=== PATIENT | female | born 1980 | race Caucasian/White ===

== ENCOUNTER 2020-06-18 19:51 | Emergency (ER) | payer MEDICARE, MEDICAID, SELFPAY ==
--- NOTE | 2020-06-18 19:53 | ED.DENTAL ---
HPI - Dental/Oral General Chief complaint: Dental/Oral Stated complaint: Tooth Pain Time Seen by Provider: 06/18/20 19:53 Source: patient and RN notes reviewed History of Present Illness HPI Narrative: Patient is a 40-year-old female who presents the urgent care with complaints of dental pain for the last 2 days. Patient significant other states that she is taking everything such as Tylenol and ibuprofen and she needs something stronger . Patient states that she needs a prescription pain medicine . Patient is complaining of lower left molar pain without fever, chills, nausea, vomiting, swelling. No other acute complaints. No acute distress noted. Patient read the plan of care. Some parts of this dictation were generated by voice recognition software and may contain typographical and/or grammatical inaccuracies. Related Data Allergies Allergy/AdvReac Type Severity Reaction Status Date / Time No Known Allergies Allergy Verified 03/14/19 17:49 Review of Systems Review of Systems: Narrative: CONSTITUTIONAL: Denies fever, chills, or sweats. EYES: Denies visual changes, redness, or discharge. ENT: Denies rhinorrhea, congestion, sore throat, or otalgia. Reports of lower left dental pain CARDIOVASCULAR: Denies chest pain, palpitations, or edema. RESPIRATORY: Denies cough or dyspnea. GASTROINTESTINAL: Denies abdominal pain, nausea, vomiting, or diarrhea. GENITOURINARY: Denies dysuria or hematuria. SKIN: Denies rash or itching. MUSCULOSKELETAL: Denies back pain, joint pain, or myalgia. NEUROLOGIC: Denies headache, numbness, or weakness. All other systems reviewed are negative, except as documented in HPI. PMFSH Social History Social History Smoking status: Never smoker Alcohol intake: never Comments At the time of my signature, I reviewed and agree with the nursing past medical, surgical, social, and family history. There is no relevant family history pertinent to the patient complaint. Exam Narrative: Exam Narrative: GENERAL: This is a well-nourished, well-developed patient, in no apparent distress. HEAD: normocephalic, atraumatic. EYES: PERRL. Sclera clear/white. Vision is grossly intact. EARS: External ears normal NOSE: External nose normal with no obvious nasal discharge, nares without redness, no rhinorrhea. THROAT: Mucous membranes moist, posterior pharynx clear. DENTAL: No obvious abscess, erythema or edema noted to the area of complaint, lower left quadrant. No obvious carious lesions to the area of complaint NECK: Neck supple, non-tender without lymphadenopathy SKIN: warm, intact with no suspicious lesions or rash, good texture and turgor. NEURO: awake, alert, and oriented to person, place and time. There were no obvious focal neurologic abnormalities. EXTREMITIES: No clubbing, cyanosis, or edema. Course Vital Signs Vital signs: Vital Signs Temperature 99.0 F 06/18/20 20:02 Pulse Rate 75 06/18/20 20:02 Respiratory Rate 16 06/18/20 20:02 Blood Pressure 163/90 H 06/18/20 20:02 Pulse Oximetry 100 06/18/20 20:02 Temperature 99.0 F 06/18/20 20:02 Pulse Rate 75 06/18/20 20:02 Respiratory Rate 16 06/18/20 20:02 Blood Pressure 163/90 H 06/18/20 20:02 Pulse Oximetry 100 06/18/20 20:02 Reviewed?patient is informed that they may have pre-hypertension or hypertension based on a blood pressure reading in the department. I recommend the patient call the primary care provider listed on their discharge instructions or a physician of their choice this week to arrange follow-up for further evaluation of possible pre-hypertension or hypertension. MDM - Dental/Oral MDM Narrative Medical decision making narrative: Advised the patient to use the ibuprofen and Tylenol intermittently for pain. Be sure to eat and drink with the medications. Do not take more medication than directed. Follow-up with your dentist as scheduled on Friday. Differ
[2020-06-18 20:02] VITALS: BP 163/90; PULSE 75; RESP 16; TEMP 37.2; O2SAT 100
== END 2020-06-18 20:08 | disposition home or self-care (01) ==
PROVIDERS: Emergency Provider Nurse Practitioner Family
DX: K08.89 Other specified disorders of teeth and supporting structures (principal)
CPT/HCPCS: 99213; G0463

== ENCOUNTER 2020-06-27 15:20 | Outpatient (CLI) | payer MEDICARE, MEDICAID, SELFPAY ==
--- NOTE | 2020-06-27 | ECG_ITS ---
Measurements Intervals [place] Rate: 70 P: 33 [place]: 171 QRS: -16 QRSD: 86 T: 5 QT: 414 QTc: 447 Interpretive Statements SINUS RHYTHM DELAYED PRECORDIAL R/S TRANSITION LOW QRS VOLTAGE IN PRECORDIAL LEADS BORDERLINE ECG Electronically Signed On 06-27-2020 15:54:16 CDT by Imtiaz Newell D.O.
== END 2020-06-27 15:21 | disposition home or self-care (01) ==
LOC: ANHLAB 15:22 → ANHCARD 15:22
PROVIDERS: PCP Emergency Medicine; Visit Provider Emergency Medicine
DX: R55 Syncope and collapse (principal); H91.90 Unspecified hearing loss, unspecified ear
CPT/HCPCS: 93005

== ENCOUNTER 2020-06-30 17:32 | Emergency (ER) | payer MEDICARE, MEDICAID, SELFPAY ==
--- NOTE | ~2020-06-30 | XR_ITS ---
XR chest 2V DATE: 06/30/2020 18:14 INDICATION: Chest pain, shortness of breath. 9 weeks . TECHNIQUE: PA and lateral views COMPARISON: None FINDINGS: Normal heart size. No hilar or mediastinal enlargement. No pulmonary infiltrate or consolid ation, pleural effusion or pulmonary vascular congestion or pneumothorax. Included skeletal structure s are unremarkable. IMPRESSION: No active cardiopulmonary disease Reviewed, dictated and finalized at location [facility].
[2020-06-30 17:39] VITALS: BP 146/88; PULSE 78; RESP 18; TEMP 36.7; O2SAT 99
--- NOTE | 2020-06-30 17:53 | ECG_ITS ---
Measurements Intervals [place] Rate: 74 P: 27 MS: 168 QRS: -15 QRSD: 90 T: 1 QT: 407 QTc: 452 Interpretive Statements SINUS RHYTHM POOR R WAVE PROGRESSION, ANTERIOR LEADS INFERIOR INFARCT, AGE INDETERMINATE BORDERLINE T WAVE ABNORMALITY- ANTERIOR LEADS BASELINE ARTIFACT- V6 ABNORMAL ECG Electronically Signed On 06-30-2020 19:36:34 CDT by Imtiaz Newell D.O.
--- NOTE | 2020-06-30 18:24 | ED.CHESTPAIN ---
HPI - Chest Pain General Chief Complaint: Chest Pain Stated Complaint: chest pain Time Seen by Provider: 06/30/20 18:23 Source: patient Mode of arrival: ambulatory Limitations: no limitations History of Present Illness HPI narrative: Patient is 40 years old white female presents with intermittent chest pain, across the chest, sharp, weird feeling started 1 week ago, patient denies radiation of pain, aggravating or relieving factors. Patient is status post vaginal delivery 9 weeks ago. History of anxiety and distress, the stress level is worse lately. Patient sometimes gets sudden onset of lightheadedness, shaking, blurry vision and foggy feeling FOR weeks. Patient denies any fever, chills, nausea, vomiting, OR shortness of breath Related Data Allergies Allergy/AdvReac Type Severity Reaction Status Date / Time No Known Allergies Allergy Verified 03/14/19 17:49 Review of Systems Review of Systems: Narrative: CONSTITUTIONAL: Denies fever, chills, or sweats. EYES: Denies visual changes, redness, or discharge. ENT: Denies rhinorrhea, congestion, sore throat, or otalgia. CARDIOVASCULAR: Denies chest pain, palpitations, or edema. RESPIRATORY: Denies cough or dyspnea. GASTROINTESTINAL: Denies abdominal pain, nausea, vomiting, or diarrhea. GENITOURINARY: Denies dysuria or hematuria. SKIN: Denies rash or itching. MUSCULOSKELETAL: Denies back pain, joint pain, or myalgia. NEUROLOGIC: Denies headache, numbness, or weakness. PSYCHIATRIC: Denies anxiety or depression. PMFSH Past Medical History Medical History Near syncope Social History Social History Smoking status: Never smoker Alcohol intake: never Gender identity (if verbalized by the patient): Female Exam Narrative: Exam Narrative: General appearance: Well-developed, well-nourished Skin: Normal color Head: Normocephalic, nontraumatic Eyes: Clear conjunctiva ENT: Oropharynx normal, ears normal, nose normal Neck: Supple, nontender Chest and respiratory: Airway patent, no respiratory distress, no accessory muscle use Heart: Regular rate/rhythm Abdomen: Soft, nontender, no organomegaly, quiet bowel sounds Vascular: Normal peripheral pulses, normal capillary refill. Musculoskeletal: Normal range of motion, nontender back Neurologic: Alert and oriented ?3, WOMEN'S HEALTH CARE NURSE PRACTITIONER is normal as tested, no gross motor deficit Course Course Emergency Course: Stable Vital Signs Vital signs: Vital Signs Temperature 36.7 C 06/30/20 17:39 Pulse Rate 78 06/30/20 17:39 Respiratory Rate 18 06/30/20 17:39 Blood Pressure 146/88 H 06/30/20 17:39 Pulse Oximetry 99 06/30/20 17:39 Temperature 36.7 C 06/30/20 17:39 Pulse Rate 78 06/30/20 17:39 Respiratory Rate 18 06/30/20 17:39 Blood Pressure 146/88 H 06/30/20 17:39 Pulse Oximetry 99 06/30/20 17:39 MDM - Chest Pain MDM Narrative Medical decision making narrative: Patient presents with chest pain, no coronary artery risk factors. Anxiety, stress causing her symptoms is probably the underlying cause of her symptoms. Labs, chest x-ray, EKG, D-dimer ordered. Further plan to follow Differential Diagnosis Differential diagnosis: Likely atypical chest pain, chest pain and other (Pulmonary embolism) Imaging Data Radiologist's impression: Impressions Chest X-Ray 06/30/20 18:21 IMPRESSION: No active cardiopulmonary disease ECG Data EKG #1: ECG completion date: 06/30/20 ECG completion time: 19:28 Interpretation: Normal sinus rhythm at 74 bpm, possible anterior myocardial infarction, of indeterminate ag
[2020-06-30 18:30] LABS: Basophils Percent Auto 0.6 % (0.2-1.2); Eosinophils Absolute Auto 0.1 K/mm3 (0-0.3); Eosinophils Percent Auto 1.5 % (0-4.4); Hematocrit 40.3 % (37.0-47.0); Hemoglobin 13.9 g/dL (12.0-15.0); Immature Granulocyte Absolute 0.02 K/mm3 (0.00-0.031); Immature Granulocyte Percent A 0.4 % (0-0.5); Lymphocytes Absolute Auto 1.99 K/mm3 (0.9-3.2); Mean Corpuscular HGB Conc 34.5 g/dl (32-36); Mean Corpuscular Hemoglobin 29.2 pg (26-34); Mean Corpuscular Volume 84.7 fl (80-100); Mean Platelet Volume 9.1 fl (7.4-10.4); Monocytes Absolute Auto 0.5 K/mm3 (0.1-0.6); Monocytes Percent Auto 8.8 % (2.6-8.5); Neutrophils Absolute Auto 2.7 K/mm3 (1.3-6.7); Neutrophils Percent Auto 50.7 % (45.5-73.1); Platelet Count Result 254 k/mm3 (150-375); Red Blood Count 4.76 M/mm3 (4.2-5.4); Red Cell Distribution Width 12.3 % (11.5-14.5); White Blood Count 5.2 K/mm3 (4.5-10.0)
[2020-06-30 18:42] LABS: Anion Gap 5 mmol/L (8-16); Blood Urea Nitrogen 12 mg/dL (7-17); Calcium 9.3 mg/dL (8.4-10.2); Carbon Dioxide 31 mmol/L (22-30); Chloride 103 mmol/L (98-107); Estimated CRCL calculation 82 ml/min; Estimated Glomerular Filt Rate > 60; Glucose 124 mg/dL (65-105); Potassium 3.8 mmol/L (3.4-5.0); Sodium 139 mmol/L (137-145)
[2020-06-30 18:54] LABS: Troponin I < 0.012 ng/mL (0.000-0.034)
[2020-06-30 19:23] LABS: INR 0.9; Partial Thromboplastin Time 25.3 SECONDS (22.3-36.8); Prothrombin Time 12.2 Seconds (11.1-14.7)
[2020-06-30 19:26] LABS: D Dimer 0.48 ug/mL (<0.48)
[2020-06-30 19:57] VITALS: BP 127/84; PULSE 73; RESP 18; O2SAT 98
== END 2020-06-30 19:59 | disposition home or self-care (01) ==
PROVIDERS: Emergency Provider Emergency Medicine; PCP Emergency Medicine
DX: R07.9 Chest pain, unspecified (principal); F41.9 Anxiety disorder, unspecified; R94.31 Abnormal electrocardiogram [ECG] [EKG]
CPT/HCPCS: 36415; 71046; 80048; 84484; 85025; 85380; 85610; 85730; 93005; 99284

== ENCOUNTER → 2020-09-13 13:50 | Outpatient (CLI) | payer MEDICARE, MEDICAID, SELFPAY ==
--- NOTE | ~2020-09-13 | US_ITS ---
US OB <= 14 weeks fetus DATE: 09/13/2020 14:14 INDICATION: Irregular menstruation TECHNIQUE: Real-time imaging and Doppler analysis COMPARISON: None FINDINGS: The uterus measures 9.9 cm height, 6.3 cm AP and 8.8 cm transverse dimension. Normally shaped intrauterine gestational sac is present, with yolk sac and pole identified. Fet al cardiac motion is noted. heart rate 151 bpm. [place]-rump length of 0.96 cm consistent with 7 weeks +/- 4 days estimated gestational age with BRENDAN of 05/02/2021. No pelvic mass or abnormal pelvic fluid collection is identified. IMPRESSION: Live intrauterine gestation, 7 weeks +/- 4 days estimated gestational age; BRENDAN: 05/02/2021 Reviewed, dictated and finalized at [facility]. Reviewed, dictated and finalized at location A. IMPRESSION: Live intrauterine gestation, 7 weeks +/- 4 days estimated gestation al age; BRENDAN: 05/02/2021
== END ==
PROVIDERS: Visit Provider Obstetrics & Gynecology
DX: Z34.91 Encounter for supervision of normal pregnancy, unspecified, first trimester (principal); Z3A.01 Less than 8 weeks gestation of pregnancy
CPT/HCPCS: 76801

== ENCOUNTER 2020-12-18 18:10 | Observation (INO) | payer MEDICARE, MEDICAID, SELFPAY ==
--- NOTE | 2020-12-18 17:56 | PC.NURSE ---
REPORT TO THERESA IN OB TRIAGE. TRANSPORT PT OVER [facility]
[2020-12-18 18:18] VITALS: BP 131/80; PULSE 86
[2020-12-18 18:54] LABS: Add Urine Microscopic? NO; Appearance Urine Clear (Clear); Bilirubin Urine Negative (Negative); Blood Urine Negative (Negative); Color Urine Yellow (Yellow); Glucose Urine UA Negative (Negative); Ketones Urine Negative (Negative); Leukocyte Esterase Ur Negative LEU/UL (NEGATIVE); Nitrate Urine Negative (Negative); Protein Urine Negative (Negative); Specific Grav Ur 1.012 (1.001-1.035); Urobilinogen Urine Negative mg/dL (<2.0)
[2020-12-18 20:15] VITALS: BMI 37.0
--- NOTE | 2020-12-18 20:17 | OBADM ---
This patient, Mary Ann Colon, admitted to the OB room OB Post [facility] for observation. Patient/family oriented to hospital policies and general routines including ID bracelet, bed and alarms, visiting hours, pain management, procedures, bathroom and other care routines, personal items, smoking policy, room service/diet, and visiting hours. Patient/Family are encouraged to report perceived risks to care and to ask questions if they do not understand what they are told or what they should do.
--- NOTE | 2021-01-01 16:22 | PM.OBTRLD ---
OB - Triage/Final Diagnosis Visit Information Comments/Additional reasons for admission: I have assessed the risk for this patient, Mary Ann Colon, and determined that she would benefit from observation care. Evaluation Laboratory results: Laboratory Tests 12/18/20 18:45 Urine Color Yellow Urine Appearance Clear Urine pH 6.0 Ur Specific [place] 1.012 Urine Protein Negative Urine Glucose (UA) Negative Urine Ketones Negative Ur Blood (Man) Negative Urine Nitrate Negative Urine Bilirubin Negative Urine Urobilinogen Negative Ur Leukocyte Esterase Negative Final Diagnosis (1) Abdominal pain affecting : Code(s): O26.899 - Other specified related conditions, unspecified trimester; R10.9 - Unspecified abdominal pain Status: Acute
== END 2020-12-18 19:26 | disposition home or self-care (01) ==
PROVIDERS: Admitting Provider Obstetrics & Gynecology; PCP Emergency Medicine; Visit Provider Obstetrics & Gynecology
DX: O26.899 Other specified pregnancy related conditions, unspecified trimester (principal); R10.9 Unspecified abdominal pain; Z3A.00 Weeks of gestation of pregnancy not specified
CPT/HCPCS: 81003; 87086; 87088; G0378; G0379

== ENCOUNTER 2021-07-13 17:36 | Emergency (ER) | payer MEDICARE, MEDICAID, SELFPAY ==
[2021-07-13 17:47] VITALS: BP 145/97; PULSE 87; RESP 16; TEMP 36.9; O2SAT 100
--- NOTE | 2021-07-13 18:04 | ED.FEMALEGU ---
HPI - Female Genitourinary General Chief complaint: Urogenital-Female Stated complaint: vaginal burning Time Seen by Provider: 07/13/21 17:50 Source: patient, family, RN notes reviewed and old records reviewed Mode of arrival: ambulatory Limitations: no limitations History of Present Illness HPI Narrative: 41 year old female accompanied by and kids who waited in the waiting room presents to express care with complaints of vaginal burning for 5 days. Patient denies any discharge or any genital itching. Patient reports that she has not had a period since May is using condoms for control, reports that she has six children. Patient reports that she saw her routine PRESS TENDER in April for routine examination. Patient wants vaginal examination done to see if there is inflammation. Patient had previously been on psychiatric medication for Bipolar 2 disease but patient states that she quit taking them 2 months ago. Patient denies any suprapubic pain or any CVA tenderness states occasional burning with urination. MD elicited complaint: other (vaginal burning) Onset (ago): day(s) (5) Location of symptoms: vaginal Related Data Allergies Allergy/AdvReac Type Severity Reaction Status Date / Time No Known Allergies Allergy Verified 03/14/19 17:49 Review of Systems Review of Systems: CONSTITUTIONAL: Denies fever, chills, or sweats. EYES: Denies visual changes, redness, or discharge. ENT: Denies rhinorrhea, congestion, sore throat, or otalgia. CARDIOVASCULAR: Denies chest pain, palpitations, or edema. RESPIRATORY: Denies cough or dyspnea. GASTROINTESTINAL: Denies abdominal pain, nausea, vomiting, or diarrhea. GENITOURINARY: Denies dysuria or hematuria.reports burning vaginally with no discharge noted or vaginal itching. SKIN: Denies rash or itching. MUSCULOSKELETAL: Denies back pain, joint pain, or myalgia. NEUROLOGIC: Denies headache, numbness, or weakness. PSYCHIATRIC: Denies anxiety or depression, positive history of Bipolar 2 disease but patient has quit her medications 2 months ago. All systems reviewed & are unremarkable except as noted in HPI and below PMFSH Past Medical History Medical History (Updated 07/13/21 @ 18:23 by Hollie Wells NP) Bipolar 2 disorder Near syncope Surgical History Surgical History (Updated 07/13/21 @ 18:51 by Hollie L. Priscilla, [employer]BER) Previous section X4 Social History Social History Smoking status: Never smoker Alcohol intake: never Gender identity (if verbalized by the patient): Female Comments At time of signature, agree with nursing past medical, surgical, social and family history. There is no relevant family history pertinent to the presenting complaint Exam Narrative: GENERAL: Well-appearing, well-nourished, and in no acute distress. HEAD: Normocephalic, atraumatic. EYES: PERRLA and EOMI. ENT: Nares clear, no rhinorrhea or epistaxis. Mucous membranes moist.TM's normal with good light reflex, throat pink with no lesion or exudates no tonsil enlargement NECK: Supple.no lymphadenopathy CHEST: Clear to auscultation. No respiratory distress.SAO2 100% on room air HEART: Regular rate and rhythm. No murmur heard. Normal peripheral pulses. ABDOMEN: Soft, nontender, nondistended, normal active bowel sounds.Vaginal examination with speculum with white discharge noted culture obtained and sent for evaluation EXTREMITIES: Normal range of motion. No edema. SKIN: Warm, dry, no rash. NEURO: No focal deficits. Alert and oriented x3. Course Course Level of Care: Express Care Visit Vital Signs Vital signs: Vital Signs Temperature 36.9 C 07/13/21 17:47 Pulse Rate 87 07/13/21 17:47 Respiratory Rate 16 07/13/21 17:47 Blood Pressure 145/97 H 07/13/21 17:47 Pulse Oximetry 100 07/13/21 17:47 Temperature 36.9 C 07/13/21 17:47 Pulse Rate 87 07/13/21 17:47 Respiratory Rate 16 07/13/21 17:47 Blood P
== END 2021-07-13 18:30 | disposition home or self-care (01) ==
PROVIDERS: Emergency Provider Registered Nurse
DX: N76.0 Acute vaginitis (principal)
CPT/HCPCS: 81003; 81025; 87070; 99213; G0463

== ENCOUNTER 2021-07-26 10:21 | Outpatient (CLI) | payer MEDICARE, MEDICAID, SELFPAY ==
--- NOTE | ~2021-07-26 | US_ITS ---
EXAMINATION: US pelvic complete w TV EXAM DATE: 07/26/2021 15:03 INDICATION: R10.2 - Pelvic and perineal pain. TECHNIQUE: Pelvic transabdominal and transvaginal sonogram was performed. There are multiple graysca le and Doppler images available for interpretation. Comparison is made to prior examination from 2020. FINDINGS: Uterus measures 9.1 x 6.2 x 3.2 cm, is anteverted and morphologically normal. Endometrial stripe measures 7 mm, within normal limits. There is trace endometrial canal fluid. There are naboth adri cysts. There is no free pelvic fluid. Right adnexa: The ovary measures 3.1 x 1.8 x 2.1 cm and is morphologically normal. Ovarian vascular f low confirmed. Left adnexa: The ovary measures 3.3 x 1.5 x 1.9 cm and is morphologically normal. Ovarian vascular fl ow confirmed. IMPRESSION: Trace endometrial fluid. Normal [facility] measurement. Reviewed, dictated and finalized at location B.
== END 2021-07-26 10:22 | disposition home or self-care (01) ==
LOC: ANHIMG 10:28
PROVIDERS: Visit Provider Obstetrics & Gynecology
DX: R10.2 Pelvic and perineal pain (principal)
CPT/HCPCS: 76830; 76856

== ENCOUNTER 2021-10-06 15:42 | Emergency (ER) | payer MEDICARE, MEDICAID, SELFPAY ==
[2021-10-06 15:49] VITALS: BP 144/82; PULSE 86; RESP 16; TEMP 36.4; O2SAT 99
[2021-10-06 16:06] VITALS: BP 132/71; PULSE 72
[2021-10-06 16:09] VITALS: BP 138/91; PULSE 100
[2021-10-06 16:11] VITALS: BP 131/71; PULSE 82
[2021-10-06 16:46] LABS: Basophils Percent Auto 0.3 % (0.2-1.2); Eosinophils Absolute Auto 0.1 K/mm3 (0-0.3); Eosinophils Percent Auto 1.2 % (0-4.4); Hematocrit 37.7 % (37.0-47.0); Hemoglobin 13.3 g/dL (12.0-15.0); Immature Granulocyte Absolute 0.01 K/mm3 (0.00-0.031); Immature Granulocyte Percent A 0.2 % (0-0.5); Lymphocytes Absolute Auto 1.95 K/mm3 (0.9-3.2); Lymphocytes Percent Auto 30.4 % (18.3-44.2); Mean Corpuscular HGB Conc 35.3 g/dl (32-36); Mean Corpuscular Hemoglobin 29.8 pg (26-34); Mean Corpuscular Volume 84.3 fl (80-100); Mean Platelet Volume 9.1 fl (7.4-10.4); Monocytes Absolute Auto 0.6 K/mm3 (0.1-0.6); Neutrophils Absolute Auto 3.7 K/mm3 (1.3-6.7); Neutrophils Percent Auto 57.9 % (45.5-73.1); Platelet Count Result 257 k/mm3 (150-375); Red Blood Count 4.47 M/mm3 (4.2-5.4); Red Cell Distribution Width 12.5 % (11.5-14.5); White Blood Count 6.4 K/mm3 (4.5-10.0)
[2021-10-06 16:47] LABS: Alanine Aminotransferase 29 U/L (6-35); Albumin Level 4.3 g/dL (3.5-5.1); Alkaline Phosphatase 60 U/L (38-126); Anion Gap 6 mmol/L (8-16); Aspartate Amino Transferase 25 U/L (14-36); Bilirubin,Total 0.2 mg/dL (0.2-1.3); Blood Urea Nitrogen 9 mg/dL (7-17); Calcium 8.6 mg/dL (8.4-10.2); Carbon Dioxide 26 mmol/L (22-30); Chloride 104 mmol/L (98-107); Estimated CRCL calculation 112 ml/min; Estimated Glomerular Filt Rate > 60; Glucose 133 mg/dL (65-110); Potassium 3.6 mmol/L (3.4-5.0); Sodium 136 mmol/L (137-145)
--- NOTE | 2021-10-06 17:05 | ED.GENADULT ---
HPI - General Adult General Chief complaint: Vaginal Bleeding Stated complaint: irregular vaginal bleeding and cramping Time Seen by Provider: 10/06/21 16:17 Source: RN notes reviewed History of Present Illness HPI narrative: Patient presents emergency department from home for vaginal bleeding. Patient states that she has been having vaginal bleeding for the past several months that will range in intensity she states that she has been seen by Dr. Huntley for this. States she was taken off her control pills several months ago and also had an ultrasound several months ago. States she was having some lower abdominal cramping that felt like menstrual cramping earlier today and yesterday but states no cramping this time she denies any fevers or chills nausea vomiting or any other symptoms Related Data Home Medications Medication Instructions Recorded Confirmed venlafaxine 75 mg capsule,extended cap PO 10/06/21 release 24 hr Allergies Allergy/AdvReac Type Severity Reaction Status Date / Time No Known Allergies Allergy Verified 10/06/21 16:03 Review of Systems Review of Systems: Gen.: Denies fevers or chills ENT: Denies congestion Respiratory: Denies shortness of breath or cough CV: Denies chest pain or palpitations GI: Reports lower abdominal cramping, denies nausea, emesis or diarrhea see HPI Musculoskeletal: Denies back pain or muscle pain Neuro: Denies numbness, tingling, weakness or focal weakness Skin: Denies rash Except as documented, all other systems reviewed and negative [facility] Past Medical History Medical History Bipolar 2 disorder Irregular periods Near syncope Surgical History Surgical History Previous section X4 Family History Family History Mother Hypertension Family history of colon cancer Social History Social History Smoking status: Never smoker Alcohol intake: never Substance use: never Substance use type: does not use Additional living arrangements comments: single 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 NEURO: Awake and alert. Following commands, speech normal, no focal deficits SKIN:: Warm, dry. Normal Color PSYCHIATRIC: Normal affect/mood Course Course Emergency Course: Reviewed old records reviewed ultrasound from July Discussed with Dr. Flores presentation agrees plan for discharge with follow-up as an outpatient Discussed with patient results of workup and diagnosis. Discussed need for follow-up with primary care, proper use of medication, and reasons to return to the emergency department. Patient understands and agrees to current treatment plan discussed with patient ultrasound not available at this time and need for follow-up with LABORATORY AIDE as an outpatient for further testing Vital Signs Vital signs: Vital Signs Temperature 97.6 F 10/06/21 15:49 Pulse Rate 86 10/06/21 15:49 Respiratory Rate 16 10/06/21 15:49 Blood Pressure 144/82 H 10/06/21 15:49 Pulse Oximetry 99 10/06/21 15:49 Oxygen Delivery Room Air 10/06/21 15:49 Temperature 97.6 F 10/06/21 15:49 Pulse Rate 82 10/06/21 16:11 Respiratory Rate 16
[2021-10-06 17:31] VITALS: BP 132/74; PULSE 84; RESP 16; O2SAT 98
== END 2021-10-06 17:32 | disposition home or self-care (01) ==
PROVIDERS: Emergency Provider Emergency Medicine
DX: N93.8 Other specified abnormal uterine and vaginal bleeding (principal); F31.81 Bipolar II disorder
CPT/HCPCS: 36415; 80053; 81025; 85025; 86850; 86900; 86901; 99284

== ENCOUNTER 2021-10-27 23:18 | Emergency (ER) | payer MEDICARE, MEDICAID, SELFPAY ==
[2021-10-27 23:19] VITALS: BP 157/93; PULSE 82; RESP 18; TEMP 36.6; O2SAT 100
--- NOTE | 2021-10-27 23:50 | ECG_ITS ---
Measurements Intervals [place] Rate: 92 P: 19 [place]: 164 QRS: -18 QRSD: 82 T: 2 QT: 366 QTc: 455 Interpretive Statements SINUS RHYTHM LOW QRS VOLTAGE IN PRECORDIAL LEADS INFERIOR INFARCT, AGE INDETERMINATE ABNORMAL ECG Electronically Signed On 10-28-2021 9:38:28 CDT by Imtiaz Newell D.O.
[2021-10-28 00:19] LABS: Appearance Urine Clear (Clear); Bilirubin Urine Negative (Negative); Color Urine Yellow (Yellow); Glucose Urine UA Negative (Negative); Ketones Urine Negative (Negative); Leukocyte Esterase Ur Negative LEU/UL (Negative); Nitrate Urine Negative (Negative); Protein Urine Negative (Negative); Specific Grav Ur 1.015 (1.001-1.035); Urobilinogen Urine 0.2 mg/dL (<2.0); pH Urine 7.5 (5.0-9.0)
[2021-10-28 00:22] LABS: Bacteria Urine Trace /hpf; RBC Urine 0-2 /hpf (0-2); Squamous Epithelial Cell Urine Rare /hpf (Few); WBC Urine 0-3 /hpf
[2021-10-28 00:23] LABS: Add Urine Microscopic? YES; Blood Urine Trace (Negative)
[2021-10-28 00:25] VITALS: PULSE 92; RESP 18; O2SAT 99
[2021-10-28] MEDS: SODIUM CHLORIDE 0.9% IV 1,000 ML 999 ML IV CONT (00:25)
[2021-10-28 00:30] VITALS: BP 133/81; PULSE 81; RESP 23; O2SAT 95
[2021-10-28 00:31] VITALS: PULSE 88; RESP 25; O2SAT 96
[2021-10-28 00:36] LABS: Basophils Percent Auto 0.4 % (0.2-1.2); Eosinophils Absolute Auto 0.1 K/mm3 (0-0.3); Eosinophils Percent Auto 1.5 % (0-4.4); Hematocrit 40.3 % (37.0-47.0); Hemoglobin 13.7 g/dL (12.0-15.0); Immature Granulocyte Absolute 0.01 K/mm3 (0.00-0.031); Immature Granulocyte Percent A 0.1 % (0-0.5); Lymphocytes Absolute Auto 2.67 K/mm3 (0.9-3.2); Lymphocytes Percent Auto 36.6 % (18.3-44.2); Mean Corpuscular Hemoglobin 28.8 pg (26-34); Mean Corpuscular Volume 84.7 fl (80-100); Monocytes Absolute Auto 0.7 K/mm3 (0.1-0.6); Neutrophils Absolute Auto 3.8 K/mm3 (1.3-6.7); Neutrophils Percent Auto 52.4 % (45.5-73.1); Platelet Count Result 263 k/mm3 (150-375); Red Blood Count 4.76 M/mm3 (4.2-5.4); Red Cell Distribution Width 12.3 % (11.5-14.5); White Blood Count 7.3 K/mm3 (4.5-10.0)
[2021-10-28 00:45] LABS: Alanine Aminotransferase 32 U/L (6-35); Albumin Level 4.7 g/dL (3.5-5.1); Alkaline Phosphatase 73 U/L (38-126); Anion Gap 8 mmol/L (8-16); Aspartate Amino Transferase 28 U/L (14-36); Bilirubin,Total 0.2 mg/dL (0.2-1.3); Blood Urea Nitrogen 10 mg/dL (7-17); Calcium 9.5 mg/dL (8.4-10.2); Carbon Dioxide 27 mmol/L (22-30); Chloride 102 mmol/L (98-107); Estimated CRCL calculation 112 ml/min; Estimated Glomerular Filt Rate > 60; Glucose 119 mg/dL (65-110); Potassium 3.8 mmol/L (3.4-5.0); Sodium 137 mmol/L (137-145)
--- NOTE | 2021-10-28 00:45 | ED.GENADULT ---
HPI - General Adult General Chief complaint: Dizziness Stated complaint: dizzy Time Seen by Provider: 10/27/21 23:42 History of Present Illness HPI narrative: Patient is a 41-year-old female that presents the emergency department with chief complaint of dizziness. Patient reports has been under a lot of stress has been having a lot of issues with anxiety and ADHD. Patient states that when she gets extremely anxious she feels as though the room is spinning the patient denies suicidal or homicidal ideation the patient states that she has an appointment with her counselor coming up very soon. Patient denies vomiting denies diarrhea reports that she does have baseline irregular periods and has been several months since her last period. Related Data Home Medications Medication Instructions Recorded Confirmed venlafaxine 75 mg capsule,extended cap PO 10/06/21 release 24 hr Allergies Allergy/AdvReac Type Severity Reaction Status Date / Time No Known Allergies Allergy Verified 10/06/21 16:03 Review of Systems Review of Systems: A 10 system review of systems was completed on the patient and is negative except for what is stated in the HPI. Nursing and ancillary documentation was reviewed. 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 HEAD: Normocephalic, atraumatic. EYES: PERRLA and EOMI. ENT: Nares clear, no rhinorrhea or epistaxis. Mucous membranes moist. NECK: Supple. CHEST: Clear to auscultation. No respiratory distress. HEART: Regular rate and rhythm. No murmur heard. Normal peripheral pulses. ABDOMEN: Soft, nontender, nondistended, normal active bowel sounds. EXTREMITIES: Normal range of motion. No edema. SKIN: Warm, dry, no rash. NEURO: No focal deficits. Alert and oriented x3. PSYCH: Normal mood and affect. Course Vital Signs Vital signs: Vital Signs Temperature 36.6 C 10/27/21 23:19 Pulse Rate 82 10/27/21 23:19 Respiratory Rate 18 10/27/21 23:19 Blood Pressure 157/93 H 10/27/21 23:19 Pulse Oximetry 100 10/27/21 23:19 Oxygen Delivery Room Air 10/27/21 23:19 Temperature 36.6 C 10/27/21 23:19 Pulse Rate 82 10/27/21 23:19 Respiratory Rate 18 10/27/21 23:19 Blood Pressure 157/93 H 10/27/21 23:19 Pulse Oximetry 100 10/27/21 23:19 Oxygen Delivery Room Air 10/27/21 23:19 Medical Decision Making Vital Signs Vital Signs: Vital Signs Temperature 36.6 C 10/27/21 23:19 Pulse Rate 82 10/27/21 23:19 Respiratory Rate 18 10/27/21 23:19 Blood Pressure 157/93 H 10/27/21 23:19 Pulse Oximetry 100 10/27/21 23:19 Oxygen Delivery Room Air 10/27/21 23:19 Temperature 36.6 C 10/27/21 23:19 Pulse Rate 82 10/27/21 23:19 Respiratory Rate 18 10/27/21 23:19 Blood Pressure 157/93 H 10/27/21 23:19 Pulse Oximetry 100 10/27/21 23:19 Oxygen Delivery Room Air 10/27/21 23:19 Lab Data Result diagrams: 10/28/21 00:27 10/28/21 00:27 Labs: Lab Results 10/28/21 10/28/21 10/28/21 Range/Unit
[2021-10-28 00:53] VITALS: PULSE 100; RESP 25; O2SAT 98
[2021-10-28 00:56] LABS: Troponin I < 0.012 ng/mL (0.000-0.034)
[2021-10-28] MEDS: hydrOXYzine HCL 25 MG TABLET PO (01:01)
[2021-10-28 01:03] VITALS: BP 101/84; PULSE 89; RESP 20; O2SAT 100
== END 2021-10-28 01:28 | disposition home or self-care (01) ==
PROVIDERS: Emergency Provider Emergency Medicine
DX: R42 Dizziness and giddiness (principal); F41.9 Anxiety disorder, unspecified; R94.31 Abnormal electrocardiogram [ECG] [EKG]
CPT/HCPCS: 36415; 80053; 81001; 81025; 83735; 84484; 85025; 93005; 96360; 99284; A9270; J7030

== ENCOUNTER 2022-02-01 19:30 | Emergency (ER) | payer MEDICARE, MEDICAID, SELFPAY ==
[2022-02-01 19:36] VITALS: BP 135/80; PULSE 99; RESP 18; TEMP 36.6; O2SAT 97
--- NOTE | 2022-02-01 19:46 | ED.URI ---
HPI - URI/Sore Throat General Chief Complaint: Upper Respiratory Infection Stated Complaint: Sore Throat, Both Ears Irritation Time Seen by Provider: 02/01/22 19:46 Source: patient and RN notes reviewed Mode of arrival: ambulatory Limitations: no limitations History of Present Illness HPI Narrative: 41-year-old female presents to the [facility] with complaints of sore throat and bilateral ear pain. Pain started today. No treatment prior to arrival Related Data Allergies Allergy/AdvReac Type Severity Reaction Status Date / Time No Known Allergies Allergy Verified 02/01/22 19:43 Review of Systems Review of Systems: All systems reviewed & are unremarkable except as noted in HPI and below Constitutional: Constitutional: Reports no additional constitutional complaints, Denies chills and Denies fever(s) Eyes: Eyes: Reports no additional eye complaints ENT: Reports as per HPI, Reports otalgia and Reports sore throat Cardiovascular: Cardiovascular: Reports no additional cardiovascular complaints Respiratory: Respiratory: Reports no additional respiratory complaints Gastrointestinal: Gastrointestinal: Reports no additional gastrointestinal complaints Musculoskeletal: Musculoskeletal: Reports no additional musculoskeletal complaints Integumentary/Breasts: Skin/Breast: Reports system reviewed and no additional complaints, except as docu Neurologic: Reports system reviewed and no additional complaints, except as documented Psychiatric: Psychiatric: Reports no additional psychiatric complaints Allergic/Immunologic: Allergic/Immunologic: Reports no additional allergic/immunologic complaints [facility] Past Medical History Medical History Anxiety Bipolar 2 disorder History of 4 possible 5 Irregular periods Near syncope Surgical History Surgical History Previous section 02/20/01 primary c/s 08/09/02 rpt c/s 11/06/13 rpt c/s 4th c/s sometime late 2020/early 2021 Family History Family History Mother Hypertension Family history of colon cancer Social History Social History Smoking status: Never smoker Alcohol intake: never Substance use: never Substance use type: does not use Additional living arrangements comments: single 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 There is no relevant family history pertinent to the patient complaint. Exam Const: General: healthy appearing, no acute distress, alert and well nourished Nutritional Appearance: well nourished Orientation/consciousness: patient oriented x3 Limitations: no limitations HENMT: Head: normal to inspection Ears: external ears normal, EAC's normal and TM abnormal with fluid behind the TM bilateral; not bulging and not erythematous Face/Nose/Sinus: Normal external nose present and Normal nares present Face and sinus: normal facial exam Mouth: Yes Normal oral and palatal mucosa present, Yes lip normal and Yes moist mucous membranes Throat: posterior oropharynx normal, uvula midline and abnormal tonsil bilateral crypts (With stone on the right-hand side) Eyes: General: appearance normal, both eyes and all related structures Pupils: Equal, round and reactive pupils present Neck: Neck: normal visual inspection, no lymphadenopathy and no meningeal signs Chest: Chest palpation & inspection: normal inspection of the chest Resp: Effort & Inspection: normal respiratory effort and no use of accessory muscles Auscultation: clear to auscultation
== END 2022-02-01 20:11 | disposition home or self-care (01) ==
PROVIDERS: Emergency Provider Nurse Practitioner
DX: J35.8 Other chronic diseases of tonsils and adenoids (principal); J06.9 Acute upper respiratory infection, unspecified; H65.03 Acute serous otitis media, bilateral
CPT/HCPCS: 87081; 87880; 99213; G0463

== ENCOUNTER 2022-02-15 19:38 | Emergency (ER) | payer MEDICARE, MEDICAID, SELFPAY ==
--- NOTE | 2022-02-15 19:45 | PC.NURSE ---
in br to obtain ua spec.
[2022-02-15 19:50] VITALS: BP 147/76; PULSE 93; RESP 16; TEMP 37.1; O2SAT 99
--- NOTE | 2022-02-15 20:00 | ED.BACK ---
HPI - Back Pain/Injury General Chief Complaint: Urogenital-Female Stated Complaint: dysuria, low back pain Time Seen by Provider: 02/15/22 19:50 Source: patient Mode of arrival: ambulatory Limitations: no limitations History of Present Illness HPI Narrative: patient presents today complaining of a 3 day history of right low back pain. Denies known injury or trauma, but does lift her children at home frequently. Reports radiation of the pain to the right buttock and hip. Denies numbness or tingling in the legs or genitals. She has been taking Tylenol without relief. Related Data Allergies Allergy/AdvReac Type Severity Reaction Status Date / Time No Known Allergies Allergy Verified 02/15/22 19:54 Review of Systems Review of Systems: CONSTITUTIONAL: Denies body aches, fever, chills, or sweats. EYES: Denies visual changes, redness, or discharge. ENT: Denies rhinorrhea, congestion, sore throat, or otalgia. CARDIOVASCULAR: Denies chest pain, palpitations, or edema. RESPIRATORY: Denies cough or dyspnea. GASTROINTESTINAL: Denies abdominal pain, nausea, vomiting, or diarrhea. GENITOURINARY: Denies dysuria or hematuria. SKIN: Denies rash, itching, or wounds. MUSCULOSKELETAL: Denies joint pain, or myalgia.+ Low back pain NEUROLOGIC: Denies headache, numbness, tingling, or weakness. PSYCH: Denies depression or anxiety. 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 Please see nursing chart for further information. There is no relevant family history pertinent to the presenting complaint Exam Narrative: GENERAL: Well-appearing, well-nourished, and in no acute distress. HEAD: Normocephalic, atraumatic. EYES: EOMI. No redness or drainage. Conjunctivae normal. ENT: Mucous membranes pink and moist. NECK: Normal AROM. CHEST: No respiratory distress. MUSCULOSKELETAL: No bony tenderness of the spine. Patient has right lower lumbar paraspinal muscle tenderness that extends to the buttock. Distal sensation intact. Type sensation intact. Capillary refill normal. Pedal pulses normal. Foot push and pulls equal and strong. EXTREMITIES: Normal range of motion. No edema. SKIN: Warm, dry, no rash. Capillary refill normal. Normal skin turgor. NEURO: No focal deficits. Alert and oriented x3. Gait steady. PSYCH: Normal affect. No signs of depression or anxiety. Course Course Level of Care: Express Care Visit Vital Signs Vital signs: Vital Signs Temperature 98.7 F 02/15/22 19:50 Pulse Rate 93 02/15/22 19:50 Respiratory Rate 16 02/15/22 19:50 Blood Pressure 147/76 H 02/15/22 19:50 Pulse Oximetry 99 02/15/22 19:50 Oxygen Delivery Room Air 02/15/22 19:50 Temperature 98.7 F 02/15/22 19:50 Pulse Rate 93 02/15/22 19:50 Respiratory Rate 16 02/15/22 19:50 Blood Pressure 147/76 H 02/15/22 19:50
== END 2022-02-15 20:10 | disposition home or self-care (01) ==
PROVIDERS: Emergency Provider Nurse Practitioner
DX: S39.012A Strain of muscle, fascia and tendon of lower back, initial encounter (principal); X58.XXXA Exposure to other specified factors, initial encounter
CPT/HCPCS: 81003; 81025; 99213; G0463

== ENCOUNTER 2022-02-16 14:25 | Emergency (ER) | payer MEDICARE, MEDICAID, SELFPAY ==
--- NOTE | ~2022-02-16 | CT_ITS ---
EXAMINATION: CT abdomen pelvis wo con DATE: 02/16/2022 17:47 INDICATION: R flank pain TECHNIQUE: Computed tomography (CT) of the abdomen and pelvis was performed without intravenous contr ast. Automated exposure control and iterative reconstruction technique were employed. The dose-length product was 407.23 mGy-cm. COMPARISON: None. FINDINGS: Lower thorax: Small hiatal hernia Liver: Normal. Biliary/Gallbladder: Cholelithiasis. No bile duct dilation. Pancreas: No mass or duct dilation. Spleen: Normal. Adrenals:No mass. Kidneys: No suspicious mass or hydronephrosis. Bilateral nonobstructing calculi. GI tract: No small or large bowel dilation. Normal appendix. Mesentery/Peritoneum: No ascites, mass, or free air. Retroperitoneum: No mass. Pelvis: Pelvic organs are within normal limits. Soft Tissues: Fat-containing umbilical and right ventral abdominal wall hernias. Bones: No acute osseous finding. IMPRESSION: No acute abdominopelvic process detected. Reviewed, dictated and finalized at location K.
[2022-02-16 14:33] VITALS: BP 146/81; PULSE 88; RESP 16; TEMP 36.8; O2SAT 100
[2022-02-16 14:51] VITALS: BP 131/85; PULSE 81; RESP 25; O2SAT 100
[2022-02-16 15:03] LABS: Appearance Urine Clear (Clear); Bilirubin Urine Negative (Negative); Blood Urine Negative (Negative); Color Urine Yellow (Yellow); Glucose Urine UA Negative (Negative); Ketones Urine Negative (Negative); Leukocyte Esterase Ur Negative LEU/UL (Negative); Nitrate Urine Negative (Negative); Protein Urine Negative (Negative); Urobilinogen Urine 0.2 mg/dL (<2.0)
--- NOTE | 2022-02-16 15:11 | ED.BACK ---
HPI - Back Pain/Injury General Chief Complaint: Back Pain/Injury Stated Complaint: right flank pain Time Seen by Provider: 02/16/22 14:39 Source: RN notes reviewed History of Present Illness HPI Narrative: Patient presents emergency room from home for right flank pain. Patient states she had pain in her right lower back for the past 2 days. The pain is described as aching in nature and will radiate down into her right hip and leg at times she denies any known trauma or injury she denies any fevers or chills abdominal pain nausea or vomiting or any other symptoms. Patient does note some questionable blood in her urine and states she has been having problems with irregular menstrual cycles states she has been worked up for this including ultrasounds have been normal states she has not take any medication for the pain today. Denies any bowel or bladder incontinence denies any leg weakness Related Data Home Medications Medication Instructions Recorded Confirmed escitalopram oxalate 10 mg tablet mg 02/16/22 Allergies Allergy/AdvReac Type Severity Reaction Status Date / Time No Known Allergies Allergy Verified 02/15/22 19:54 Review of Systems Review of Systems: Gen.: Denies fevers or chills ENT: Denies congestion Respiratory: Denies shortness of breath or cough CV: Denies chest pain or palpitations GI: Denies abdominal pain nausea, emesis or diarrhea denies burning, urgency, frequency reports possible hematuria Musculoskeletal: See HPI Neuro: Denies numbness, tingling, weakness or focal weakness Skin: Denies rash Except as documented, all other systems reviewed and negative PMF Past Medical History Medical History Anxiety Bipolar 2 disorder History of 4 possible 5 Irregular periods Near syncope Surgical History Surgical History Previous section 02/20/01 primary c/s 08/09/02 rpt c/s 11/06/13 rpt c/s 4th c/s sometime late 2020/early 2021 Family History Family History Mother Hypertension Family history of colon cancer Social History Social History Smoking status: Never smoker Alcohol intake: never Substance use: never Substance use type: does not use Additional living arrangements comments: single 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 Clear to auscultation bilaterally. Abdomen: Soft and nontender, no rebound or guarding MUSCULOSKELETAl: Moves all extremities, no clubbing cyanosis or edema Back: No midline lumbar tenderness to palpation or step-off, tender to palpation over right paravertebral muscles L3-5 , pain increased with forward flexion NEURO: Awake and alert. Following commands, speech normal, no focal deficits, muscle strength 5 out of 5 bilateral lower extremities, bilateral patellar reflex 2+ SKIN:: Warm, dry. Normal Color no rash or lesions Course Course Emergency Course: Discussed with patient results of workup and diagnosis. Discussed need for follow-up with primary care, proper use of medication, and reasons to return to the emergency department. Patient understands and agrees to current treatment plan Vital Signs Vital signs: Vital Signs Temperature 98.2 F 02/16/22 14:33 Pulse Rate 88 02/16/22 14:33 Respiratory Rate 16 02/16/22 14:33 Blood Pressure 146/81 H 02/16/22 14:33 Pulse Oximetry 100 02/16/22 14:33 Oxygen Delivery Room Air 02/16/22 14:33
[2022-02-16 15:13] LABS: Add Urine Microscopic? NO; RBC Urine 0-2 /hpf (0-2); Squamous Epithelial Cell Urine Rare /hpf (Few)
[2022-02-16 15:19] VITALS: PULSE 73; RESP 23; O2SAT 99
[2022-02-16 15:45] VITALS: PULSE 81; RESP 16; O2SAT 99
[2022-02-16 15:55] LABS: Pregnancy On Board Control Positive; Urine Pregnancy Test Negative
[2022-02-16 16:05] LABS: Basophils Percent Auto 0.6 % (0.2-1.2); Eosinophils Absolute Auto 0.1 K/mm3 (0-0.3); Eosinophils Percent Auto 1.2 % (0-4.4); Hematocrit 38.8 % (37.0-47.0); Hemoglobin 13.3 g/dL (12.0-15.0); Immature Granulocyte Absolute 0.02 K/mm3 (0.00-0.031); Immature Granulocyte Percent A 0.3 % (0-0.5); Lymphocytes Absolute Auto 1.65 K/mm3 (0.9-3.2); Lymphocytes Percent Auto 25.5 % (18.3-44.2); Mean Corpuscular HGB Conc 34.3 g/dl (32-36); Mean Corpuscular Volume 84.5 fl (80-100); Mean Platelet Volume 8.8 fl (7.4-10.4); Monocytes Absolute Auto 0.6 K/mm3 (0.1-0.6); Monocytes Percent Auto 8.8 % (2.6-8.5); Neutrophils Absolute Auto 4.1 K/mm3 (1.3-6.7); Neutrophils Percent Auto 63.6 % (45.5-73.1); Platelet Count Result 256 k/mm3 (150-375); Red Blood Count 4.59 M/mm3 (4.2-5.4); Red Cell Distribution Width 12.4 % (11.5-14.5); White Blood Count 6.5 K/mm3 (4.5-10.0)
[2022-02-16 16:15] LABS: Alanine Aminotransferase 23 U/L (6-35); Albumin Level 4.3 g/dL (3.5-5.1); Alkaline Phosphatase 70 U/L (38-126); Anion Gap 13 mmol/L (8-16); Aspartate Amino Transferase 25 U/L (14-36); Bilirubin,Total 0.3 mg/dL (0.2-1.3); Blood Urea Nitrogen 10 mg/dL (7-17); Calcium 8.9 mg/dL (8.4-10.2); Carbon Dioxide 27 mmol/L (22-30); Chloride 100 mmol/L (98-107); Estimated CRCL calculation 95 ml/min; Estimated Glomerular Filt Rate > 60; Glucose 113 mg/dL (65-110); Potassium 3.7 mmol/L (3.4-5.0); Sodium 140 mmol/L (137-145)
== END 2022-02-16 18:42 | disposition home or self-care (01) ==
PROVIDERS: Emergency Provider Emergency Medicine
DX: M54.50 Low back pain, unspecified (principal)
CPT/HCPCS: 36415; 74176; 80053; 81003; 81025; 85025; 99284

== ENCOUNTER 2022-06-06 23:22 | Emergency (ER) | payer MEDICARE, MEDICAID, SELFPAY ==
[2022-06-06 23:25] VITALS: BP 140/72; PULSE 70; RESP 17; TEMP 36.4; O2SAT 100
--- NOTE | 2022-06-07 01:11 | PC.NURSE ---
patient left at this time. patient ambulatory with steady gait. alert and oriented x4.
== END 2022-06-07 02:01 | disposition left against medical advice (07) ==
LOC: ANHED 06-07 01:16
DX: R53.83 Other fatigue (principal)
CPT/HCPCS: 99199

== ENCOUNTER 2022-08-18 19:53 | Emergency (ER) | payer MEDICARE, MEDICAID, SELFPAY ==
--- NOTE | 2022-08-18 19:55 | ED.EYEPROB ---
HPI - Eye Problem General Chief complaint: Eye Problems Stated complaint: Red/swollen left eye Time Seen by Provider: 08/18/22 20:10 Source: patient and RN notes reviewed Mode of arrival: ambulatory Limitations: no limitations History of Present Illness HPI Narrative: 42-year-old female presents with concern for left eye redness, swelling, drainage. She reports 2 days ago she was on a walk when she felt something in her eye that she rubbed in got out. She denied any eye pain after that. She reports she then noticed purulence drainage, eye redness and slight irritation. She denies pain. Reports some blurry vision. chief complaint: eye redness Related Data Allergies Allergy/AdvReac Type Severity Reaction Status Date / Time No Known Allergies Allergy Verified 08/18/22 20:07 Review of Systems Review of Systems: CONSTITUTIONAL: Denies malaise, chills, sweats, or fever. EYES: Denies visual changes. Reports left eye redness, irritation, discharge. ENT: Denies rhinorrhea, congestion, sinus pain, otalgia or sore throat. SKIN: Denies rash or itching. NEUROLOGIC: Denies numbness, weakness, or headache. PSYCHIATRIC: Denies anxiety or depression. All systems reviewed & are unremarkable except as noted in HPI and below PMFSH Past Medical History Medical History Anxiety Bipolar 2 disorder History of 4 possible 5 Irregular periods Near syncope Surgical History Surgical History Previous section 02/20/01 primary c/s 08/09/02 rpt c/s 11/06/13 rpt c/s 4th c/s sometime late 2020/early 2021 Family History Family History Mother Hypertension Family history of colon cancer Social History Social History Smoking status: Never smoker Alcohol intake: never Substance use: never Substance use type: does not use Living arrangements: other Additional living arrangements comments: single Occupation/Education: other 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 There is no relevant family history pertinent to the presenting complaint Exam Narrative: GENERAL: Well-appearing, well-nourished, and in no acute distress. HEAD: Normocephalic, atraumatic. EYES: PERRLA, sclera clear, and EOMI. No nystagmus. Left sclera and conjunctivae injected with yellow drainage. Upper and lower eyelid unremarkable, no periorbital edema noted ENT: Nares clear, turbinates pink, no rhinorrhea or epistaxis. Mucous membranes moist. TM pearly ibarra with sharp light reflex bilaterally; no tragal tenderness. NECK: Supple. CHEST: No respiratory distress. Speaks in full sentences. HEART: Regular rate and rhythm. SKIN: Warm, dry, no visible rash. NEURO: Alert and oriented x3. PSYCH: Normal mood and affect Course Course Emergency Course: Patient is aware of diagnosis, understands and agrees to treatment plan. Anticipatory guidance given. Patient agrees to follow-up as directed and is aware of reasons to seek care at the emergency department. Portions of this record may have been created with voice recognition software Level of Care: Express Care Visit Vital Signs Vital signs: Reviewed. MDM - Eye Problem MDM Narrative Medical decision making narrative: Consideration of the following conditions may be warranted for the presenting problem, they are not final diagnoses: Bacterial conjunctivitis, allergic conjunctivitis, viral conjunctivitis, foreign body, blepharitis, chalazion, hordeolum, corneal abrasion, preseptal cellulitis, orbital celluliti
[2022-08-18 20:09] VITALS: BP 142/74; PULSE 78; RESP 16; TEMP 37.6; O2SAT 99
== END 2022-08-18 20:20 | disposition home or self-care (01) ==
PROVIDERS: Emergency Provider Nurse Practitioner
DX: H10.9 Unspecified conjunctivitis (principal)
CPT/HCPCS: 99213; G0463

== ENCOUNTER 2022-12-18 16:18 | Emergency (ER) | payer MEDICARE, MEDICAID, SELFPAY ==
--- NOTE | 2022-12-18 16:21 | ED.DENTAL ---
HPI - Dental/Oral General Chief complaint: Dental/Oral Stated complaint: Dental Pain Time Seen by Provider: 12/18/22 16:21 Source: patient Mode of arrival: ambulatory Limitations: no limitations History of Present Illness HPI Narrative: Patient is a 42-year-old female who presents with right lower dental pain. Patient states she had partial root canal roughly 3 weeks ago and the nerve pain and infection have returned. Patient can get into dentist until Friday. Patient is taking Tylenol and ibuprofen for pain. Denies any fever, bitter taste in mouth, jaw pain or difficulty swallowing. Location: Tooth # (30) Related Data Allergies Allergy/AdvReac Type Severity Reaction Status Date / Time No Known Allergies Allergy Verified 12/18/22 16:30 Review of Systems Review of Systems: All systems reviewed & are unremarkable except as noted in HPI and below Constitutional: Constitutional: Denies body ache(s), Denies fever(s), Denies headache(s), Denies malaise and Denies weakness Eyes: Eyes: Denies loss of vision ENT: Denies otalgia, Reports facial pain (jaw), Denies headache(s), Denies nasal discharge, Denies sinus pain and Denies sore throat Cardiovascular: Cardiovascular: Denies chest pain, Denies irregular heart rhythm and Denies dyspnea Respiratory: Respiratory: Denies dyspnea Gastrointestinal: Gastrointestinal: Denies abdominal pain, Denies melena, Denies hematochezia, Denies diarrhea, Denies nausea and Denies vomiting Musculoskeletal: Musculoskeletal: Denies back pain, Denies myalgias and Denies arthralgias Integumentary/Breasts: Skin/Breast: Denies pruritus and Denies rash Neurologic: Denies headache(s), Denies loss of vision and Denies weakness Psychiatric: Psychiatric: Reports no additional psychiatric complaints PMFSH Past Medical History Medical History Anxiety Bipolar 2 disorder History of 4 possible 5 Irregular periods Near syncope Surgical History Surgical History Previous section 02/20/01 primary c/s 08/09/02 rpt c/s 11/06/13 rpt c/s 4th c/s sometime late 2020/early 2021 Family History Family History Mother Hypertension Family history of colon cancer Social History Social History Smoking status: Never smoker Alcohol intake: never Substance use: never Substance use type: does not use Living arrangements: other Additional living arrangements comments: single Occupation/Education: other 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 There is no relevant family history pertinent to the presenting complaint. Exam Const: General: cooperative, healthy appearing, comfortable, no acute distress and well nourished Nutritional Appearance: well nourished Orientation/consciousness: patient oriented x3 Limitations: no limitations HENMT: Head: normal to inspection, normocephalic and atraumatic Ears: hearing grossly normal bilaterally, external ears normal, TM's normal bilaterally and mastoids normal bilaterally Face/Nose/Sinus: Normal external nose present, normal facial exam and face symmetric Face and sinus: normal facial exam and face symmetric Mouth: Yes Normal oral and palatal mucosa present, Yes lip normal, Yes tongue normal, Yes Normal salivary glands and ducts present and Yes moist mucous membranes Teeth and gingiva: caries, fair dentition and multiple restorations Teeth image: 1. Dental pain, temporary cap placed. No surrounding erythema or drainage Eyes: General: appearance normal, both
[2022-12-18 16:43] VITALS: BP 132/78; PULSE 74; RESP 16; TEMP 37.4; O2SAT 99
== END 2022-12-18 17:48 | disposition home or self-care (01) ==
PROVIDERS: Emergency Provider Nurse Practitioner Family
DX: K04.7 Periapical abscess without sinus (principal)
CPT/HCPCS: 99213; G0463

== ENCOUNTER 2023-03-31 12:41 | Outpatient (RCR) | payer MEDICARE, MEDICAID, SELFPAY ==
--- NOTE | 2023-03-31 13:20 | PTOPEVAL1 ---
Assessment and note entered by Yasmani Elias, PT, DPT Evaluation Information Assessment Status Evaluation Diagnosis unsteadiness on feet Subjective Information Pt arrived 15 mins late for her scheduled appointment this date. Pt states she thought she was coming here for a pelvic floor evaluation. When mentioned the unsteadiness on feet order she states oh yeah I have that too I guess . She states it feels like she is walking through a video games but states this hasn't happened in multiple months. She said being stressed makes it worse. Reported Pain Level Pain Score 0: Self Report Assessment PT Clinical Summary Mary Ann presents to therapy today for her initial evaluation with a diagnosis of unsteadiness on her feet. Today she demonstrates good strength. She demonstrates scores on the 5xSTS, DGI, PORTILLO, and 2 min walk test that are at or above average. Discussed with pt other factors that may make her feel unsteady in stressful situations. There are no indication for skilled therapy at this time. Plan of Care PT Services Indicated No Treatment Frequency and evaluate and discharge Duration These treatments will address the objective and functional deficits as defined above. The patient will be advanced safely and appropriately in order for the patient to progress towards his/her prior level of function. Additional exercises will be introduced and as well as a comprehensive home exercise program upon discharge, if needed, ?to ensure carryover of functional gains achieved in the clinic. This treatment plan has been reviewed and agreement upon by the patient.
== END 2023-03-31 13:45 | disposition home or self-care (01) ==
LOC: ANHGOSHPT 12:41
PROVIDERS: Visit Provider Nurse Practitioner Family
DX: R26.81 Unsteadiness on feet (principal)
CPT/HCPCS: 97110; 97161

== ENCOUNTER 2023-07-07 01:55 | Emergency (ER) | payer MEDICARE, MEDICAID, SELFPAY ==
[2023-07-07] VITALS (13 sets, daily range): BP systolic 112–139; BP diastolic 78–90; PULSE 74–87; RESP 17–24; TEMP 36.8; O2SAT 97–100
--- NOTE | 2023-07-07 01:56 | ECG_ITS ---
Measurements Intervals [place] Rate: 85 P: 19 ID: 160 QRS: -16 QRSD: 84 T: 11 QT: 391 QTc: 467 Interpretive Statements SINUS RHYTHM LOW QRS VOLTAGE IN PRECORDIAL LEADS INFERIOR INFARCT, AGE INDETERMINATE BORDERLINE ST ABNORMALITY- ANTEROLAT/HIGH LAT LEADS ABNORMAL ECG COMPARED TO ECG 10/27/2021 23:35:21 NO SIGNIFICANT CHANGES Electronically Signed On 07-07-2023 6:33:29 CDT by Imtiaz Newell D.O.
--- NOTE | 2023-07-07 01:59 | PC.NURSE ---
Pt asked the arnp multiple times for a time line and guestimate wait time. This rn informed pt that we are not allowed to give any type of wait time, but did explain that the chest pain protocol does require a baseline troponin level drawn now and then a repeat drawn at the 3 hour grecia. Pt ambulatory with steady gait to exit to let her ride know. Pt returned to intake window and agreeable to be seen.
[2023-07-07 02:13] LABS: Basophils Percent Auto 0.5 % (0.2-1.2); Eosinophils Absolute Auto 0.1 K/mm3 (0-0.3); Eosinophils Percent Auto 1.6 % (0-4.4); Hematocrit 42.5 % (37.0-47.0); Hemoglobin 14.5 g/dL (12.0-15.0); Immature Granulocyte Absolute 0.02 K/mm3 (0.00-0.031); Immature Granulocyte Percent A 0.2 % (0-0.5); Lymphocytes Absolute Auto 3.89 K/mm3 (0.9-3.2); Lymphocytes Percent Auto 44.6 % (18.3-44.2); Mean Corpuscular HGB Conc 34.1 g/dl (32-36); Mean Corpuscular Hemoglobin 29.5 pg (26-34); Mean Corpuscular Volume 86.6 fl (80-100); Monocytes Absolute Auto 0.8 K/mm3 (0.1-0.6); Monocytes Percent Auto 9.2 % (2.6-8.5); Neutrophils Absolute Auto 3.8 K/mm3 (1.3-6.7); Neutrophils Percent Auto 43.9 % (45.5-73.1); Platelet Count Result 270 k/mm3 (150-375); Red Blood Count 4.91 M/mm3 (4.2-5.4); Red Cell Distribution Width 12.6 % (11.5-14.5); White Blood Count 8.7 K/mm3 (4.5-10.0)
--- NOTE | 2023-07-07 02:20 | PC.NURSE ---
Patient refused xray at this time, states I want to wait for my lab work to be done first. ERP notified.
[2023-07-07 02:23] LABS: INR 0.9
[2023-07-07 02:24] LABS: Partial Thromboplastin Time 25.5 Seconds (22.3-36.8)
[2023-07-07 02:30] LABS: Alanine Aminotransferase 29 U/L (6-35); Albumin Level 4.8 g/dL (3.5-5.1); Alkaline Phosphatase 77 U/L (38-126); Anion Gap 9 mmol/L (8-16); Aspartate Amino Transferase 25 U/L (14-36); Bilirubin,Total 0.5 mg/dL (0.2-1.3); Blood Urea Nitrogen 10 mg/dL (7-17); Calcium 9.8 mg/dL (8.4-10.2); Carbon Dioxide 29 mmol/L (22-30); Chloride 100 mmol/L (98-107); Estimated CRCL calculation 104 ml/min; Estimated Glomerular Filt Rate > 60; Glucose 111 mg/dL (65-110); Lipase 161 U/L (23-300); Potassium 3.5 mmol/L (3.4-5.0); Sodium 138 mmol/L (137-145)
[2023-07-07 02:41] LABS: Troponin I < 0.012 ng/mL (0.000-0.034)
--- NOTE | 2023-07-07 04:02 | PC.NURSE ---
Patient refusing xray at this time, states I want to wait for all the blood work to come back.
--- NOTE | 2023-07-07 04:38 | ECG_ITS ---
Measurements Intervals [place] Rate: 70 P: 26 SD: 169 QRS: -14 QRSD: 83 T: -1 QT: 413 QTc: 448 Interpretive Statements SINUS RHYTHM INFERIOR INFARCT, AGE INDETERMINATE ABNORMAL ECG COMPARED TO ECG 07/07/2023 02:04:52 NO SIGNIFICANT CHANGES Electronically Signed On 07-07-2023 6:33:43 CDT by Imtiaz Newell D.O.
--- NOTE | 2023-07-07 05:11 | ED.CHESTPAIN ---
HPI - Chest Pain General Chief Complaint: Chest Pain Stated Complaint: chest pain Time Seen by Provider: 07/07/23 02:24 History of Present Illness HPI narrative: Patient is 43-year-old female who presents to the emergency department this morning complaining of chest pain. Patient states the chest pain is along her left lateral ribs, does not radiate and started approximately 30 minutes to an hour prior to arrival. Patient denies any history of cardiovascular disease and states that she does have a history of anxiety and does appear anxious. Patient states that she has had similar symptoms in the past and had some blood work done which revealed an elevated dimer, however, CT of her chest revealed no evidence of pulmonary emboli. Patient denies any additional symptoms at this time. There are no other modifying, alleviating, or precipitating factors. Related Data Allergies Allergy/AdvReac Type Severity Reaction Status Date / Time No Known Allergies Allergy Verified 07/07/23 02:04 Review of Systems Review of Systems: All systems are reviewed and are negative unless stated otherwise in the HPI. [facility] Past Medical History Medical History Anxiety Bipolar 2 disorder History of 4 possible 5 Irregular periods Near syncope Surgical History Surgical History Previous section 02/20/01 primary c/s 08/09/02 rpt c/s 11/06/13 rpt c/s 4th c/s sometime late 2020/early 2021 Family History Family History Mother Hypertension Family history of colon cancer Social History Social History Smoking status: Never smoker Alcohol intake: never Substance use: never Substance use type: does not use Living arrangements: other Additional living arrangements comments: single Occupation/Education: other 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 HEENT: PERRL, no rhinorrhea, no post nasal drip, oropharynx clear. Neck: Trachea midline, no JVD, no lymphadenopathy. Cardiovascular: Regular rate and rhythm, no murmurs, rubs or gallops, no peripheral edema. Respiratory: Clear to auscultation bilaterally, no tachypnea, no wheezing, no rhonchi, no rubs, no respiratory distress. Abdomen: Soft, nontender, nondistended, no rebound, no guarding, no peritoneal signs. Musculoskeletal: No joint swelling or deformity, normal muscle tone. Skin: No rashes or petechia, no signs of infection. Psychiatric: Alert and oriented, normal behavior and judgment for situation. Neurological: Alert and oriented to person, place, and time. Follows all commands. No focal deficits, speech is clear and fluent. Course Vital Signs Vital signs: Vital Signs Temperature 98.2 F 07/07/23 02:00 Pulse Rate 85 07/07/23 02:00 Respiratory Rate 22 H 07/07/23 02:00 Blood Pressure 139/89 07/07/23 02:00 Pulse Oximetry 100 07/07/23 02:00 Oxygen Delivery Room Air 07/07/23 02:00 Temperature 98.2 F 07/07/23 02:00 Pulse Rate 87 07/07/23 05:15 Respiratory Rate 17 07/07/23 05:15 Blood Pressure 129/90 07/07/23 05:01 Pulse Oximetry 100 07/07/23 05:15 Oxygen Delivery Room Air 07/07/23 02:05 MDM - Chest Pain MDM Narrative Medical decision making narrative: The patient was evaluated by myself in the emergency department. History is obtained from patient who is an independent historian and physical exam was performed. External medical records were reviewed at this time. IV was established and pertinent tests were ordered. EKG was obtained which revealed sinus rhythm at a rate of
[2023-07-07 05:15] LABS: Troponin I < 0.012 ng/mL (0.000-0.034)
== END 2023-07-07 05:44 | disposition home or self-care (01) ==
PROVIDERS: Emergency Provider Emergency Medicine
DX: R07.89 Other chest pain (principal); R94.31 Abnormal electrocardiogram [ECG] [EKG]
CPT/HCPCS: 36415; 80053; 83690; 84484; 85025; 85610; 85730; 93005; 99284

== ENCOUNTER 2023-12-14 21:52 | Emergency (ER) | payer MEDICARE, MEDICAID, SELFPAY ==
[2023-12-14 22:05] VITALS: BP 138/81; PULSE 86; RESP 16; TEMP 36.8; O2SAT 100
[2023-12-14 23:03] LABS: Bacteria Urine None Seen /hpf; Non Pathogenic Casts 0-2; RBC Urine 0-2 /hpf (0-2); Squamous Epithelial Cell Urine Occasional /hpf (Few); WBC Urine 0-5 /hpf (0-3)
[2023-12-14 23:08] LABS: Appearance Urine Clear (Clear); Blood Urine Negative (Negative); Color Urine Yellow (Yellow); Glucose Urine UA Negative (Negative); Ketones Urine Trace mg/dL (Negative); Protein Urine Negative (Negative)
[2023-12-14 23:09] LABS: Add Urine Microscopic? YES; Bilirubin Urine Negative (Negative); Leukocyte Esterase Ur Negative LEU/UL (Negative); Nitrate Urine Negative (Negative)
--- NOTE | 2023-12-15 00:25 | ED.FEMALEGU ---
HPI - Female Genitourinary General Chief complaint: PALAEONTOLOGIST Stated complaint: vaginal symptoms Time Seen by Provider: 12/14/23 22:31 Source: patient Mode of arrival: ambulatory Limitations: no limitations History of Present Illness HPI Narrative: Patient is a 43-year-old female who presents the ED with report of vaginal irritation. Patient reports having this irritation throughout her vaginal region as well as mild burning over the last couple of days. She reports history of similar symptoms 3 weeks ago and treated this herself with OTC monistat. Reports history of frequent yeast infections and bacterial vaginosis. She denies concern for STDs. Denies vaginal discharge. Denies dysuria, hematuria, abdominal pain, nausea, vomiting, fevers. Related Data Allergies Allergy/AdvReac Type Severity Reaction Status Date / Time No Known Allergies Allergy Verified 12/14/23 22:24 Review of Systems Review of Systems: All systems reviewed & are unremarkable except as noted in HPI. All systems reviewed & are unremarkable except as noted in HPI and below PMFSH Past Medical History Medical History Anxiety Bipolar 2 disorder History of 4 possible 5 Irregular periods Near syncope Surgical History Surgical History Previous section 02/20/01 primary c/s 08/09/02 rpt c/s 11/06/13 rpt c/s 4th c/s sometime late 2020/early 2021 Family History Family History Mother Hypertension Family history of colon cancer Social History Social History Smoking status: Never smoker Alcohol intake: never Substance use: never Substance use type: does not use Living arrangements: other Additional living arrangements comments: single Occupation/Education: other 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 HEAD: Normocephalic, atraumatic. RESPIRATORY: Airway patent, respirations nonlabored. CARDIOVASCULAR: Regular rate and rhythm ABDOMINAL: Soft, nontender, nondistended. PELVIC: Normal external genitalia. Very minimal amount of white discharge present in vaginal vault. Does have a slight odor. No Regla changes. No genital lesions or sores noted. Cervix appears unremarkable. No significant CMT. MUSCULOSKELETAL: Moves all extremities. No gross deformities. SKIN: Warm, dry, normal color. NEURO: A&O X3. Speech clear. PSYCHIATRIC: Appropriate mood and affect. Normal interaction. Course Vital Signs Vital signs: Vital Signs Temperature 98.2 F 12/14/23 22:05 Pulse Rate 86 12/14/23 22:05 Respiratory Rate 16 12/14/23 22:05 Blood Pressure 138/81 12/14/23 22:05 Pulse Oximetry 100 12/14/23 22:05 Oxygen Delivery Room Air 12/14/23 22:05 Temperature 98.2 F 12/14/23 22:05 Pulse Rate 86 12/14/23 22:05 Respiratory Rate 16 12/14/23 22:05 Blood Pressure 138/81 12/14/23 22:05 Pulse Oximetry 100 12/14/23 22:05 Oxygen Delivery Room Air 12/14/23 22:05 MDM - Female Genitourinary MDM Narrative Medical decision making narrative: Pelvic exam unremarkable. Patient denies concern for STDs. Declined testing. Urinalysis is clear. Will treat for possible bacterial vaginosis with Flagyl. Advised patient have follow-up with OBGYN for further evaluation. Given return precautions. Discharged in stable condition. Medical Records Attestation: I reviewed the patient's medical records. Lab Data Attestation: I reviewed the patient's lab results. Labs: Lab Results 12/14/23 Range/Units 22:44 Urine C
== END 2023-12-15 00:38 | disposition home or self-care (01) ==
PROVIDERS: Emergency Provider Physician Assistant
DX: N89.8 Other specified noninflammatory disorders of vagina (principal); F31.81 Bipolar II disorder
CPT/HCPCS: 81001; 99284

== ENCOUNTER 2023-12-30 12:36 | Outpatient (CLI) | payer MEDICARE, MEDICAID, SELFPAY ==
[2023-12-30 13:43] LABS: Beta HCG Quantitative < 2.39 mIU/ML
[2024-01-02 00:38] LABS: DHEA-Sulfate 257 mcg/dL (15-205); FSH 9.7 mIU/mL
[2024-01-03 16:45] LABS: Testosterone Total 59 ng/dL (2-45)
[2024-01-04 17:54] LABS: Anti Mullerian Hormone,Female 1.87 ng/mL (0.01-2.99)
[2024-01-07 23:58] LABS: Estradiol, Ultrasensitive 75 pg/mL
== END 2023-12-30 12:37 | disposition home or self-care (01) ==
LOC: ANHLAB 12:45
PROVIDERS: Visit Provider Student in an Organized Health Care Education/Training Program
DX: N91.2 Amenorrhea, unspecified (principal); N89.8 Other specified noninflammatory disorders of vagina
CPT/HCPCS: 36415; 82627; 82670; 83001; 84146; 84403; 84443; 84702

== ENCOUNTER 2024-05-11 17:06 | Emergency (ER) | payer MEDICARE, MEDICAID, SELFPAY ==
[2024-05-11 17:42] VITALS: BP 138/88; PULSE 73; RESP 16; TEMP 36.7; O2SAT 98
[2024-05-11 17:50] LABS: EDUAAPPEAR Clear; EDUABILI Negative (Negative); EDUABLOOD Negative (Negative); EDUACOLOR1 Yellow; EDUAGLUCOSE Negative (Negative); EDUAKETONE Negative (Negative); EDUALEUKO Negative (Negative); EDUANITRATE Negative (Negative); EDUAPROTEIN Negative (Negative); EDUASPGRAVITY 1.025
--- NOTE | 2024-05-11 17:59 | ED.FEMALEGU ---
HPI - Female Genitourinary General Chief complaint: Urogenital-Female Stated complaint: Pain Urinating Time Seen by Provider: 05/11/24 18:23 Source: patient and RN notes reviewed Mode of arrival: ambulatory Limitations: no limitations History of Present Illness HPI Narrative: 44-year-old female presents with concern for dysuria that started yesterday. She denies frequency, urgency, back pain, abdominal pain, nausea, vomiting, chills, fever, sweats. She reports some suprapubic tenderness. She reports her last menstrual period was 5 weeks ago MD elicited complaint: UTI Related Data Home Medications ?Medication ?Instructions ?Recorded ?Confirmed ?Last Taken ?Type atorvastatin 20 mg tablet mg 05/11/24 Unknown History ergocalciferol (vitamin D2) 1,250 05/11/24 Unknown History mcg (50,000 unit) capsule escitalopram oxalate 10 mg tablet mg 05/11/24 Unknown History Allergies Allergy/AdvReac Type Severity Reaction Status Date / Time No Known Allergies Allergy Verified 05/11/24 17:49 Review of Systems Review of Systems: CONSTITUTIONAL: Denies malaise, chills, sweats, or fever. CARDIOVASCULAR: Denies chest pain, palpitations, or edema. RESPIRATORY: Denies cough or dyspnea. GASTROINTESTINAL: Denies abdominal pain, nausea, vomiting, diarrhea GENITOURINARY: Reports dysuria. Denies frequency, urgency, suprapubic pressure. Denies flank pain or hematuria. SKIN: Denies rash or itching. MUSCULOSKELETAL: Denies back pain or myalgia. All systems reviewed & are unremarkable except as noted in HPI and below PMFSH Past Medical History Medical History Amenorrhea Anxiety History of 4 possible 5 Irregular periods Bipolar 2 disorder Near syncope Surgical History Surgical History Previous section 02/20/01 primary c/s 08/09/02 rpt c/s 11/06/13 rpt c/s 4th c/s sometime late 2020/early 2021 Family History Family History Mother Hypertension Family history of colon cancer Social History Social History (Updated 04/20/24 @ 07:25 by Radha Motta MD) Smoking status: Never smoker Alcohol intake: never Substance use: never Substance use type: does not use Do You Feel Safe in your Home?: Yes Lack of Transportation: No Lack of Food: Often True Current Housing: Decline to Answer Concerned About Future Housing: Decline to Answer Difficulty Paying Gas/Electric Bills: No Difficulty Paying for Meds: No Currently Unemployed: No Education: Grade School Difficulty w/ Childcare or Family Care: No Living arrangements: with family Additional living arrangements comments: single Occupation/Education: other 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 There is no relevant family history pertinent to the presenting complaint Exam Narrative: GENERAL: Well-appearing, well-nourished, and in no acute distress. HEAD: Normocephalic. EYES: PERRLA, conjunctivae clear. NECK: Supple. No lymphadenopathy CHEST: Clear to auscultation. No respiratory distress. HEART: Regular rate and rhythm. ABDOMEN: Soft, nontender upon palpation, nondistended, normal active bowel sounds, no palpable or pulsatile masses, no guarding. No CVA tenderness SKIN: Warm, dry, no rash. NEURO: Alert and oriented x3. PSYCH: Normal mood and affect Course Course Emergency Course: Patient is aware of diagnosis, understands and agrees to treatment plan. Anticipatory guidance given. Patient agrees to follow-up as directed and is aware of reasons to seek care at the emergency department. Portions of this record may have been created with voice recognition software Level of Care: Express Care Visit Vital Signs Vital signs: Vital Signs Temperature 98.1 F 05/11/24 17:42 Pulse Rate 73 05/11/24 17:42 Respiratory Rate 16 05/11/24 17:42 Blood Pressure 138/88 05/11/24 17:42 Pulse Oximetry 98 05/11/24 17:42 Temperature 98.1 F 05/11/24 17:42 Pulse Rate 73 05/11/24 17:42 Respiratory Rate 16 05/11/24 17:42 Blood Pressure 138/88 05/11/24 17:42 Pulse Oximetry 98 05/11/24 17:42 Reviewed. MDM - Female Genitourinary MDM Narrative Medical decision making narrative: Exam findings and UA show no acute concerns or changes; patient is non-toxic appearing and is in no distress. Patient is appropriate for outpatient treatment and follow-up. Differential Diagnosis Differential diagnosis: Likely urinary tract infection and cystitis Lab Data Labs: Lab Results 05/11/24 Range/Units 17:48 POC Urine Color Yellow POC Urine Clarity Clear POC Urine pH 6.0 POC Ur Specif Choudrant 1.025 POC Urine Protein Negative (Negative) POC Ur Glucose (UA) Negative (Negative) POC Urine Ketones Negative (Negative) POC Urine Blood Negative (Negative) POC Urine Nitrite Negative (Negative) POC Urine Bilirubin Negative (Negative) POC Urine Urobilinogen 1.0 POC U Leukocyte Esteras Negative (Negative) Critical Care Time Critical Care Time Critical Care Time: No Discharge Plan Discharge Clinical Impression: Dysuria Patient Disposition: Home, Self-Care Condition: Stable Instructions: Dysuria (ED) Additional Instructions: Your test is negative We will send a urine culture to the lab; if the culture identifies an organism that requires antibiotic, you will receive a phone call from an urgent care staff member and an appropriate antibiotic will be prescribed. -Also recommend: increase water intake. Tylenol/ibuprofen as needed for pain or fever -Follow-up with your primary care provider for urine recheck or seek ER visit if condition worsens with high fever, nausea, vomiting and severe back pain. Patient Language: Italian Prescriptions: No Action atorvastatin 20 mg tablet ergocalciferol (vitamin D2) 1,250 mcg (50,000 unit) capsule escitalopram oxalate 10 mg tablet Follow-up/Referrals: PHYSICIAN,RESIDENTIAL SALES CONSULTANT [Primary Care Provider] -
[2024-05-11 18:36] LABS: BEDSIDEPREGUCG Negative (Negative)
== END 2024-05-11 18:34 | disposition home or self-care (01) ==
PROVIDERS: Emergency Provider Nurse Practitioner
DX: R30.0 Dysuria (principal); F41.9 Anxiety disorder, unspecified
CPT/HCPCS: 81003; 81025; 87086; 99213; G0463

== ENCOUNTER 2024-09-14 19:01 | Emergency (ER) | payer MEDICARE, MEDICAID, SELFPAY ==
--- NOTE | 2024-09-14 19:02 | ED_ITS ---
HPI - Female Genitourinary General Chief complaint: Urogenital-Female Stated complaint: UTI/Burning Time Seen by Provider: 09/14/24 19:13 Source: patient, RN notes reviewed and old records reviewed Mode of arrival: ambulatory Limitations: no limitations History of Present Illness HPI Narrative: 44-year-old female presents to the [facility] with burning with urination for 2 days. Denies any abdominal pain, chest pain, shortness of breath. Denies any CVA tenderness. No wound nausea vomiting. Denies fevers. Unknown last menstrual cycle Patient requesting a test. Onset (ago): day(s) (2) Related Data Home Medications ?Medication ?Instructions ?Recorded ?Confirmed ?Last Taken ?Type atorvastatin 20 mg tablet mg 05/11/24 Unknown History ergocalciferol (vitamin D2) 1,250 05/11/24 Unknown History mcg (50,000 unit) capsule escitalopram oxalate 10 mg tablet mg 05/11/24 Unknown History Allergies Allergy/AdvReac Type Severity Reaction Status Date / Time No Known Allergies Allergy Verified 05/11/24 17:49 Review of Systems Review of Systems: All systems reviewed & are unremarkable except as noted in HPI and below Constitutional: Constitutional: Reports no additional constitutional complaints ENT: Reports system reviewed and no additional complaints, except as documented Cardiovascular: Cardiovascular: Reports no additional cardiovascular complaints, Denies chest pain and Denies dyspnea Respiratory: Respiratory: Reports no additional respiratory complaints, Denies chest congestion, Denies cough and Denies dyspnea Gastrointestinal: Gastrointestinal: Reports no additional gastrointestinal complaints Genitourinary: Genitourinary: Reports as per HPI Musculoskeletal: Musculoskeletal: Reports no additional musculoskeletal complaints Integumentary/Breasts: Skin/Breast: Reports system reviewed and no additional complaints, except as docu PMFSH Past Medical History Medical History Amenorrhea Anxiety History of 4 possible 5 Irregular periods Bipolar 2 disorder Near syncope Surgical History Surgical History Previous section 02/20/01 primary c/s 08/09/02 rpt c/s 11/06/13 rpt c/s 4th c/s sometime late 2020/early 2021 Family History Family History Mother Hypertension Family history of colon cancer Social History Social History Smoking status: Never smoker Alcohol intake: never Substance use: never Substance use type: does not use Do You Feel Safe in your Home?: Yes Lack of Transportation: No Lack of Food: Often True Current Housing: Decline to Answer Concerned About Future Housing: Decline to Answer Difficulty Paying Gas/Electric Bills: No Difficulty Paying for Meds: No Currently Unemployed: No Education: Grade School Difficulty w/ Childcare or Family Care: No Living arrangements: with family Additional living arrangements comments: single Occupation/Education: other 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 There is no relevant family history pertinent to the patient complaint. Exam Const: General: cooperative, healthy appearing, comfortable, no acute distress, well developed, alert and well nourished Nutritional Appearance: well nourished Orientation/consciousness: patient oriented x3 Limitations: no limitations HENMT: Head: normal to inspection Eyes: General: appearance normal, both eyes and all related structures Alignment and Position: alignment normal Neck: Neck: normal visual inspection, full ROM, no lymphadenopathy and no meningeal signs Chest: Chest palpation & inspection: normal inspection of the chest Resp: Effort & Inspection: normal respiratory effort and able to speak in complete sentences Auscultation: clear to auscultation bilaterally, no crackles, no rales, no rhonchi and no wheezes Cardio: Rate: regular rate Skin: General skin exam: normal color and no rashes or lesions noted Neuro: General: patient oriented x3, gait normal, moves all extremities and no meningeal signs Cognition (Neuro): normal cognition Speech: normal speech Gait exam (Neuro): Normal gait present Extrem: General: normal to inspection, full ROM, capillary refill normal and normal gait Psych: Appearance: grossly normal and well kempt Mental Status: mental status grossly normal Speech and movement: Normal speech and movement present and Clear speech present Affect: normal affect Attitude: cooperative Course Course Level of Care: Express Care Visit Vital Signs Vital signs: Vital Signs Temperature 98.6 F 09/14/24 19:36 Pulse Rate 79 09/14/24 19:36 Respiratory Rate 16 09/14/24 19:36 Blood Pressure 130/82 09/14/24 19:36 Pulse Oximetry 99 09/14/24 19:36 Oxygen Delivery Room Air 09/14/24 19:36 Temperature 98.6 F 09/14/24 19:36 Pulse Rate 79 09/14/24 19:36 Respiratory Rate 16 09/14/24 19:36 Blood Pressure 130/82 09/14/24 19:36 Pulse Oximetry 99 09/14/24 19:36 Oxygen Delivery Room Air 09/14/24 19:36 Reviewed MDM - Female Genitourinary MDM Narrative Medical decision making narrative: Patient with 1-2 day history of burning with urination positive leukocytes and blood in urine, negative test. Patient sitting comfortably in exam room. Patient is nontoxic, vitals are stable. Patient urine consistent with UTI Patient appropriate for outpatient treatment with close follow-up Discharge instructions reviewed with patient, as well as provided in writing per nursing staff. The instructions also include specific and strict return/GO TO THE ER as well as f/u information. All questions have been answered, and the patient deny any further questions with discharge and discharge plan. Some parts of this dictation were generated by voice recognition software and may contain typographical and/or grammatical inaccuracies. Differential Diagnosis Differential diagnosis: Likely urinary tract infection, bacterial vaginosis and trichomoniasis Lab Data Labs: Lab Results 09/14/24 09/14/24 Range/Units 19:14 19:17 POC Urine Color Yellow POC Urine Clarity Clear POC Urine pH 7.0 POC Ur Specif [place] 1.010 POC Urine Protein Negative (Negative) POC Ur Glucose (UA) Negative (Negative) POC Urine Ketones Negative (Negative) POC Urine Blood Trace (Negative) POC Urine Nitrite Negative (Negative) POC Urine Bilirubin Negative (Negative) POC Urine Urobilinogen 0.2 POC U Leukocyte Esteras 1+ (Negative) POC Urine HCG, Qual Negative (Negative) Reviewed Critical Care Time Critical Care Time Critical Care Time: No Discharge Plan Discharge Clinical Impression: Urinary tract infection Patient Disposition: Home Condition: Stable Instructions: Antibiotic Form, Urinary Tract Infection in Women (ED) Additional Instructions: Increased water intake Take Tylenol as needed for pain Take antibiotic as prescribed Today your urine dip showed a probability of a UTI. You have been prescribed an antibiotic. Your urine will be sent to our lab for a culture. If at that time a bacteria grows that is not covered by the antibiotic prescribed you will be notified. Follow-up with primary care For new or worsening symptoms go directly to the emergency room Patient Language: Kiswahili Prescriptions: New nitrofurantoin monohyd/m-cryst [Macrobid] 100 mg capsule 100 mg PO Q12H 5 Days Qty: 10 0RF Rx Instructions: must administer with a meal/food No Action atorvastatin 20 mg tablet ergocalciferol (vitamin D2) 1,250 mcg (50,000 unit) capsule escitalopram oxalate 10 mg tablet Follow-up/Referrals: UNKNOWN,DOCTOR [Non-Staff] - Time of Disposition: 19:28
[2024-09-14 19:19] LABS: EDUAAPPEAR Clear; EDUABILI Negative (Negative); EDUABLOOD Trace (Negative); EDUACOLOR1 Yellow; EDUAGLUCOSE Negative (Negative); EDUAKETONE Negative (Negative); EDUALEUKO 1+ (Negative); EDUANITRATE Negative (Negative); EDUAPROTEIN Negative (Negative); EDUAUROBILI 0.2
[2024-09-14 19:19] LABS: BEDSIDEPREGUCG Negative (Negative)
[2024-09-14 19:36] VITALS: BP 130/82; PULSE 79; RESP 16; TEMP 37; O2SAT 99
== END 2024-09-14 19:33 | disposition home or self-care (01) ==
PROVIDERS: Emergency Provider Nurse Practitioner
DX: N39.0 Urinary tract infection, site not specified (principal)
CPT/HCPCS: 81003; 81025; 87077; 87086; 87186; 99213; G0463

== ENCOUNTER 2024-09-23 21:29 | Emergency (ER) | payer MEDICARE, MEDICAID, SELFPAY ==
--- OUTSIDE RECORDS SUMMARY | 2024-09-23 21:31 | XMS_ITS | Clinical Summary ---
Author Organization [address] Address [address] [place] [id number] Care Team Providers Care Corn Shredder Name Role Phone Sowmya Pichardo MD Primary Care Provider Medications hydrOXYzine (ATARAX) 25 mg tabletIndicatio ns:ISIDRO (generalized anxiety disorder) Take 0.5-1 tablets (12.5-25 mg total) by mouth 3 (three) times a day as needed for itching 45 tablet 1 07/04/2022 Active ergocalciferol (VITAMIN D) 50,000 unit capsule Take 1 capsule (50,000 Units total) by mouth once a week 07/10/2022 Active naproxen (NAPROSYN) 500 mg tabletIndicatio ns:Pain, dental Take 1 tablet (500 mg total) by mouth 2 (two) times a day as needed for pain Take with food 60 tablet 12/19/2022 Active ibuprofen (ADVIL,MOTRIN) 800 mg tablet Take 1 tablet (800 mg total) by mouth 3 (three) times a day 12/18/2022 Active lamoTRIgine (LaMICtal) 25 mg tablet TAKE 1 TABLET BY MOUTH EVERY DAY IN THE MORNING FOR 14 DAYS Active norethindrone (AYGESTIN) 5 mg tablet Take 1 tablet every day by oral route for 10 days. Active triamcinolone (KENALOG) 0.1 % cream APPLY A THIN LAYER TO THE AFFECTED AREA(S) BY TOPICAL ROUTE 2 TIMES PER DAY Active venlafaxine XR (EFFEXOR-XR) 37.5 mg 24 hr capsule Active venlafaxine XR (EFFEXOR-XR) 75 mg 24 hr capsule Take 1 capsule (75 mg total) by mouth every morning Active fluconazole (DIFLUCAN) 150 mg tablet 01/24/2023 Active Active Problems Problem Noted Date Diagnosed Date Pain of right forearm 10/08/2022 Tendinitis of right elbow 10/08/2022 High cholesterol 07/04/2022 Intellectual disability 07/04/2022 Fatigue 06/12/2022 Obesity 06/12/2022 Chronic low back pain 03/04/2022 Menstrual disorder 10/10/2021 Vitamin D deficiency 04/16/2021 Allergic contact dermatitis 03/27/2021 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 Overview (01/24/2023): Secondary amenorrhea; Progress: Stable Added By: Myriam Myers Add to Current Problems: NO ProblemStatus: Resolve Acute vaginitis 12/22/2018 Overview (01/24/2023): Acute vaginitis; Progress: Stable Added By: Myriam Myers Add to Current Problems: NO ProblemStatus: Resolve Generalized anxiety disorder 01/26/2018 Major depressive disorder, recurrent, mild 01/26 Anxiety 05/11/2017 Breakthrough bleeding 05/11/2017 Indigestion 05/11/2017 Learning difficulty 05/11/2017 Resolved Problems Problem Noted Date Diagnosed Date Resolved Date Encounter for preconception consultation 01/01/2022 07/04/2022 Assessment & Plan (01/01/2022 10:30 AM CDT): - extensively discussed patient's history previous pregnancies/ sections today. - reviewed with patient recommendations for referral for pre conception counseling to our Maternal Medicine specialist in the setting of her last resulting in a demise around 24 weeks as well as her history of recurrent deliveries. - We discussed her risks of in the setting of multiple prior sections which also include a history of a T-incision. We reviewed the risk of uterine rupture which could potentially lead to maternal and increased morbidity and mortality. We discussed if an emergency was necessary due to the amount of scar tissue previously reported that her risk of injury to other organs (I.e bladder) would be higher than those undergoing a scheduled repeat section. Discussed that I would recommend a repeat if she were to become . - furthermore we discussed the risk of AMA in the setting of her age. - discussed strong recommendations to be evaluated/counseled by Maternal- Medicine as patient is currently not to understand future risk of . , delivered 04/26/2020 07/04/2022 Previous section co mplicating , antepartum condition or complication 01/13/2019 07/04/2022 delivery delivered 01/28/2018 07/04/2022 Premature rupture of membranes 01/22/2018 07/04/2022 Supervision of high-risk pre gnancy, second trimester 12/11/2017 01/15/2018 Overview (12/12/2017): [] Co-management vs. [x] Full M Care; Referring Provider: Dr Castro Full transfer of care [x] Dating Criteria: 03/13/2018 by 16 week US [x] Labs: Rh- , Rubella I, HIV NR, HepBSAgNeg, RPR NR, GC/CT [ ] Collected today [] Genetic Screening: Per patient, declined [] CBC/Hgb electrophoresis (if indicated) [] Early 1hr GTT (if indicated) Not performed [] UCx: [x] Pap: 05/2014: cotest neg [] LD ASA (if indicated) starting at 12 weeks: [] EPDS [ ]; PNBHS referral (if indicated) 2nd Tri Labs: [] Anatomy ultrasound: [] CBC/1hr gtt at 24-28wks: Offered today, patient declined. Ordered for next visit [] Flu Shot (Dec-Mar): [] Tdap (27-36wks): [] Rhogam at 28 wks (if Rh neg): Offered today, patient declined. Rediscuss at next visit. 3rd Tri Labs: [] CBC/HIV/RPR/T&S: [] GBS: [] GC/CT (if indicated): Counselling [] MOD: [] Place of delivery: [] MOC: [] Method of feeding: [] Bowl Topper: [] PP Depression Discussed: RTC 2 weeks Rh negative status during pr egnancy in second trimester 12/11/2017 01/15/2018 Overview (12/12/2017): Discussed Rhogam today. Patient declines and said she will consider getting it during the . She reports that she has received it in her prior pregnancies. Discussed the risks of not getting Rhogam during her pregnancies. [] Rhogam History of delivery, currently 12/10/2017 01/15/2018 Overview (01/13/2018): See PPROM in [address] [facility] Late care affecting 12/10/2017 12/11/2017 History of 12/10/2017 018 Overview (12/12/2017): History of 3 prior CS. 2 CS then 4 FT followed by 32 week CS via t-incision on the uterus when she presented with PROM, cord prolapse. Significant adhesions present. Op note in records. Performed at [facility]. Discussed the risk of high order repeat . Including damage to the bowel, bladder, hemorrhage requiring transfusion or hysterectomy. Discussed extensively the risk of given her multiple prior surgeries as patient was focused on the type of incision that would be made. Ms. Colon asked multiple times if both the skin and uterine incision would be low across. I discussed that the type of incision would depend on the provider and the circumstances at which she would present. I discussed that she is at higher risk of needing a vertical incision on the skin given her multiple prior surgeries and scar tissue. I also discussed that if a transverse incision is made, that it may be higher than her 3 prior incisions. I also discussed that the uterine incision will depend on the gestational age, adhesions present, and presentation. Plan for repeat CS 36-37 weeks given T-incision. I discussed the risks of future pregnancies and discussed contraception. The patient declines signing tubal papers today as she believes she may want more children and doesn't want something permanent. We discussed LARC in addition. Grand multiparity, antepartum 12/10/2017 01/15/2018 History of PROM in previous , currently 12/10/2017 01/15/2018 Overview (12/12/2017): Previously been offered [place] and declined. Anterior placenta, current 12/10/2017 01/15/2018 Hx of preeclampsia, prior 12/10/2017 01/15/2018 Overview (01/13/2018): Not previously on Aspirin, did not rediscuss given advanced gestational age., this was in 2007 and at the end of IUGR in prior 12/10/201707/2017 Hx successful (vaginal after ), currently 12/09/2017 01/13/2018 AMA 12/09/2017 01/15/2018 Overview (12/12/2017): Per patient, previously declined genetic screening. Irregular menses 11/18/2016 07/04/2022 Immunizations Immunization Administration Dates Next Due Moderna SARS-CoV-2 Monovalent Vaccination (12+ Y RS) 11/10/2020 Tdap 05/12/2017 Surgical History Surgery Date Site/Laterality Comments SECTION Medical History Medical History Date Comments (vaginal after ) Grand multiparity Anxiety Depression Intellectual disability Family History Medical History Relation Name Comments Diabetes Maternal Grandmother Colon cancer Mother Reports mom was upper 40s Hyperlipidemia Mother Hypertension Mother cerebrovascular disease Mother plaq ues in her brain mental health Mother multiple perso nality disorder Relation Name Status Comments Maternal Grandmother Mother Social History Tobacco Use Types Packs/Day Years Used Date Smoking Tobacco: Never Smokeless Tobacco: Never Tobacco Cessation:Counseling Given: Not Answered Alcohol Use Standard Drinks/Week Comments No 0 (1 standard drink = 0.6 oz pur e alcohol) PHQ-2 Answer Date Recorded PHQ-2 Total Score (If total score is 3 or more points, staff should administer the PHQ-9) 1 07/04/2022 Personal Safety Answer Date Recorded Getting School Help Needed Not on file 03/25 Comments No Sex and Gender Information Value Date Recorded Sex Assigned at Not on file Legal Sex Female 8:49 PM [employer] Gender Identity Not on file Sexual Orientation Not on file Obstetrics History Para Term AB IAB SAB Ectopic Multiple Livin g Live Births 10 10 4 6 0 0 0 0 9 10 Date Outcome GA Total Labor Labor/2nd/3rd Weight Sex Type Anes PTL Nuzhat A1 A5 Name Clin 2000 36w 0d 2.722 kg (6 lb) M CS-LTr anv Genera l N Livin g Complications: Intolera nce 2002 Term 38w 0d 3.062 kg (6 lb 12 oz) F CS-LTr anv Spinal ,Epidu ral N Livin g 2007 36w 0d 2.722 kg (6 lb) M Livin g Complications:Pre eclampsia, IUGR (intrauterine growth restriction) affecting care of mother 2009 35w 0d 3.175 kg (7 lb) M Livin g 2010 Term 37w 0d 3.175 kg (7 lb) M Y Livin g 2012 Term 37w 0d 3.515 kg (7 lb 12 oz) F Epidur al N Livin g 2013 34w 0d 2.041 kg (4 lb 8 oz) M C-S t incis Genera l Y Livin g Complications:Premature Rupt ure of Membranes,Umbilical cord, prolapsed 2017 35w 6d F CS-LTr anv Livin g 2020 Term 37w 0d M Livin g 2020 24w 4d 0h 42m 0h 39m/0h 03m 0.62 kg (1 lb 5.9 oz) M Vag-Br eech None Y Neona avi Demis e 0 0 [place],PENNY Y1ANG AAMIR [place] M Jocelyne spears MD Complications: premat ure rupture of membranes,Spontaneous breech delivery Delivery Location:[facility] ([facility] ) Comments 2013 Repeat LTCS attempted b ut 2/2 adhesions and position LTCS was converted to a T incision. Last Filed Vital Signs Vital Sign Reading Time Taken Comments Blood Pressure 124/84 03/26/2023 2:05 PM [employer] Pulse 90 03/26/2023 2:05 PM [employer] Temperature 36.7 C (98.1 F) 03/26/2023 2:05 PM [employer] Respiratory Rate 20 03/26/2023 2:05 PM [employer] Oxygen Saturation 98% 03/26/2023 2:05 PM [employer]ER Inhaled Oxygen Concentration - - Weight 86.2 kg (190 lb) 02/14/2023 4:50 PM CDT Height 154.9 cm (5' 1) 01/24/2023 4:11 PM CDT Body Mass Index 35.9 01/24/2023 4:11 PM CDT Plan of Treatment Health Maintenance Due Date Last Done Comments Breast Cancer Screening-Mammogram 1982 Cervical Cancer Screening 1982 Hepatitis C Screening 1982 Varicella Vaccines (1 of 2 - 13+ 2-dose series) 1995 Hepatitis B Screening 2000 Regular Well Visit/Exam 18-64 01/14/2020 01/13/2019 Depression Screening 07/05/2023 07/04/2022 Covid-19 Vaccine (2 - 4-2 5 season) 2023 11/10/2020 Influenza Vaccine (Season Ended) 2024 DTaP/Tdap/Td Vaccine (2 - Td or Tdap) 05/12/2027 05/12/2017 HPV Vaccines Aged Out No longer eligi ble based on patient's age to complete this topic Pneumococcal vaccine <65 Aged Out No longer eligible based on patient's age to complete this topic Insurance [place] [facility] MEDICARE IDPA MEDICARE IDPA MEDICARE IDPA Care Teams Corn Shredder Relationship Specialty Start Date End Date Sowmya Pichardo MD PCP - General Family Practice 07/04/22
--- OUTSIDE RECORDS SUMMARY | 2024-09-23 21:31 | XMS_ITS | Data Portability ---
Author Organization [facility] Address [address] [place] [address] Care Team Providers Care Commercial Census Taker Name Role Phone [facility] Primary Care Provider [phone] Assessment Encounter Date Assessment Date Assessment LastModified by Organization Details LastModified Time 02/05/2023 02/05/2023 Annual gynecological exam performed. Patient will come back in a year unless there are new symptoms. Not available 02/05/2023 12:48:50 Plan of Treatment Reminders Order Date Submit Date Provider Last Modified By Organization Details Last Modified Time Details Appointments None recorded . Lab unlisted lab - 17-oh progeste jean, lc/MS/MS 2022 023 [facility] (Lab), [address], [place], [address], 3 03:29:25 dhea-sul fate, serum 2022 023 [facility] (Lab), [address] [place], [address], 3 03:29:24 hormone panel, serum or plasma 2022 023 [facility] (Lab), [address] [place], [address], 3 03:29:24 HbA1c (hemoglo bin A1c), blood 2022 023 [facility] (Lab), [address], [place], [address], 3 03:29:25 progeste jean, serum 2022 023 [facility] (Lab), [address] [facility], [place], [address], 3 03:29:23 prolacti n, serum 2022 023 [facility] (Lab), [address] [facility], [place], [address], 3 03:29:23 shbg (sex hormone- binding globulin ), serum 2022 023 [facility] (Lab), [address] [facility], [place], [address], 3 03:29:22 testoste jean free/arianne tosteron e total, ratio, serum 2022 023 [facility] (Lab), [address], [place], [address], 3 03:29:25 TSH, serum or plasma 2022 023 [facility] (Lab), [address] [facility], [place], [address], 3 03:29:23 beta-HCG , quantita tive, serum or plasma 2022 023 [facility] (Lab), [address], [place], [address], 3 03:29:22 pregnanc y test, urine 2022 023 alondra Stephens, [address], [address], [place], [address], 3 14:42:47 urinalys is, dipstick 2022 023 alondra Hoover, [address], [address], [place], [address], 3 14:42:47 pregnanc y test, urine 2021 [facility], [address], [place], [address], 14:47:32 urinalys is, dipstick 2021 [facility], [address], [place], [address], 14:47:32 Referral urologis t referral - Urinary symptoms Please contact this patient to schedule an appointm ent.Saad armendariz are the patients demograp hics, most recent office visit notes & UA results. If you have any question s, please contact me at [phone]. ank vern,Aly medellin, Referral 's 2021 022 [facility], [address] [place], [address], 3 13:14:23 Procedures None recorded . Surgeries None recorded . Imaging MAMMO, screenin g, bilatera l 2022 023 [id number] [facility], [address], [place], [address], 3 13:01:08 US, pelvis, complete 2022 [address]23 [address], [address], [place], [address], 3 13:32:56 US, pelvis, complete 2022 023 [facility], [address], [place], [address], 14:57:04 Medication Orders metronid azole 0.75 % (37.5 mg/5 gram) vaginal gel 2022 023 [id number], [address], [place], [place], [id number], 3 12:49:35 Diflucan 150 mg tablet [address] [id number], [address], [place], [place], [id number], 3 12:49:14 fluconaz ole 150 mg tablet [address], [address], [place], [address], 3 12:49:14 nystatin -triamci nolone 100,000 unit/gra m-0.1 % topical ointment 2021 023 [facility] 2425, [address], [place], [address], 3 14:33:27 Patient TargetsNo targets recorded. Patient InstructionsNo instructions recorded. Reason for Referral Urologist Referral for Urina ry symptoms Urinary symptomsPlease contact this patient to schedule an appointment.Attached are the patients demographics, most recent office visit notes & UA results.If you have any questions, please contact me at [phone].Thank you,Leslie Referral's Referring Physician: Светлана Marroquin, IMPORT EXPORT COORDINATOR, Encounter Date: 02/28/2022 Results Created Date Observation Date Name Description Value Unit Range Abnormal Flag Note LastModifiedBy Organization Detail LastModifiedTime 02/29/20 22 02/28/2022 CT/GC AND TRICH OMONA S VAGIN MIGUEL (RRNA ), SWAB chlamydia trachomatis, PCR Negati ve negati ve Not Available [facility] (Lab) [address], [place], [address], 03/01/2022 12:11:54 02/29/20 22 02/28/2022 CT/GC AND TRICH OMONA S VAGIN MIGUEL (RRNA ), SWAB neisseria gonorrhoeae, PCR Negati ve negati ve Not Available [facility] (Lab) [address] [facility], [place], [address], 03/01/2022 12:11:54 02/29/20 22 02/28/2022 CT/GC AND TRICH OMONA S VAGIN MIGUEL (RRNA ), SWAB trichomonas vaginalis ribosomal RNA (rrna) Negati ve negati ve Not Available [facility] (Lab) [address] [facility], [place], [address], 03/01/2022 12:11:54 02/29/20 22 02/28/2022 VAGIN ITIS/ VAGIN OSIS, DNA PROBE airam sp. detection, direct probe Negati ve negati ve Not Available [facility] (Lab) [address] [facility], [place], [address], 03/01/2022 13:46:11 02/29/20 22 02/28/2022 VAGIN ITIS/ VAGIN OSIS, DNA PROBE gardnerella vag. detection, direct probe Negati ve negati ve Not Available [facility] (Lab) [address] [facility], [place], [address], 03/01/2022 13:46:11 02/29/20 22 02/28/2022 VAGIN ITIS/ VAGIN OSIS, DNA PROBE trichomonas vag. detection, direct probe Negati ve negati ve Not Available [facility] (Lab) [address] [facility], [place], [address], 03/01/2022 13:46:11 02/29/20 22 02/28/2022 CULTU RE: URINE result report SEE RESULT S BELOW Test: Cultu re: Urine Speci men Sourc e: Urine Voide d Speci men Type: Urine Speci men Date: 02/28 3:34 PM Resul t Date: 03/02 6:23 AM Resul t Statu s: Final resul t Abnor mal: No Resul ting Lab: [facility] [address] [facility] [address] Tel: CULTU RE ----- ----- ----- --- No growt h in 1 day (dete ction level of 10,00 0 colon ies / ml.) Not Available [facility] (Lab) [address], [place], [address], 03/02/2022 07:25:37 02/29/20 22 02/28/2022 urina lysis , dipst ick Leukocytes neg Not Available [facility] [address], [place], [address], 02/28/2022 14:37:50 02/29/20 22 02/28/2022 urina lysis , dipst ick Nitrite neg Not Available [facility] [address], [place], [address], 02/28/2022 14:37:50 02/29/20 22 02/28/2022 urina lysis , dipst ick Urobilinogen neg Not Available [facility] roderick [address], [place], [address], 02/28/2022 14:37:50 02/29/20 22 02/28/2022 urina lysis , dipst ick Protein neg Not Available Stephens [address], [place], [address], 02/28/2022 14:37:50 02/29/20 22 02/28/2022 urina lysis , dipst ick pH 8 Not Available Stephens [address], [place], [address], 02/28/2022 14:37:50 02/29/20 22 02/28/2022 urina lysis , dipst ick Blood +++ Not Available Stephens [address], [place], [address], 02/28/2022 14:37:50 02/29/20 22 02/28/2022 urina lysis , dipst ick Specific Napoleon 1.005 Not Available [facility] trish [address], [place], [address], 02/28/2022 14:37:50 02/29/20 22 02/28/2022 urina lysis , dipst ick Ketone neg Not Available Stephens [address], [place], [address], 02/28/2022 14:37:50 02/29/20 22 02/28/2022 urina lysis , dipst ick Bilirubin neg Not Available [facility] jasmina [address], [place], [address], 02/28/2022 14:37:50 02/29/20 22 02/28/2022 urina lysis , dipst ick Glucose neg Not Available Stephens [address], [place], [address], 02/28/2022 14:37:50 02/29/20 22 02/28/2022 urina lysis , dipst ick Appearance clear Not Available [facility] [address], [place], [address], 02/28/2022 14:37:50 02/29/20 22 02/28/2022 urina lysis , dipst ick Color yellow Not Available Stephens [address], [place], [address], 02/28/2022 14:37:50 02/29/20 22 02/28/2022 pregn silvana test, urine HCG negati ve Not Available Stephens [address], [place], [address], 02/28/2022 14:37:39 08/21/19 23 08/20/2022 CT/GC AND TRICH OMONA S VAGIN MIGUEL (RRNA ), SWAB chlamydia trachomatis, PCR Negati ve negati ve Not Available [facility] (Lab) [address] [facility], [place], [address], 08/22/2022 12:02:33 08/21/19 23 08/20/2022 CT/GC AND TRICH OMONA S VAGIN MIGUEL (RRNA ), SWAB neisseria gonorrhoeae, PCR Negati ve negati ve Not Available [facility] (Lab) [address] [facility], [place], [address], 08/22/2022 12:02:33 08/21/19 23 08/20/2022 CT/GC AND TRICH OMONA S VAGIN MIGUEL (RRNA ), SWAB trichomonas vaginalis ribosomal RNA (rrna) Negati ve negati ve Not Available [facility] (Lab) [address] [facility], [place], [address], 08/22/2022 12:02:33 08/21/19 23 08/20/2022 VAGIN ITIS/ VAGIN OSIS, DNA PROBE airam sp. detection, direct probe Positi ve negati ve abnormal Not Available [facility] (Lab) [address] [facility], [place], [address], 08/22/2022 12:02:34 08/21/19 23 08/20/2022 VAGIN ITIS/ VAGIN OSIS, DNA PROBE gardnerella vag. detection, direct probe Positi ve negati ve abnormal Not Available [facility] (Lab) [address] [facility], [place], [address], 08/22/2022 12:02:34 08/21/19 23 08/20/2022 VAGIN ITIS/ VAGIN OSIS, DNA PROBE trichomonas vag. detection, direct probe Negati ve negati ve Not Available [facility] (Lab) [address] [facility], [place], [address], 08/22/2022 12:02:34 08/21/1908/20/2022 CULTU RE: URINE result report SEE RESULT S BELOW Test: Cultu re: Urine Speci men Sourc e: Urine Voide d Speci men Type: Urine Speci men Date: 023 3:32 PM Resul t Date: 2022 10:58 AM Resul t Statu s: Final resul t Abnor mal: No Resul ting Lab: [facility] [address] [facility] [address] Tel: CULTU RE ----- ----- ----- --- Cultu re resul t (>=3 organ isms prese nt) indic ates possi ble conta minat ion. Repea t cultu re if sympt oms indic ate. Not Available [facility] (Lab) [address] [facility], [place], [address], 08/22/2022 12:02:34 08/21/1908/20/2022 urina lysis , dipst ick Leukocytes neg Not Available [facility] jaron [address], [place], [address], 08/20/2022 14:42:13 08/21/19 23 08/20/2022 urina lysis , dipst ick Nitrite neg Not Available [facility] [address], [place], [address], 08/20/2022 14:42:13 08/21/19 23 08/20/2022 urina lysis , dipst ick Urobilinogen neg Not Available [facility] roderick [address], [place], [address], 08/20/2022 14:42:13 08/21/19 23 08/20/2022 urina lysis , dipst ick Protein neg Not Available [facility] [address], [place], [address], 08/20/2022 14:42:13 08/21/19 23 08/20/2022 urina lysis , dipst ick pH 5 Not Available [facility] [address], [place], [address], 08/20/2022 14:42:13 08/21/19 23 08/20/2022 urina lysis , dipst ick Specific Napoleon 1.005 Not Available [facility] trish [address], [place], [address], 08/20/2022 14:42:13 08/21/19 23 08/20/2022 urina lysis , dipst ick Ketone neg Not Available [facility] [address], [place], [address], 08/20/2022 14:42:13 08/21/19 23 08/20/2022 urina lysis , dipst ick Bilirubin neg Not Available [facility] [address], [place], [address], 08/20/2022 14:42:13 08/21/19 23 08/20/2022 urina lysis , dipst ick Glucose neg Not Available [facility] [address], [place], [address], 08/20/2022 14:42:13 08/21/19 23 08/20/2022 urina lysis , dipst ick Appearance clear Not Available [facility] [address], [place], [address], 08/20/2022 14:42:13 08/21/1908/20/2022 urina lysis , dipst ick Color yellow Not Available [facility] [address], [place], [address], 08/20/2022 14:42:13 08/21/19 23 08/20/2022 pregn silvana test, urine HCG negati ve Not Available [address], [place], [address], 08/20/2022 14:42:03 10/24/1910/23/2022 VAGIN ITIS/ VAGIN OSIS, DNA PROBE airam sp. detection, direct probe Negati ve negati ve Not Available [facility] (Lab) [address] [facility], [place], [address], 10/24/2022 14:11:57 10/24/19 23 10/23/2022 VAGIN ITIS/ VAGIN OSIS, DNA PROBE gardnerella vag. detection, direct probe Negati ve negati ve Not Available [facility] (Lab) [address] [facility], [place], [address], 10/24/2022 14:11:57 10/24/19 23 10/23/2022 VAGIN ITIS/ VAGIN OSIS, DNA PROBE trichomonas vag. detection, direct probe Negati ve negati ve Not Available [facility] (Lab) [address] [facility], [place], [address], 10/24/2022 14:11:57 10/24/1910/23/2022 HUMAN SEX HORMO NE LIZETH NG GLOBU ANGEL sex hormone binding globulin 33.9 nmole s/L 18.2-1 35.5 Not Available [facility] (Lab) [address] [facility], [place], [address], 10/29/2022 03:29:22 10/24/1910/23/2022 BHCG, QUANT ITATI VE B-HCG <0.2 mIU/m L This assay was perfo rmed using [employer] reage nts and test kits. Value s obtai santiago with other assay metho ds or kits canno t be used inter cote eably . Refer ence Range s: Non-p regna nt, preme nopau kelley women : 0.0-5 .3 mIU/m L Postm enopa usal women : 0.0-7 .0 mIU/m L Oma l Pregn silvana: Gesta maggie l Age bHCG Conc. - mIU/m L 3 Weeks 5.8 - 71.7 4 Weeks 9.5 - 750 5 Weeks 217-7 138 6 Weeks 158 - 31,79 5 7 Weeks 3,697 - 162,5 63 8 Weeks 32,06 5 - 149,5 71 9 Weeks 63,80 3 - 151,4 10 10 Weeks 46,50 9 - 186,9 77 12 Weeks 27,83 2 - 210,6 12 14 Weeks 13,95 0 - 62,53 0 15 Weeks 12,03 9 - 70,97 1 16 Weeks 9,040 - 56,45 1 17 Weeks 8,175 - 55,86 8 18 Weeks 8,099 - 58,17 6 Not Available [facility] (Lab) [address] [facility], [place], [address], 10/29/2022 03:29:22 10/24/19 23 10/23/2022 PROGE STERO NE progesterone 0.25 NG/mL This assay was perfo rmed using [employer] reage nts and test kits. Value s obtai santiago with other assay metho ds or kits canno t be used inter cote eably . Femal e Proge stero ne Range s: Folli cular phase 0.06- 0.89 ng/mL Ovula tion phase 0.12- 12.00 ng/mL Lutea l phase 1.83- 23.90 ng/mL Postm enopa usal< 0.05- 0.13 ng/mL Healt hy Pregn ant Women 1st Trime ster1 1.0-4 4.30 2nd Trime ster2 5.40- 83.30 3rd Trime ster5 8.70- 214.0 0 Not Available [facility] (Lab) [address] [facility], [place], [address], 10/29/2022 03:29:23 10/24/19 23 10/23/2022 PROLA CTIN prolactin, total 10.20 NG/mL 4.79-2 3.30 This assay was perfo rmed using [employer] reage nts and test kits. Value s obtai santiago with other assay metho ds or kits canno t be used inter [facility] . Not Available [facility] (Lab) [address] [place], [address], 10/29/2022 03:29:23 10/24/19 23 10/23/2022 TSH, REFLE X FREE T4 TSH 1.66 uIU/m L 0.30-5 .33 Not Available [facility] (Lab) [address] [place], [address], 10/29/2022 03:29:23 10/24/19 23 10/23/2022 FSH, LH, ESTRA DIOL estradiol 53.9 pg/mL This assay was perfo rmed using [employer] reage nts and test kits. Value s obtai santiago with other assay metho ds or kits canno t be used inter [facility] . Femal e Estra diol Range s: Folli cular phase 12.4- 233 pg/mL Ovula tion phase 41.0- 398 pg/mL Lutea l phase 22.3- 341 pg/mL Postm enopa usal< 5-138 pg/mL Healt hy Pregn ant Women 1st Trime ster1 54-32 43 pg/mL 2nd Trime ster1 561-2 1280 pg/mL 3rd Trime ster8 525-> 23364 pg/mL Not Available [facility] (Lab) [address] [place], [address], 10/29/2022 03:29:24 10/24/1910/23/2022 FSH, LH, ESTRA DIOL FSH 7.7 mIU/m L This assay was perfo rmed using [employer] reage nts and test kits. Value s obtai santiago with other assay metho ds or kits canno t be used inter [facility] . Femal es Folli cular : 3.5-1 2.5 mIU/m L Ovula tion: 4.7-2 1.5 mIU/m L Lutea l: 1.7-7 .7 mIU/m L Postm enopa use: 25.8- 134.8 mIU/m L Not Available [facility] (Lab) [address] [facility], [place], [address], 10/29/2022 03:29:24 10/24/19 23 10/23/2022 FSH, LH, ESTRA DIOL LH 10.7 mIU/m L This assay was perfo rmed using [employer] reage nts and test kits. Value s obtai santiago with other assay metho ds or kits canno t be used inter cote eably . Femal es Mid-F ollic ular: 2.4-1 2.6 mIU/m L Mid-C ycle: 14.0- 95.6 mIU/m L Mid-L uteal : 1.0-1 1.4 mIU/m L Postm enopa use: 7.7-5 8.5 mIU/m L Not Available [facility] (Lab) [address] [facility], [place], [address], 10/29/2022 03:29:24 10/24/19 23 10/23/2022 DHEA SULFA TE DHEA-sulfate 289 ug/dL Femal e Range s Age(y ) Range (ug/d L) 10-15 34-28 0 15-20 65-36 8 20-25 148-4 07 25-35 99-34 0 35-45 61-33 7 45-55 35-25 6 55-65 19-20 5 65-75 9-246 > 75 12-15 4 Not Available [facility] (Lab) [address] [place], [address], 10/29/2022 03:29:24 10/24/19 23 10/23/2022 HEMOG LOBIN A1C hemoglobin A1C 5.5 % 0-5.6 The Ameri can [employer]rian[employer] iatio n recom mends that a prima ry goal of thera py joshul d be a HBA1C of < 7% and that physi cians shoul d reeva luate the treat ment regim en in patie nts with HBA1C value s consi stent ly > 8%. <5.7% Oma l 5.7 - 6.4% Incre ased risk for diabe arianne >=6.5 % Diagn ostic of diabe arianne <7.0% Goal of thera py >8.0% Actio doug jacques sted Not Available [facility] (Lab) [address] [facility], [place], [address], 10/29/2022 03:29:25 10/24/1910/23/2022 17-OH PROGE STERO NE 17-hydroxypr ogesterone, lc/MS/MS 54 NG/dL Adult Femal e Refer ence Range s for 17-Hy droxy proge stero ne: Pre-M enopa usal Mid Folli cular : 23-10 2 ng/dL Pre-M enopa usal Surge : 67-34 9 ng/dL Pre-M enopa usal Mid Lutea l: 139-4 31 ng/dL Postm enopa usal Phase : < or = 45 ng/dL Pregn silvana: First Trime ster: 78-45 7 ng/dL Secon d Trime ster: 90-35 7 ng/dL Third Trime ster: 144-5 78 ng/dL This test was devel oped and its jose tical perfo rmanc e sindy cteri stics have been deter mined by [facility] [place] [place] [facility] . It has not been clear ed or appro david by FDA. This assay has been valid ated pursu ant to the CLIA regul ation s and is used for clini yuniel purpo ses. Perfo rming Organ izati on Infor edgard n: Site ID: [id number] Name: [facility]/Jake nataliya [facility] [address] , Addre ss: [id number] [place] [address] Direc tor: Lulu brand MD,Ph D,LUIS F Not Available [facility] (Lab) [address] [facility], [place], [address], 10/29/2022 03:29:25 10/24/1910/23/2022 TESTO STERO NE, FREE( DIALY SIS) AND TOTAL (LC/M S/MS) testosterone , total 52 NG/dL 2-45 high For addit ional nhan schneider e refer to http: //bryant peraltaque stdia gnost ics.c om/fa q/Tot Arnoldo Bhatia CMSMS (This link is being provi ded for infor matio nal/ educa maggie l purpo ses only. ) This test was devel oped and its jose tical perfo rmanc e sindy cteri stics have been deter mined by [facility]. It has not been clear ed or appro david by the FDA. This assay has been valid ated pursu ant to the CLIA regul ation s and is used for clini yuniel purpo ses. Not Available [facility] (Lab) [address] [facility], [place], [address], 10/29/2022 03:29:25 10/24/19 23 10/23/2022 TESTO STERO NE, FREE( DIALY SIS) AND TOTAL (LC/M S/MS) testosterone , free 7.3 pg/mL 0.1-6. 4 high This test was devel oped and its jose tical perfo rmanc e sindy cteri stics have been deter mined by [facility]. It has not been clear ed or appro david by the FDA. This assay has been valid ated pursu ant to the CLIA regul ation s and is used for clini yuniel purpo ses. Perfo rming Organ izati on Maxi erne doug: Site ID: [id number] Name: [facility] Addre ss: [id number] [place] [address] Direc tor: Tammy mitchell M.D. Not Available [facility] (Lab) [address] [place], [address], 10/29/2022 03:29:25 01/31/2001/30/2023 URINA LYSIS , WITH MICRO SCOPI C, REFLE X CULTU RE color, urine Light Yellow Not Available [facility] (Lab) [address] [facility], [place], [address], 01/31/2023 13:18:03 01/31/20 23 01/30/2023 URINA LYSIS , WITH MICRO SCOPI C, REFLE X CULTU RE clarity, urine Clear Not Available [facility] (Lab) [address] [facility], [place], [address], 01/31/2023 13:18:03 01/31/20 23 01/30/2023 URINA LYSIS , WITH MICRO SCOPI C, REFLE X CULTU RE specific gravity, urine 1.005 . 1.005- 1.035 Not Available [facility] (Lab) [address] [facility], [place], [address], 01/31/2023 13:18:03 01/31/20 23 01/30/2023 URINA LYSIS , WITH MICRO SCOPI C, REFLE X CULTU RE pH, urine 6.5 . 5.0-7. 0 Not Available [facility] (Lab) [address] [facility], [place], [address], 01/31/2023 13:18:03 01/31/20 23 01/30/2023 URINA LYSIS , WITH MICRO SCOPI C, REFLE X CULTU RE protein, UA Negati ve mg/dL negati ve, 10- Not Available [facility] (Lab) [address] [place], [address], 01/31/2023 13:18:03 01/31/20 23 01/30/2023 URINA LYSIS , WITH MICRO SCOPI C, REFLE X CULTU RE glucose, urine Normal mg/dL negati ve Not Available [facility] (Lab) [address] [facility], [place], [address], 01/31/2023 13:18:03 01/31/20 23 01/30/2023 URINA LYSIS , WITH MICRO SCOPI C, REFLE X CULTU RE ketones, urine Negati ve mg/dL negati ve Not Available [facility] (Lab) [address] [facility], [place], [address], 01/31/2023 13:18:03 01/31/20 23 01/30/2023 URINA LYSIS , WITH MICRO SCOPI C, REFLE X CULTU RE bilirubin, urine Negati ve negati ve Not Available [facility] (Lab) [address] [facility], [place], [address], 01/31/2023 13:18:03 01/31/20 23 01/30/2023 URINA LYSIS , WITH MICRO SCOPI C, REFLE X CULTU RE blood, urine Negati ve negati ve Not Available [facility] (Lab) [address] [facility], [place], [address], 01/31/2023 13:18:03 01/31/20 23 01/30/2023 URINA LYSIS , WITH MICRO SCOPI C, REFLE X CULTU RE nitrite, urine Negati ve negati ve Not Available [facility] (Lab) [address] [facility], [place], [address], 01/31/2023 13:18:03 01/31/20 23 01/30/2023 URINA LYSIS , WITH MICRO SCOPI C, REFLE X CULTU RE leukocyte esterase, urine Negati ve cem/u L negati ve Not Available [facility] (Lab) [address] [place], [address], 01/31/2023 13:18:03 01/31/20 23 01/30/2023 URINA LYSIS , WITH MICRO SCOPI C, REFLE X CULTU RE urobilinogen , urine Normal mg/dL normal , <2.0 Not Available [facility] (Lab) [address] [place], [address], 01/31/2023 13:18:03 01/31/20 23 01/30/2023 URINA LYSIS , WITH MICRO SCOPI C, REFLE X CULTU RE RBC, urine 0-2 /hpf none, 0-2 Not Available [facility] (Lab) [address] [place], [address], 01/31/2023 13:18:03 01/31/20 23 01/30/2023 URINA LYSIS , WITH MICRO SCOPI C, REFLE X CULTU RE WBC, urine 0-5 /hpf none, 0-5 Not Available [facility] (Lab) [address] [facility], [place], [address], 01/31/2023 13:18:03 01/31/20 23 01/30/2023 URINA LYSIS , WITH MICRO SCOPI C, REFLE X CULTU RE squamous epithelial cells, urine Few /hpf none abnormal Not Available [facility] (Lab) [address] [facility], [place], [address], 01/31/2023 13:18:03 01/31/20 23 01/30/2023 URINA LYSIS , WITH MICRO SCOPI C, REFLE X CULTU RE bacteria, urine None /hpf none Not Available [facility] (Lab) [address] [facility], [place], [address], 01/31/2023 13:18:03 01/31/20 23 01/30/2023 URINA LYSIS , WITH MICRO SCOPI C, REFLE X CULTU RE hyaline cast, urine None /lpf none, 0-2 Urine Cultu re not perfo rmed per refle x robert col. Not Available [facility] (Lab) [address] [facility], [place], [address], 01/31/2023 13:18:03 01/31/20 23 01/30/2023 CT/GC AND TRICH OMONA S VAGIN MIGUEL (RRNA ), SWAB chlamydia trachomatis, PCR Negati ve negati ve Not Available [facility] (Lab) [address] [facility], [place], [address], 01/31/2023 13:18:04 01/31/20 23 01/30/2023 CT/GC AND TRICH OMONA S VAGIN MIGUEL (RRNA ), SWAB neisseria gonorrhoeae, PCR Negati ve negati ve Not Available [facility] (Lab) [address] [facility], [place], [address], 01/31/2023 13:18:04 01/31/2001/30/2023 CT/GC AND TRICH OMONA S VAGIN MIGUEL (RRNA ), SWAB trichomonas vaginalis ribosomal RNA (rrna) Negati ve negati ve Not Available [facility] (Lab) [address] [facility], [place], [address], 01/31/2023 13:18:04 Result Notes None recorded. Procedures Surgical History Date Name Laterality Status Provider Name and Address Organization Details Recorded Time Date of Last Pap Smear completed Yoly Mcdaniels [facility] 08/20/2022 14:33:56 Imaging Results None recorded. Procedure Notes None recorded. Medical Equipment None Reported. Allergies No known drug allergies Medications Name Sig Start Date Stop Date Status Note LastModified by Organization Details LastModified Time cyclobenzap rine 10 mg tablet TAKE 1 TABLET BY MOUTH THREE TIMES DAILY NEEDED FOR MUSCLE SPASM 10/23 completed Not Available Not Available Not Available medroxyprog esterone 10 mg tablet TAKE 1 TABLET BY MOUTH DAILY FOR 10 DAYS 11/20 completed Not Available Not Available Not Available metformin 500 mg tablet TAKE ONE TABLET BY MOUTH DAILY FOR ONE WEEK, THEN ONE TABLET TWICE DAILY FOR ONE WEEK, THEN ONE TABLET THREE TIMES DAILY FOR MAINTENAN CE 2022 active Not Available Not Available Not Avai lable venlafaxine ER 37.5 mg capsule,ext ended release 24 hr TAKE 1 CAPSULE BY MOUTH EVERY DAY IN THE MORNING FOR 7 DAYS 11/20 completed Not Available Not Available Not Available acetaminoph en 325 mg tablet TAKE 2 TABLETS BY MOUTH EVERY 6 HOURS active Not Available Not Available No t Available venlafaxine ER 75 mg capsule,ext ended release 24 hr TAKE 1 CAPSULE BY MOUTH EVERY DAY IN THE MORNING 10/23 completed Not Available Not Available Not Available doxycycline hyclate 100 mg capsule 11/20 completed Not Available Not Available Not Available clindamycin HCl 300 mg capsule TAKE 1 CAPSULE BY MOUTH TWICE DAILY FOR 7 DAYS 11/20 completed Not Available Not Available Not Available ibuprofen 800 mg tablet TAKE 1 TABLET BY MOUTH THREE TIMES DAILY active Not Available Not Available No t Available fluconazole 150 mg tablet Take 1 tablet every day by oral route as directed for 1 day. 02/05 completed Not Available Not Available Not Available metronidazo le 0.75 % (37.5 mg/5 gram) vaginal gel Insert 1 applicato rful every day by vaginal route at bedtime for 5 days. 02/05 completed Not Available Not Available Not Available Cleocin 100 mg vaginal suppository INSERT ONE SUPPOSITO RY VAGINALLY AT BEDTIME 11/20 completed Not Available Not Available Not Available venlafaxine ER 150 mg capsule,ext ended release 24 hr TAKE 1 CAPSULE BY MOUTH EVERY DAY IN THE EVENING 11/20 completed Not Available Not Available Not Available metronidazo le 500 mg tablet TAKE 1 TABLET BY MOUTH TWICE DAILY FOR 7 DAYS 11/20 completed Not Available Not Available Not Available triamcinolo ne acetonide 0.1 % topical cream APPLY THIN LAYER TOPICALLY TO THE AFFECTED AREA TWICE DAILY 11/20 completed Not Available Not Available Not Available amoxicillin 500 mg tablet TAKE 1 TABLET BY MOUTH EVERY 8 HOURS 01/30 completed Not Available Not Available Not Available lamotrigine 25 mg tablet TAKE 1 TABLET BY MOUTH EVERY DAY IN THE MORNING FOR 14 DAYS 11/20 completed Not Available Not Available Not Available nystatin-tr iamcinolone 100,000 unit/gram-0 .1 % topical ointment APPLY TO THE AFFECTED AREA(S) BY TOPICAL ROUTE 2 TIMES PER DAY FOR 7 DAYS 08/20 completed Not Available Not Available Not Available betamethaso ne acetate and sodium phos 6 mg/mL suspension for injection INJECT 12MG INTRAMUSC ULAR ONCE AND REPEAT IN TWENTY-FO UR HOURS 11/20 completed Not Available Not Available Not Available erythromyci n 5 mg/gram (0.5 %) eye ointment 10/23 completed Not Available Not Available Not Available polymyxin B sulfate 10,000 unit-trimet hoprim 1 mg/mL eye drops 10/23 completed Not Available Not Available Not Available progesteron e micronized 200 mg capsule Take 1 capsule every day by oral route for 12 days. 10/23 completed Not Available Not Available Not Available docusate sodium 100 mg capsule 11/20 completed Not Available Not Available Not Available diclofenac sodium 75 mg tablet,ne yed release 10/23 completed Not Available Not Available Not Available ergocalcife rol (vitamin D2) 1,250 mcg (50,000 unit) capsule TAKE 1 CAPSULE BY MOUTH EVERY WEEK DIRECTED active Not Available Not Available No t Available ibuprofen 600 mg tablet TAKE 1 TABLET BY MOUTH THREE TIMES DAILY NEEDED FOR PAIN 08/20 completed Not Available Not Available Not Available lamotrigine 100 mg tablet TAKE 1 TABLET BY MOUTH EVERY DAY IN THE EVENING 11/20 completed Not Available Not Available Not Available naproxen 500 mg tablet active Not Available Not Available Not Available progesteron e micronized 100 mg capsule 11/20 completed Not Available Not Available Not Available amoxicillin 875 mg-potassiu m clavulanate 125 mg tablet TAKE 1 TABLET BY MOUTH EVERY 12 HOURS FOR 10 DAYS 01/30 completed Not Available Not Available Not Available hydroxyzine pamoate 25 mg capsule TAKE 1 CAPSULE BY MOUTH THREE TIMES DAILY NEEDED FOR ANXIETY 11/20 completed Not Available Not Available Not Available medroxyprog esterone 150 mg/mL intramuscul ar syringe INJECT 1 SYRINGE INTRAMUSC ULARLY EVERY 3 MONTHS 11/20 completed Not Available Not Available Not Available escitalopra m 10 mg tablet TAKE 1 TABLET BY MOUTH DAILY 08/20 completed Not Available Not Available Not Available aripiprazol e 5 mg tablet active Not Available Not Available Not Available Tri-Sprinte c (28) 0.18 mg(7)/0.215 mg(7)/0.25 mg(7)-0.035 mg tablet TAKE 1 TABLET BY MOUTH EVERY DAY DIRECTED 11/20 completed Not Available Not Available Not Available tranexamic acid 650 mg tablet TAKE 2 TABLETS BY MOUTH THREE TIMES DAILY FOR 5 DAYS 11/20 completed Not Available Not Available Not Available Vitals Date Recorded Body height Systolic blood pressure Diastolic blood pressure Provider Name and Address Organization Details Last Updated DateTime 08/20/2022 156.21 cm 118 mm[Hg] 77 mm[Hg] Yoly Mcdaniels [facility] 08/20/2022 14:33:06 Date Recorded Systolic blood pressure Diastolic blood pressure Provider Name and Address Organization Details Last Updated DateTime 10/23/2022 122 mm[Hg] 81 mm[Hg] Daja Vizcarra, [facility]- [address], [place], [address], [facility] 10/23/2022 15:37:52 Date Recorded Body height Body mass index (BMI) Body weight Provider Name and Address Organization Details Last Updated DateTime 10/23/2022 156.21 cm 34.8 kg/m2 94784.77 g Tara [facility] 10/23/2022 15:10:47 Date Recorded Body height Body mass index (BMI) Body weight Systolic blood pressure Diastolic blood pressure Provider Name and Address Organization Details Last Updated DateTime 01/30/2023 156.21 cm 34.8 kg/m2 80905.77 g 143 mm[Hg] 87 mm[Hg] Tara Telly [facility] 3 17:04:22 Date Recorded Body height Body mass index (BMI) Body weight Systolic blood pressure Diastolic blood pressure Provider Name and Address Organization Details Last Updated DateTime 02/05/2023 156.21 cm 34.8 kg/m2 09357.77 g 126 mm[Hg] 83 mm[Hg] Tara [facility] 3 12:49:05 Date Recorded Body height Systolic blood pressure Diastolic blood pressure Provider Name and Address Organization Details Last Updated DateTime 02/28/2022 156.21 cm 127 mm[Hg] 82 mm[Hg] Yoly Mcdaniels [facility] 02/28/2022 14:11:19 Social History Question Answer Notes LastModified by Organizat ion Details LastModified Time Tobacco Smoking Status Never Smoker Yoly barlow, [facility] 11/20/2021 15:50:11 Are You Blind Or Do You Have Difficulty Seeing? No Information n ot available 11/20/2021 In The 14 Days Before Symptom Onset, Have You Had Close Contact With A Laboratory-confirm ed COVID-19 While That Case Was Ill? No Information n ot available 10/23/2022 In The 14 Days Before Symptom Onset, Have You Had Close Contact With A Person Who Is Under Investigation For COVID-19 While That Person Was Ill? No Information not available 10/23/2022 Have You Been To An Area Known To Be High Risk For COVID-19? No Information not available 10/23/2022 Are You Deaf Or Do You Have Serious Difficulty Hearing? No Information not available 11/20/2021 What Type Of Diet Are You Following? REGULAR Information n ot available 11/20/2021 Do You Have Difficulty Walking Or Climbing Stairs? No Information not available 11/20/2021 Sex: Unknown Functional Status Question Answer Note LastModified by Organizat ion Details LastModified Time What is your level of alcohol consumption? None Information not available 11/20/2021 Are you able to walk? YESWOREST Information not available 11/20/2021 Are you able to care for yourself? Yes Information not available 11/20/2021 Do you have difficulty dressing or bathing? No Information not available 11/20/2021 What is your exercise level? Occasional Information not available 11/20/2021 Mental Status None recorded. Family History Relationship Description Onset Age of this Age Resolved Age Notes LastModified by Organization Details LastModified Time Mother Malignant tumor of colon vschroedter Not available 12/2021 15:49:33 Medical History Condition Response Allergies (Food, seasonal, environmental ) N Other N Breast Cancer N Drug/Latex Allergies/Reactions N Blood Transfusion N Dermatologic Disorders N Lung Disease N Defects or Inherited Disease N Breast Problem N Gestational Diabetes N Hematologic disorders N Anesthesia Complications N History of STI N Deep Vein Thrombosis N Polycystic ovary syndrome N Anxiety Disorder Y Autoimmune disease N Arthritis N Infertility N Polyps N Acid Reflux (GERD) N History of abnormal pap N Cancer N Stroke N Varicosities N Neurologic/Epilepsy N Endometriosis N High Cholesterol N Headaches N Fibromyalgia N Kidney Disease N Heart Problems N Kidney or Bladder Problems N Thyroid Problems N GI Problems N Eating Disorder N Anemia N Art (IVF or FET) N Psychiatric Illness N Ovarian Cancer N Diabetes N Pulmonary (TB, Asthma) N Hepatitis/Liver Disease N No Past Medical History N Eczema N Urinary Tract Infection N Abuse/Domestic Violence N Asthma N Trauma/Violence N Depression/ depression Y Heart Disease N Pre-Eclampsia N Hypertension N Osteoporosis N Thrombophilias N Gynecological History Statement/Question Response Flow Light Date of LMP 01/12/2023 Was last menstrual period normal N STIs/STDs N HPV Vaccine N Duration of Flow (days) 4 Current Control Method None Are cycles usually normal N Sexually Active? Y Menses Monthly Y Age of first menstrual cycle 14 Date of Last Pap Smear 11/20/2021 Sexual Problems? N LMP Approximate Obstetrics History GPAL:G 5 P 0 1 0 4 Type Value Premature 1 Living 4 Total 5 Past Encounters Encounter ID Performer Location Encounter Start Date Encounter Closed Date Diagnosis/Indication Diagnosis SNOMED-CT Code Diagnosis ICD10 Code Diagnosis Note [id number] DEMETRIA Jacobs [facility] [address] [address] 11/20/2021 15:21:15 11/21/2021 18:46:51 Irregular periods 67647517 N92.6 Abnormal u terine bleeding [id number] 9100 N93.9 Records release signed for records of recent EMB and any other testing that may have been done a month ago for this issue.Lilli ent states only EMB was done (states no labs/pelvi c u/s or pap smear was done?)We agreed to pursue updated lab work and pelvic u/s for further evaluation Pap doneSTI testing added to papUrine hcg (-) todayWe discussed options to help with current episode of AUB - declines any contracept ion as she is trying for . Has tried tranexamic acid, provera, and prometrium at previous office. Provera and prometrium did help.She states the bleeding is only light spotting currently, would like to hold off on re-startin g prometrium . She has this at home and will take if bleeding returns.De clines any medication at this time to help with AUBRTC for pelvic u/s and f/u To call the office / ED visit with any heavy vaginal bleeding (saturatin g a pad faster than 30min - 1 hour), etc. Time spent in visit is a total of 40 mins with at least 50% of visit consisting of counseling and review of plan of care Urinary symptoms [id number] 08 R39.9 [id number] Thierry Byers MD [facility] [address] [address] 12/04/2021 11:48:19 12/04/2021 12:58:19 Abnormal uterine bleeding [id number] 9100 N93.9 [id number] Thierry Byers MD [facility] [address],[facility] [place] [address] 12/11/2021 11:52:54 12/12/2021 09:32:31 Abnormal uterine bleeding [id number] 9100 N93.9 This patient is a 41-year-ol d female presents for follow-up on abnormal uterine bleeding and ultrasound . She has a normal pelvic ultrasound . She has anovulator y bleeding it is irregularl y irregular. Has been so for about a year. We talked about the menstrual cycle. We talked about polycystic ovarian syndrome. Talked about weight management . We talked about controllin g abnormal uterine bleeding. Talked about the treatment of abnormal uterine bleeding. We talked about the consequenc es of not controllin g her bleeding. Talked about ovulation, progestero ne, the normal menses. We spent more than 40 minutes face-to-fa ce. More than 50% was counseling . The patient is interested in becoming . So we elected to use cyclic progestero ne. She wanted to talk more about infertilit y. Talked about checking her fallopian to this, we talked about semen analysis. She does not want to do either 1 of those things. She wants to try medication s to stimulate ovulation. Talked about the technical aspect of getting that taking care of the, the timing etc. . She will follow up with Basilia for ovulation induction considertawnya ions. [id number] DEMETRIA Jacobs [facility] [address] [address] 02/28/2022 14:02:35 02/28/2022 15:48:32 Vaginitis 34027622 N76.0 Suspect yeast on examVagini tis panel sentSTI endocervic al testing sentRx sent for yeast, R/B of medication discussed and accepted by patient Urinary symptoms 5031537 08 R39.9 UA WNL minus blood from mensesWe discussed blood seen is from her menses and considered WNLPatient request urology referral at this time - referral sent, patient states she would like to be evaluated for bladder cancer and is very concerned about this. Abnormal u terine bleeding [id number] 9100 N93.9 Continue with prometrium course as prescriped by Dr. Byers - she has f/u scheduledE D precaution s discussed Time spent in visit is a total of 30 mins with at least 50% of visit consisting of counseling and review of plan of care. [id number] Светлана Marroquin JAYA [facility] [address] [address] 08/20/2022 14:25:02 08/20/2022 15:38:57 Irregular periods 38619984 N92.6 Abdominal pain 04202281 R10.9 This patient is a 42 -year-old female with pelvic pain. We have agreed to complete the evaluation with pelvic ultrasound . The patient will return after the pelvic ultrasound to discuss those findings and to develop a treatment plan. A comprehens angie history and physical exam was performed today. We spent over 25 minutes face-to-fa ce. The patient was given precaution s. She will contact clinic if pelvic pain increases in frequency or intensity. Also notify clinic of any new symptoms associated with pelvic pain. She does not appear to have an acute pelvic infection today, but was asked to contact us Immediatel y with nausea, vomiting, fever, chills. UPT (-)UA (-), cx sentSTI endocervic al testing sentpelvic u/s scheduled [id number] DEMETRIA [facility] [address] [address] 10/23/2022 14:52:03 10/23/2022 15:46:29 Abnormal uterine bleeding [id number] 9100 N93.9 Last US wnlWe agreed to update labs & will reach out with resultsExa m wnlVagniti s swab sentSTD neg 08/2022HCG sent to confirm +/- . If labs are wnl consider consult with fertility specialist or Dr. Modesta ZAMAN for further recommenda tions. Time spent in visit is a total of 22 mins with at least 50% of visit consisting of counseling and review of plan of care. [id number] Daja Vizcarra [facility] [address],[place] [address] 01/30/2023 16:59:39 01/30/2023 18:19:36 Vaginitis 72122003 N76.0 Suspect BV/Yeast after abx use.Rx sentCounse led on medication R/B's, Most common side effects, & use. All questions were answered to patient satisfacti on. Time spent in visit is a total of 15 mins with at least 50% of visit consisting of counseling and review of plan of care. [id number] Daja Vizcarra [facility] [address],[place] [address] 02/05/2023 12:45:51 02/05/2023 13:01:08 Gynecologic examination 23792064 Z01.419 Suggested Calcium with Vitamin D 1200-1500m g daily. Patient advised to get an annual flu shot in the fall and she could obtain at [facility] or [facility] clinic. Also to obtain TDap vaccinatio n if you have not had one in the last 10 years. Recommend yearly mammograms . Encouraged monthly self breast exams. Encourage safe sexual practices, to use condoms and limit partners if not already in a monogamous relationsh ip. Engage in daily exercise of low impact aerobic exercise 45-60 minutes 4-5 times weekly. Avoid tobacco and illicit drugs as well as using moderation with alcohol intake less than 1-2 8 oz beverages daily. This lifestyle behavior pattern will lead to less health conditions and longer life span. If BMI greater than 25 weight watchers or dietary consult advised. All questions have been answered. Patient appears to understand informatio n, but if you have any questions please call or respond to this email. Pap/hpv sentSTD Screen updatedGen etic Screen discussedC olon Screen naDexa Screen naRoutine Labs updated 2022 Screening mammography 24 274381 Z12.31 Irregular periods 363235 07 N92.6 Will update US and decide next steps in POC.Other testing has been updated previously . Health Concerns Section Related Observation LastModified by Organization Detai ls LastModified Time None Recorded Concern Status LastModified by Organization Details LastModified Time None Recorded Advance Directives Directive None Recorded Payers Insurance Date Sequence Insurance Name Policy Number Policy Huston Covered Member ID Huston Member ID Guarantor Name 02/17/2024 [facility] Mary Ann Colon [id number] Mary Ann Colon 03/29/2023 2 [place] [facility] Mary Ann Colon [id number] Mary Ann Colon Notes Date Note Type Note Provider Name and Address Organization Details Recorded Time 02/28/2022 text/html 41yo [id number] ents for evaluation of vaginal itching and burning. Symptoms started 2 weeks ago. Clumpy discharge. Slight burning when urine touches the vulva. Concerned she may have blood in her urine and is concerned about bladder cancer risk.Following with Dr. Byers for AUB evaluation - tried taking prometrium but states it only slightly helped. Bleeding is not currently heavy but will having spotting randomly that comes and goes.SA with steady male partner - BC not practiced. Has put TTC on hold for now DEMETRIA Jacobs [address], [place], [address], [facility] 02/28/2022 15:45:28 08/20/2022 text/html 42yopresents for evaluation of pelvic pressuresymptoms started about 1 week agofeels like a slight cramping sensation, occurs randomly - a few times per dayprevious irregular periods have since resolved, normal monthly periods for the last 6 months. Did notice some IMB/spotting a few days ago that quickly resolved.SA with male partner, TTCneg vaginal d/c, itching, odorsneg n/v/fneg urinary symptomsneg bowel changes DEMETRIA Jacobs [address], [place], [address], [facility] 08/20/2022 15:07:49 10/23/2022 text/html Modesta - Abnormal BleedingReported bypatient.Notes:Here today with continued complaints of intermenstrual bleeding x 6mos.Only light spotting for a few days.Periods otherwise have been regular monthly (q28-32) lasting 4-6 days moderate flow.Considering another .LMP 09/13/2022Feels going to start soon.Spotting over 2wks ago.Wants to ensure her vaginitis has cleared up from August 2022.Monogamous Neg pain of abd/pelvis/flankNeg urinary sx'sNeg GI sx'sNeg N/V/F/C/DNeg Vag d/c, odor, irritation, itching Health Hx was reviewed and updated as reported in chart. MICHELLE Vazquez [address], [place], [address], [facility] 10/23/2022 15:44:00 01/30/2023 text/html Vaginal/Vulvar ProblemReported bypatient.Location:[facility] Onset/Timing:after intercourse; abrupt Duration:present for 1-7 days Quality:itching; burning; irritation; +odor and discharge Severity:moderate Context:sexually active; recent antibiotic use Alleviating Factors:none Aggravating Factors:none Associated Symptoms:no vaginal pain; no vulvar itching/irritation; no vulvar swelling/erythema; no vulvar pain; no vulvar lesions; no pelvic pain; no dyspareunia; no dysuria; no fever; no abdominal pain;vaginal itching;vaginal irritation JACKIE Vazquez [address], [place], [address], [facility] 01/30/2023 18:15:50 02/05/2023 text/html Annual GYNReport ed bypatient.Menstrual cycle:Irregular cycle intervals Urinary symptoms:No hematuria; No incontinence Vulva:No genital lesion Vagina:Normal vaginal discharge Breast:No breast pain; No breast lump; No nipple discharge Current Contraception: control not practiced Sexual complaints:No sexual complaints; No pain during intercourse; Normal libido Menopausal Symptoms:No menopausal symptoms; Normal vaginal lubrication Psychological symptoms:No depression; No anxiety; No PMDD Preventive measures:Encourage self breast examination; Encourage regular exercise; Encourage no tobacco use; Encourage regular mammograms starting age 40; Followed with yearly pap smears; Needs to schedule mammogram JACKIE Vazquez [address], [place], [address], [facility] 02/05/2023 13:01:06 OBGyn Episode Ob Episode Information Episode Created Date Number of Fetuses Patient Bloodtype Patient rh Status Prepregnancy Weight lbs Domestic Partner Domestic Partner Phone Father Name Operations Agent Status 11/21/19 22 1 CLOSED Fetus Data First Name Last Name Admitted to NICU Weight (g) Sex Living Outcome Pediatric Complications Fetus ID Race Codes Race Delivery Type 2664.85 3 M Full Term [id number] V Back Jayjay Calculation Initial Jayjay Date Initial Exam Date Initial Exam Provider Initial Ultrasound Date Last Menstrual Period Date Ultra Sound Weeks Gestation 0 Eighteen To Twenty Week Jayjay Update Ultra Sound Date Fundal Height At Umbil Quickening Date Ultra Sound Latest Weeks Gestation Final Jayjay Confirmed By Final Jayjay Confirmed Date Final Jayjay Date Ultra Sound Latest Days Gestation 0 0 Menstrual History Last Menstrual Date Menses Monthly On Bcp Conception Prior Menses Frequency Hcg Plus Date Menarche Onset Age Delivery Information Delivery Date Delivery Type Labor Anesthesia Weeks Gestation Incision Type Labor Labor Length Hrs Delivered By Post Complications Tubal Sterilization Discharge Date Comments 8 37 Discharge Information Feeding Method Contraceptive Method Maternal HG B and HCT Levels Ob Episode Information Episode Created Date Number of Fetuses Patient Bloodtype Patient rh Status Prepregnancy Weight lbs Domestic Partner Domestic Partner Phone Father Name Operations Agent Status 11/21/19 22 1 CLOSED Fetus Data First Name Last Name Admitted to NICU Weight (g) Sex Living Outcome Pediatric Complications Fetus ID Race Codes Race Delivery Type 2664.85 3 M Prematur e [id number] Primary Jayjay Calculation Initial Jayjay Date Initial Exam Date Initial Exam Provider Initial Ultrasound Date Last Menstrual Period Date Ultra Sound Weeks Gestation 0 Eighteen To Twenty Week Jayjay Update Ultra Sound Date Fundal Height At Umbil Quickening Date Ultra Sound Latest Weeks Gestation Final Jayjay Confirmed By Final Jayjay Confirmed Date Final Jayjay Date Ultra Sound Latest Days Gestation 0 0 Menstrual History Last Menstrual Date Menses Monthly On Bcp Conception Prior Menses Frequency Hcg Plus Date Menarche Onset Age Delivery Information Delivery Date Delivery Type Labor Anesthesia Weeks Gestation Incision Type Labor Labor Length Hrs Delivered By Post Complications Tubal Sterilization Discharge Date Comments 1 36 Discharge Information Feeding Method Contraceptive Method Maternal HG B and HCT Levels Ob Episode Information Episode Created Date Number of Fetuses Patient Bloodtype Patient rh Status Prepregnancy Weight lbs Domestic Partner Domestic Partner Phone Father Name Operations Agent Status 01/31/20 23 1 CLOSED Fetus Data First Name Last Name Admitted to NICU Weight (g) Sex Living Outcome Pediatric Complications Fetus ID Race Codes Race Delivery Type Full Term [id number] Vaginal Delivery Jayjay Calculation Initial Jayjay Date Initial Exam Date Initial Exam Provider Initial Ultrasound Date Last Menstrual Period Date Ultra Sound Weeks Gestation 0 Eighteen To Twenty Week Jayjay Update Ultra Sound Date Fundal Height At Umbil Quickening Date Ultra Sound Latest Weeks Gestation Final Jayjay Confirmed By Final Jayjay Confirmed Date Final Jayjay Date Ultra Sound Latest Days Gestation 0 0 Menstrual History Last Menstrual Date Menses Monthly On Bcp Conception Prior Menses Frequency Hcg Plus Date Menarche Onset Age Delivery Information Delivery Date Delivery Type Labor Anesthesia Weeks Gestation Incision Type Labor Labor Length Hrs Delivered By Post Complications Tubal Sterilization Discharge Date Comments 1 Discharge Information Feeding Method Contraceptive Method Maternal HG B and HCT Levels Ob Episode Information Episode Created Date Number of Fetuses Patient Bloodtype Patient rh Status Prepregnancy Weight lbs Domestic Partner Domestic Partner Phone Father Name Operations Agent Status 01/31/20 23 1 CLOSED Fetus Data First Name Last Name Admitted to NICU Weight (g) Sex Living Outcome Pediatric Complications Fetus ID Race Codes Race Delivery Type Full Term [id number] Vaginal Delivery Jayjay Calculation Initial Jayjay Date Initial Exam Date Initial Exam Provider Initial Ultrasound Date Last Menstrual Period Date Ultra Sound Weeks Gestation 0 Eighteen To Twenty Week Jayjay Update Ultra Sound Date Fundal Height At Umbil Quickening Date Ultra Sound Latest Weeks Gestation Final Jayjay Confirmed By Final Jayjay Confirmed Date Final Jayjay Date Ultra Sound Latest Days Gestation 0 0 Menstrual History Last Menstrual Date Menses Monthly On Bcp Conception Prior Menses Frequency Hcg Plus Date Menarche Onset Age Delivery Information Delivery Date Delivery Type Labor Anesthesia Weeks Gestation Incision Type Labor Labor Length Hrs Delivered By Post Complications Tubal Sterilization Discharge Date Comments 3 Discharge Information Feeding Method Contraceptive Method Maternal HG B and HCT Levels
--- OUTSIDE RECORDS SUMMARY | 2024-09-23 21:31 | XMS_ITS | Data Portability ---
Author Organization [facility], [facility] Address [address] [place] [address] Assessment No assessment recorded. Plan of Treatment Reminders Order Date Submit Date Provider Last Modified By Organization Details Last Modified Time Details Appointments None recorded. Lab test, urine 2021 aschifano 1 [facility], [address] [place], [address], 18:48:39 bacterial vaginosis + vaginitis panel, vaginal 2021 [facility] [employer] [facility], [address] [place], [address], 10:47:19 beta-HCG, quantitati ve, serum or plasma 2021 Event [employer], [address] [place], [address], 06:08:55 Referral None recorded. Procedures None recorded. Surgeries None recorded. Imaging None recorded. Medication Orders Slynd 4 mg (28) tablet 2021 [facility], [address] [facility] [address], [place], [address], 18:11:42 Patient TargetsNo targets recorded. Patient InstructionsNo instructions recorded. Reason for Referral None Reported. Results Created Date Observation Date Name Description Value Unit Range Abnormal Flag Note LastModifiedBy Organization Detail LastModifiedTime 04/23/19 22 04/24/2021 HCG, TOTAL , QN HCG, total, qn <3 mIU/m L normal Refer ence Range Nonpr egnan t or preme nopau kelley <5 Postm enopa usal <10 Value s from diffe rent assay metho ds may vary. The use of this assay to monit or or to diagn ose patie nts with cance r or any condi tion unrel ated to pregn silvana has not been clear ed or appro david by the FDA or the [facility] actur er of the assay . Not Available [facility] [address] [place], [address], 04/24/2021 06:08:55 10/11/19 22 10/11/2021 VAGIN ITIS PLUS STD PANEL bacterial vaginosis BV POS negati ve abnormal Not Available [facility] [address] [place] [address], [address], 10/12/2021 10:47:19 10/11/19 22 10/11/2021 VAGIN ITIS PLUS STD PANEL airam species C. spp neg negati ve normal Not Available [address], [address], 10/12/2021 10:47:19 10/11/19 22 10/11/2021 VAGIN ITIS PLUS STD PANEL airam glabrata C. gla neg negati ve normal Not Available [address], [address], 10/12/2021 10:47:19 10/11/19 22 10/11/2021 VAGIN ITIS PLUS STD PANEL trichomonas vaginalis CV/TV TRICH neg negati ve normal Not Available [address], [address], 10/12/2021 10:47:19 10/11/19 22 10/11/2021 VAGIN ITIS PLUS STD PANEL chlamydia trachomatis CT neg negati ve normal This repor t is inten ded for us in clini yuniel monit oring and manag ement of patie nts. It is not inten ded for use in medic al-le gal appli catio n. Not Available [facility] [address] [place], [address], 10/12/2021 10:47:19 10/11/19 22 10/11/2021 VAGIN ITIS PLUS STD PANEL neisseria gonorrhoeae GC neg negati ve normal This repor t is inten ded for us in clini yuniel monit oring and manag ement of patie nts. It is not inten ded for use in medic al-le gal appli catio n. Not Available [facility] [address] [facility], [place], [address], 10/12/2021 10:47:19 10/11/19 22 10/10/2021 pregn silvana test, urine HCG negati ve Not Available [facility] [address] [place], [address], 10/10/2021 18:44:53 Result Notes None recorded. Problems Name Problem SNOMED Code Status Onset Date Resolution Date Notes Provider Name and Address Organization Details Recorded Time Sampling of vagina for Papanico laou smear Completed 201810/05/2020 Encounte r for gynecolo gical examinat ion (general ) (routine ) without abnormal findings ; Progress : Stable Added By: Myriam Lambert Add to Current Problems : NO ProblemS tatus: Resolve Not Available [facility] 2 19:10:48 Clinical finding Completed 201710/05/2020 Encounte r for supervis ion of normal pregnanc y, unspecif ied, unspecif ied trimeste r; Progress : Stable Added By: Alex Castro Add to Current Problems : NO ProblemS tatus: Resolve Not Available [facility] 2 22:02:41 Gestatio n period, 22 weeks 33091401 Completed 201710/05/2020 22 weeks gestatio n of pregnanc y; Progress : Stable Added By: Alex Castro Add to Current Problems : NO ProblemS tatus: Resolve Not Available [facility] 2 19:10:48 Secondar y amenorrh ea 254485701 Completed 201810/05/2020 Secondar y amenorrh ea; Progress : Stable Added By: Myriam Lambert Add to Current Problems : NO ProblemS tatus: Resolve Not Available [facility] 2 19:10:57 Antenata l care: multipar ous, older than 35 years [id number] Completed 202010/05/2020 Supervis ion of elderly multigra katie, first trimeste r; Progress : Stable Added By: Tenisha Alcaraz Add to Current Problems : NO ProblemS tatus: Resolve Not Available [facility] [address] 19:10:[address] Concept Completed 202010/05/2020 Supervis ion of other high risk pregnanc ies, first trimeste r; Progress : Stable Added By: Tenisha Alcaraz Add to Current Problems : NO ProblemS tatus: Resolve Not Available [facility] 19:10:57 Rubella screenin g status 517990466 Completed 201708/16/2018 Encounte r for antenata l screenin g, unspecif ied; Progress : Stable Added By: Alex Castro Add to Current Problems : NO ProblemS tatus: Resolve Not Available [facility] 2 22:02:41 Acute vaginiti s 27970804 Completed 201810/05/2020 Acute vaginiti s; Progress : Stable Added By: Myriam Lambert Add to Current Problems : NO ProblemS tatus: Resolve Not Available [facility] 2 22:02:40 Gestatio n period, 8 weeks 23144117 Completed 202010/05/2020 8 weeks gestatio n of pregnanc y; Progress : Stable Added By: Tenisha Alcaraz Add to Current Problems : NO ProblemS tatus: Resolve Not Available [facility] 2 19:10:46 Family planning educatio n done [id number] 9104 Completed 201612/28/2017 Family planning advice; Location : None Severity : Moderate Progress : Stable Added By: Maddy Valdez Add to Current Problems : YES ProblemS tatus: Resolve Not Available [facility] 11:11:45 Syphilis test finding 016073396 Completed 201810/05/2020 Encounte r for screenin g for infectio ns with a predomin antly sexual mode of transmis maria c; Progress : Stable Added By: Myriam Lambert Add to Current Problems : NO ProblemS tatus: Resolve Not Available [facility] 2 19:10:46 Educatio n Completed 201810/05/2020 Encounte r for other general counseli ng and advice on contrace ption; Progress : Stable Added By: Myriam Lambert Add to Current Problems : NO ProblemS tatus: Resolve Not Available [facility] 2 19:10:51 Pregnanc y 60546870 Completed 202104/23/2021 Marguerite barlow, [facility] [facility] 2 12:40:28 Antenata l screenin g Completed 201710/05/2020 Encounte r for other specifie d antenata l screenin g; Progress : Stable Added By: Myriam Lambert Add to Current Problems : NO ProblemS tatus: Resolve Not Available [facility] 2 19:10:48 Natural contrace ption educatio n Completed 201612/28/2017 Procreat angie counseli ng and advice using natural family planning ; Progress : Stable Added By: Maddy Valdez Add to Current Problems : NO ProblemS tatus: Resolve Not Available [facility] 2 19:10:48 Screenin g for malignan t neoplasm of cervix Completed 202010/05/2020 Encounte r for screenin g for malignan t neoplasm of cervix; Progress : Stable Added By: Tenisha Alcaraz Add to Current Problems : NO ProblemS tatus: Resolve Not Available [facility] 2 22:02:43 Past pregnanc y history of section 239062276 Active 2021 Sherly Foley MD [address] [place] [address], [address] , [facility] [employer] [facility] 2 07:05:35 Grand multipar a 16232977 Active 2021 Sherly Foley MD [address] [place] [address], [address] , [facility] [employer] [facility] 2 07:05:46 Deliveri es by 008997330 Active 2021 x4 Sherly Foley MD [facility] [place], [address] , [facility] [employer] [facility] 2 07:06:20 Disorder of menstrua tion 012728159 Active 2021 Agustina Garcia JAYA [address] [place] [address], [address] , [facility] [employer] [facility] 2 18:42:10 Bacteria l vaginosi s 382413601 Active 2021 Agustina Garcia JAYA [address] [place] [address], [phone] , [facility] [employer] [facility] 2 18:51:32 Abnormal uterine bleeding 45352590991 100 Active 2021 Agustina Garcia JAYA [address] [place] [address], [address] , [facility] [employer] [facility] 2 15:42:03 Problem Notes None recorded. Procedures Surgical History Date Name Laterality Status Provider Name and Address Organization Details Recorded Time 1 Date of Last Pap Smear completed Rebecca Treadwelltrey [place] [facility] 04/13/2021 00:27:33 section completed Sherly Foley MD [address] [place] [address], [phone], [facility] [employer] [facility] 10/10/2021 07:08:05 Imaging Results None recorded. Procedure Notes None recorded. Medical Equipment None Reported. Allergies No known drug allergies Medications Name Sig Start Date Stop Date Status Note LastModified by Organization Details LastModified Time cyclobenz aprine 10 mg tablet TAKE 1 TABLET BY MOUTH THREE TIMES DAILY FOR 10 DAYS 04/23 completed Not Available Not Available Not Available amoxicill in 500 mg capsule TAKE 1 CAPSULE BY MOUTH EVERY 8 HOURS 04/23 completed Not Available Not Available Not Available medroxypr ogesteron e 10 mg tablet TAKE 1 TABLET BY MOUTH DAILY FOR 10 DAYS active Not Available Not Available No t Available venlafaxi ne ER 37.5 mg capsule,e xtended release 24 hr TAKE 1 CAPSULE BY MOUTH EVERY DAY IN THE MORNING FOR 7 DAYS 04/23 completed Not Available Not Available Not Available acetamino phen 325 mg tablet 04/23 completed Not Available Not Available Not Available venlafaxi ne ER 75 mg capsule,e xtended release 24 hr TAKE 1 CAPSULE BY MOUTH EVERY DAY IN THE MORNING active Not Available Not Available No t Available doxycycli ne hyclate 100 mg capsule 04/23 completed Not Available Not Available Not Available clindamyc in HCl 300 mg capsule TAKE 1 CAPSULE BY MOUTH TWICE DAILY FOR 7 DAYS active Not Available Not Available No t Available ibuprofen 800 mg tablet TAKE 1 TABLET BY MOUTH THREE TIMES DAILY NEEDED FOR PAIN active Not Available Not Available No t Available metronida zole 0.75 % (37.5 mg/5 gram) vaginal gel INSERT 1 APPLICAT ORFUL IN THE VAGINA EVERY NIGHT AT BEDTIME active Not Available Not Available No t Available Cleocin 100 mg vaginal supposito ry INSERT ONE SUPPOSIT ORY VAGINALL Y AT BEDTIME 10/10 completed Not Available Not Available Not Available Diflucan 150 mg tablet take 1 tablet (150 mg) by oral route once and repeat in 72 hours 08/28 completed Diflucan 150 mg oral tablet RxNorm: [id number] Allow Substitu tion: True Refill Denied: No Edited by: Tenisha Macdonald ) on 08/29/19 Stopped by: Tenisha Macdonald ) on 08/29/19 21 Not Available Not Available Not Available venlafaxi ne ER 150 mg capsule,e xtended release 24 hr TAKE 1 CAPSULE BY MOUTH EVERY DAY IN THE EVENING 10/10 completed Not Available Not Available Not Available penicilli n V potassium 500 mg tablet TAKE 1 TABLET BY MOUTH FOUR TIMES DAILY UNTIL ALL TAKEN 04/23 completed Not Available Not Available Not Available metronida zole 500 mg tablet TAKE 1 TABLET BY MOUTH TWICE DAILY FOR 7 DAYS active Not Available Not Available No t Available triamcino lone acetonide 0.1 % topical cream APPLY THIN LAYER TOPICALL Y TO THE AFFECTED AREA TWICE DAILY 04/23 completed Not Available Not Available Not Available lamotrigi ne 25 mg tablet TAKE 1 TABLET BY MOUTH EVERY DAY IN THE MORNING FOR 14 DAYS 04/23 completed Not Available Not Available Not Available Vitamin tablet take 1 daily by mouth 04/13 completed Multivit loja Tablet Allow Substitu tion: True Refill Denied: No Not Available Not Available Not Available betametha sone acetate and sodium phos 6 mg/mL suspensio n for injection INJECT 12MG INTRAMUS CULAR ONCE AND REPEAT IN TWENTY-F OUR HOURS 04/23 completed Not Available Not Available Not Available triamcino lone acetonide 0.1 % topical ointment APPLY TOPICALL Y TO RIGHT HAND UP TO THREE TIMES DAILY NEEDED FOR 10 DAYS 04/23 completed Not Available Not Available Not Available progester one micronize d 200 mg capsule INSERT 1 CAPSULE VAGINALL Y AT BEDTIME FOR SHORTENI NG CERVIX 04/23 completed Not Available Not Available Not Available docusate sodium 100 mg capsule 04/23 completed Not Available Not Available Not Available norethind jean acetate 5 mg tablet Take 1 tablet every day by oral route for 10 days. active Not Available Not Available No t Available ibuprofen 600 mg tablet 04/23 completed Not Available Not Available Not Available norethind jean (contrace ptive) 0.35 mg tablet active Not Available Not Available Not Available lamotrigi ne 100 mg tablet 10/10 completed Not Available Not Available Not Available metoclopr amide 10 mg tablet TAKE 1 TABLET BY MOUTH FOUR TIMES DAILY FOR 10 DAYS 04/23 completed Not Available Not Available Not Available progester one micronize d 100 mg capsule active Not Available Not Available Not Available hydroxyzi ne pamoate 25 mg capsule TAKE 1 CAPSULE BY MOUTH THREE TIMES DAILY NEEDED FOR ANXIETY active Not Available Not Available No t Available medroxypr ogesteron e 150 mg/mL intramusc ular syringe INJECT 1 SYRINGE INTRAMUS CULARLY EVERY 3 MONTHS 04/23 completed Not Available Not Available Not Available escitalop georgie 10 mg tablet TAKE 1 TABLET BY MOUTH DAILY 04/23 completed Not Available Not Available Not Available (28) 1.5 mg-30 mcg (21)/75 mg (7) tablet take 1 tablet by oral route once daily 08/28 completed Junel FE 1.5/30 (28) 1.5 mg-30 mcg (21)/75 mg (7) oral tablet RxNorm: [id number] Allow Substitu tion: True Refill Denied: No Edited by: anibal (Tenisha Alcaraz ) on 08/29/19 Stopped by: Tenisha Macdonald ) on 08/29/19 21 Not Available Not Available Not Available Tri-Sprin nellie (28) 0.18 mg(7)/0.2 15 mg(7)/0.2 5 mg(7)-0.0 35 mg tablet TAKE 1 TABLET BY MOUTH EVERY DAY DIRECTED 10/10 completed Not Available Not Available Not Available nitrofura ntoin monohydra te/macroc rystals 100 mg capsule TAKE 1 CAPSULE BY MOUTH TWICE DAILY FOR 14 DAYS 04/23 completed Not Available Not Available Not Available PNV-DHA 27 mg iron-1 mg-300 mg capsule 1 PO daily 04/23 completed PNV-DHA 27 mg iron-1 mg -300 mg oral capsule Allow Substitu tion: True Refill Denied: No Edited by: Courtney Nowak ) on 08/29/19 Stopped by: Courtney Nowak ) on Not Available Not Available Not Available tranexami c acid 650 mg tablet TAKE 2 TABLETS BY MOUTH THREE TIMES DAILY FOR 5 DAYS active Not Available Not Available No t Available 28 mg iron-800 mcg tablet TAKE 1 TABLET BY MOUTH EVERY DAY 04/23 completed Not Available Not Available Not Available Slynd 4 mg (28) tablet 10/10 completed Not Available Not Available Not Available Vitals Date Recorded Body height Body temperature Body mass index (BMI) Body weight Systolic blood pressure Diastolic blood pressure Provider Name and Address Organization Details Last Updated DateTime 2 160.02 cm 97 [degF] 36.7 kg/m2 22188.6 2 g 140 mm[Hg] 80 mm[Hg] [facility] 12:53:20 Date Recorded Body height Body mass index (BMI) Body weight Body temperature Systolic blood pressure Diastolic blood pressure Provider Name and Address Organization Details Last Updated DateTime 2 160.02 cm 37 kg/m2 21799.8 1 g 98.2 [degF] 134 mm[Hg] 86 mm[Hg] Loraine Wang [employer] [facility] 18:11:15 Social History Question Answer Notes LastModified by Organizat ion Details LastModified Time Tobacco Smoking Status Never Smoker Loraine Wang null, [employer] [facility] 10/10/2021 18:13:54 If You Are , What Was Your Level Of Alcohol Consumption Prior To ? None Information not available 10/10/2021 Are You Blind Or Do You Have Difficulty Seeing? No Information not available 10/10/2021 Are You Deaf Or Do You Have Serious Difficulty Hearing? No Information not available 10/10/2021 What Type Of Diet Are You Following? REGULAR Information not available 10/10/2021 How Many Children Do You Have? 9 Information not available 10/10/2021 What Is Your Relationship Status? Single Information not available 10/10/2021 Are You Sexually Active? Yes Information not available 10/10/2021 Sex: Unknown Functional Status Question Answer Note LastModified by Organizat ion Details LastModified Time Do you use any illicit or recreational drugs? No Information not available 10/10/2021 Do you or have you ever used any other forms of tobacco or nicotine? No Information not available 10/10/2021 What is your level of alcohol consumption? Occasional Information not available 10/10/2021 What is your exercise level? Occasional Information not available 10/10/2021 Mental Status None recorded. Family History Relationship Description Onset Age of this Age Resolved Age Notes LastModified by Organization Details LastModified Time Mother Malignant tumor of colon 40 [email or web address] Not available 03/16 00:29:47 Maternal Grandmother Malignant tumor of colon [email or web address] Not available 03/16 00:30:11 Medical History No medical history recorded. Gynecological History Statement/Question Response HPV Vaccine N Date of Last Pap Smear 08/28/2020 Current Control Method Condoms Age at Menarche 14 Date of LMP Obstetrics History GPAL:G 10 P 7 2 0 9 Type Value Full Term 7 Premature 2 Living 9 Total 10 Past Encounters Encounter ID Performer Location Encounter Start Date Encounter Closed Date Diagnosis/Indication Diagnosis SNOMED-CT Code Diagnosis ICD10 Code Diagnosis Note [id number] PAN RENDON [facility]M [facility] [address] [place] [address] 04/23/2021 12:22:28 04/23/2021 14:07:00 Reproductive care management 246378662 Z31.9 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 Would like to conceive again. Planning on staying on OCP until one year post loss. Rec OB visit with + HPT, early referral to MFM, serial cervical length. RE: mental health, no active SI/HI ideations. Refer to counseling for unresolved trauma. Appx one hour face to face time spent discussing unresolved grief from IUFD. Quant at pt request. She needs to know she isn't by blood test. Contracept ion care management 959602133 Z30.9 [id number] DEMETRIA Huang [facility] h [address] [place] [address] 10/10/2021 17:36:37 10/11/2021 09:35:58 Disorder of menstruation 167158246 N92.6 *Discussed causes of abnormal uterine bleeding, including structural (polyps, fibroids), hormonal including anovulatio n, hyperplasi a, and rarely cancer. Reviewed evaluation with pelvic US and endometria l biopsy.*Pa tient case to submit PA for US*Schedul e EMB and US*TSH and CBC next visit Health Concerns Section Related Observation LastModified by Organization Detai ls LastModified Time None Recorded Concern Status LastModified by Organization Details LastModified Time None Recorded Advance Directives Directive None Recorded Payers Insurance Date Sequence Insurance Name Policy Number Policy [place] Covered Member ID [place] Member ID Guarantor Name 05/16/2021 1 [place] Mary Ann Colon [id number] Mary Ann Colon 10/05/2021 1 [facility] (MEDICARE - MEDICAID REPLACEMENT HMO) [id number] Mary Ann Colon [id number] Mary Ann Colon 08/19/2022 2 [place] Mary Ann Colon [id number] Mary Ann Colon 12/21/2021 1 [place] Mary Ann Colon [id number] Mary Ann Colon 01/26/2024 3 [facility] (MEDICARE REPLACEMENT HMO) Mary Ann Colon [id number] Mary Ann Colon Notes Date Note Type Note Provider Name and Address Organization Details Recorded Time 04/23/2021 text/html Annual GYNReport ed bypatient.Menstrual cycle:Normal menses Urinary symptoms:No hematuria; No incontinence Vulva:No genital lesion Vagina:Normal vaginal discharge Breast:No breast pain; No breast lump; No nipple discharge Sexual complaints:No sexual complaints; No pain during intercourse; Normal libido Menopausal Symptoms:No menopausal symptoms; Normal vaginal lubrication Psychological symptoms:No depression; No anxiety; No PMDD PAN RENDON CNM [facility] [place], [address], [employer] [facility] 04/23/2021 14:06:43 10/10/2021 text/html Abnormal BleedingReported bypatient.Onset/Timing :present cycle; every cycle; irregular Quality:light;irregula r Associated Symptoms:no dysmenorrhea; no pelvic pain; no abdominal pain; no dyspareunia; no fatigue; no dizziness; no change in bowel function; no urinary symptoms; no vaginal discharge; no vaginal itching/irritation;blo ating Mary Ann states that she stopped taking OCPs in June. Reports continuous light bleeding since; when the bleeding is at its heaviest, she changes her pad every 6 hours. She reports bloating. DEMETRIA Huang [address] [place], [address], [facility] [employer] [facility] 10/14/2021 18:09:04 OBGyn Episode Ob Episode Information Episode Created Date Number of Fetuses Patient Bloodtype Patient rh Status Prepregnancy Weight lbs Domestic Partner Domestic Partner Phone Father Name Associate Professor Of Engineering Status 04/13/20 21 1 CLOSED Fetus Data First Name Last Name Admitted to NICU Weight (g) Sex Living Outcome Pediatric Complications Fetus ID Race Codes Race Delivery Type 3005.04 7 F Full Term 87612 Repeat Jayjay Calculation Initial Jayjay Date Initial Exam [...] Domestic Partner Domestic Partner Phone Father Name Associate Professor Of Engineering Status 04/13/20 21 1 CLOSED Fetus Data First Name Last Name Admitted to NICU Weight (g) Sex Living Outcome Pediatric Complications Fetus ID Race Codes Race Delivery Type 7.86 3 M Full Term 64234 Repeat Jayjay Calculation Initial Jayjay Date Initial Exam [...] Post Complications Tubal Sterilization Discharge Date Comments 4 cord prolapse Discharge Information Feeding Method Contraceptive Method Maternal HG B and HCT Levels Ob Episode Information Episode Created Date Number of Fetuses Patient Bloodtype Patient rh Status Prepregnancy Weight lbs Domestic Partner Domestic Partner Phone Father Name Associate Professor Of Engineering Status 04/13/20 21 1 CLOSED Fetus Data First Name Last Name Admitted to NICU Weight (g) Sex Living Outcome Pediatric Complications Fetus ID Race Codes Race Delivery Type 2551.45 5 F Full Term 56409 Jayjay Calculation Initial Jayjay Date Initial Exam [...] Domestic Partner Domestic Partner Phone Father Name Associate Professor Of Engineering Status 04/20/19 22 1 A Negative CLOSED Fetus Data First Name Last Name Admitted to NICU Weight (g) Sex Living Outcome Pediatric Complications Fetus ID Race Codes Race Delivery Type 34061 Jayjay Calculation Initial Jayjay Date Initial Exam Date Initial Exam Provider Initial Ultrasound Date Last Menstrual Period Date Ultra Sound Weeks Gestation 05/01/2021 04/20/2021 0 Eighteen To Twenty Week Jayjay Update Ultra Sound Date Fundal Height At Umbil Quickening Date Ultra Sound Latest Weeks Gestation Final Jayjay Confirmed By Final Jayjay Confirmed Date Final Jayjay Date Ultra Sound Latest Days Gestation 0 0 Pre- Flowsheet Flowsheet Date 04/23/2021 Heredia Score Blood Edema Fundus Height Fundus Units Glucose Ketones Leukocytes Nitrite Labor Signs Protein Cervic Dilation Cervic Effacement Cervic Station Type Weight in lbs Pre/Post Dialysis Refused Weight 207.469201291080 BP Diastolic BP Location Tested BP Systolic BP Type 80 140 Fetus Heart Rate Present Fetus Movement Comments Menstrual History Last Menstrual Date Menses Monthly On Bcp Conception Prior Menses Frequency Hcg Plus Date Menarche Onset Age Delivery Information Delivery Date Delivery Type Labor Anesthesia Weeks Gestation Incision Type Labor Labor Length Hrs Delivered By Post Complications Tubal Sterilization Discharge Date Comments Discharge Information Feeding Method Contraceptive Method Maternal HG B and HCT Levels Ob Episode Information Episode Created Date Number of Fetuses Patient Bloodtype Patient rh Status Prepregnancy Weight lbs Domestic Partner Domestic Partner Phone Father Name Associate Professor Of Engineering Status 04/13/20 21 1 CLOSED Fetus Data First Name Last Name Admitted to NICU Weight (g) Sex Living Outcome Pediatric Complications Fetus ID Race Codes Race Delivery Type 3231.84 3 M Full Term 07882 Jayjay Calculation Initial Jayjay Date Initial Exam [...] Domestic Partner Domestic Partner Phone Father Name Associate Professor Of Engineering Status 04/13/20 21 1 CLOSED Fetus Data First Name Last Name Admitted to NICU Weight (g) Sex Living Outcome Pediatric Complications Fetus ID Race Codes Race Delivery Type 3572.03 7 F Full Term 13710 Jayjay Calculation Initial Jayjay Date Initial Exam [...] Domestic Partner Domestic Partner Phone Father Name Associate Professor Of Engineering Status 04/13/20 21 1 CLOSED Fetus Data First Name Last Name Admitted to NICU Weight (g) Sex Living Outcome Pediatric Complications Fetus ID Race Codes Race Delivery Type 2324.65 9 M Full Term 47496 Jayjay Calculation Initial Jayjay Date Initial Exam [...] Complications Tubal Sterilization Discharge Date Comments 8 Discharge Information Feeding Method Contraceptive Method Maternal HG B and HCT Levels Ob Episode Information Episode Created Date Number of Fetuses Patient Bloodtype Patient rh Status Prepregnancy Weight lbs Domestic Partner Domestic Partner Phone Father Name Associate Professor Of Engineering Status 04/13/20 21 1 CLOSED Fetus Data First Name Last Name Admitted to NICU Weight (g) Sex Living Outcome Pediatric Complications Fetus ID Race Codes Race Delivery Type 1644.27 1 F Full Term 85544 Repeat Jayjay Calculation Initial Jayjay Date Initial Exam [...] Complications Tubal Sterilization Discharge Date Comments 8 33 Discharge Information Feeding Method Contraceptive Method Maternal HG B and HCT Levels Ob Episode Information Episode Created Date Number of Fetuses Patient Bloodtype Patient rh Status Prepregnancy Weight lbs Domestic Partner Domestic Partner Phone Father Name Associate Professor Of Engineering Status 04/13/20 21 1 CLOSED Fetus Data First Name Last Name Admitted to NICU Weight (g) Sex Living Outcome Pediatric Complications Fetus ID Race Codes Race Delivery Type 3231.84 3 M Full Term 59341 Jayjay Calculation Initial Jayjay Date Initial Exam [...] Post Complications Tubal Sterilization Discharge Date Comments 0 Discharge Information Feeding Method Contraceptive Method Maternal HG B and HCT Levels Ob Episode Information Episode Created Date Number of Fetuses Patient Bloodtype Patient rh Status Prepregnancy Weight lbs Domestic Partner Domestic Partner Phone Father Name Associate Professor Of Engineering Status 04/13/20 21 1 CLOSED Fetus Data First Name Last Name Admitted to NICU Weight (g) Sex Living Outcome Pediatric Complications Fetus ID Race Codes Race Delivery Type 2324.65 9 M Full Term 50308 Primary Jayjay Calculation Initial Jayjay Date Initial [...] Domestic Partner Domestic Partner Phone Father Name Associate Professor Of Engineering Status 06/29/19 22 1 CLOSED Fetus Data First Name Last Name Admitted to NICU Weight (g) Sex Living Outcome Pediatric Complications Fetus ID Race Codes Race Delivery Type [id number] Jayjay Calculation Initial Jayjay Date Initial Exam [...] Complications Tubal Sterilization Discharge Date Comments 8 None 268 true Discharge Information Feeding Method Contraceptive Method Maternal HG B and HCT Levels Ob Episode Information Episode Created Date Number of Fetuses Patient Bloodtype Patient rh Status Prepregnancy Weight lbs Domestic Partner Domestic Partner Phone Father Name Associate Professor Of Engineering Status 06/29/19 22 1 CLOSED Fetus Data First Name Last Name Admitted to NICU Weight (g) Sex Living Outcome Pediatric Complications Fetus ID Race Codes Race Delivery Type 296789 Jayjay Calculation Initial Jayjay Date Initial Exam [...] Post Complications Tubal Sterilization Discharge Date Comments 0 None 270 true Discharge Information Feeding Method Contraceptive Method Maternal HG B and HCT Levels Ob Episode Information Episode Created Date Number of Fetuses Patient Bloodtype Patient rh Status Prepregnancy Weight lbs Domestic Partner Domestic Partner Phone Father Name Associate Professor Of Engineering Status 06/29/19 22 1 CLOSED Fetus Data First Name Last Name Admitted to NICU Weight (g) Sex Living Outcome Pediatric Complications Fetus ID Race Codes Race Delivery Type 044854 Jayjay Calculation Initial Jayjay Date Initial Exam [...] Complications Tubal Sterilization Discharge Date Comments 1 None 269 true Discharge Information Feeding Method Contraceptive Method Maternal HG B and HCT Levels
--- OUTSIDE RECORDS SUMMARY | 2024-09-23 21:31 | XMS_ITS ---
Author Organization [facility] Address [address] [place] [address] Care Team Providers Care Toby Maker Name Role Phone Jacquelyn Garland Primary Care Provider REASON FOR VISIT VM FULL.Needs to R/S-mlr 1 Month F/U Please call number twice Encounters Encounter Location Date Provider Diagnosis [address] [place] [address] 05/31/2024 Jacquelyn Garland Plan Of Treatment No Information Progress Notes * Chemo CHIUB: 2 (44 yo F)Acc No.[id number]:05/31/2024 UNLOCKED PROGRESS NOTE Patient: Mary Ann RICCI Provider: Abby Garland MSN, MAINSPRING STRIP GAUGER, PRESS TENDER STAR SIGNAL-C :1980 A ge:44 Y S ex:Female Date:05/31/2024 Address:[address] [place], [place] [id number] Subjective: * Chief Complaints: * 1 . VM FULL.Needs to R/S-mlr 1 Month F/U Please call number twice. * Medical History: Objective: * Vitals: Assessment: Plan: * Treatment: * * Electronic signature of Sonja Garland , [id number] on 09/23/2024 at 09:31 PM CDT Sign off status: Pending * Provider: MARLY Castellano, MAINSPRING STRIP GAUGER, PRESS TENDER STAR SIGNAL-C Date: 0 05/31/2024 Generated for Latricei ng/Fabrandong/eTransmitting on: 0 09/23/2024 09:31 PM CDT
--- OUTSIDE RECORDS SUMMARY | 2024-09-23 21:31 | XMS_ITS | Clinical Summary ---
Author Organization [facility] Address [address] [place] [address] Care Team Providers Care Project Associate Name Role Phone Unavailable Primary Care Provider Unavailabl e Source Comments [facility],non-owned Affiliates and Associated Physician Practices is amultiple site organization consisting of ambulatory clinics and hospital sitesin [place], [place], [place] and [place]. This disclosure is being madepursuant to the Care Everywhere program and may not contain all information available regarding this patient. Last updated 18.[facility] Allergies No known active allergies Medications * Be aware that medications may not be up to date on this document. Alwaysverify current medications with the patient. Vit-Fe Fumarate-FA ( VITAMIN) 28-0.8 MG tabletIndicatio ns: Take 1 tablet by mouth once daily Reasons: Active Active Problems Problem Noted Date Diagnosed Date Previous delivery, antepartum Assessment & Plan (12/20/2020 4:19 PM CDT): Has had 3 cesareans. No history of for labor dystocia. Had her 4th after her 3rd CD. The last was a short interval to this G8 . Has not had any complications after . Strongly desires repeat TOLAC. Small risk of morbidly adherent placenta even without placenta previa. 1. Will notify [facility] colleagues of case to get a consensus impression Grand multiparity 12/20/2020 Assessment & Plan (12/20/2020 4:18 PM CDT): At risk for immediate hemorrhage Cervical shortening affecting 12/21/19 21 Assessment & Plan (12/20/2020 4:32 PM CDT): Has had significant cervical shortening despite using vaginal progesterone for 1 week. We discussed the different interventions and that an in-person evaluation would be needed to determine whether she was a candidate for cervical pessary or cerclage. She seems more interested in pessary at this time. We also discussed the extremes of viability in terms of mortality and severe morbidity from very delivery. Recommendations 1. Evaluation at [facility] to determine candidacy for cervical pessary vs cerclage--encouraged to go for evaluation within 24 hours 1. Staff at [facility] notified 2. Continue vaginal progesterone 3. Reevaluate cervical length in 1 wk 4. Warrants evaluation and treatment, if indicated, for any complaints of abnormal vaginal discharge Hx of preeclampsia, prior , currently p regnant 12/20/2020 Assessment & Plan (12/20/2020 4:28 PM CDT): At risk for recurrent preeclampsia Advanced maternal age in multigravida 11/06/2020 Overview (12/20/2020): A-/ antibody-Neg/ rpr-Neg/ Imm/ HIV-NR/ HBsAg-NR HH 13.7/39.5 Plt 250 CMV-NI Parvo-Imm Assessment & Plan (12/20/2020 4:24 PM CDT): Had genetic counseling. No serum screen elected. No markers of aneuploidy identified today. Advanced maternal age The obstetric risks of advanced maternal age include but are not limited to the increased risk of Down's syndrome and other genetic disorders, congenital anomalies, SAB, gestational hypertension, preeclampsia, gestational diabetes, labor, morbidity, placental complications such as abruption and previa, delivery via and dysfunctional labor, and other maternal morbidity/mortality. Recommendations 1. Given the previous history of a hypertensive disorder of and maternal age, aspirin prophylaxis is recommended--OB to prescribe Obesity 11/06/2020 Overview (11/06/2020): BMI 34.5 Encounter for anatomic survey History of delivery Assessment & Plan (12/20/2020 4:25 PM CDT): Previous deliveries have been at 35-36 weeks. Additional risk factors are short interval and BMI > 30. Too late to start 17-OHPC. 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 Not on file Not on file Not on file Last Filed Vital Signs Vital Sign Reading Time Taken Comments Blood Pressure 115/80 12/20/2020 2:05 PM CDT Pulse 87 12/20/2020 2:05 PM CDT Temperature - - Respiratory Rate - - Oxygen Saturation - - Inhaled Oxygen Concentration - - Weight 92.5 kg (204 lb) 12/20/2020 2:05 PM CDT Height 157.5 cm (5' 2) 12/20/2020 4:13 PM CDT Body Mass Index 37.31 12/20/2020 2:05 PM CDT Plan of Treatment Health Maintenance Due Date Last Done Comments LIPID TESTING 1980 MAMMOGRAM 1980 HIV SCREENING 1997 HEPATITIS C SCREENING 03/25/2000 DTAP/TDAP/TD VACCINES (1 - Tdap) 2001 HEPATITIS B VACCINE (1 of 3 - 19+ 3-dose series) 2001 COVID-19 VACCINE ( - 2023-2 5 season) 2023 DEPRESSION SCREENING 04/14/2024 INFLUENZA VACCINE (Season Ended) 2024 ZOSTER VACCINE (1 of 2) 2032 HIB VACCINE Aged Out No longer eligi ble based on patient's age to complete this topic HPV VACCINE Aged Out No longer eligi ble based on patient's age to complete this topic MENINGOCOCCAL (Group B) VACC INE SHARED DECISION-MAKING Aged Out No longer eligibl e based on patient's age to complete this topic MENINGOCOCCAL GROUPS A/C/Y/W VACCINE Aged Out No longer eligible b ased on patient's age to complete this topic PNEUMOCOCCAL VACCINE Aged Out No long er eligible based on patient's age to complete this [place] [address] MEDICAID - OUT OF STATE MEDICARE MED[place]ID - [place] [facility] MEDICARE ADVANTAGE GENERIC
--- OUTSIDE RECORDS SUMMARY | 2024-09-23 21:31 | XMS_ITS | Referral Summary ---
Author Organization [address] Address [address] [place] [id number] Care Team Providers Care Gun Numberer Name Role Phone Sowmya Pichardo MD Primary [...] [] MOC: [] Method of feeding: [] Block Cableman: [] PP Depression Discussed: RTC 2 weeks [...] Overview (01/13/2018): See PPROM in 2014 At [facility] Late care affecting 12/10/2017 12/11/2017 History of 12/10/2017 018 Overview (12/12/2017): History of 3 prior CS. 2 CS then 4 FT followed by 32 week CS via t-incision on the uterus when she presented with PROM, cord prolapse. Significant adhesions present. Op note in records. Performed at [facility]. Discussed the risk of high order [...] 12/10/2017 01/15/2018 Overview (12/12/2017): Previously been offered Celeste and declined. 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 Gender Identity Not on file Sexual Orientation Not on file Last Filed Vital Signs Vital Sign Reading Time Taken Comments Blood Pressure 124/84 03/26/2023 2:05 PM MOTOR BRAKEMAN Pulse 90 03/26/2023 2:05 PM MOTOR BRAKEMAN Temperature 36.7 C (98.1 F) 03/26/2023 2:05 PM MOTOR BRAKEMAN Respiratory Rate 20 03/26/2023 2:05 PM MOTOR BRAKEMAN Oxygen Saturation 98% 03/26/2023 2:05 PM MOTOR BRAKEMAN Inhaled Oxygen Concentration - - Weight 86.2 kg (190 lb) 02/14/2023 4:50 PM CDT Height 154.9 cm (5' 1) 01/24/2023 4:11 PM CDT Body Mass Index 35.9 01/24/2023 4:11 PM CDT Plan of Treatment Not on file Insurance [facility] MEDICARE [facility] MEDICARE [employer] MEDICARE [employer] Care Teams Gun Numberer Relationship Specialty Start Date End Date Sowmya Pichardo MD PCP - General Family Practice 07/04/22
--- OUTSIDE RECORDS SUMMARY | 2024-09-23 21:32 | XMS_ITS | Encounter Summary ---
Author Organization [facility] Address [address] [place] [address] Care Team Providers Care Mail Distribution Scheme Examiner Name Role Phone Unavailable Primary Care Provider Unavailabl e Encounter Details Date Type Department Care Team (Late st Contact Info) Description 07/26/2024 Results Follow-Up [facility] [place] [address] [facility] [address] [place] [address] Maritza Richardson RN ECHO STRESS TEST EXERCISE Social History Tobacco Use Types Packs/Day Years Used Date Smoking Tobacco: Never Smokeless Tobacco: Never Alcohol Use Standard Drinks/Week Comments No 0 (1 standard drink = 0.6 oz pur e alcohol) Comments No Sex and Gender Information Value Date Recorded Sex Assigned at Not on file Legal Sex Female 10:02 AM CDT Gender Identity Not on file Sexual Orientation Not on file documented as of this encounter Plan of Treatment Not on file documented as of this encounter Visit Diagnoses Not on filedocumented in this encounter
--- OUTSIDE RECORDS SUMMARY | 2024-09-23 21:32 | XMS_ITS | Data Portability ---
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 BIPOLAR DISORDER - OBESITY I - H/O LEARNING DISABILITY Annual labs: 06/17/22. Annual labs: 04/04/21. Wt: 191(06/27/22) D/w pt in detail about her findings, recent labs and further plan of care. Pt declined for any statin at this time. Meds as directed. Diet and exercise explained in detail. Explained about different options for it. Cont f/u with Psych at [facility] as per schedule. Cont f/u with Gyne as per schedule. Educated pt about alarming symptoms to monitor at home and call us back Or get checked in ED. HM: WWE - 11/02, normal as per pt. Cont f/u with Gyne as per her recommendations. Mammo - Never. No FH of breast CA. Tdap - 05/12/17. Flu - Pt declined. F/u in 2 months. Lipids in 10/04. Annual labs in 07/05. [email or web address] Not available 06/27/2022 15:47:17 10/08/2022 10/08/2022 D/w pt about her findings and further plan of care. Will do x-ray. Pt declined for HCG. Meds as directed. Ice pack as directed prn. RICE explained in detail. Advised to avoid any strenuous activities/lifti ng-pushing until cleared. Educated pt about alarming symptoms to monitor at home and call us back or get checked in ED. F/u in 2 weeks. Lipids before next visit. [email or web address] Not available 10/08/2022 15:19:49 03/03/2024 03/03/2024 The patient gave verbal consent using TelePhonic services and the consent is documented in the medical record prior to using the service. The patient has been informed of what a TeleMedicine visit is. Patient is located at home. Provider is located at office. Names and roles of persons in addition to the patient and provider participating in telemedicine services include staff. The patient had a 11 minute TeleMedicine consultation via phone call to discuss the following: [email or web address] Not available 03/03/2024 15:36:06 Plan of Treatment Reminders Order Date Submit Date Provider Last Modified By Organization Details Last Modified Time Details Appointments None recorded. Lab lipid panel, serum 2023 [facility] (Lab), [address] [place], [address], 4 00:33:18 CMP, serum or plasma 2023 [facility] (Lab), [address] [place], [address], 4 00:33:19 glycohemogl obin, total, blood 2023 [facility] (Lab), [address] [place], [address], 4 00:33:18 TSH, serum or plasma 2023 [facility] (Lab), [address] [place], [address], 4 00:33:18 CBC w/ auto diff 2023 [facility] (Lab), [address] [place], [address], 4 00:33:18 vitamin D, 25-hydroxy, total, serum 2023 024 JASS [facility] (Lab), [address] [place], [address], 4 00:33:18 lipid panel, serum 2022 023 [email or web address] [facility] (Lab), [address] [place], [address], 3 14:18:38 lipid panel, serum 2022 023 [facility] (Lab), [address] [place], [address], 3 10:48:22 Referral neurologist referral - Please call patient to schedule an appointment . Thank you. 2023 024 [email or web address] Frederick Dennis MD, [address], [address], 5 08:50:29 cardiologis t referral - Please call patient to schedule an appointment . Thank you. 2023 024 Estuardo Amezcua MD, [address] [place], [address], 5 12:40:52 physical therapist referral - Please call pt to schedule 2023 024 [email or web address] 256 [facility], [address], [address], [place], [address], 5 13:53:00 cardiologis t referral 2022 023 [email or web address] [facility] Referral Fax Line, [address] [facility], [facility] [address], [place], [address], 3 19:50:06 Procedures None recorded. Surgeries None recorded. Imaging XR, knee, 3 view - Rt knee pain for last few months 2023 024 [email or web address] 256 [facility], [address], [place], [address], 4 08:46:51 XR, forearm, 2 view 2022 023 [email or web address] Not available 3 09:30:34 Medication Orders docusate sodium 250 mg capsule 2023 024 [place] [id number], [address], [place], [place], [id number], 4 12:28:13 meloxicam 7.5 mg tablet 2023 024 [facility], [address], [place], [place], [id number], 4 12:26:16 albendazole 200 mg tablet 2023 024 [place] [facility] #68033, [address], [place], [place], [id number], 4 12:26:17 hydroxyzine HCl 25 mg tablet 2023 024 [place] [facility] #57966, [address], [place], [place], [id number], 4 12:26:18 diclofenac sodium 75 mg tablet,ne yed release [address] [facility], [address], [place], [place], [id number], 4 12:09:12 Medrol (Jan) 4 mg tablets in a dose pack [address] [facility], [address], [place], [place], [id number], 4 15:37:34 phentermine 15 mg capsule 2022 023 [email or web address] [facility] #36822, [address] [facility], [place], [place], [id number], 3 15:11:47 ergocalcife rol (vitamin D2) 1,250 mcg (50,000 unit) capsule 2022 023 [facility] #44671, [address] [facility], [place], [place], [id number], 4 12:09:15 Patient TargetsNo targets recorded. Patient Instructions Encounter Date Encounter Id Patient Instructions Last Modified By Organization Details Last Modified Time 06/27/2022 [id number] When You Want to Lose Weight: Care Instructions [email or web address] Not available 06/27/2022 15:47:53 starting a weigh t loss plan: care instructions [email or web address] Not available 06/27/2022 15:47:53 high cholesterol : care instructions [email or web address] Not available 06/27/2022 14:51:42 03/03/2024 [id number] starting a weigh t loss plan: care instructions [email or web address] Not available 03/03/2024 15:40:29 Due to the COVID -19 (Novel Coronavirus) pandemic, it is within this context (and with the understanding that this method of patient encounter is in the patient s best interest as well as the health and safety of other patients and the public) that telehealth is being provided for this patient encounter rather than a vfrf-ez-amgb visit. This patient encounter is appropriate at this time. This patient has been advised of the potential risks and limitations of this mode of treatment (including, but not limited to, the absence of in-person examination) and has agreed to be treated in a remote fashion despite these risks. Any and all of the patient s/patient s family s questions on this issue have been answered, and I have made no promises or guarantees to the patient. The patient has also been advised to contact this office for worsening conditions or problems, and seek emergency medical treatment and/or call 911 if the patient deems either necessary. HPI and/or vitals, if listed, were provided by the patient. [email or web address] Not available 03/03/2024 15:32:43 03/17/2024 [id number] dementia rating scale-2* [email or web address] Not available 03/17/2024 15:15:30 multi-dimensiona l health assessment questionnaire* [email or web address] Not available 03/17/2024 14:47:42 INFLUENZA VACCIN E Recommended today, but patient declined TD/TDAP Recommended today, patient declined PNEUMONIA VACCINE Recommended today, patient declined SHINGLES Not indicated MAMMOGRAM: Last Mammogram Recommended today, but patient declined DEXA SCAN Recommended today, but patient declined CERVICAL SCREENING/PELVIC EXAMINATION Recommended today, but patient declined COLORECTAL SCREENING: Last Colonoscopy Recommended today, but patient declined DEPRESSION SCREENING Negative BMI Overweight NUTRITION Eat Heart Healthy Diet PHYSICAL ACTIVITY Need more exercise/physical activity minimum of 20-30 minutes activity that causes mild breathlessness/day VISION Recommended today ALCOHOL USE No alcohol use TOBACCO USE non smoker LUNG CANCER SCREENING Non Smoker-not indicated SEXUALLY ACTIVE HEPATITIS C SCREENING GLUCOSE SCREENING LIPID SCREENING Personalized Health Plan and Screening Recommendations Advance Directives - Do you have one? No I have no recommendations Advance Directives - Do we have your advance directive on file in your health record? I have no recommendations Primary Prevention/Interven tion (prevents or decreases the chance of common diseases from occurring) Smoking Risk: Non Smoker I have no recommendations Alcohol Misuse Screening: Negative I have no recommendations Weight: Overweight try to lose 10% of your body weight Physical activity: Need more exercise/physical activity minimum of 20-30 minutes activity that causes mild breathlessness/day Nutrition: Average Eat Heart Healthy Diet Fall Risk (screened today): Low I have no recommendations Vaccines Pneumococcal: No further needed Influenza: Recommended today, but you have declined Chronic Disease Risks Stroke: Active diagnosis, Continue current treatment plan Heart Attack: Low risk I have no recommendations Clogging of the Arteries: Low risk I have no recommendations Diabetes: Low Risk I have no recommendations Secondary Prevention/Interven tion (detects treatable diseases before they may cause symptoms, disability, or ) Breast Cancer Screening with mammogram: Recommended today, but you have declined Cervical/Uterine/Ov tiffany Cancer Screening: Recommended today Osteoporosis Screening: Recommended today, but you have declined Date Screening Last Performed: Colon Cancer Screening: Colonoscopy Recommended today, but you have declined Date Screening Last Performed: Eye Disease Screening: Recommended today Dementia Risk: Low I have no recommendations Depression Screening: Negative I have no recommendations [email or web address] Not available 03/17/2024 15:49:05 Reason for Referral Stitcher Around Referral for Georgie rodriguez history of Cardiovascular disease Referring Physician: Navjot Keith [facility] Medicine, Encounter Date: 10/08/2022 Physical Therapist Referral for Pain of right knee joint Please call pt to schedule Referring Physician: Ella Castellon [facility], Encounter Date: 03/10/2024 Neurologist Referral for Poo r short-term memory Please call patient to schedule an appointment. Thank you. Referring Physician: Ella Castellon [facility], Encounter Date: 03/17/2024 Stitcher Around Referral for Georgie rodriguez history of Cardiovascular disease Please call patient to schedule an appointment. Thank you. Referring Physician: Ella Castellon [facility], Encounter Date: 03/17/2024 Results Created Date Observation Date Name Description Value Unit Range Abnormal Flag Note LastModifiedBy Organization Detail LastModifiedTime 06/18/1906/17/2022 CBC/C OMPLE TE BLD COUNT W/DIF F white blood cells 5.6 x10'3 /uL 4.2-10 .8 Not Available [facility] (Lab) [address] [place], [address], 06/17/2022 19:36:59 06/18/1906/17/2022 CBC/C OMPLE TE BLD COUNT W/DIF F red blood cells 4.92 x10'6 /uL 3.80-5 .20 Not Available [facility] (Lab) [address] [place], [address], 06/17/2022 19:36:59 06/18/19 23 06/17/2022 CBC/C OMPLE TE BLD COUNT W/DIF F hemoglobin 14.1 g/dL 12.0-1 5.6 Not Available [facility] (Lab) [address] [facility] [place], [address], 06/17/2022 19:36:59 06/18/19 23 06/17/2022 CBC/C OMPLE TE BLD COUNT W/DIF F hematocrit 41.9 % 35.7-4 5.7 Not Available [facility] (Lab) [address] [place], [address], 06/17/2022 19:36:59 06/18/19 23 06/17/2022 CBC/C OMPLE TE BLD COUNT W/DIF F mean red cell volume 85.2 fL 82.0-9 9.0 Not Available [facility] (Lab) [address] [place], [address], 06/17/2022 19:36:59 06/18/19 23 06/17/2022 CBC/C OMPLE TE BLD COUNT W/DIF F mean red cell hemoglobin 28.7 pg 27.0-3 3.0 Not Available [facility] (Lab) [address] [place], [address], 06/17/2022 19:36:59 06/18/19 23 06/17/2022 CBC/C OMPLE TE BLD COUNT W/DIF F mean RBC HGB concentratio n 33.7 g/dL 31.0-3 6.0 Not Available [facility] (Lab) [address] [place], [address], 06/17/2022 19:36:59 06/18/19 23 06/17/2022 CBC/C OMPLE TE BLD COUNT W/DIF F red cell distribution width 12.4 % 11.8-1 5.5 Not Available [facility] (Lab) [address] [place], [address], 06/17/2022 19:36:59 06/18/19 23 06/17/2022 CBC/C OMPLE TE BLD COUNT W/DIF F platelets 249 x10'3 /uL 150-40 0 Not Available [facility] (Lab) [address] [place], [address], 06/17/2022 19:36:59 06/18/19 23 06/17/2022 CBC/C OMPLE TE BLD COUNT W/DIF F mean platelet volume 10.0 fL 9.0-12 .4 Not Available [facility] (Lab) [address] [place], [address], 06/17/2022 19:36:59 06/18/19 23 06/17/2022 CBC/C OMPLE TE BLD COUNT W/DIF F neutrophils 47.4 % 39.0-7 2.0 Not Available [facility] (Lab) [address] [place], [address], 06/17/2022 19:36:59 06/18/19 23 06/17/2022 CBC/C OMPLE TE BLD COUNT W/DIF F lymphocytes 40.5 % 16.0-4 7.0 Not Available [facility] (Lab) [address] [place], [address], 06/17/2022 19:36:59 06/18/19 23 06/17/2022 CBC/C OMPLE TE BLD COUNT W/DIF F monocytes 9.4 % 5.0-12 .0 Not Available [facility] (Lab) [address] [place], [address], 06/17/2022 19:36:59 06/18/19 23 06/17/2022 CBC/C OMPLE TE BLD COUNT W/DIF F eosinophils 2.0 % 1.0-7. 0 Not Available [facility] (Lab) [address] [place], [address], 06/17/2022 19:36:59 06/18/19 23 06/17/2022 CBC/C OMPLE TE BLD COUNT W/DIF F basophils 0.5 % 0.0-2. 0 Not Available [facility] (Lab) [address] [place], [address], 06/17/2022 19:36:59 06/18/19 23 06/17/2022 CBC/C OMPLE TE BLD COUNT W/DIF F immature granulocytes 0.2 % 0.00-0 .50 Not Available [facility] (Lab) [address] [place], [address], 06/17/2022 19:36:59 06/18/19 23 06/17/2022 CBC/C OMPLE TE BLD COUNT W/DIF F neutrophils, absolute count 2.64 x10'3 /uL 1.5-8. 0 Not Available [facility] (Lab) [address] [place], [address], 06/17/2022 19:36:59 06/18/19 23 06/17/2022 CBC/C OMPLE TE BLD COUNT W/DIF F lymphocytes, absolute count 2.25 x10'3 /uL 1.07-3 .43 Not Available [facility] (Lab) [address] [place], [address], 06/17/2022 19:36:59 06/18/19 23 06/17/2022 CBC/C OMPLE TE BLD COUNT W/DIF F monocytes, absolute count 0.52 x10'3 /uL 0.29-0 .99 Not Available [facility] (Lab) [address] [place], [address], 06/17/2022 19:36:59 06/18/19 23 06/17/2022 CBC/C OMPLE TE BLD COUNT W/DIF F eosinophils, absolute count 0.11 x10'3 /uL 0.02-0 .53 Not Available [facility] (Lab) [address] [place], [address], 06/17/2022 19:36:59 06/18/19 23 06/17/2022 CBC/C OMPLE TE BLD COUNT W/DIF F basophils, absolute count 0.03 x10'3 /uL 0.01-0 .08 Not Available [facility] (Lab) [address] [place], [address], 06/17/2022 19:36:59 06/18/19 23 06/17/2022 CBC/C OMPLE TE BLD COUNT W/DIF F immature granulocytes ,absolute 0.01 x10'3 /uL 0.00-0 .05 Not Available [facility] (Lab) [address] [place], [address], 06/17/2022 19:36:59 06/18/19 23 06/17/2022 CBC/C OMPLE TE BLD COUNT W/DIF F nucleated red blood cells 0.0 % -0 Not Available [facility] (Lab) [address] [place], [address], 06/17/2022 19:36:59 06/18/19 23 06/17/2022 CBC/C OMPLE TE BLD COUNT W/DIF F NRBC# 0.00 x10'3 /uL Not Available [facility] (Lab) [address] [place], [address], 06/17/2022 19:36:59 06/18/19 23 06/17/2022 URINA LYSIS COMPL ETE/I RIS W/RFX color LIGHT- ORANGE abnormal Not Available [facility] (Lab) [address] [place], [address], 06/17/2022 19:41:43 06/18/19 23 06/17/2022 URINA LYSIS COMPL ETE/I RIS W/RFX appear EXTRA TURBID abnormal Not Available [facility] (Lab) [address] [place], [address], 06/17/2022 19:41:43 06/18/19 23 06/17/2022 URINA LYSIS COMPL ETE/I RIS W/RFX specific gravity 1.018 1.001- 1.030 Not Available [facility] (Lab) [address] [place], [address], 06/17/2022 19:41:43 06/18/19 23 06/17/2022 URINA LYSIS COMPL ETE/I RIS W/RFX pH 6.0 pH_un its 5.0-9. 0 Not Available [facility] (Lab) [address] [place], [address], 06/17/2022 19:41:43 06/18/19 23 06/17/2022 URINA LYSIS COMPL ETE/I RIS W/RFX leukocytes 25 cem/u L negati ve- abnormal Not Available [facility] (Lab) [address] [place], [address], 06/17/2022 19:41:43 06/18/19 23 06/17/2022 URINA LYSIS COMPL ETE/I RIS W/RFX nitrite NEGATI VE negati ve- Not Available [facility] (Lab) [address] [place], [address], 06/17/2022 19:41:43 06/18/19 23 06/17/2022 URINA LYSIS COMPL ETE/I RIS W/RFX protein 30 mg/dL negati ve- abnormal Not Available [facility] (Lab) [address] [place], [address], 06/17/2022 19:41:43 06/18/19 23 06/17/2022 URINA LYSIS COMPL ETE/I RIS W/RFX glucose NORMAL mg/dL normal - Not Available [facility] (Lab) [address] [place], [address], 06/17/2022 19:41:43 06/18/19 23 06/17/2022 URINA LYSIS COMPL ETE/I RIS W/RFX ketones NEGATI VE mg/dL negati ve- Not Available [facility] (Lab) [address] [place], [address], 06/17/2022 19:41:43 06/18/19 23 06/17/2022 URINA LYSIS COMPL ETE/I RIS W/RFX urobilinogen NORMAL mg/dL normal - Not Available [facility] (Lab) [address] [place], [address], 06/17/2022 19:41:43 06/18/19 23 06/17/2022 URINA LYSIS COMPL ETE/I RIS W/RFX bilirubin NEGATI VE mg/dL negati ve- Not Available [facility] (Lab) [address] [place], [address], 06/17/2022 19:41:43 06/18/19 23 06/17/2022 URINA LYSIS COMPL ETE/I RIS W/RFX blood >/=1.0 mg/dL negati ve- abnormal Not Available [facility] (Lab) [address] [place], [address], 06/17/2022 19:41:43 06/18/19 23 06/17/2022 URINA LYSIS COMPL ETE/I RIS W/RFX white blood cells 0-8 /i??h pfi?? 0-8 Not Available [facility] (Lab) [address] [place], [address], 06/17/2022 19:41:43 06/18/19 23 06/17/2022 URINA LYSIS COMPL ETE/I RIS W/RFX red blood cells 0-4 /i??h pfi?? 0-4 Not Available [facility] (Lab) [address] [place], [address], 06/17/2022 19:41:43 06/18/19 23 06/17/2022 URINA LYSIS COMPL ETE/I RIS W/RFX bacteria NONE Not Available [facility] (Lab) [address] [place], [address], 06/17/2022 19:41:43 06/18/19 23 06/17/2022 URINA LYSIS COMPL ETE/I RIS W/RFX mucous OCCASI ONAL /i??l pfi?? abnormal Not Available [facility] (Lab) [address] [place], [address], 06/17/2022 19:41:43 06/18/19 23 06/17/2022 URINA LYSIS COMPL ETE/I RIS W/RFX squamous epithelial PACKED FIELD /i??l pfi?? abnormal Not Available [facility] (Lab) [address] [place], [address], 06/17/2022 19:41:43 06/18/19 23 06/17/2022 COMPR EHENS MOMO METAB OLIC PANEL sodium 138 mmol/ L 137-14 5 Not Available [facility] (Lab) [address] [place], [address], 06/17/2022 20:06:15 06/18/19 23 06/17/2022 COMPR EHENS MOMO METAB OLIC PANEL potassium 4.1 mmol/ L 3.5-5. 1 Not Available [facility] (Lab) [address] [place], [address], 06/17/2022 20:06:15 06/18/19 23 06/17/2022 COMPR EHENS MOMO METAB OLIC PANEL chloride 104 mmol/ L 98-107 Not Available [facility] (Lab) [address] [facility] [place], [address], 06/17/2022 20:06:15 06/18/19 23 06/17/2022 COMPR EHENS MOMO METAB OLIC PANEL carbon dioxide 25 mmol/ L 22-30 Not Available [facility] (Lab) [address] [place], [address], 06/17/2022 20:06:15 06/18/19 23 06/17/2022 COMPR EHENS MOMO METAB OLIC PANEL anion gap 13.1 mmol/ L 14-22 low Not Available [facility] (Lab) [address] [place], [address], 06/17/2022 20:06:15 06/18/19 23 06/17/2022 COMPR EHENS MOMO METAB OLIC PANEL glucose 111 mg/dL 70-99 high Not Available [facility] (Lab) [address] [place], [address], 06/17/2022 20:06:15 06/18/19 23 06/17/2022 COMPR EHENS MOMO METAB OLIC PANEL BUN 10 mg/dL 8-19 Not Available [facility] (Lab) [address] [place], [address], 06/17/2022 20:06:15 06/18/19 23 06/17/2022 COMPR EHENS MOMO METAB OLIC PANEL creatinine 0.65 mg/dL 0.66-1 .25 low Not Available [facility] (Lab) [address] [place], [address], 06/17/2022 20:06:15 06/18/19 23 06/17/2022 COMPR EHENS MOMO METAB OLIC PANEL GFR >60 Refer ence Range : [place] [facility] GFR Healt hy Adult : >60 mL/mi n/1.7 3 m2 Chron ic Kidne y Disea se: 15-60 mL/mi n/1.7 3 m2 Kidne y Failu re: <15/m L/min /1.73 m2 www.n iddk. nih.g ov The MDRD study equat ion has not been valid ated in child sejal <18 years of age; pregn ant women ; the elder ly >85 years of age; or in some racia l or ethni c subgr oups, such as Hispa nics. Outsi de the valid ated zaire eters , estim ated GFR is less accur ate, requi ring clini yuniel judgm ent on a case- by-ca se basis . Clini yuniel inter preta tion for other races and ages must be made by the clini lubna. The MDRD study equat ion has not been valid ated for the evalu ation of serum creat inine relat ed to nutri maggie l statu s or medic ation usage . For perso ns <18 years of age, a pedia tric GFR calcu lator is avail able on the [facility] websi te: https ://ww w.kid alex.o rg/pr ofess ional s/kdo qi/gf r_cal culat or Not Available [facility] (Lab) [address] [place], [address], 06/17/2022 20:06:15 06/18/19 23 06/17/2022 COMPR EHENS MOMO METAB OLIC PANEL alkaline phosphatase 71 U/L 38-126 Not Available [facility] (Lab) [address] [place], [address], 06/17/2022 20:06:15 06/18/19 23 06/17/2022 COMPR EHENS MOMO METAB OLIC PANEL alanine aminotransfe rase 24 U/L 0-35 Not Available [facility] (Lab) [address] [place], [address], 06/17/2022 20:06:15 06/18/19 23 06/17/2022 COMPR EHENS MOMO METAB OLIC PANEL aspartate aminotransfe rase 25 U/L 15-37 Not Available [facility] (Lab) [address] [place], [address], 06/17/2022 20:06:15 06/18/19 23 06/17/2022 COMPR EHENS MOMO METAB OLIC PANEL bilirubin, total 0.70 mg/dL 0.20-1 .30 Not Available [facility] (Lab) [address] [place], [address], 06/17/2022 20:06:15 06/18/19 23 06/17/2022 COMPR EHENS MOMO METAB OLIC PANEL calcium 9.1 mg/dL 8.4-10 .2 Not Available [facility] (Lab) [address] [place], [address], 06/17/2022 20:06:15 06/18/19 23 06/17/2022 COMPR EHENS MOMO METAB OLIC PANEL total protein 7.3 g/dL 6.3-8. 2 Not Available [facility] (Lab) [address] [place], [address], 06/17/2022 20:06:15 06/18/19 23 06/17/2022 COMPR EHENS MOMO METAB OLIC PANEL albumin 4.3 g/dL 3.4-5. 0 Not Available [facility] (Lab) [address] [place], [address], 06/17/2022 20:06:15 06/18/19 23 06/17/2022 COMPR EHENS MOMO METAB OLIC PANEL globulin 3.0 g/dL 2.6-4. 2 Not Available [facility] (Lab) [address] [place], [address], 06/17/2022 20:06:15 06/18/19 23 06/17/2022 COMPR EHENS MOMO METAB OLIC PANEL A/G ratio 1.4 ratio 1.0-2. 0 Not Available [facility] (Lab) [address] [place], [address], 06/17/2022 20:06:15 06/18/19 23 06/17/2022 LIPID PANEL cholesterol 198 mg/dL 140-19 9 [facility] AUGUSTINE NSUS RECOM MENDA TION FOR CITLALY STERO L: ADULT CHILD LOW RISK: <200 <170 BORDE RLINE : <200- 239 ----- HIGH RISK: >240 >200 Not Available [facility] (Lab) [address] [place], [address], 06/17/2022 20:06:20 06/18/19 23 06/17/2022 LIPID PANEL triglyceride s 268 mg/dL 0-150 high [facility] AUGUSTINE NSUS REPOR T RECOM MENDA TION FOR TRIGL YCERI MAR: ADULT CHILD LOW RISK: <150 ----- BODER LINE: 150-1 99 ----- HIGH RISK: >200 ----- Not Available [facility] (Lab) [address] [place], [address], 06/17/2022 20:06:20 06/18/19 23 06/17/2022 LIPID PANEL HDL cholesterol 42 mg/dL 40- Not Available [facility] (Lab) [address] [place], [address], 06/17/2022 20:06:20 06/18/19 23 06/17/2022 LIPID PANEL LDL cholesterol, calculated 102 mg/dL 0-130 [facility] AUGUSTINE NSUS REPOR T RECOM MENDA TIONS FOR LDL: ADULT CHILD LOW RISK <130 <110 (OPTI MAL LDL) <100 ----- BORDE RLINE : 130-1 59 ----- HIGH RISK: >160 >130 A TRIGL YCERI DE RESUL T >400 INVAL IDATE S THE CALCU LATIO N FOR LDL FRACT IONAT ION - THE LDL RESUL T WILL NOT BE REPOR SAQIB. Not Available [facility] (Lab) [address] [place], [address], 06/17/2022 20:06:20 06/18/19 23 06/17/2022 MAGNE SIUM magnesium 1.9 mg/dL 1.6-2. 3 Not Available [facility] (Lab) [address] [place], [address], 06/17/2022 20:06:21 06/18/19 23 06/17/2022 VITAM IN D 25-HY DROXY vd25oh 30.7 NG/mL 30-100 Vitam in D Statu s: Defic ient: <20 ng/mL Insuf ficie nt: 20-29 ng/mL Suffi cient : 30-10 0 ng/mL Not Available [facility] (Lab) [address] [place], [address], 06/17/2022 20:33:31 06/18/19 23 06/17/2022 TSH W/REF YURI FT4 TSH with reflex free T4 2.460 uIU/m L 0.465- 4.680 Not Available [facility] (Lab) [address] [place], [address], 06/17/2022 20:34:02 06/18/19 23 06/17/2022 HEMOG LOBIN A1C HA1C 5.3 % 4.0-6. 0 Diabe arianne Scree tim Crite kd: <5.7% Consi stent with absen ce of diabe arianne 5.7-6 .4% Consi stent with incre ased risk for diabe arianne (pred iabet es) >OR=6 .5% Consi stent with diabe arianne REFER ENCE: Diabe arianne Care 2016, 39(Boudreaux ppl.1 ):s13 -s22 Not Available [facility] (Lab) [address] [place], [address], 06/17/2022 20:54:32 06/18/19 23 06/17/2022 VITAM IN B12 (LAMONTE CHINTAN ) vb12 781 pg/mL 239-93 1 Not Available [facility] (Lab) [address] [place], [address], 06/17/2022 21:00:36 06/18/19 23 06/18/2022 FOLAT E, SERUM /PLAS MA folate 14.3 NG/mL 2.76-2 0.0 Not Available [facility] (Lab) [address] [place], [address], 06/18/2022 16:36:49 Result Notes None recorded. Problems Name Problem SNOMED Code Status Onset Date Resolution Date Notes Provider Name and Address Organization Details Recorded Time Intellect ual disabilit y 341039271 Active 2020 Not Available [facility] 3 08:57:28 Learning difficult ies 364077538 Active 2017 Not Available [facility] 3 08:57:29 Indigesti on 008615978 Completed 201703/28/2021 Not Available [facility] 3 08:57:29 Allergic contact dermatiti s 172498975 Completed 202003/17/2024 Ella Castellon, APPLIANCE SERVICE REPRESENTATIVE [address], [place], [address] , [facility] [employer] 4 14:40:05 Chronic low back pain 927765707 Active 2021 Not Available [facility] 3 08:57:29 Low back pain 918313381 Active 2021 Not Available [facility] 3 08:57:29 Hypertrig lyceridem ia 759048188 Active 2021 Not Available [facility] 3 08:57:29 Vitamin D deficienc y 53624770 Active 2021 Not Available [facility] 3 08:57:29 Contracep tion care Active 2020 Not Available [facility] 3 08:57:29 Anxiety 68876254 Active 2017 Not Available [facility] 3 08:57:29 Hyperlipi demia 25938020 Active 2021 Not Available [facility] 3 08:57:29 Break-thr ough bleeding 05572691 Completed 201703/28/2021 Not Available [facility] 3 08:57:29 43891862 Completed 202003/28/2021 Not Available [facility] 3 08:57:29 90756738 Completed 201702/11/2018 Not Available [facility] 3 08:57:29 Obesity 933096692 Active 2022 Navjot Keith MD [address], [address], [place], [address] , [employer] [place] [employer] [facility] 3 16:07:52 Fatigue 11855226 Active 2022 Navjot Keith MD [address], [address], [place], [address] , [place] [employer] [employer] 3 16:07:58 Pain of right forearm 430401985 Active 2022 Navjot Keith MD [address], [address], [place], [address] , [place] [employer] [facility] 3 15:10:15 Tendiniti s of right elbow 19744233576 556779 Active 2022 Navjot Keith MD [address], [address], [place], [address] , [employer] [place] [employer] [facility] 3 15:11:03 Family history of Cardiovas cular disease 553845583 Active 2022 Navjot Keith MD [address], [address], [place], [address] , [employer] [facility] 3 15:19:49 Pain of right knee joint 75860303495 4100 Active 2023 Navjot Keith MD [address], [address], [place], [address] , [employer] [facility] [facility] 4 15:37:56 Sprain of knee 94948252 Active 2023 Navjot Keith MD [address], [address], [place], [address] , [employer] [facility] 4 15:42:53 Pruritus ani 05683894 Active 2023 ABBY Garza [address], [address], [place], [address] , [place] [employer] [facility] 4 12:20:05 Constipat ion 77801029 Active 2023 ABBY Garza [address], [address], [place], [address] , [employer] [facility] [employer] 4 12:27:28 Poor short-ter m memory 083282563 Active 2023 ABBY Garza [address], [place], [address] , [employer] 14:47:07 Problem Notes None recorded. Procedures Surgical History Date Name Laterality Status Provider Name and Address Organization Details Recorded Time Medicare Wellness CPT Code, subsequent completed ABBY Garza [address], [address], [place], [address], [employer] [facility] [employer] 03/17/2024 15:11:59 4 section completed Not Available [facility] 06/12/2022 08:54:41 3 section completed Not Available [facility] 06/12/2022 08:54:41 1 section completed Not Available [facility] 06/12/2022 08:54:41 Imaging Results None recorded. Procedure Notes None recorded. Medical Equipment None Reported. Allergies No known drug allergies Medications Name Sig Start Date Stop Date Status Note LastModified by Organization Details LastModified Time cyclobenzap rine 10 mg tablet Take 1 tablet every 12 hours by oral route as needed for 15 days. 04/11 completed Not Available Not Available Not Available amoxicillin 500 mg capsule TAKE ONE CAPSULE BY MOUTH EVERY 8 HOURS 03/03 completed Not Available Not Available Not Available medroxyprog esterone 10 mg tablet 06/13 completed Not Available Not Available Not Available venlafaxine ER 37.5 mg capsule,ext ended release 24 hr TAKE 1 CAPSULE BY MOUTH EVERY DAY IN THE MORNING FOR 7 DAYS 03/03 completed Not Available Not Available Not Available acetaminoph en 325 mg tablet TAKE 2 TABLETS BY MOUTH EVERY 6 HOURS 04/11 completed Not Available Not Available Not Available venlafaxine ER 75 mg capsule,ext ended release 24 hr TAKE 1 CAPSULE BY MOUTH EVERY DAY IN THE MORNING 04/11 completed Not Available Not Available Not Available doxycycline hyclate 100 mg capsule 03/28 completed Not Available Not Available Not Available atorvastati n 20 mg tablet Take 1 tablet every day by oral route at bedtime for 90 days. active Not Available Not Available No t Available clindamycin HCl 300 mg capsule 11/15 completed Not Available Not Available Not Available ibuprofen 800 mg tablet TAKE 1 TABLET BY MOUTH EVERY 6 TO 8 HOURS NEEDED FOR PAIN 03/03 completed Not Available Not Available Not Available meloxicam 15 mg tablet 03/10 completed Not Available Not Available Not Available metronidazo le 0.75 % (37.5 mg/5 gram) vaginal gel INSERT 1 APPLICATO RFUL IN THE VAGINA EVERY NIGHT AT BEDTIME 04/11 completed Not Available Not Available Not Available famotidine 40 mg tablet TAKE 1 TABLET BY MOUTH EVERY EVENING 09/04 completed Not Available Not Available Not Available Medrol (Jan) 4 mg tablets in a dose pack Take 1 dose pk every day by oral route as directed for 6 days. 03/03 completed Not Available Not Available Not Available Cleocin 100 mg vaginal suppository INSERT ONE SUPPOSITO RY VAGINALLY AT BEDTIME 04/11 completed Not Available Not Available Not Available phentermine 15 mg capsule Take 1 capsule every day by oral route in the morning for 30 days. 10/08 completed Not Available Not Available Not Available venlafaxine ER 150 mg capsule,ext ended release 24 hr TAKE 1 CAPSULE BY MOUTH EVERY DAY IN THE EVENING 04/11 completed Not Available Not Available Not Available penicillin V potassium 500 mg tablet TAKE 1 TABLET BY MOUTH FOUR TIMES DAILY UNTIL ALL TAKEN 09/04 completed Not Available Not Available Not Available metronidazo le 500 mg tablet TAKE 1 TABLET BY MOUTH TWICE DAILY FOR 7 DAYS 06/13 completed Not Available Not Available Not Available acetaminoph en 300 mg-codeine 30 mg tablet 11/03 completed Not Available Not Available Not Available triamcinolo ne acetonide 0.1 % topical cream APPLY A THIN LAYER TO THE AFFECTED AREA(S) BY TOPICAL ROUTE 2 TIMES PER DAY active Not Available Not Available No t Available lamotrigine 25 mg tablet TAKE 1 TABLET BY MOUTH EVERY DAY IN THE MORNING FOR 14 DAYS 03/10 completed Not Available Not Available Not Available meloxicam 7.5 mg tablet Take 1 tablet twice a day by oral route as needed for 30 days. active Not Available Not Available No t Available betamethaso ne acetate and sodium phos 6 mg/mL suspension for injection INJECT 12MG INTRAMUSC ULAR ONCE AND REPEAT IN TWENTY-FO UR HOURS 03/28 completed Not Available Not Available Not Available amoxicillin 875 mg tablet 05/12 completed Not Available Not Available Not Available famotidine 20 mg tablet 08/05 completed Not Available Not Available Not Available triamcinolo ne acetonide 0.1 % topical ointment APPLY TOPICALLY TO RIGHT HAND UP TO THREE TIMES DAILY NEEDED FOR 10 DAYS 06/13 completed Not Available Not Available Not Available ranitidine 150 mg tablet Take 1 tablet twice a day by oral route for 30 days. active Not Available Not Available No t Available albendazole 200 mg tablet Take 2 tablets every day by oral route as directed for 3 days. active Not Available Not Available No t Available polymyxin B sulfate 10,000 unit-trimet hoprim 1 mg/mL eye drops 10/08 completed Not Available Not Available Not Available progesteron e micronized 200 mg capsule INSERT 1 CAPSULE VAGINALLY AT BEDTIME FOR SHORTENIN G CERVIX 03/03 completed Not Available Not Available Not Available docusate sodium 100 mg capsule 03/28 completed Not Available Not Available Not Available diclofenac sodium 75 mg tablet,ne yed release Take 1 tablet every 12 hours by oral route as needed for 30 days. 03/10 completed Not Available Not Available Not Available simethicone 125 mg chewable tablet Take 1 tablet twice a day by oral route as needed. 03/28 completed Not Available Not Available Not Available hydroxyzine HCl 25 mg tablet Take 1 tablet every day by oral route at bedtime for 14 days, for itching. active Not Available Not Available No t Available norethindro ne acetate 5 mg tablet 04/11 completed Not Available Not Available Not Available ergocalcife rol (vitamin D2) 1,250 mcg (50,000 unit) capsule TAKE 1 CAPSULE BY MOUTH EVERY WEEK DIRECTED active Not Available Not Available No t Available ibuprofen 600 mg tablet TAKE 1 TABLET BY MOUTH THREE TIMES DAILY NEEDED FOR PAIN 06/13 completed Not Available Not Available Not Available docusate sodium 250 mg capsule Take 1 capsule every day by oral route as needed for 30 days. 2023 active Not Available Not Available Not Avai lable norethindro ne (contracept momo) 0.35 mg tablet 04/11 completed Not Available Not Available Not Available hydroxyzine HCl 10 mg tablet TAKE 1 TO 2 TABLETS BY MOUTH THREE TIMES DAILY NEEDED active Not Available Not Available No t Available naproxen sodium 275 mg tablet 05/12 completed Not Available Not Available Not Available fluticasone propionate 50 mcg/actuati on nasal spray,suspe nsion SPRAY TWICE IN EACH NOSTRIL ONCE DAILY active Not Available Not Available No t Available lamotrigine 100 mg tablet 04/11 completed Not Available Not Available Not Available metoclopram annie 10 mg tablet TAKE 1 TABLET BY MOUTH FOUR TIMES DAILY FOR 10 DAYS 03/28 completed Not Available Not Available Not Available progesteron e micronized 100 mg capsule 04/11 completed Not Available Not Available Not Available amoxicillin 875 mg-potassiu m clavulanate 125 mg tablet TAKE 1 TABLET BY MOUTH TWICE DAILY FOR 7 DAYS 03/03 completed Not Available Not Available Not Available hydroxyzine pamoate 25 mg capsule TAKE 1 CAPSULE BY MOUTH TWICE DAILY NEEDED FOR ANXIETY 03/03 completed Not Available Not Available Not Available neomycin-po lymyxin-hyd rocort 3.5 mg-10,000 unit/mL-1 % ear drops,susp 05/12 completed Not Available Not Available Not Available Adult Low Dose Aspirin 81 mg tablet,ne yed release Take 1 tablet every day by oral route for 90 days. 04/11 completed Not Available Not Available Not Available medroxyprog esterone 150 mg/mL intramuscul ar syringe INJECT 1 SYRINGE INTRAMUSC ULARLY EVERY 3 MONTHS 03/28 completed Not Available Not Available Not Available escitalopra m 10 mg tablet TAKE 1 TABLET BY MOUTH EVERY DAY active Not Available Not Available No t Available aripiprazol e 5 mg tablet TAKE 1 TABLET BY MOUTH DAILY active Not Available Not Available No t Available Tri-Sprinte c (28) 0.18 mg(7)/0.215 mg(7)/0.25 mg(7)-0.035 mg tablet TAKE 1 TABLET BY MOUTH EVERY DAY DIRECTED 06/13 completed Not Available Not Available Not Available nitrofurant oin monohydrate /macrocryst als 100 mg capsule TAKE 1 CAPSULE BY MOUTH TWICE DAILY FOR 14 DAYS 09/04 completed Not Available Not Available Not Available Reclipsen (28) 0.15 mg-0.03 mg tablet 05/12 completed Not Available Not Available Not Available chlorhexidi ne gluconate 0.12 % mouthwash RINSE AND GARGLE 15 ML BY MOUTH OR THROAT TWICE DAILY FOR 4 DAYS 03/03 completed Not Available Not Available Not Available tranexamic acid 650 mg tablet 04/11 completed Not Available Not Available Not Available 28 mg iron-800 mcg tablet Take 1 tablet every day by oral route. active Not Available Not Available No t Available Zamzam (PF) 275 mg/1.1 mL subcutaneou s auto-inject or 11/03 completed Not Available Not Available Not Available Vitals Date Recorded Body height Body mass index (BMI) Body weight Body temperature Heart rate Oxygen saturation Oxygen saturation in Arterial blood by Pulse oximetry Respiratory rate Systolic blood pressure Diastolic blood pressure Provider Name and Address Organization Details Last Updated DateTime 3 160.02 cm 33.8 kg/m2 16100.1 4 g 97.8 [degF] 74 /min 98 % 98 % 16 /min 118 mm[Hg] 76 mm[Hg] Leslie Maier RN [facility] [employer] 3 14:43:18 Date Recorded Body height Body mass index (BMI) Body weight Heart rate Oxygen saturation Oxygen saturation in Arterial blood by Pulse oximetry Respiratory rate Body temperature Systolic blood pressure Diastolic blood pressure Provider Name and Address Organization Details Last Updated DateTime 3 160.02 cm 33.5 kg/m2 92125.9 6 g 80 /min 98 % 98 % 16 /min 97 [degF] 124 mm[Hg] 84 mm[Hg] Leslie Maier RN [facility] [employer] [facility] 3 15:05:03 Date Recorded Body weight Body mass index (BMI) Body height Body temperature Heart rate Respiratory rate Oxygen saturation Oxygen saturation in Arterial blood by Pulse oximetry Systolic blood pressure Diastolic blood pressure Provider Name and Address Organization Details Last Updated DateTime 4 47360.4 9 g 33.8 kg/m2 160.02 cm 97.2 [degF] 71 /min 20 /min 97 % 97 % 110 mm[Hg] 74 mm[Hg] BILLY Matamoros [facility] [employer] 4 12:13:10 Date Recorded Body height Body mass index (BMI) Body weight Body temperature Heart rate Respiratory rate Oxygen saturation Oxygen saturation in Arterial blood by Pulse oximetry Systolic blood pressure Diastolic blood pressure Provider Name and Address Organization Details Last Updated DateTime 4 160.02 cm 34.1 kg/m2 02993.4 9 g 97.5 [degF] 86 /min 20 /min 97 % 97 % 124 mm[Hg] 84 mm[Hg] [facility] [employer] 4 14:29:02 Social History Question Answer Notes LastModified by Organizat ion Details LastModified Time Tobacco Smoking Status Never Smoker Not Available [employer] 06/12/2022 08:54:25 Do You Have An Advance Directive? No [id number] Information not available 06/12/2022 Do You Wear A Helmet When Biking? No MIGRATION.43982 [id number] Information not available 06/12/2022 What Is Your Level Of Caffeine Consumption? Moderate MIGRATION.78945 [id number] Information not available 06/12/2022 In The 14 Days Before Symptom Onset, Have You Had Close Contact With A Laboratory-confir med COVID-19 While That Case Was Ill? No MIGRATION.27990 [id number] Information not available 06/12/2022 In The 14 Days Before Symptom Onset, Have You Had Close Contact With A Person Who Is Under Investigation For COVID-19 While That Person Was Ill? No MIGRATION.[id number] Information not available 06/12/2022 What Type Of Diet Are You Following? REGULAR MIGRATION.09995 [id number] Information not available 06/12/2022 Which Illicit Or Recreational Drugs Have You Used? None MIGRATION.31686 76583 Information not available 06/12/2022 What Is The Highest Grade Or Level Of School You Have Completed Or The Highest Degree You Have Received? [id number] MIGRATION. 26617 Information not available 06/12/2022 Have There Been Any Changes To Your Family Or Social Situation? No MIGRATION.61867 60573 Information not available 06/12/2022 Are There Any Guns Present In Your Home? No MIGRATION.28457 47028 Information not available 06/12/2022 Do You Use Insect Repellent Routinely? No MIGRATION.79627 79262 Information not available 06/12/2022 Where Do You Live? [place] MIGRATION.38367 10231 Information not available 06/12/2022 Do You Have A Medical Power Of Microfilm Camera Operator? No MIGRATION.48227 46895 Information not available 06/12/2022 What Was The Date Of Your Most Recent Tobacco Screening? 04/11/2022 MIGRATION.67410 49123 Information not available 06/12/2022 How Many Children Do You Have? 3 Information not available 03/10/2024 Do You Have Any Pets? Yes MIGRATION.33389 04081 Information not available 06/12/2022 What Is Your Relationship Status? Single MIGRATION.94365 12085 Information not available 06/12/2022 Do You Use Your Seat Belt Or Car Seat Routinely? Yes MIGRATION.36515 66847 Information not available 06/12/2022 Do You Have Smoke And Carbon Monoxide Detectors In Your Home? Yes MIGRATION.41404 53332 Information not available 06/12/2022 Are You Passively Exposed To Smoke? No MIGRATION.37839 06912 Information not available 06/12/2022 Are There Any Smokers In Your House? No MIGRATION.49982 08833 Information not available 06/12/2022 Do You Participate In Social Media? No MIGRATION.69714 17847 Information not available 06/12/2022 Do You Use Sunscreen Routinely? No MIGRATION.82415 79487 Information not available 06/12/2022 Has Tobacco Cessation Counseling Been Provided? No MIGRATION.31380 85686 Information not available 06/12/2022 Have You Recently Traveled Abroad? No MIGRATION.19525 35485 Information not available 06/12/2022 Are You Currently In School? No MIGRATION.71566 90758 Information not available 06/12/2022 Do You Have Any Dietary Restrictions? No MIGRATION.84379 94745 Information not available 06/12/2022 Sex: Female Functional Status Question Answer Note LastModified by Organizat ion Details LastModified Time Do you use any illicit or recreational drugs? No MIGRATION.331108 5071 Information not available 06/12/2022 Do you or have you ever used any other forms of tobacco or nicotine? No MIGRATION.326798 6041 Information not available 06/12/2022 Are you currently employed? No Information not available 03/10/2024 Do you or have you ever used e-cigarettes or vape? Never used electronic cigarettes MIGRATION.406002 3088 Information not available 06/12/2022 What is your exercise level? Occasional MIGRATION.349477 3576 Information not available 06/12/2022 Mental Status Question Answer Note LastModified by Organization D etails LastModified Time Do you feel stressed (tense, restless, nervous, or anxious, or unable to sleep at night)? [id number] Information not available 03/10/2024 Family History Relationship Description Onset Age of this Age Resolved Age Notes LastModified by Organization Details LastModified Time Mother Hypertensive disorder [id number].[id number] Not available 06/12/2022 08:54:42 Mother Malignant tumor of colon [id number] Not available 06/12/2022 08:54:42 Medical History Condition Response BLINDNESS N RHEUMATIC FEVER N BLADDER PROBLEMS N KIDNEY STONES N MRSA N OTHER # 1 N POLIO N LUNG DISEASE/DISORDER N HISTORY OF DRUG ABUSE N RADIATION / CHEMOTHERAPY N COPD N Other # 2 N BLOOD DISEASES N SURGERY N EAR OR HEARING PROBLEMS N MUMPS N SHINGLES N FEMALE PROBLEMS / INFECTIONS N DEPRESSION (INCLUDING POST ) Y BOWEL PROBLEMS N STROKE/TIA N THYROID DISEASE N ULCERS N BENIGN PROSTATIC HYPERPLASIA N MEASLES N CERVICALGIA N TB SKIN TEST N HYPOTENSION N MYOCARDIAL INFARCTION N PARAPELGIA N OBESITY N GERD/NAUSEA N ANEURYSM N URINARY/BLADDER/KIDNEY PROBLEMS N CORONARY ARTERY DISEASE (CAD) N MENIERE'S DISEASE N ADDICTION CONCERNS N ENDOMETRIOSIS N USE OF BLOOD THINNERS N SKIN PROBLEMS N EMPHYSEMA N GASTROINTESTINAL DISORDER N MUSCLE,JOINT OR BONE PROBLEMS N GASTROINTESTINAL BLEEDING N BLOOD CLOTS N ASTHMA N CATARACTS N ERECTILE DYSFUNCTION N GI PROBLEMS N CHF N Low Testosterone N NEUROPATHY N INFERTILITY N AIDS/HIV N FRACTURES N CHEMOTHERAPY / RADIATION N VISION/EYE PROBLEMS N LIVER DISEASE N MALE HYPOGONADISM N HYPERTENSION N TOURETTE'S N ANXIETY DISORDER Y BLOOD TRANSFUSION N ANEMIA/BLOOD DISORDER N CHRONIC EAR INFECTIONS N BRONCHITIS N TUBERCULOSIS N GLAUCOMA N FOOT PROBLEM N DIVERTICULITIS N SLEEP APNEA N CHICKENPOX N ALLERGIES/HAYFEVER N INFECTIOUS DISEASE N PROSTATE N HEART ARRHYTHMIA N INSOMNIA N HIGH CHOLESTEROL / HYPERLIPIDEMIA N HYPERTHYROIDISM N EYE PROBLEMS N EATING DISORDER N EDEMA N CHRONIC PAIN SYNDROME N CONSTIPATION N CAROTID BLOCKAGE N BACK / NECK PROBLEMS N HAVE YOU BEEN HOSPITALIZED OR SEEN IN [facility] ER IN THE PAST YEAR ? N ATHEROSCLEROSIS N BREAST PROBLEMS N DIALYSIS N ECZEMA N FIBROMYALGIA N OSTEOPOROSIS N ARTHRITIS N NO SIGNIFICANT PAST MEDICAL HISTORY N APPENDICITIS N DIABETES, TYPE N BAD TEETH N HEARTBURN / REFLUX N ADD/ADHD N AUTISM SPECTRUM DISORDER (ASD) N HEPATITIS / LIVER DISEASE N PULMONARY DISEASE N GOUT N SLEEP DISORDER N ALZHEIMER'S DISEASE N PAIN N HERPES N DEMENTIA N SEIZURES/EPILEPSY N HEADACHES/MIGRAINES N VASCULAR DISEASE N PACEMAKER N DIZZINESS N KIDNEY DISEASE N HEART DISEASE/HEART PROBLEMS N SCARLET FEVER N MULTIPLE SCLEROSIS N MENTAL DISORDER/ILLNESS N DEVELOPMENTAL OR BEHAVIORAL DISORDERS N CARDIAC ARRHYTHMIA N CANCER: SPECIFY N PNEUMONIA N Gall Stones N ATRIAL FIBRILLATION N PULMONARY EMBOLISM N AUTOIMMUNE DISEASE N Gynecological History Statement/Question Response Abnormal Pap N Date of LMP 02/13/2024 Dislike of Light during Menstrual Headac he N STIs/STDs N Date of Last Pap Current Control Method None Age at Menarche 14 Breast Problems none Sexually Active? Y Weight gain Y Discharge none Obstetrics History GPAL:G 7 P 5 2 0 7 Type Value Multiple Births 0 Full Term 5 Induced 0 Spontaneous 0 Premature 2 Living 7 Ectopics 0 Total 7 Immunizations Vaccine Type Date Status Note Provider Nam e and Address Organization Details Recorded Time Tdap 05/12/2017 completed Not Available [facility] 06/12/2022 09:00:39 Past Encounters Encounter ID Performer Location Encounter Start Date Encounter Closed Date Diagnosis/Indication Diagnosis SNOMED-CT Code Diagnosis ICD10 Code Diagnosis Note [id number] [facility] _[facility]_M IGRATION_ DEFAULT_1 _1 , 09/04/2020 00:00:00 09/04/2020 16:15:19 [id number] [facility] _[facility]_M IGRATION_ DEFAULT_1 _1 , 10/12/2020 00:00:00 10/12/2020 14:45:05 [id number] [facility] [address] [place] [address] 03/28/2021 00:00:00 03/28/2021 15:04:55 [id number] Navjot Keith MD [facility] [id number] [facility] [place] [address] 04/04/2021 00:00:00 04/04/2021 14:11:48 [id number] Navjot Keith MD [facility] [address] [place] [address] 1 04/17/2021 00:00:00 04/17/2021 12:59:01 [id number] Navjot Keith MD [facility] [address] [place], [place] [address] [place] [address] 10/25/2021 00:00:00 10/25/2021 15:07:23 [id number] Navjot Keith MD [facility] [address] [place] [address] 1 11/08/2021 00:00:00 11/11/2021 08:09:12 [id number] Navjot Keith MD [facility] [address] [address] 1 11/15/2021 00:00:00 11/15/2021 15:43:21 [id number] Navjot Keith MD [address] [address] 1 03/05/2022 00:00:00 03/05/2022 18:02:14 [id number] Mark Mace MD [facility] [address] [address] 1 04/11/2022 00:00:00 04/11/2022 13:08:50 [id number] Navjot Keith MD [address] [address] 1 06/13/2022 15:51:47 06/13/2022 16:17:24 Adult health examination [id number] Z00.00 Vitamin D deficiency 347 40306 E55.9 Obesity 280004896 E66.9 Fatigue 86783309 R53.83 [id number] Navjot Keith MD [address] [address] 1 06/17/2022 12:27:29 06/17/2022 12:52:07 [id number] Navjot Keith MD [address] [address] 1 06/27/2022 14:33:31 06/27/2022 15:31:50 Hypertriglyceridemia 730636880 E78.2 Hyperlipidemia 38116278 E78.5 Chronic low back pain 27 1507977 M54.50 Intellectu al disability 009847878 F79 Vitamin D deficiency 347 11183 E55.9 Obesity 596288914 E66.9 [id number] Navjot Keith MD [address] [address] 1 10/08/2022 15:00:22 10/08/2022 15:22:42 Pain of right forearm 868034229 M79.631 Tendinitis of right elbow 6227189198 5359367 M67.823 Family his tory of Cardiovascular disease 228305587 Z82.49 Hyperlipidemia 29996733 E78.5 [id number] Navjot Keith MD [address] [address] 1 03/03/2024 14:56:38 03/03/2024 15:45:17 Pain of right knee joint 8504981703 61242 M25.561 Obesity 244320141 E66.9 Sprain of knee 40611395 S83.91XA [id number] Navjot Keith MD [address] [address] 1 03/10/2024 11:55:16 03/10/2024 12:59:10 Pruritus ani 56907820 L29.0 Pain of ri ght knee joint 8781852090 27959 M25.561 Constipation 99273236 K5 9.00 [id number] Navjot Keith MD [address] [address] 1 03/17/2024 14:22:14 03/17/2024 15:15:12 Adult health examination 369628462 Z00.00 Depression screening 171 111005 Z13.31 Hyperlipidemia 92447941 E78.5 Obesity 733727321 E66.9 Vitamin D deficiency 347 17875 E55.9 Screening for disorder 435697356 Z13.9 Poor short -term memory 932996270 R41.3 Family his tory of Cardiovascular disease 210827839 Z82.49 Health Concerns Section Related Observation LastModified by Organization Detai ls LastModified Time None Recorded Concern Status LastModified by Organization Details LastModified Time None Recorded Advance Directives Directive N: Payers Insurance Date Sequence Insurance Name Policy Number Policy Huston Covered Member ID Huston Member ID Guarantor Name 09/16/2024 1 [facility] (MEDICARE REPLACEMENT HMO) Mary Ann Gage Isaiah [id number] Mary Ann S Isaiah 03/10/2024 [facility] Mary Ann S Isaiah [id number] Mary Ann Merari Isaiah 09/16/2024 2 [place] WHEN MEDICARE OR MEDICARE REPLACEMENT PRIMARY) Mary Ann Isaiah [id number] Mary Ann S Isaiah Notes Date Note Type Note Provider Name and Address Organization Details Recorded Time 3 text/html Pt is here for f/u on her annual labs. Doing overall well. Denies any new concerns. Pt wants to try Phentermine for her wt concerns.Pt is f/u with her Gyne & Psych regularly.Pt says she had some learning disability and anxiety issues when she was a kid. Denies any depression/mood swings/SI/HI. Pt is f/u with Psych at [facility] for this. Navjot Keith MD [address], [place], [address], [facility] 06/27/2022 15:48:03 3 text/html ACV: C/o Rt forearm pain for last 1 week. Pt denies any recent fall/trauma/injury. Denies any other area pain. Pt has FH of CVD and wants to see a Cardio for it. Navjot Keith MD [address], [place], [address], [employer] 10/08/2022 15:22:04 4 text/html Telephone visit.ACV. C/o Rt knee area pain for last few months. Pt is f/u with her Chiropractor for this in the past. Denies any recent fall/trauma/injury. Denies any workman's comp. Denies any other area pain. No other concern. Last visit in 10/04. Navjot Keith MD [address], [place], [address], [employer] 03/03/2024 15:44:02 4 text/html Mary Ann Colon is a 43 year old female patient here today for rectal concerns For the last week, She states that she feels something is moving in her rectum, also has itching and burning. She admits that her partner has similar symptoms after consuming raw chicken.Notes symptoms are worse while sleepingHas tried hemorrhoid cream and notes no improvementIncreased constipation. Concerns with right knee pain. No known injury. Believe pains come from overuse. ABBY Garza [address], [place], [address], [facility] [employer] 03/10/2024 12:58:22 4 text/html Mary Ann Colon is a 43 year old female patient here today for a MAWV. She has concerns today with her hearing, would like to see director of corporate sales. She still has concerns with her right knee pain, has not gone for XR of PT yet. Concerns with possible short term memory loss, would like to see neurology She states sometimes she is fatigued and fears she may have heart issues. States she has a family history of cardiovascular issues Is not interested in Mammogram, colorectal screening, WWE, flu shot, COVID vaccines. Would like annual labs ABBY Garza [address], [place], [address], [employer] [employer] 03/17/2024 17:17:26 OBGyn Episode No OBEpisode recorded.
--- OUTSIDE RECORDS SUMMARY | 2024-09-23 21:32 | XMS_ITS | Clinical Summary ---
Author Organization [facility] Address [address] [place] [address] Phone Care Team Providers Care Wrecking Supervisor Name Role Phone Unavailable Primary Care Provider Unavailabl e Allergies No known active allergies Medications vit calc,iron,folic ( VITAMIN ORAL) Take 1 Tablet by mouth daily. Active famotidine (PEPCID) 40 mg tablet Take 40 mg by mouth 2 times daily. Active acetaminophen (TYLENOL) 325 mg tablet Take 2 Tablets (650 mg) by mouth every 6 hours. 30 Tablet 1 01/08/2021 10:47 AM CDT 01/08/2021 Active docusate sodium (COLACE) 100 mg capsule Take 1 Capsule (100 mg) by mouth 2 times daily. 30 Capsule 1 01/08/2021 10:47 AM CDT 01/08/2021 Active ibuprofen (MOTRIN) 600 mg tablet Take 1 Tablet by mouth every 6 hours. 30 Tablet 1 01/08/2021 10:47 AM CDT 01/08/2021 Active ergocalciferol (VITAMIN D2) 50,000 unit capsule TAKE 1 CAPSULE BY MOUTH EVERY WEEK DIRECTED Active Active Problems Problem Noted Date Diagnosed Date 01/07; 24 weeks/breech/Intrapartum Demise; am p/gent 01/04/2021 Short cervical length during in second trimester 12/21/2020 , delivered 04/26/2020 delivery delivered 01/28/2018 Major depressive disorder, recurrent, mild 01/26 Generalized anxiety disorder 01/26/2018 Premature rupture of membranes 01/22/2018 History of delivery affecting Grand multiparity in labor and delivery labor in second trimester without delive ry Encounters Date Type Department Care Team Description 07/28/[address] [facility] [place] [address] [address] [place] [address] Peter Herrera MD Stress Test 07/27/2024 External Device Data STL ABSTRACTION Provider, Abstract 07/26/2024 Results Follow-Up [facility] At [address] [place] [address] Maritza Richardson RN ECHO STRESS TEST EXERCISE 07/22/2024 11:00 AM CDT - 07/22/2024 11:59 PM CDT Hospital Encounter [facility] Nuclear Medicine [address] [place] [address] Peter Herrera MD Discharge Disposition: Home or Self Care from Last 3 Months Immunizations Immunization Administration Dates Next Due (ADACEL/BOOSTRIX)(10 YR UP) TDAP VACCINE, 0.5ML, IM 05/12/2017 (SPIKEVAX) (12 YRS UP PRIMAR Y SERIES) COVID-19 VACCINE - MRNA-1273(PF) 100 MCG/0.5 ML IM SUSP 11/10/2020 Family History Medical History Relation Name Comments Healthy Father Colon Cancer Mother Hypertension Mother Relation Name Status Comments Father Alive Mother Alive Social History Tobacco Use Types Packs/Day Years [...] Sign Reading Time Taken Comments Blood Pressure 140/80 05/27/2024 2:20 PM CYBER ANALYST Pulse 71 05/27/2024 2:20 PM CYBER ANALYST Temperature 36.8 C (98.3 F) 01/08/2021 8:17 PM CDT Respiratory Rate 16 01/08/2021 8:17 PM CDT Oxygen Saturation 98% 05/27/2024 2:20 PM CYBER ANALYST Inhaled Oxygen Concentration - - Weight 83.5 kg (184 lb) 05/27/2024 2:20 PM CYBER ANALYST Height 156.2 cm (5' 1.5) 05/27/2024 2:20 PM CYBER ANALYST Body Mass Index 34.2 05/27/2024 2:20 PM CYBER ANALYST Plan of Treatment Health Maintenance Due Date Last Done Comments Pre-Diabetes and Diabetes Screening 1980 HEPATITIS B VACCINES (1 of 3 - 19+ 3-dose series) 2001 HPV/Cotest (21-29) 2003 HPV/Cotest (30-65) 2012 BREAST CANCER SCREENING 2022 INFLUENZA VACCINE (#1) 2023 COVID-19 Vaccine (2 - 2023-2 5 season) 2023 11/10/2020 CERVICAL CANCER SCREENING 02/05/2026 PAP SMEAR 02/05/2026 02/05/2023 DTAP/TDAP/TD VACCINES (2 - T d or Tdap) 05/12/2027 05/12/2017 HPV VACCINES Aged Out No longer eligi ble based on patient's age to complete this topic Procedures Procedure Name Priority Date/Time Associated Diagnosis Comments ECHO STRESS TEST EXERCISE Routine 07/22/2024 11:35 AM CDT Chest pain, unspecified type from Last 3 Months Results * ECHO STRESS TEST EXERCISE (07/22/2024 11:35 AM CDT) EJECTION FRACTION EF: INTERFACE SYSTEM 07/22/2024 11:0 4 AM CDT Narrative INTERFACE SYSTEM - 07/26/2024 6:37 AM CDT [address] [address] [email or web address] Stress Echocardiogram Mynor Protocol Patient: Mary Ann Colon Study ID: STRESS ECHO EXER Gender: F : 1980 Age: 44 Race: CAU Height Study Date: 07/22/2024 Weight: Access. #: [id number] BP: *Referring Physician:Peter Quinones Phillip *Ordering Physician:Peter Quinones exterminator termite: Nurse: Indications: Chest pain. STUDY CONCLUSIONS: SUMMARY: - Procedure narrative: Treadmill exercise testing was performed using the Mynor protocol. The patient exercised for 8 min 19 sec, to a maximal work rate of 10.2METS. Exercise was terminated due to significant dyspnea. - Stress data: 90% of maximal predicted heart rate. The heart rate response to stress is normal. Normal heart rate recovery. Resting blood pressure 124/89 increased to 201/72 at peak exercise. The patient experienced no chest pain during stress. Functional capacity is normal. - Stress ECG conclusions: The stress ECG is negative for ischemia. Rare isolated premature ventricular contraction during recovery. - Baseline: LV global systolic function is normal by visual assessment. The estimated LV ejection fraction is 60%. Normal wall motion; no LV regional wall motion abnormalities. - Staged echo conclusions: There was no echocardiographic evidence for stress-induced ischemia. Cardiac Anatomy: Baseline ECG: Normal sinus rhythm, 76 bpm. Low voltage QRS in precordial leads. Stress results: Maximal heart rate during stress was 160bpm (90% of maximal predicted heart rate). The maximal predicted heart rate was 178bpm. The target heart rate was 151bpm. The heart rate response to stress is normal. Resting blood pressure 124/89 increased to 201/72 at peak exercise. The patient experienced no chest pain during stress. Functional capacity is normal. Treadmill exercise testing was performed using the Mynor protocol. The patient exercised for 8 min 19 sec, to a maximal work rate of 10.2METS. Exercise was terminated due severe dyspnea. Post-stress images were obtained within 90 seconds of stress cessation. Stress ECG: Rare isolated premature ventricular contraction during recovery. The stress ECG is negative for ischemia. Baseline: Left ventricle: Cavity size is normal. LV global systolic function is normal by visual assessment. The estimated LV ejection fraction is 60%. Normal wall motion; no regional wall motion abnormalities. Peak stress: Left ventricle: Cavity size is reduced. Systolic function is augmented. No evidence for new regional wall motion abnormalities. Stress echo results: There was no echocardiographic evidence for stress-induced ischemia. Procedure data: Consent: The risks, benefits, and alternatives to the procedure were explained to the patient and informed consent was obtained. Procedure information: The patient arrived at the laboratory. A baseline ECG was recorded. Surface ECG leads and automatic cuff blood pressure measurements were monitored. A transthoracic stress echocardiogram was performed. Image quality was good. Images were captured at baseline and peak exercise. Study completion: There were no complications. Mynor protocol. Stress echocardiogram. Birthdate: Patient birthdate: 1980. Age: Patient is 44year(s) old. Sex: gender: female. Study date: Study date: 07/22/2024. Study time: 11:04 AM. Prepared and Electronically Authenticated Robby Willard [id number] Procedure Note Robby Willard MD - 07/26/2024 [place] [address] [email or web address] Stress Echocardiogram Mynor Protocol Patient: Mary Ann Colon Study ID: STRESS ECHO EXER Gender: F : 1980 Age: 44 Race: NEELIMA Height Study Date: 07/22/2024 Weight: Access. #: [id number] BP: *Referring Physician:Peter Quinones Phillip *Ordering Physician:Peter Quinones exterminator termite: Nurse: Indications: Chest pain. STUDY CONCLUSIONS: SUMMARY: - Procedure narrative: Treadmill exercise testing was performed usingthe Mynor protocol. The patient exercised for 8 min 19 sec, to a maximalwork rate of 10.2METS. Exercise was terminated due to significant dyspnea. - Stress data: 90% of maximal predicted heart rate. The heart rateresponse to stress is normal. Normal heart rate recovery. Resting blood /89 increased to 201/72 at peak exercise. The patient experienced no chestpain during stress. Functional capacity is normal. - Stress ECG conclusions: The stress ECG is negative for ischemia. Rare isolated premature ventricular contraction during recovery. - Baseline: LV global systolic function is normal by visual assessment.The estimated LV ejection fraction is 60%. Normal wall motion; no LVregional wall motion abnormalities. - Staged echo conclusions: There was no echocardiographic evidence for stress-induced ischemia. Cardiac Anatomy: Baseline ECG: Normal sinus rhythm, 76 bpm. Low voltage QRS inprecordial leads. Stress results: Maximal heart rate during stress was 160bpm (90% ofmaximal predicted heart rate). The maximal predicted heart rate was 178bpm. Thetarget heart rate was 151bpm. The heart rate response to stress is normal.Resting blood pressure 124/89 increased to 201/72 at peak exercise. The patient experienced no chest pain during stress. Functional capacity isnormal. Treadmill exercise testing was performed using the Mynor protocol. Thepatient exercised for 8 min 19 sec, to a maximal work rate of 10.2METS. Exercisewas terminated due severe dyspnea. Post-stress images were obtained [id number] seconds of stress cessation. Stress ECG: Rare isolated premature ventricular contraction duringrecovery. The stress ECG is negative for ischemia. Baseline: Left ventricle: Cavity size is normal. LV global systolic function isnormal by visual assessment. The estimated LV ejection fraction is 60%. Normalwall motion; no regional wall motion abnormalities. Peak stress: Left ventricle: Cavity size is reduced. Systolic function is augmented.No evidence for new regional wall motion abnormalities. Stress echo results: There was no echocardiographic evidence for stress-induced ischemia. Procedure data: Consent: The risks, benefits, and alternatives to the procedure were explained to the patient and informed consent was obtained. Procedure information: The patient arrived at the laboratory. A baseline ECG was recorded. Surface ECG leads and automatic cuff blood pressuremeasurements were monitored. A transthoracic stress echocardiogram was performed.Image quality was good. Images were captured at baseline and peak exercise.Study completion: There were no complications. Mynor protocol.Stress echocardiogram. Birthdate: Patient birthdate: 1980. Age: Patientis 44year(s) old. Sex: gender: female. Study date: Study date: 07/22/2024. Study time: 11:04 AM. Prepared and Electronically Authenticated Robby Willard [id number] Peter Herrera MD ORDERABLES Final Result INTERFACE SYSTEM Refer to clinic/hospital department from Last 3 Months Insurance [facility] RX [employer] Medicare Part D RX [facility] Medicare Part D [facility] Advance Directives For more information, please contact: [phone] * Full Code (Latest Code Status on File) Date Activated Date Inactivated Comments 01/07/2021 1:41 PM 01/09/2021 1:20 AM * Full Code Date Activated Date Inactivated Comments 01/04/2021 11:56 PM 01/07/2021 1:41 PM * Full Code Date Activated Date Inactivated Comments 04/26/2020 6:54 AM 04/28/2020 3:05 PM * Full Code Date Activated Date Inactivated Comments 01/28/2018 7:13 AM 02/01/2018 3:52 PM * Full Code Date Activated Date Inactivated Comments 01/28/2018 2:29 AM 01/28/2018 7:13 AM
--- OUTSIDE RECORDS SUMMARY | 2024-09-23 21:32 | XMS_ITS | Patient Health Record ---
Author Organization [facility] Address [address] [place] [address] Care Team Providers Care Classroom Instructor Name Role Phone Jacquelyn Garland Primary Care Provider Bridgett Zhang Unavailable [phone] Allergies No Known Allergies Reason For Referral No Information Medications Medication SIG (Take, Route, Fr equency, Duration) Notes Start Date End Date Status ARIPiprazole 5 MG 1 tablet Orally Once a day for 30 days Active hydrOXYzine HCl 10 MG 1-2 tablet as need ed Orally Three times daily for 30 days Ac tive Social History Tobacco Use: Social History Observation Description Date Details (start date - stop date) Never Smoker NA - NA Dont use, Tobacco Use/Smoking Question Answer Notes Are you a nonsmoker Problems Problem Type SNOMED Code ICD Code Onset Dates Problem Status W/U Status Risk Notes Problem Tobacco user (663145792) Nicotine dependence, unspecified, uncomplicated (F17.200) Active confirmed Problem Generalized anxiety disorder (35071716) Generalized anxiety disorder (F41.1) Active confirmed r/o panic disorder Problem Mood disorder (99923330) Mood disorder (F39) Active confirmed likely bipolar 2 Encounters Encounter Location Date Provider Diagnosis [address] [place] [address] 11/18/2023 Bridgett Zhang Mood disorder F39 ; Generalized anxiety disorder F41.1 and Nicotine dependence, unspecified, uncomplicated F17.[address] [place] [address] 02/26/2024 Jacquelyn Garland Mood disorder F39 ; Generalized anxiety disorder F41.1 and Nicotine dependence, unspecified, uncomplicated F17.200 [facility] [address] [place] [address] 06/08/2024 Jacquelyn Garland Mood disorder F39 ; Generalized anxiety disorder F41.1 and Nicotine dependence, unspecified, uncomplicated F17.200 Assessments Encounter Date Diagnosis (ICD Code) Assessment Notes Treatment Notes Treatment Clinical Notes Section Notes 06/08/2024 Mood disorder (ICD-10 - F39) likely bipolar 2 Take as prescribed. Reviewed purpose (mood stability), benefits, and risks - low blood pressure, metabolic syndrome with high cholesterol or high blood sugars, change in cardiac conduction, nausea, vomiting, temporary or permanent movement disorders, and akathisia. 02/26/2024 Mood disorder (ICD-10 - F39) likely bipolar 2 Take as prescribed. Reviewed purpose (mood stability), benefits, and risks - low blood pressure, metabolic syndrome with high cholesterol or high blood sugars, change in cardiac conduction, nausea, vomiting, temporary or permanent movement disorders, and akathisia. 11/18/2023 Mood disorder (ICD-10 - F39) likely bipolar 2 Restarting Abilify 5mg daily Take as prescribed. Reviewed purpose (mood stability), benefits, and risks - low blood pressure, metabolic syndrome with high cholesterol or high blood sugars, change in cardiac conduction, nausea, vomiting, temporary or permanent movement disorders, and akathisia. Explained that no medication can be guaranteed to be 100% safe for baby or mother. Antipsychotics education - reviewed side effects which may include metabolic syndrome, movement disorders (EPS/extrapyramidal symptoms & TD/Tardive dyskinesia) - potentially permanent movement abnormalities, NMS/neuroleptic malignant syndrome (high fever, very rigid muscles, and rapid heartbeat - potentially fatal), sedation, and cardiac rhythm abnormalities. 02/26/2024 Generalized anxiety disorder (ICD-10 - F41.1) Decreased dose due to fatigue. Discussed r/b/se. 11/18/2023 Generalized anxiety disorder (ICD-10 - F41.1) r/o panic disorder Restart Vistaril 25mg TID prn anxiety Encouraged therapy. Practice deep breathing daily Practice mindfulness techniques Practice relaxation techniques 06/08/2024 Generalized anxiety disorder (ICD-10 - F41.1) Decreased dose due to fatigue. Discussed r/b/se. 06/08/2024 Nicotine dependence, unspecified, uncomplicated (ICD-10 - F17.200) 02/26/2024 Nicotine dependence, unspecified, uncomplicated (ICD-10 - F17.200) 11/18/2023 Nicotine dependence, unspecified, uncomplicated (ICD-10 - F17.200) 11/18/2023 Other Patient was edu cated on diagnosis and symptoms. Discussed the treatment plan, patient is agreeable and accepting of treatment plan. Patient denies further questions or concerns currently. Discussed sleep hygiene and caffeine intake. Encouraged to improve diet, get regular exercise, daily relaxation, and work on managing stress levels.Return to clinic 4 weeks.Obtain lab work at next visit. Encouraged counseling.Educated patient that if she is or planning to become , she is to let the provider know immediately.The Patient/Guardian is aware of the need to contact the office or return for an earlier appointment if any problems or concerns arise. May also contact the 24-hour crisis hotline ([facility]), refer to the closest emergency room or call 911 if new symptoms arise of existing symptoms worsen; the Patient/Guardian is aware that this would apply to symptoms such as: suicidal ideation, homicidal ideation, high risk behaviors, manic symptoms, psychotic symptoms, physical symptoms, or any other symptoms that may be dangerous to self or others.Greater than 50% of time spent on coordination and counseling where psychopharmacology as well as psychotherapeutic interventions were discussed along with review of treatments in the past.Patient/Guardian was educated about treatments including benefits and risks, alternatives, potential medication side effects, black box warning, and risks of failure if not treated. The Patient/Guardian asked appropriate questions, appeared to understand the answers, and decided to accept the treatment and continue being followed.Discussed the importance of compliance with medications due to the risk of relapse of symptoms.Discussed the risks of taking psychotropic medication when combined with substance use/abuse and/or drinking alcohol. 02/26/2024 Other Reasons, potential benefits, potential risks, interactions and side effects of all medications were discussed. The Patient/Guardian asked appropriate questions, appeared to understand the answers, and decided to accept the treatment and continue being followed. Alternatives and expected course without treatment were reviewed. The Patient/Guardian is aware of the need to contact the office or return for an earlier appointment if any problems or concerns arise. May also contact the 24-hour crisis hotline ([facility]), refer to the closest emergency room or call 911 if new symptoms arise of existing symptoms worsen. The Patient/Guardian is aware that this would apply to symptoms like: suicidal ideation, homicidal ideation, high risk behaviors, manic symptoms, psychotic symptoms, physical symptoms, or any other symptoms that may be dangerous to self or others. Greater than 50% of time spent on coordination and counseling where psychopharmacology as well as psychotherapeutic interventions were discussed along with review of treatments in the past. Education provided concerning need for adequate hydration. Patient/Guardian verbalized understanding of education, treatment plan and follow up. This session was completed telephonically with client/parental/guard adri consent: Unable to determine movement status, assess appearance, affect, AIMS, or vital signs. 06/08/2024 Other Mututal agreement to continue current regimen. Reasons, potential benefits, potential risks, interactions and side effects of all medications were discussed. The Patient/Guardian asked appropriate questions, appeared to understand the answers, and decided to accept the treatment and continue being followed. Alternatives and expected course without treatment were reviewed. The Patient/Guardian is aware of the need to contact the office or return for an earlier appointment if any problems or concerns arise. May also contact the 24-hour crisis hotline ([facility]), refer to the closest emergency room or call 911 if new symptoms arise of existing symptoms worsen. The Patient/Guardian is aware that this would apply to symptoms like: suicidal ideation, homicidal ideation, high risk behaviors, manic symptoms, psychotic symptoms, physical symptoms, or any other symptoms that may be dangerous to self or others. Greater than 50% of time spent on coordination and counseling where psychopharmacology as well as psychotherapeutic interventions were discussed along with review of treatments in the past. Education provided concerning need for adequate hydration. Patient/Guardian verbalized understanding of education, treatment plan and follow up. This session was completed telephonically with client/parental/guard adri consent: Unable to determine movement status, assess appearance, affect, AIMS, or vital signs. Plan Of Treatment No Information Insurance Providers Payer Name Payer Address Payer Phone Subscriber Number Group Number Insured Name Patient Relationship to Insured Coverage Start Date Coverage End Date MEDICARE PART A [address] [place] [address] [id number] Mary Ann Colon Self - patient is the insured 2 3 [facility] [address] [address] [place] [address] [id number] Mary Ann Colon Self - patient is the insured 4 MEDICAID [address] [place] [address] [id number] Mary Ann Colon Self - patient is the insured 3 Medical (General) History Medical History History ICD Code ISIDRO Mood Disorder Panic Attacks
[2024-09-23 21:37] VITALS: BP 110/65; PULSE 76; RESP 17; TEMP 36.7; O2SAT 99
--- NOTE | 2024-09-23 21:41 | ED_ITS ---
HPI - General Adult General Chief complaint: Urogenital-Female Stated complaint: bladder infection Time Seen by Provider: 09/23/24 21:31 History of Present Illness HPI narrative: Patient is a 44-year-old female who presents ER with concerns for bladder infection. She has urinary frequency and dysuria. She was diagnosed with a UTI last week and took 5 days of Macrobid. She finished the medication yesterday and symptoms persist. No vaginal discharge. Unsure if she could have a yeast infection, she does not typically take antibiotics. No fevers or chills or sweats. No nausea or vomiting. No abdominal pain. Related Data Home Medications ?Medication ?Instructions ?Recorded ?Confirmed ?Last Taken ?Type atorvastatin 20 mg tablet mg 05/11/24 Unknown History ergocalciferol (vitamin D2) 1,250 05/11/24 Unknown History mcg (50,000 unit) capsule escitalopram oxalate 10 mg tablet mg 05/11/24 Unknown History Allergies Allergy/AdvReac Type Severity Reaction Status Date / Time No Known Allergies Allergy Verified 05/11/24 17:49 Review of Systems Review of Systems: All systems reviewed & are unremarkable except as noted in HPI and below Constitutional: Constitutional: Reports no additional constitutional complaints ENT: Reports system reviewed and no additional complaints, except as documented Gastrointestinal: Gastrointestinal: Reports no additional gastrointestinal complaints Genitourinary: Genitourinary: Reports no additional female genitourinary complaints [facility] Past Medical History Medical History Amenorrhea Anxiety History of 4 possible 5 Irregular periods Bipolar 2 disorder Near syncope Surgical History Surgical History Previous section 02/20/01 primary c/s 08/09/02 rpt c/s 11/06/13 rpt c/s 4th c/s sometime late 2020/early 2021 Family History Family History Mother Hypertension Family history of colon cancer Social History Social History Smoking status: Never smoker Alcohol intake: never Substance use: never Substance use type: does not use Do You Feel Safe in your Home?: Yes Lack of Transportation: No Lack of Food: Often True Current Housing: Decline to Answer Concerned About Future Housing: Decline to Answer Difficulty Paying Gas/Electric Bills: No Difficulty Paying for Meds: No Currently Unemployed: No Education: Grade School Difficulty w/ Childcare or Family Care: No Living arrangements: with family Additional living arrangements comments: single Occupation/Education: other 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 HEAD: Normocephalic, atraumatic. ENT: Mucous membranes moist. CHEST: Clear to auscultation. No respiratory distress. HEART: Regular rate and rhythm. Normal peripheral pulses. ABDOMEN: Soft, nontender, nondistended. No CVA tenderness EXTREMITIES: Normal range of motion. No edema. NEURO: Alert and oriented x3. PSYCH: Normal mood and affect. Course Course Emergency Course: Patient offered pelvic exam and she has declined. Urine without infection. Will give 1 dose Diflucan prior to discharge. Vital Signs Vital signs: Vital Signs Temperature 98.0 F 09/23/24 21:37 Pulse Rate 76 09/23/24 21:37 Respiratory Rate 17 09/23/24 21:37 Blood Pressure 110/65 09/23/24 21:37 Pulse Oximetry 99 09/23/24 21:37 Temperature 98.2 F 09/23/24 22:02 Pulse Rate 71 09/23/24 22:02 Respiratory Rate 18 09/23/24 22:02 Blood Pressure 110/65 09/23/24 22:02 Pulse Oximetry 98 09/23/24 22:02 Oxygen Delivery Room Air 09/23/24 22:02 Medical Decision Making Vital Signs Vital Signs: Vital Signs Temperature 98.0 F 09/23/24 21:37 Pulse Rate 76 09/23/24 21:37 Respiratory Rate 17 09/23/24 21:37 Blood Pressure 110/65 09/23/24 21:37 Pulse Oximetry 99 09/23/24 21:37 Temperature 98.2 F 09/23/24 22:02 Pulse Rate 71 09/23/24 22:02 Respiratory Rate 18 09/23/24 22:02 Blood Pressure 110/65 09/23/24 22:02 Pulse Oximetry 98 09/23/24 22:02 Oxygen Delivery Room Air 09/23/24 22:02 Lab Data Labs: Lab Results 09/23/24 Range/Units 21:42 Urine Color Yellow (Yellow) Urine Appearance Sl cloudy (Clear) Urine pH 6.5 (5.0-9.0) Ur Specific Downing 1.015 (1.001-1.035) Urine Protein Negative (Negative) mg/dL Urine Glucose (UA) Negative (Negative) mg/dL Urine Ketones Negative (Negative) mg/dL Ur Blood (Man) Negative (Negative) Urine Nitrate Negative (Negative) Urine Bilirubin Negative (Negative) Urine Urobilinogen 0.2 (<2.0) mg/dL Leukocyte Esterase Rfl 1+ H (Negative) BRISEIDA/UL Urine RBC 0-2 (0-2) /hpf Urine WBC 0-5 (0-3) /hpf Ur Squamous Epith Cells Many H (Few) /hpf Urine Bacteria 1+ H /hpf Urine Casts 0-2 Discharge Plan Discharge Clinical Impression: Dysuria Patient Disposition: Home Condition: Stable Additional Instructions: Your urinalysis had a lot of skin cells but no white blood cells and was felt to be contaminated. Is not felt that you have a urinary infection or kidney infection. You will be given Diflucan for possible yeast infection from her previous antibiotic. Follow-up with your primary care doctor for further treatment and evaluation. Patient Language: Ethiopian Prescriptions: No Action atorvastatin 20 mg tablet ergocalciferol (vitamin D2) 1,250 mcg (50,000 unit) capsule escitalopram oxalate 10 mg tablet nitrofurantoin monohyd/m-cryst [Macrobid] 100 mg capsule 100 mg PO Q12H 5 Days Qty: 10 0RF Rx Instructions: must administer with a meal/food Follow-up/Referrals: Saul Villegas MD [Physician] - 1 Week PHYSICIAN,LONG LINES OPERATOR [Primary Care Provider] -
--- OUTSIDE RECORDS SUMMARY | 2024-09-23 21:55 | XMS_ITS | Clinical Summary ---
Author Organization [facility] [employer] Address [address] [place] [address] Care Team Providers Care Purchasing Analyst Name Role Phone Unavailable Primary Care Provider Unavailabl e Source Comments [facility],non-owned Affiliates and Associated Physician Practices is amultiple site organization consisting of ambulatory clinics and hospital sitesin [place], [place], [place] and [place]. This disclosure is being madepursuant to the Care Everywhere program and may not contain all information available regarding this patient. Last updated 18.Written Allergies No known active allergies Medications * [...] even without placenta previa. 1. Will notify [facility] colleagues of case to get a consensus [...] from very delivery. Recommendations 1. Evaluation at [facility] to determine candidacy for cervical pessary vs cerclage--encouraged to go for evaluation within 24 hours 1. Staff at [facility] notified 2. Continue vaginal progesterone 3. Reevaluate [...] on file Legal Sex Female 5:33 AM PSYCHOLOGIST EDUCATIONAL Gender Identity Not on file Sexual Orientation [...] age to complete this topic Insurance MEDICARE MEDICAID - OUT OF STATE MEDICARE MEDICAID - [place] [facility] MEDICARE ADVANTAGE GENERIC
--- OUTSIDE RECORDS SUMMARY | 2024-09-23 21:55 | XMS_ITS | Referral Summary ---
Author Organization [address] Address [address] [place] [address] Care Team Providers Care Container Washer Name Role Phone Sowmya Pichardo MD Primary [...] [] MOC: [] Method of feeding: [] Varnish Thinner: [] PP Depression Discussed: RTC 2 weeks [...] Overview (01/13/2018): See PPROM in 2014 At [facility] Late care affecting 12/10/2017 12/11/2017 History of 12/10/2017 018 Overview (12/12/2017): History of 3 prior CS. 2 CS then 4 FT followed by 32 week CS via t-incision on the uterus when she presented with PROM, cord prolapse. Significant adhesions present. Op note in records. Performed at [facility]. Discussed the risk of high [...] 12/10/2017 01/15/2018 Overview (12/12/2017): Previously been offered [place] and declined. Anterior placenta, current 12/10/2017 01/15/2018 [...] on file Legal Sex Female 8:49 PM DEFENSIVE SECONDARY COACH Gender Identity Not on file Sexual Orientation Not on file Last Filed Vital Signs Vital Sign Reading Time Taken Comments Blood Pressure 124/84 03/26/2023 2:05 PM DEFENSIVE SECONDARY COACH Pulse 90 03/26/2023 2:05 PM DEFENSIVE SECONDARY COACH Temperature 36.7 C (98.1 F) 03/26/2023 2:05 PM DEFENSIVE SECONDARY COACH Respiratory Rate 20 03/26/2023 2:05 PM DEFENSIVE SECONDARY COACH Oxygen Saturation 98% 03/26/2023 2:05 PM DEFENSIVE SECONDARY COACH Inhaled Oxygen Concentration - - Weight 86.2 kg (190 lb) 02/14/2023 4:50 PM CDT Height 154.9 cm (5' 1) 01/24/2023 4:11 PM CDT Body Mass Index 35.9 01/24/2023 4:11 PM CDT Plan of Treatment Not on file Insurance [facility] MEDICARE [facility] MEDICARE IDPA MEDICARE IDLA Care Teams Container Washer Relationship Specialty Start Date End Date Sowmya Pichardo MD PCP - General Family Practice 07/04/22
--- OUTSIDE RECORDS SUMMARY | 2024-09-23 21:55 | XMS_ITS | Clinical Summary ---
Author Organization [facility] Address [address] [place] [address] Phone Care Team Providers Care Pet Groomer Name Role Phone Unavailable Primary Care Provider [...] Type Department Care Team Description 07/28/2024 Telephone [facility] At [place] [address] [facility] [address] [place] [address] Peter Herrera MD Stress Test 07/27/2024 External Device Data STL ABSTRACTION Provider, Abstract 07/26/2024 Results Follow-Up [facility] At [address] [place] [address] Maritza Richardson RN ECHO STRESS TEST EXERCISE 07/22/2024 11:00 AM CDT - 07/22/2024 11:59 PM CDT Hospital Encounter [facility] Nuclear Medicine [address] [place] [address] Peter Herrera MD Discharge Disposition: Home or [...] Comments Blood Pressure 140/80 05/27/2024 2:20 PM PAPER WINDER Pulse 71 05/27/2024 2:20 PM PAPER WINDER Temperature 36.8 C (98.3 F) 01/08/2021 8:17 PM CDT Respiratory Rate 16 01/08/2021 8:17 PM CDT Oxygen Saturation 98% 05/27/2024 2:20 PM PAPER WINDER Inhaled Oxygen Concentration - - Weight 83.5 kg (184 lb) 05/27/2024 2:20 PM PAPER WINDER Height 156.2 cm (5' 1.5) 05/27/2024 2:20 PM PAPER WINDER Body Mass Index 34.2 05/27/2024 2:20 PM PAPER WINDER Plan of Treatment Health Maintenance Due Date [...] INTERFACE SYSTEM - 07/26/2024 6:37 AM CDT [address] [address] [email or web address] Stress Echocardiogram Mynor Protocol Patient: Mary Ann Colon Study ID: STRESS ECHO EXER Gender: F : 1980 Age: 44 Race: CAU Height Study Date: 07/22/2024 Weight: Access. #: [id number] BP: *Referring Physician:Peter Quinones Phillip *Ordering Physician:Peter Quinones contact lens inspector: Nurse: Indications: Chest pain. STUDY CONCLUSIONS: SUMMARY: - Procedure narrative: Treadmill exercise testing was performed using the Myonr protocol. The patient exercised for 8 min [...] AM. Prepared and Electronically Authenticated Robby Willard [id number] Procedure Note Robby Willard MD - 07/26/2024 [place] [address] [email or web address] Stress Echocardiogram Mynor Protocol Patient: Mary Ann Colon Study ID: STRESS ECHO EXER Gender: F : 1980 Age: 44 Race: NEELIMA Height Study Date: 07/22/2024 Weight: Access. #: [id number] BP: *Referring Physician:Peter Quinones Phillip *Ordering Physician:Peter Quinones contact lens inspector: Nurse: Indications: Chest pain. STUDY CONCLUSIONS: SUMMARY: - Procedure narrative: Treadmill exercise testing was performed usingthe Mynor protocol. The patient exercised for 8 min 19 sec, to a maximalwork rate of 10.2METS. Exercise was terminated due to significant dyspnea. - Stress data: 90% of maximal predicted heart rate. The heart rateresponse to stress is normal. Normal heart rate recovery. Resting blood [id number] increased to 201/72 at peak exercise. The [...] due severe dyspnea. Post-stress images were obtained [id number] seconds of stress cessation. Stress ECG: Rare [...] AM. Prepared and Electronically Authenticated Robby Willard [id number]:37:27 Peter Herrera MD ORDERABLES Final Result INTERFACE SYSTEM Refer to clinic/hospital department from Last 3 Months Insurance [facility] RX [employer] Medicare Part D RX [facility] Medicare Part D [facility] Advance Directives For more information, please contact: [phone] * Full Code (Latest Code Status on [...]
--- OUTSIDE RECORDS SUMMARY | 2024-09-23 21:55 | XMS_ITS | Encounter Summary ---
Author Organization [facility] Address [address] [place] [address] Care Team Providers Care Vibration Engineer Name Role Phone Unavailable Primary Care Provider Unavailabl e Encounter Details Date Type Department Care Team (Late st Contact Info) Description 07/26/2024 Results Follow-Up [facility] At [place] [address] [facility] [address] [place] [address] Maritza Richardson RN ECHO STRESS [...]
--- OUTSIDE RECORDS SUMMARY | 2024-09-23 21:55 | XMS_ITS | Clinical Summary ---
Author Organization [address] Address [address] [place] [address] Care Team Providers Care Mail Carrier Name Role Phone Sowmya Pichardo MD Primary [...] [] MOC: [] Method of feeding: [] Pants Maker: [] PP Depression Discussed: RTC 2 weeks [...] Overview (01/13/2018): See PPROM in 2014 At [facility] Late care affecting 12/10/2017 12/11/2017 History of 12/10/2017 018 Overview (12/12/2017): History of 3 prior CS. 2 CS then 4 FT followed by 32 week CS via t-incision on the uterus when she presented with PROM, cord prolapse. Significant adhesions present. Op note in records. Performed at [facility]. Discussed the risk of high order [...] 12/10/2017 01/15/2018 Overview (12/12/2017): Previously been offered [place] and declined. Anterior placenta, current 12/10/2017 01/15/2018 [...] on file Legal Sex Female 8:49 PM HOSPITAL CODER Gender Identity Not on file Sexual Orientation [...] 0 SALVADOR ON,PENNY Y1ANG AAMIR Wellington M oJcelyne spears MD Complications: premat ure rupture of membranes,Spontaneous breech delivery Delivery Location:[facility] ([facility] ) Comments 2013 Repeat LTCS attempted b ut 2/2 adhesions and position LTCS was converted to a T incision. Last Filed Vital Signs Vital Sign Reading Time Taken Comments Blood Pressure 124/84 03/26/2023 2:05 PM HOSPITAL CODER Pulse 90 03/26/2023 2:05 PM HOSPITAL CODER Temperature 36.7 C (98.1 F) 03/26/2023 2:05 PM HOSPITAL CODER Respiratory Rate 20 03/26/2023 2:05 PM HOSPITAL CODER Oxygen Saturation 98% 03/26/2023 2:05 PM HOSPITAL CODER Inhaled Oxygen Concentration - - Weight 86.2 [...] patient's age to complete this topic Insurance [place] [facility] MEDICARE IDPA MEDICARE IDPA MEDICARE IDPA Care Teams Mail Carrier Relationship Specialty Start Date End Date Sowmya Pichardo MD PCP - General Family Practice 07/04/22
[2024-09-23 22:02] VITALS: BP 110/65; PULSE 71; RESP 18; TEMP 36.8; O2SAT 98
[2024-09-23 22:09] LABS: Add Urine Microscopic? YES; Appearance Urine Sl Cloudy (Clear); Color Urine Yellow (Yellow); Specific Grav Ur 1.015 (1.001-1.035); pH Urine 6.5 (5.0-9.0)
[2024-09-23 22:10] LABS: Bilirubin Urine Negative (Negative); Blood Urine Negative (Negative); Glucose Urine UA Negative (Negative); Ketones Urine Negative (Negative); Leukocyte Esterase Ur 1+ LEU/UL (Negative); Nitrate Urine Negative (Negative); Protein Urine Negative (Negative); Urobilinogen Urine 0.2 mg/dL (<2.0)
[2024-09-23 22:12] LABS: Bacteria Urine 1+ /hpf; Non Pathogenic Casts 0-2; RBC Urine 0-2 /hpf (0-2); Squamous Epithelial Cell Urine Many /hpf (Few); WBC Urine 0-5 /hpf (0-3)
[2024-09-23] MEDS: FLUCONAZOLE 150 MG TABLET PO (22:56)
== END 2024-09-23 23:00 | disposition home or self-care (01) ==
PROVIDERS: Emergency Provider Emergency Medicine
DX: R30.0 Dysuria (principal); F41.9 Anxiety disorder, unspecified; F31.9 Bipolar disorder, unspecified; Z79.899 Other long term (current) drug therapy
CPT/HCPCS: 81001; 99283; A9270

== ENCOUNTER 2024-12-30 19:25 | Emergency (ER) | payer MEDICARE, MEDICAID, SELFPAY ==
[2024-12-30 19:34] VITALS: BP 116/69; PULSE 75; RESP 16; TEMP 36.7; O2SAT 99
[2024-12-30 19:59] LABS: EDUAAPPEAR Cloudy; EDUABILI Negative (Negative); EDUABLOOD 3+ (Negative); EDUACOLOR1 Dark; EDUAGLUCOSE Negative (Negative); EDUAKETONE Negative (Negative); EDUALEUKO Trace (Negative); EDUANITRATE Negative (Negative); EDUAPH 6.0; EDUAPROTEIN Trace (Negative); EDUASPGRAVITY 1.015; EDUAUROBILI 0.2
--- NOTE | 2024-12-30 20:12 | ED_ITS ---
HPI - Female Genitourinary General Chief complaint: Urogenital-Female Stated complaint: UTI Time Seen by Provider: 12/30/24 19:26 Source: patient Mode of arrival: ambulatory Limitations: no limitations History of Present Illness HPI Narrative: Patient is a 44-year-old female who presents with 2 days of urinary frequency. Denies any urgency, pain, burning, fevers, chills, nausea, vomiting, diarrhea, low back pain or flank pain. Patient is currently on her cycle MD elicited complaint: dysuria Related Data Allergies Allergy/AdvReac Type Severity Reaction Status Date / Time No Known Allergies Allergy Verified 12/30/24 19:51 Review of Systems Review of Systems: All systems reviewed & are unremarkable except as noted in HPI and below Constitutional: Constitutional: Denies chills, Denies fever(s), Denies headache(s), Denies malaise and Denies weakness Eyes: Eyes: Denies change in vision, Denies eye discharge and Denies irritation ENT: Denies otalgia, Denies headache(s), Denies nasal congestion, Denies nasal discharge, Denies sinus pain and Denies sore throat Cardiovascular: Cardiovascular: Denies chest pain, Denies edema, Denies palpitations and Denies dyspnea Respiratory: Respiratory: Denies cough and Denies dyspnea Gastrointestinal: Gastrointestinal: Denies abdominal pain, Denies diarrhea, Denies nausea and Denies vomiting Genitourinary: Genitourinary: Denies hematuria, Reports nocturia, Denies dysuria, Denies flank pain and Denies urinary urgency Musculoskeletal: Musculoskeletal: Denies back pain and Denies numbness Integumentary/Breasts: Skin/Breast: Denies pruritus and Denies rash Neurologic: Denies headache(s), Denies numbness and Denies weakness Psychiatric: Psychiatric: Reports no additional psychiatric complaints Endocrine: Endocrine: Denies palpitations PMFSH Past Medical History Medical History Mixed hyperlipidemia Screening cholesterol level Fatigue Near syncope Abdominal pain affecting Abnormal EKG Dyspareunia Amenorrhea Irregular periods Abdominal pain Abdominal hernia URI (upper respiratory infection) Tonsil stone Acute serous otitis media of both ears Anxiety History of 4 possible 5 Bipolar 2 disorder Surgical History Surgical History Previous section 02/20/01 primary c/s 08/09/02 rpt c/s 11/06/13 rpt c/s 4th c/s sometime late 2020/early 2021 Family History Family History Mother Hypertension Family history of colon cancer Social History Social History Smoking status: Never smoker Alcohol intake: never Substance use: never Substance use type: does not use Do You Feel Safe in your Home?: Yes Lack of Transportation: No Lack of Food: Often True Current Housing: Decline to Answer Concerned About Future Housing: Decline to Answer Difficulty Paying Gas/Electric Bills: No Difficulty Paying for Meds: No Currently Unemployed: No Education: Grade School Difficulty w/ Childcare or Family Care: No Living arrangements: with family Additional living arrangements comments: single Occupation/Education: other 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 There is no relevant family history pertinent to the presenting complaint. Exam Const: General: cooperative, healthy appearing, comfortable, no acute distress and well nourished Nutritional Appearance: well nourished Orientation/consciousness: patient oriented x3 HENMT: Head: normocephalic and atraumatic Ears: external ears normal Face/Nose/Sinus: Normal external nose present, Normal nares present and normal facial exam Face and sinus: normal facial exam Eyes: General: appearance normal, both eyes and all related structures P upils: Equal, round and reactive pupils present EOM: EOMs intact bilaterally Neck: Neck: normal visual inspection, full ROM and supple Chest: Chest palpation & inspection: normal inspection of the chest Resp: Effort & Inspection: normal respiratory effort and able to speak in complete sentences Cardio: Rate: regular rate Rhythm: regular rhythm GI: Inspection: normal to inspection GI Palp: No abdominal tenderness and Yes Soft to palpation : General: Yes no CVA tenderness Back/Spine/Pelvis: Back: no CVA tenderness Skin: General skin exam: normal color and no rashes or lesions noted Neuro: General: patient oriented x3 and moves all extremities Cranial nerves: Yes Equal, round and reactive pupils present Extrem: General: normal to inspection and full ROM Psych: Appearance: grossly normal and well kempt Course Course Emergency Course: Patient is aware of diagnosis, understands and agrees to treatment plan. Anticipatory guidance given. Patient agrees to follow-up as directed and is aw are of reasons to seek care at the emergency department. Portions of this record may have been created with voice recognition software Level of Care: Express Care Visit Vital Signs Vital signs: Vital Signs Temperature 36.7 C 12/30/24 19:34 Pulse Rate 75 12/30/24 19:34 Respiratory Rate 16 12/30/24 19:34 Blood Pressure 116/69 12/30/24 19:34 Pulse Oximetry 99 12/30/24 19:34 Oxygen Delivery Room Air 12/30/24 19:34 Temperature 36.7 C 12/30/24 19:34 Pulse Rate 75 12/30/24 19:34 Respiratory Rate 16 12/30/24 19:34 Blood Pressure 116/69 12/30/24 19:34 Pulse Oximetry 99 12/30/24 19:34 Oxygen Delivery Room Air 12/30/24 19:34 Reviewed MDM - Female Genitourinary MDM Narrative Medical decision making narrative: Exam findings and UA show possible UTI, through shared decision making patient would like to wait for culture results prior to being placed on antibiotics; patient is non-toxic appearing and is in no distress. No CMT, adnexal tenderness, or evidence of pelvic etiology. Patient is appropriate for outpatient treatment and follow-up. Differential Diagnosis Differential diagnosis: Likely urinary tract infection, bacterial vaginosis, trichomoniasis, cervicitis, vaginitis and cystitis Medical Records Attestation: I reviewed the patient's medical records. Lab Data Attestation: I reviewed the patient's lab results. Labs: Lab Results 12/30/24 Range/Units 19:52 POC Urine Color Dark POC Urine Clarity Cloudy POC Urine pH 6.0 POC Ur Specif [place] 1.015 POC Urine Protein Trace (Negative) POC Ur Glucose (UA) Negative (Negative) POC Urine Ketones Negative (Negative) POC Urine Blood 3+ (Negative) POC Urine Nitrite Negative (Negative) POC Urine Bilirubin Negative (Negative) POC Urine Urobilinogen 0.2 POC U Leukocyte Esteras Trace (Negative) Discharge Plan Discharge Clinical Impression: Urinary frequency Patient Disposition: Home Condition: Stable Instructions: Urinary Urgency and Frequency (DC) Additional Instructions: We will send a urine culture to the lab and if bacteria grows you will be started on antibiotic Continue with increased water intake. Take Tylenol or ibuprofen as needed for pain or fever. Follow-up with primary care provider for urine recheck or see ER visit if condition worsens with high fever, nausea, vomiting, severe back pain Patient Language: Georgian Prescriptions: No Action escitalopram oxalate 5 mg tablet 5 mg PO DAILY Qty: 60 0RF Follow-up/Referrals: Desmond Nguyen MD [Physician, Family Practice] - 3 Days Referral Note: Establish care Time of Disposition: 20:14
== END 2024-12-30 20:25 | disposition home or self-care (01) ==
PROVIDERS: Emergency Provider Nurse Practitioner Family
DX: R35.0 Frequency of micturition (principal); E78.2 Mixed hyperlipidemia
CPT/HCPCS: 81003; 87077; 87086; 87186; 99213; G0463

== ENCOUNTER 2025-02-14 20:44 | Emergency (ER) | payer MEDICARE, MEDICAID, SELFPAY ==
--- OUTSIDE RECORDS SUMMARY | 2024-02-12 05:20 | XMS_ITS ---
Author Organization [facility] Address [address] [place] [address] Care Team Providers Care Director Of Nursing Name Role Phone Jacquelyn aGrland Primary Care Provider REASON FOR VISIT 40 min f/u, last saw Jacquelyn in 06/3023 Medications Medication SIG (Take, Route, Frequency, Duration) Notes Start Date End Date Status hydrOXYzine Pamoate 25 MG 1 capsule PRN for anxiety Orally Three times a day; Duration: 30 days Active ARIPiprazole 5 MG 1 tablet Orally Once a day; Duration: 30 days Active Social History Sex Assigned At : Social History Observation Description Sex Assigned At Female Encounters Encounter Location Date Provider Diagnosis [address] [address] 02/12/2024 Jacquelyn Garland Plan Of Treatment No Information Progress Notes * Chemo CHIUB: 2 (44 yo F)Acc No.[id number]:02/12/2024 UNLOCKED PROGRESS NOTE Patient: Mary Ann RICCI Provider: Abby Garland, MSN, RN BEHAVIORAL HEALTH, NUMERICAL TOOL PROGRAMMER-C :1980 A ge:43 Y S ex:Female Date:02/12/2024 Phone: Address:[address] [place] [address] Subjective: * Chief Complaints: * 1 . 40 min f/u, last saw Jacquelyn in 06/3023. * Medical History: * Medications: T aking ARIPiprazole 5 MG Tablet 1 tablet Orally Once a day , Taking hydrOXYzine Pamoate 25 MG Capsule 1 capsule PRN for anxiety Orally Three times a day Objective: * Vitals: Assessment: Plan: * Treatment: * * Electronic signature of Sonja Garland , [id number] on 02/14/2025 at 08:45 PM VISUAL EFFECTS ARTIST Sign off status: Pending * Provider: Abby Garland, MSN, RN BEHAVIORAL HEALTH, NUMERICAL TOOL PROGRAMMER-C Date: Generated for Greta william/Riki/Sima on: 04/16/2024 08:45 PM VISUAL EFFECTS ARTIST
--- OUTSIDE RECORDS SUMMARY | 2024-02-25 07:20 | XMS_ITS ---
Author Organization [facility] Address [address] [place] [address] Care Team Providers Care Bone Worker Name Role Phone Jacquelyn Garland Primary Care Provider REASON FOR VISIT 40 min f/u, last saw Jacquelyn in 06/3023 Social History Sex Assigned At : Social History Observation Description Sex Assigned At Female Encounters Encounter Location Date Provider Diagnosis [address] [place] [address] 02/25/2024 Jacquelyn Garland Plan Of Treatment No Information Progress Notes * Chemo CHIUB: 2 (44 yo F)Acc No.[id number]:02/25/2024 UNLOCKED PROGRESS NOTE Patient: Mary Ann RICCI Provider: Abby Garland, MSN, DISTRICT SALES MANAGER, DREDGE PIPE OPERATOR-C :1980 A ge:43 Y S ex:Female Date:02/25/2024 Phone: Address:[address] [place] [address], [facility] Subjective: * Chief Complaints: * 1 . 40 min f/u, last saw Jacquelyn in 06/3023. * Medical History: Objective: * Vitals: Assessment: Plan: * Treatment: * * Electronic signature of Sonja Garland , [id number] on 02/14/2025 at 08:46 PM MILD DISABILITIES TEACHER Sign off status: Pending * Provider: Abby Garland, MSN, DISTRICT SALES MANAGER, DREDGE PIPE OPERATOR-C Date: 04/26/2023 Generated for Printi ng/Faxing/eTransmitting on: 04/16/2024 08:46 PM MILD DISABILITIES TEACHER
--- OUTSIDE RECORDS SUMMARY | 2024-05-31 09:20 | XMS_ITS ---
[facility] Organization [facility] Address [address] [place] [address] Care Team Providers Care Money Room Supervisor Name Role Phone Jacquelyn Garland Primary Care Provider [phone] REASON FOR VISIT VM FULL.Needs to R/S-mlr 1 Month F/U Please call number twice Social History Sex Assigned At : Social History Observation Description Sex Assigned At Female Encounters Encounter Location Date Provider Diagnosis [address] [place] [address] 05/31/2024 Jacquelyn Garland Plan Of Treatment No Information Progress Notes * Chemo COLONB: 2 (44 yo F)Acc No.[id number]:05/31/2024 UNLOCKED PROGRESS NOTE Patient: Mary Ann RICCI Provider: Abby Garland, MSN, ASSOCIATE DIRECTOR FINANCE, KNUCKLE STRAP SEWER-C :1980 A ge:44 Y S ex:Female Date:05/31/2024 Phone: Address:[address] [place], [place] [id number] Subjective: * Chief Complaints: * 1 . VM FULL.Needs to R/S-mlr 1 Month F/U Please call number twice. * Medical History: Objective: * Vitals: Assessment: Plan: * Treatment: * * Electronic signature of Sonja Garland , [id number] on 02/14/2025 at 08:45 PM CHANGE MANAGER Sign off status: Pending * Provider: Abby Garland, MSN, ASSOCIATE DIRECTOR FINANCE, KNUCKLE STRAP SEWER-C Date: 0 05/31/2024 Generated for Printi ng/Faxing/eTransmitting on: 1 04/16/2024 08:45 PM CHANGE MANAGER
--- OUTSIDE RECORDS SUMMARY | 2024-10-12 07:20 | XMS_ITS ---
Author Organization [facility]ly [facility] Address [address] [place] [address] Care Team Providers Care Director Of Golf Name Role Phone Jacquelyn Garland Primary Care Provider REASON FOR VISIT 3 Month Psych F/U & Med Refill Social History Sex Assigned At : Social History Observation Description Sex Assigned At Female Encounters Encounter Location Date Provider Diagnosis [address] [place] [address] 10/12/2024 Jacquelyn Garland Plan Of Treatment No Information Progress Notes * APPLEAnatolyCarlitaB: 2 (44 yo F)Acc No.[id number]:10/12/2024 UNLOCKED PROGRESS NOTE Patient: Mary Ann RICCI Provider: Abby Garland MSN, LOOP SEWER, RABBET OPERATOR-C :1980 A ge:44 Y S ex:Female Date:10/12/2024 Phone: Address:[address] [place], [place] [id number] Subjective: * Chief Complaints: * 1 . 3 Month Psych F/U & Med Refill. * Medical History: Objective: * Vitals: Assessment: Plan: * Treatment: * * Electronic signature of Sonja Garland , [id number] on 02/14/2025 at 08:45 PM AMBULATORY CARE COORDINATOR Sign off status: Pending * Provider: Abby Garland MSN, LOOP SEWER, RABBET OPERATOR-C Date: 0 10/12/2024 Generated for Printi ng/Faxing/eTransmitting on: 1 04/16/2024 08:45 PM AMBULATORY CARE COORDINATOR
[2025-02-14] VITALS (12 sets, daily range): BP systolic 107–149; BP diastolic 72–83; PULSE 59–81; RESP 13–23; TEMP 36.4; O2SAT 96–100
--- OUTSIDE RECORDS SUMMARY | 2025-02-14 20:45 | XMS_ITS | Clinical Summary ---
Author Organization [facility] Address [address] [place] [address] Care Team Providers Care Core Winder Machine Operator Name Role Phone Unavailable Primary Care Provider Unavailabl e Source Comments [facility],non-owned Affiliates and Associated Physician Practices is amultiple site organization consisting of ambulatory clinics and hospital sitesin [place], [place], [place] and [place]. This disclosure is being madepursuant to the Care Everywhere program and may not contain all information available regarding this patient. Last updated 18.[employer] Allergies No known active allergies Medications * [...] even without placenta previa. 1. Will notify [facility] colleagues of case to get a [...] from very delivery. Recommendations 1. Evaluation at [facility] to determine candidacy for cervical pessary vs cerclage--encouraged to go for evaluation within 24 hours 1. Staff at [facility] notified 2. Continue vaginal progesterone 3. 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
--- OUTSIDE RECORDS SUMMARY | 2025-02-14 20:45 | XMS_ITS | Clinical Summary ---
Author Organization [address] Address [address] [place] [phone] Care Team Providers Care Is Project Manager Name Role Phone Sowmya Pichardo MD Primary Care Provider Allergies No known active allergies Medications hydrOXYzine (ATARAX) 25 mg tabletIndicatio ns:ISIDRO [...] Overview (12/12/2017): [] Co-management vs. [x] Full [facility] Care; Referring Provider: Dr Castro Full transfer [...] [] MOC: [] Method of feeding: [] Tool Engineer: [] PP Depression Discussed: RTC 2 weeks [...] Overview (01/13/2018): See PPROM in 2014 At [facility] Late care affecting 12/10/2017 12/11/2017 History of 12/10/2017 018 Overview (12/12/2017): History of 3 prior CS. 2 CS then 4 FT followed by 32 week CS via t-incision on the uterus when she presented with PROM, cord prolapse. Significant adhesions present. Op note in records. Performed at [facility]. Discussed the risk of high order [...] 12/10/2017 01/15/2018 Overview (12/12/2017): Previously been offered Zamzam and declined. Anterior placenta, current 12/10/2017 01/15/2018 Hx of preeclampsia, prior 12/10/2017 01/15/2018 Overview (01/13/2018): Not previously on Aspirin, did not rediscuss given advanced gestational age., this was in 2007 and at the end of IUGR in prior 12/10/201707/2017 Hx successful (vaginal after ), currently 12/09/2017 01/13/2018 AMA 12/09/2017 01/15/2018 Overview (12/12/2017): Per patient, previously declined genetic screening. Irregular menses 11/18/2016 07/04/2022 Encounters Date Type Department Care Team Description 01/13/2025 Results Follow-Up [facility] at [address] [phone] Dorie Colorado NP Vaginitis panel Vaginal, Urine culture Urine, clean voided 01/12/2025 5:30 PM CDT Office Visit [facility] [address] [address] Linnette Ventura PA Cystitis without hematuria (Primary Dx); Vaginal itching 01/12/2025 5:11 PM CDT - 01/12/2025 11:59 PM CDT Hospital Encounter [address] [address] Cystitis without hematuria Discharge Disposition: Discharge to home or self care from Last 3 Months Immunizations Immunization Administration Dates Next Due Moderna [...] staff should administer the PHQ-9) 1 07/04/2022 Comments No Sex and Gender Information Value Date Recorded Sex Assigned at Not on file 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 Last Filed Vital Signs Vital Sign Reading Time Taken Comments Blood Pressure 127/85 01/12/2025 4:43 PM CDT Pulse 86 01/12/2025 4:43 PM CDT Temperature 37.1 C (98.7 F) 01/12/2025 4:43 PM CDT Respiratory Rate 18 01/12/2025 4:43 PM CDT Oxygen Saturation 98% 01/12/2025 4:43 PM CDT Inhaled Oxygen Concentration - - Weight 81.6 kg (180 lb) 01/12/2025 4:43 PM CDT Height 154.9 cm (5' 1) 01/24/2023 4:11 PM CDT Body Mass Index 34.01 01/24/2023 4:11 PM CDT Plan of Treatment Health Maintenance Due Date Last Done Comments Breast Cancer Screening-Mammogram 1982 Cervical Cancer Screening 1982 Hepatitis C Screening 1982 Varicella Vaccines (1 of 2 - 13+ 2-dose series) 1995 Hepatitis B Screening 2000 HPV Vaccines (1 - 3-dose SCD M series) 2009 Regular Well Visit/Exam 18-64 01/14/2020 01/13/2019 Depression Screening 07/05/2023 07/04/2022 Covid-19 Vaccine (2 - 2024-2 6 season) 2024 11/10/2020 Influenza Vaccine (#1) 2024 DTaP/Tdap/Td Vaccine (2 - Td or Tdap) 05/12/2027 05/12/2017 Pneumococcal vaccine <65 Aged Out No longer eligible based on patient's age to complete this topic Procedures Procedure Name Priority Date/Time Associated Diagnosis Comments URINE CULTURE Routine 01/12/2025 5:11 PM CDT Cystitis without hematuria VAGINITIS PANEL Routine 01/12/2025 5:11 PM CDT Cystitis without hematuria POCT URINALYSIS DIPSTICK Routine 01/12/2025 4:57 PM CDT Cystitis without hematuria from Last 3 Months Results * Vaginitis panel Vaginal (01/12/2025 5:11 PM CDT) Bacterial Vaginosis Not Detected Not Detected Comment:A negative result do es not preclude a possible infection. Results should be considered in conjunction with clinical presentation to determine the disease status. Regla group Not Detected Not Detected [facility] Regla glabrata/ krusei Not Detected Not Detected [facility] Trichomonas DNA Not Detected Not Detected [facility] Vaginal 01/12/2025 5:11 PM CDT 01/12/2025 8:14 PM CDT Narrative [facility] - 01/12/2025 9:40 PM CDT The [employer] Xpert Xpress MVP test detects DNA targets from anaerobic bacteria associated with bacterial vaginosis, Regla species associated with vulvovaginal candidiasis, and Trichomonas vaginalis by nucleic acid amplification testing (NAAT). Results should be interpreted in conjunction with other clinical data. This test cannot be used to assess therapeutic success or failure because target nucleic acids may persist following antimicrobial therapy. This test has been cleared by the [place] Food and Drug Administration to aid in the diagnosis of vaginal infections in symptomatic women ages 14 and older. The performance characteristics of this test have been verified by the [facility]. Linnette [facility] MICROBIOLOGY - [facility] ORDERABLES Final Result STEPHANIE [address] Department [place] [address] [place] * Urine culture Urine, clean voided (01/12/2025 5:11 PM CDT) Report Final Report: No growth Comment:Testing performed by : [facility], [address] [facility] [place] [address] Urine, clean voided 01/12/2025 5:11 PM CDT 01/12/2025 10:02 PM CDT Narrative [facility] - 01/14/2025 8:23 AM CDT Testing performed by [facility] Microbiology Laboratory ([phone]) Linnette [facility] - [facility] ORDERABLES Final Result STEPHANIE LALA [address] Department [place] [address] * (ABNORMAL) POCT urinalysis dipstick (01/12/2025 4:57 PM CDT) Color, Urine, POC Yellow Clarity, ur, POC Clear Clear Glucose, ur, POC Negative Negative Bilirubin, ur, POC Negative Negative Ketones, ur, POC Trace(A) Negative Specific [place], POC 1.025 1.003 - 1.030 Blood, ur, POC Negative Negative pH, ur, POC 5.5 5.0 - 8.0 Protein, ur, POC Negative Negative Urobilinogen, urine, POC 0.2 0.2 - 1.0 mg/dL Nitrite, ur, POC Negative Negative Leukocytes, ur, POC Trace(A) Negative Lot Number [id number] Urine 01/12/2025 4:57 PM CDT Linnette [facility] POINT OF CARE TEST ORDER JOSE F Final Result from Last 3 Months Insurance [facility] MEDICARE [employer] MEDICARE [facility] MEDICARE [facility] Address: [address] [address] [place] [address] IDPA Care Teams Is Project Manager Relationship Specialty Start Date End Date Sowmya Pichardo MD PCP - General Family Practice 07/04/22
--- OUTSIDE RECORDS SUMMARY | 2025-02-14 20:45 | XMS_ITS | Clinical Summary ---
Author Organization 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 Given her irregular menses, suspect ovulatory dysfunction as the primary cause. Differential includes thyroid disorder, PCOS, ovarian insufficiency related to perimenopause. Will initiate evaluation with pelvic ultrasound as well as obtaining labs. Patient's eventual goal is . She is unsure whether they would pursue IVF, but may be interested in ovulation induction. Patient was counseled that treatment will depend on underlying cause and it is too soon to make a treatment plan at this time. Recommend returning for pelvic ultrasound and will discuss further once results available. Of note, she is also overdue for wellness visit Major depressive disorder, recurrent, mild 01/26 Generalized anxiety disorder 01/26/2018 Resolved Problems Problem Noted Date Diagnosed Date Resolved Date 01/07; 24 weeks/breech/In trapartum Demise; amp/gent 01/04/2021 02/13/2025 Short cervical length during in second trimester 12/21/2020 02/13/2025 , delivered 04/26/2020 02/13/2025 delivery delivered 01/28/2018 02/13/2025 Premature rupture of membranes 01/22/2018 02/13/2025 History of delivery affecting 02/13/2025 Grand multiparity in labor and delivery 02/13/2025 labor in second trim judy without delivery 02/13/2025 Encounters Date Type Department Care Team Description 02/10/2025 11:30 AM CDT Office Visit [facility] [address] [place] [address] Arianna Bentley MD Menstrual abnormality (Primary Dx); Abnormal uterine bleeding 02/09/2025 External Device Data [facility] ABSTRACTION Provider, Abstract 02/08/2025 External Device Data [facility] ABSTRACTION Provider, Abstract 02/02/2025 External Device Data [facility] ABSTRACTION Provider, Abstract 02/01/2025 External Device Data [facility] ABSTRACTION Provider, Abstract 12/28/2024 External Device Data [facility] ABSTRACTION Provider, Abstract 12/14/2024 External Device Data [facility] ABSTRACTION Provider, Abstract 11/30/2024 External Device Data [facility] ABSTRACTION Provider, Abstract from Last 3 Months Immunizations Immunization Administration [...] Sign Reading Time Taken Comments Blood Pressure 118/76 02/10/2025 11:24 AM CDT Pulse 71 05/27/2024 2:20 PM CUSTOMER SUPPORT ANALYST Temperature 36.8 C (98.3 F) 01/08/2021 8:17 PM CDT Respiratory Rate 16 01/08/2021 8:17 PM CDT Oxygen Saturation 98% 05/27/2024 2:20 PM CUSTOMER SUPPORT ANALYST Inhaled Oxygen Concentration - - Weight 83.9 kg (185 lb) 02/10/2025 11:24 AM CDT Height 156.2 cm (5' 1.5) 02/10/2025 11:24 AM CD T Body Mass Index 34.39 02/10/2025 11:24 AM CDT Plan of Treatment Upcoming Encounters Date Type Department Care Team (Late st Contact Info) Description 02/23/2025 11:30 AM CUSTOMER SUPPORT ANALYST Appointment [facility] Non Invasive Cardiology [address] [place] [address] Peter Herrera MD [address] [facility] [address] [place] [address] 03/03/2025 10:30 AM CUSTOMER SUPPORT ANALYST Ancillary Procedure [address] [address] 03/03/2025 11:00 AM CUSTOMER SUPPORT ANALYST Office Visit [facility] [address] [address] Arianna Bentley MD [address] [address] Health Maintenance Due Date Last Done Comments Pre-Diabetes and Diabetes Screening 1982 HEPATITIS B VACCINES (1 of 3 - 19+ 3-dose series) 03/14 HPV/Cotest (21-29) 2003 HPV VACCINES (1 - 3-dose SCDM series) 2009 HPV/Cotest (30-65) 2012 BREAST CANCER SCREENING 2022 INFLUENZA VACCINE (#1) 2024 COVID-19 Vaccine (2 - 2024- season) 2024 CERVICAL CANCER SCREENING 02/05/2026 PAP SMEAR 02/05/2026 02/05/2023 DTAP/TDAP/TD VACCINES (2 - Td or Tdap) 05/12/2027 Insurance [facility] RX [employer]VIS[employer] Medicare Part D RX [facility] Medicare Part D [facility] Advance Directives For more information, please contact: [phone] * Full Code (Latest Code Status on [...]
--- OUTSIDE RECORDS SUMMARY | 2025-02-14 20:45 | XMS_ITS | Data Portability ---
Author Organization [facility] , [facility]Robert Address [address] [place] [address] Assessment No assessment recorded. Plan of Treatment Reminders Order Date Submit Date Provider Last Modified By Organization Details Last Modified Time Details Appointments None recorded. Lab test, urine 2021 [facility], [address] [place], [address], 18:48:39 bacterial vaginosis + vaginitis panel, vaginal 2021 [employer] [facility], [address] [place], [address], 10:47:19 beta-HCG, quantitati ve, serum or plasma 2021 [facility], [address] [place], [address], 06:08:55 Referral None recorded. Procedures None recorded. Surgeries None recorded. Imaging None recorded. Medication Orders Slynd 4 mg (28) tablet 2021 [facility], [address] [facility] [address], [place], [address], 18:11:42 Patient TargetsNo targets recorded. Patient InstructionsNo [...] appro david by the FDA or the formerly [facility] actur er of the assay . Not Available [facility] [address] [place], [address], 04/24/2021 06:08:55 10/11/19 22 10/11/2021 VAGIN ITIS PLUS STD PANEL bacterial vaginosis BV POS negati ve abnormal Not Available [facility] [address] [place] [address], [address], 10/12/2021 10:47:19 10/11/19 22 10/11/2021 VAGIN ITIS PLUS STD PANEL airam species C. spp neg negati ve normal Not Available [facility] [address] [place] [address], [address], 10/12/2021 10:47:19 10/11/19 22 10/11/2021 VAGIN ITIS PLUS STD PANEL airam glabrata C. gla neg negati ve normal Not Available [address], [address], 10/12/2021 10:47:19 10/11/19 22 10/11/2021 VAGIN ITIS PLUS STD PANEL trichomonas vaginalis CV/TV TRICH neg negati ve normal Not Available [facility] [address] [place] [address], [address], 10/12/2021 10:47:19 10/11/19 22 10/11/2021 VAGIN ITIS PLUS STD PANEL chlamydia trachomatis CT neg negati ve normal This repor t is inten ded for us in clini yuniel monit oring and manag ement of patie nts. It is not inten ded for use in medic al-le gal appli catio n. Not Available [facility] [address] [facility], [place], [address], 10/12/2021 10:47:19 10/11/19 22 10/11/2021 VAGIN ITIS PLUS STD PANEL neisseria gonorrhoeae GC neg negati ve normal This repor t is inten ded for us in clini yuniel monit oring and manag ement of patie nts. It is not inten ded for use in medic al-le gal appli catio n. Not Available [facility] [address] [facility], [place], [address], 10/12/2021 10:47:19 10/11/19 22 10/10/2021 pregn silvana test, urine HCG negati ve Not Available [facility] [address] [place], [address], 10/10/2021 18:44:53 Result Notes None recorded. Problems Name Problem SNOMED Code Status Onset Date Resolution Date Notes Provider Name and Address Organization Details Recorded Time Family planning educatio n done [id number] 9104 Completed 201612/28/2017 Family planning advice; Location : None Severity : Moderate Progress : Stable Added By: Maddy Valdez Add to Current Problems : YES ProblemS tatus: Resolve Not Available [facility] 1 11:11:45 Natural contrace ption educatio n Completed 201612/28/2017 Procreat angie counseli ng and advice using natural family planning ; Progress : Stable Added By: Maddy Valdez Add to Current Problems : NO ProblemS tatus: Resolve Not Available [facility] 19:10:48 Clinical finding Completed 201710/05/2020 Encounte r for supervis ion of normal pregnanc y, unspecif ied, unspecif ied trimeste r; Progress : Stable Added By: Alex Castro Add to Current Problems : NO ProblemS tatus: Resolve Not Available [facility] 2 22:02:41 Gestatio n period, 22 weeks 25144619 Completed 201710/05/2020 22 weeks gestatio n of pregnanc y; Progress : Stable Added By: Alex Castro Add to Current Problems : NO ProblemS tatus: Resolve Not Available [facility] 2 19:10:48 Rubella screenin g status 985677238 Completed 201708/16/2018 Encounte r for antenata l screenin g, unspecif ied; Progress : Stable Added By: Alex Castro Add to Current Problems : NO ProblemS tatus: Resolve Not Available [facility] 2 22:02:41 Antenata l screenin g Completed 201710/05/2020 Encounte r for other specifie d antenata l screenin g; Progress : Stable Added By: Myriam Lambert Add to Current Problems : NO ProblemS tatus: Resolve Not Available [facility] 2 19:10:48 Sampling of vagina for Papanico laou smear Completed 201810/05/2020 Encounte r for gynecolo gical examinat ion (general ) (routine ) without abnormal findings ; Progress : Stable Added By: Myriam Lmabert Add to Current Problems : NO ProblemS tatus: Resolve Not Available [facility] 2 19:10:48 Acute vaginiti s 45591308 Completed 201810/05/2020 Acute vaginiti s; Progress : Stable Added By: Myriam Lambert Add to Current Problems : NO ProblemS tatus: Resolve Not Available [facility] 2 22:02:40 Secondar y amenorrh ea 613655491 Completed 201810/05/2020 Secondar y amenorrh ea; Progress : Stable Added By: Myriam Lambert Add to Current Problems : NO ProblemS tatus: Resolve Not Available [facility] 2 19:10:57 Syphilis test finding 029330832 Completed 201810/05/2020 Encounte r for screenin g for infectio ns with a predomin antly sexual mode of transmis maria c; Progress : Stable Added By: Myriam Lambert Add to Current Problems : NO ProblemS tatus: Resolve Not Available [facility] 2 19:10:46 Procedur e by method Completed 201810/05/2020 Encounte r for other general counseli ng and advice on contrace ption; Progress : Stable Added By: Myriam Lambert Add to Current Problems : NO ProblemS tatus: Resolve Not Available [facility] 2 19:10:51 Antenata l care: multipar ous, older than 35 years 823455762 Completed 202010/05/2020 Supervis ion of elderly multigra katie, first trimeste r; Progress : Stable Added By: Tenisha Alcaraz Add to Current Problems : NO ProblemS tatus: Resolve Not Available [facility] [address] 19:10:[address] Concept Completed 202010/05/2020 Supervis ion of other high risk pregnanc ies, first trimeste r; Progress : Stable Added By: Tenisha Alcaraz Add to Current Problems : NO ProblemS tatus: Resolve Not Available [facility] 2 19:10:57 Gestatio n period, 8 weeks 22042266 Completed 202010/05/2020 8 weeks gestatio n of pregnanc y; Progress : Stable Added By: Tenisha Alcaraz Add to Current Problems : NO ProblemS tatus: Resolve Not Available [facility] 2 19:10:46 Screenin g for malignan t neoplasm of cervix Completed 202010/05/2020 Encounte r for screenin g for malignan t neoplasm of cervix; Progress : Stable Added By: Tenisha Alcaraz Add to Current Problems : NO ProblemS tatus: Resolve Not Available [facility] 2 22:02:43 Pregnanc y 24549472 Completed 202104/23/2021 Marguerite Gardiner null, [place] - [facility] 2 12:40:28 Past pregnanc y history of section 406564464 Active 2021 Sherly Foley MD [address] [place] [address], [address] , [facility] 2 07:05:35 Grand multipar a 80092726 Active 2021 Sherly Foley MD [address] [place] [address], [address] , [facility] 2 07:05:46 Deliveri es by 693252934 Active 2021 x4 Sherly Foley MD [address] [place] [address], [address] , [facility] 2 07:06:20 Disorder of menstrua tion 706309824 Active 2021 Agustina Garcia JAYA [address] [place] [address], [address] , [facility] 2 18:42:10 Bacteria l vaginosi s 850414421 Active 2021 Agustina Garcia JAYA [address] [place] [address], [address] , [facility] 2 18:51:32 Abnormal uterine bleeding 21565406822 100 Active 2021 Agustina Garcia JAYA [address] [place] [address], [address] , [facility] 2 15:42:03 Problem Notes None recorded. Procedures Surgical History Date Name Laterality Status Provider Name and Address Organization Details Recorded Time 1 Date of Last Pap Smear completed Rebecca Treadwelltrey [place] - [facility] 04/13/2021 00:27:33 section completed Sherly Foley MD [address] [place] [address], [address], [facility] 10/10/2021 07:08:05 Imaging Results None recorded. [...] completed Diflucan 150 mg oral tablet RxNorm: [id number] Allow Substitu tion: True Refill Denied: No [...] Not Available Not Available No t Available [facility] Micronor 0.35 mg tablet Take 1 tablet every day by oral route. 10/10 completed Not Available Not Available Not Available medroxypr ogesteron e 150 mg/mL intramusc ular syringe INJECT 1 SYRINGE INTRAMUS CULARLY EVERY 3 MONTHS 04/23 completed Not Available Not Available Not Available escitalop georgie 10 mg tablet TAKE 1 TABLET BY MOUTH DAILY 04/23 completed Not Available Not Available Not Available June 1.5/30 (28) 1.5 mg-30 mcg (21)/75 mg (7) tablet take 1 tablet by oral route once daily 08/28 completed 1.5/30 (28) 1.5 mg-30 mcg (21)/75 mg (7) oral tablet RxNorm: [id number] Allow Substitu tion: True Refill Denied: No Edited by: Tenisha Macdonald ) on 08/29/19 Stopped by: Tenisha Macdonald ) on 08/29/19 Not Available Not Available Not Available Tri-Sprin [...] Body mass index (BMI) Body weight Systolic And Diastolic Provider Name and Address Organization Details Last Updated DateTime 04/23/2021 160.02 cm 97 [degF] 36.7 kg/m2 28123.6 2 g 140/80 mm[Hg] Marguerite Gardiner [facility] 12:53:20 Date Recorded Body height Body mass index (BMI) Body weight Body temperature Systolic And Diastolic Provider Name and Address Organization Details Last Updated DateTime 10/10/2021 160.02 cm 37 kg/m2 56771.8 1 g 98.2 [degF] 134/86 mm[Hg] Loraine Wang [employer] 18:11:15 Social History Question Answer Notes LastModified by Organizat ion Details LastModified Time Tobacco Smoking Status Never Smoker Loraine Wang null, [employer] 10/10/2021 18:13:54 If You Are , What [...] by Organization Details LastModified Time Mother Malignant neoplasm of colon 40 dpietrusiak Not available 03/16 00:29:47 Maternal Grandmother Malignant neoplasm of colon dpietrusiak Not available 03/16 00:30:11 [...] Diagnosis SNOMED-CT Code Diagnosis ICD10 Code Diagnosis IMO Codes Diagnosis Note [id number] PAN RENDON CNM [facility] [address] [place] [address] 04/23/2021 12:22:28 04/23/2021 14:07:00 Reproductive care management [id number] Z31.9 Pt had 24.5 week loss r/t [...] to know she isn't by blood test. [facility] ion care management 295042512 Z30.9 [id number] DEMETRIA Huang [facility] [address] [place] [address] 10/10/2021 17:36:37 10/11/2021 09:35:58 Disorder of menstruation 106216103 N92.6 *Discussed causes of abnormal uterine bleeding, including structural (polyps, fibroids), hormonal including anovulatio n, hyperplasi a, and rarely cancer. Reviewed evaluation with pelvic US and endometria l biopsy.*Bautista tient case to submit PA for US*Schedul [...] [place]on Member ID Guarantor Name 05/16/2021 1 [place] Mary Ann Colon [id number] Mary Ann Colon 10/05/[address] [facility] (MEDICARE - MEDICAID REPLACEMENT HMO) [id number] Mary Ann Colon [id number] Mary Ann Colon 08/19/2022 2 [place] [facility] [place] OF PUBLIC AID Mary Ann Colon [id number] Mary Ann Colon 12/21/2021 1 [place] Mary Ann Colon [id number] Mary Ann Colon 01/26/2024 3 [facility] (MEDICARE REPLACEMENT HMO) Mary Ann Colon [id number] Mary Ann Colon Notes Date Note Type Note Provider Name and Address Organization Details Recorded Time 2 text/html Annual GYNReported by PatientGenitourinary symptomsFor menstrual cycle, patient reportsnormal menses. For urinary symptoms, patient reportsno hematuriaandno incontinence. For vulva, patient reportsno genital lesion. For vagina, patient reportsnormal vaginal discharge.Breast symptomsFor breast, patient reportsno breast pain,no breast lump, andno nipple discharge.Endocrine symptomsFor sexual complaints, patient reportsno sexual complaints,no pain during intercourse, andnormal libido. For menopausal symptoms, patient reportsno menopausal symptomsandnormal vaginal lubrication.Psychological symptomsFor psychological symptoms, patient reportsno depression,no anxiety, andno pmdd. PAN RENDON [facility] [address] [place], [address], [facility] [employer] [facility] 04/23/2021 14:06:43 2 text/html Abnormal BleedingReported by PatientHPIFor quality, patient reportsirregularbut reportslight. For associated symptoms, patient reportsbloatingbut reportsno dysmenorrhea,no pelvic pain,no abdominal pain,no dyspareunia,no fatigue,no dizziness,no change in bowel function,no urinary symptoms,no vaginal discharge, andno vaginal itching/irritation. For onset/timing, patient reportspresent cycle,every cycle, andirregular. Mary Ann states that she stopped taking OCPs in June. Reports continuous light bleeding since; when the bleeding is at its heaviest, she changes her pad every 6 hours. She reports bloating. DEMETRIA Huang [address] [place], [address], [employer] [facility] 10/14/2021 18:09:04 OBGyn Episode Ob Episode Information Episode Created Date Number of Fetuses Patient Bloodtype Patient rh Status Prepregnancy Weight lbs Domestic Partner Domestic Partner Phone Father Name Network Liaison Status 04/13/20 21 1 CLOSED Fetus Data First Name Last Name Admitted to NICU Weight (g) Sex Living Outcome Pediatric Complications Fetus ID Race Codes Race Delivery Type 3005.04 7 F Full Term 47134 Repeat Jayjay Calculation Initial Jayjay Date Initial [...] Domestic Partner Domestic Partner Phone Father Name Network Liaison Status 04/13/20 21 1 CLOSED Fetus Data First Name Last Name Admitted to NICU Weight (g) Sex Living Outcome Pediatric Complications Fetus ID Race Codes Race Delivery Type 7.86 3 M Full Term 86162 Repeat Jayjay Calculation Initial Jayjay Date Initial [...] Domestic Partner Domestic Partner Phone Father Name Network Liaison Status 04/13/20 21 1 CLOSED Fetus Data First Name Last Name Admitted to NICU Weight (g) Sex Living Outcome Pediatric Complications Fetus ID Race Codes Race Delivery Type 2551.45 5 F Full Term 46440 Jayjay Calculation Initial Jayjay Date Initial Exam [...] Domestic Partner Domestic Partner Phone Father Name Network Liaison Status 04/20/19 22 1 A Negative CLOSED Fetus Data First Name Last Name Admitted to NICU Weight (g) Sex Living Outcome Pediatric Complications Fetus ID Race Codes Race Delivery Type 71901 Jayjay Calculation Initial Jayjay Date Initial Exam Date Initial Exam Provider Initial Ultrasound Date Last Menstrual Period Date Ultra Sound Weeks Gestation 05/01/2021 04/20/2021 0 Eighteen To Twenty Week Jayjay Update Ultra Sound Date Fundal Height At Umbil Quickening Date Ultra Sound Latest Weeks Gestation Final Jayjay Confirmed By Final Jayjay Confirmed Date Final Jayjay Date Ultra Sound Latest Days Gestation 0 0 Pre-miles Flowsheet Flowsheet Date 04/23/2021 Heredia Score Blood Edema Fundus Height Fundus Units Glucose Ketones Leukocytes Nitrite Labor Signs Protein Cervic Dilation Cervic Effacement Cervic Station Type Weight in lbs Pre/Post Dialysis Refused Weight 207.375422205611 BP Diastolic BP Location Tested BP Systolic [...] Domestic Partner Domestic Partner Phone Father Name Network Liaison Status 04/13/20 21 1 CLOSED Fetus Data First Name Last Name Admitted to NICU Weight (g) Sex Living Outcome Pediatric Complications Fetus ID Race Codes Race Delivery Type 3231.84 3 M Full Term 63733 Jayjay Calculation Initial Jayjay Date Initial Exam [...] Domestic Partner Domestic Partner Phone Father Name Network Liaison Status 04/13/20 21 1 CLOSED Fetus Data First Name Last Name Admitted to NICU Weight (g) Sex Living Outcome Pediatric Complications Fetus ID Race Codes Race Delivery Type 3572.03 7 F Full Term 47972 Jayjay Calculation Initial Jayjay Date Initial Exam [...] Domestic Partner Domestic Partner Phone Father Name Network Liaison Status 04/13/20 21 1 CLOSED Fetus Data First Name Last Name Admitted to NICU Weight (g) Sex Living Outcome Pediatric Complications Fetus ID Race Codes Race Delivery Type 2324.65 9 M Full Term 99971 Jayjay Calculation Initial Jayjay Date Initial Exam [...] Domestic Partner Domestic Partner Phone Father Name Network Liaison Status 04/13/20 21 1 CLOSED Fetus Data First Name Last Name Admitted to NICU Weight (g) Sex Living Outcome Pediatric Complications Fetus ID Race Codes Race Delivery Type 1644.27 1 F Full Term 83336 Repeat Jayjay Calculation Initial Jayjay Date Initial [...] Domestic Partner Domestic Partner Phone Father Name Network Liaison Status 04/13/20 21 1 CLOSED Fetus Data First Name Last Name Admitted to NICU Weight (g) Sex Living Outcome Pediatric Complications Fetus ID Race Codes Race Delivery Type 3231.84 3 M Full Term 01266 Jayjay Calculation Initial Jayjay Date Initial Exam [...] Domestic Partner Domestic Partner Phone Father Name Network Liaison Status 04/13/20 21 1 CLOSED Fetus Data First Name Last Name Admitted to NICU Weight (g) Sex Living Outcome Pediatric Complications Fetus ID Race Codes Race Delivery Type 2324.65 9 M Full Term 70047 Primary Jayjay Calculation Initial Jayjay Date Initial [...] Domestic Partner Domestic Partner Phone Father Name Network Liaison Status 06/29/19 22 1 CLOSED Fetus Data First Name Last Name Admitted to NICU Weight (g) Sex Living Outcome Pediatric Complications Fetus ID Race Codes Race Delivery Type 954508 Jayjay Calculation Initial Jayjay Date Initial Exam [...] Domestic Partner Domestic Partner Phone Father Name Network Liaison Status 06/29/19 22 1 CLOSED Fetus Data First Name Last Name Admitted to NICU Weight (g) Sex Living Outcome Pediatric Complications Fetus ID Race Codes Race Delivery Type 784810 Jayjay Calculation Initial Jayjay Date Initial Exam [...] Domestic Partner Domestic Partner Phone Father Name Network Liaison Status 06/29/19 22 1 CLOSED Fetus Data First Name Last Name Admitted to NICU Weight (g) Sex Living Outcome Pediatric Complications Fetus ID Race Codes Race Delivery Type [id number] Jayjay Calculation Initial Jayjay Date Initial Exam [...]
--- OUTSIDE RECORDS SUMMARY | 2025-02-14 20:45 | XMS_ITS | Encounter Summary ---
Author Organization [facility] Healthcare Address [address] [place] [address] Care Team Providers Care Research Intern Name Role Phone Sowmya Pichardo MD Primary Care Provider Encounter Details Date Type Department Care Team (Late st Contact Info) Description 01/13/2025 Results Follow-Up [facility] at [address] [address] Dorie Colorado NP [address] [place] [address] Vaginitis panel Vaginal, Urine culture Urine, clean voided Social History Tobacco Use Types Packs/Day Years [...] on file Legal Sex Female 8:49 PM [employer] Gender Identity Not on file Sexual Orientation Not on file documented as of this encounter Miscellaneous Notes * Result Encounter Note - Melania Galarza LPN - 01/14/2025 3:57 PM CDT Notified pt of their results and follow up instructions. Pt verbalized understanding. * Result Encounter Note - Melania Galarza LPN - 01/14/2025 8:33 AM CDT LVM for pt to return call to clinic to notify them of labs results. documented in this encounter Plan of Treatment Not on file documented as of this encounter Visit Diagnoses Not on filedocumented in this encounter Care Teams Research Intern Relationship Specialty Start Date End Date Sowmya Pichardo MD PCP - General Family Practice 07/04/22 documented as of this encounter
--- OUTSIDE RECORDS SUMMARY | 2025-02-14 20:46 | XMS_ITS | Patient Health Record ---
Author Organization [facility] Address [address] [place] [address] Care Team Providers Care Consulting Database Administrator Name Role Phone Jacquelyn Garland Primary Care Provider [phone] Allergies No Known Allergies Reason For Referral No Information Medications Medication SIG (Take, Route, Frequency, Duration) Notes Start Date End Date Status hydrOXYzine HCl 10 MG 1-2 tablet as need ed Orally Three times daily; Duration: 30 days Active buPROPion HCl ER (XL) 150 MG 1 tablet in the morning Orally Once a day; Duration: 30 days 11/01/2024 Active ARIPiprazole 5 MG 1 tablet Orally Once a day; Duration: 30 days Active Social History Tobacco Use: Social History Observation Description Date Details (start date - stop date) Never Smoker NA - NA Sex Assigned At : Social History Observation Description Sex Assigned At Female Dont use, Tobacco Use/Smoking Question Answer Notes Are you a nonsmoker Problems Problem Type SNOMED Code ICD Code Onset Dates Problem Status W/U Status Risk Notes Problem Tobacco user (437500535) Nicotine dependence, unspecified, uncomplicated (F17.200) Active confirmed Problem Generalized anxiety disorder (10228937) Generalized anxiety disorder (F41.1) Active confirmed r/o panic disorder Problem Mood disorder (60602652) Mood disorder (F39) Active confirmed likely bipolar 2 Vital Signs Heart Rate 78 /min 11/01/2024 Temperature 98.2 degrees Fahrenheit 11/01/2024 Respiratory Rate 16 /min 11/01/2024 Blood pressure diastolic 84 mm Hg 11/01/2024 Oximetry 98 % 11/01/2024 Height 62 in in 11/01/2024 Blood pressure systolic 110 mm Hg 11/01/2024 Weight 175 lbs lbs 11/01/2024 BMI 32 kg/m2 11/01/2024 Encounters Encounter Location Date Provider Diagnosis [address] [facility] [place] [address] 02/26/2024 Jacquelynrudolph Garland Mood disorder F39 ; Generalized anxiety disorder F41.1 and Nicotine dependence, unspecified, uncomplicated F17.200 Formerly [facility] [address] [address] 06/08/2024 Jacquelynrudolph Garland Mood disorder F39 ; Generalized anxiety disorder F41.1 and Nicotine dependence, unspecified, uncomplicated F17.[address] [place] [address] 11/01/2024 Jacquelyn Garland Mood disorder F39 ; Generalized anxiety disorder F41.1 and Nicotine dependence, unspecified, uncomplicated F17.200 Assessments Encounter Date Diagnosis (ICD Code) Assessment Notes Treatment Notes Treatment Clinical Notes Section Notes 02/26/2024 Mood disorder (ICD-10 - F39) likely bipolar 2 Take as prescribed. Reviewed purpose (mood stability), benefits, and risks - low blood pressure, metabolic syndrome with high cholesterol or high blood sugars, change in cardiac conduction, nausea, vomiting, temporary or permanent movement disorders, and akathisia. 06/08/2024 Mood disorder (ICD-10 - F39) likely bipolar 2 Take as prescribed. Reviewed purpose (mood stability), benefits, and risks - low blood pressure, metabolic syndrome with high cholesterol or high blood sugars, change in cardiac conduction, nausea, vomiting, temporary or permanent movement disorders, and akathisia. 11/01/2024 Mood disorder (ICD-10 - F39) likely bipolar 2 Take as prescribed. Reviewed purpose (mood stability), benefits, and risks - low blood pressure, metabolic syndrome with high cholesterol or high blood sugars, change in cardiac conduction, nausea, vomiting, temporary or permanent movement disorders, and akathisia. Begin bupropion. Reviewed purpose (depression, binge eating, and ADHD symptoms), benefits, and risks including increased thoughts of suicidality and prompting manic/hypomanic episode. 11/01/2024 Generalized anxiety disorder (ICD-10 - F41.1) Had fatigue at higher hydroxyzine doses Discussed r/b/se. 02/26/2024 Generalized anxiety disorder (ICD-10 - F41.1) Decreased dose due to fatigue. Discussed r/b/se. 06/08/2024 Generalized anxiety disorder (ICD-10 - F41.1) Decreased dose due to fatigue. Discussed r/b/se. 02/26/2024 Nicotine dependence, unspecified, uncomplicated (ICD-10 - F17.200) 06/08/2024 Nicotine dependence, unspecified, uncomplicated (ICD-10 - F17.200) 11/01/2024 Nicotine dependence, unspecified, uncomplicated (ICD-10 - F17.200) 02/26/2024 Other Reasons, potential benefits, potential risks, [...] May also contact the 24-hour crisis hotline ([facility]), refer to the closest emergency room or [...] May also contact the 24-hour crisis hotline ([facility]), refer to the closest emergency room or [...] assess appearance, affect, AIMS, or vital signs. 11/01/2024 Other Reasons, potential benefits, potential risks, interactions [...] May also contact the 24-hour crisis hotline ([facility]), refer to the closest emergency room or [...] of education, treatment plan and follow up. Plan Of Treatment No Information Insurance Providers Payer Name Payer Address Payer Phone Subscriber Number Group Number Insured Name Patient Relationship to Insured Coverage Start Date Coverage End Date MEDICARE PART A [address] [place] [phone] [id number] Mary Ann Colon Self - patient is the insured 2 3 [facility] [address] [address] [place] [address] [id number] Mary Ann Colon Self - patient is the insured 4 MEDICAID [address] [place] [address] [id number] Mary Ann Colon Self - patient is the insured 3 Medical (General) History Medical History History ICD Code ISIDRO Mood Disorder Panic Attacks
--- OUTSIDE RECORDS SUMMARY | 2025-02-14 20:46 | XMS_ITS | Data Portability ---
Author Organization [facility] [place] Address [address] [place] [address] Care Team Providers Care Gamewell Operator Name Role Phone [facility] Primary Care Provider [phone] Assessment Encounter Date Assessment Date Assessment LastModified [...] - 19-oh progeste jean, lc/MS/MS 2022 023 [facility] (Lab), [address], [place], [address], 3 03:29:25 dhea-sul fate, serum 2022 023 [facility] (Lab), [address] [place], [address], 3 03:29:24 hormone panel, serum or plasma 2022 023 [facility] (Lab), [address] [place], [address], 3 03:29:24 HbA1c (hemoglo bin A1c), blood 2022 023 [facility] (Lab), [address], [place], [address], 3 03:29:25 progeste jean, serum 2022 023 [facility] (Lab), [address] [facility], [place], [address], 3 03:29:23 prolacti n, serum 2022 023 [facility] (Lab), [address] [facility], [place], [address], 3 03:29:23 shbg (sex hormone- binding globulin ), serum 2022 023 [facility] (Lab), [address] [facility], [place], [address], 3 03:29:22 testoste jean free/arianne tosteron e total, ratio, serum 2022 023 [facility] (Lab), [address] [facility], [place], [address], 3 03:29:25 TSH, serum or plasma 2022 023 [facility] (Lab), [address] [facility], [place], [address], 3 03:29:23 beta-HCG , quantita tive, serum or plasma 2022 023 [facility] (Lab), [address] [facility], [place], [address], 3 03:29:22 pregnanc y test, urine 2022 023 alondra [facility], [address], [address], [place], [address], 3 14:42:47 urinalys is, dipstick 2022 023 alondra [place], [address], [address], [place], [address], 3 14:42:47 pregnanc y test, urine 2021 [facility], [address], [place], [address], 14:47:32 urinalys is, dipstick 2021 [facility], [address], [place], [address], 14:47:32 Referral urologis t referral - Urinary symptoms Please contact this patient to schedule an appointm ent. Attached are the patients demograp hics, most recent office visit notes & UA results. If you have any question s, please contact me at [phone]. Thank you, Leslie, Referral 's 2021 [facility] Urology [facility], [address] [place], [address], 3 13:14:23 Procedures None recorded . Surgeries None recorded . Imaging MAMMO, screenin g, bilatera l 2022 023 [id number] [facility], [address], [address], [place], [address], 3 13:01:08 US, pelvis, complete 2022 [address], [address], [place], [address], 3 13:32:56 US, pelvis, complete 2022 023 [facility], [address], [place], [address], 14:57:04 Medication Orders metronid azole 0.75 % (37.5 mg/5 gram) vaginal gel 2022 023 [id number], [address], [place], [place], [id number], 3 12:49:35 Diflucan 150 mg tablet [address] [id number], [address], [place], [place], [id number], 3 12:49:14 fluconaz ole 150 mg tablet [address], [address], [place], [address], 3 12:49:14 nystatin -triamci nolone 100,000 unit/gra m-0.1 % topical ointment 2021 023 [facility] 2425, [address], [place], [address], 3 14:33:27 Patient TargetsNo targets recorded. Patient InstructionsNo instructions recorded. Reason for Referral Urologist Referral for Urina ry symptoms Urinary symptomsPlease contact this patient to schedule an appointment.Attached are the patients demographics, most recent office visit notes & UA results.If you have any questions, please contact me at [phone].Thank you,Leslie Referral's Referring Physician: Светлана Marroquin, LOCK OPERATOR, Encounter Date: 02/28/2022 Results Created Date Observation Date Name Description Value Unit Range Abnormal Flag Note LastModifiedBy Organization Detail LastModifiedTime 02/29/20 22 02/28/2022 CT/GC AND TRICH OMONA S VAGIN MIGUEL (RRNA ), SWAB chlamydia trachomatis, PCR Negati ve negati ve Not Available [facility] (Lab) [address], [place], [address], 03/01/2022 12:11:54 02/29/20 22 02/28/2022 CT/GC AND TRICH OMONA S VAGIN MIGUEL (RRNA ), SWAB neisseria gonorrhoeae, PCR Negati ve negati ve Not Available [facility] (Lab) [address] [facility], [place], [address], 03/01/2022 12:11:54 02/29/20 22 02/28/2022 CT/GC AND TRICH OMONA S VAGIN MGIUEL (RRNA ), SWAB trichomonas vaginalis ribosomal RNA (rrna) Negati ve negati ve Not Available [facility] (Lab) [address] [facility], [place], [address], 03/01/2022 12:11:54 02/29/20 22 02/28/2022 VAGIN ITIS/ VAGIN OSIS, DNA PROBE airam sp. detection, direct probe Negati ve negati ve Not Available [facility] (Lab) [address] [facility], [place], [address], 03/01/2022 13:46:11 02/29/20 22 02/28/2022 VAGIN ITIS/ VAGIN OSIS, DNA PROBE gardnerella vag. detection, direct probe Negati ve negati ve Not Available [facility] (Lab) [address] [facility], [place], [address], 03/01/2022 13:46:11 02/29/20 22 02/28/2022 VAGIN ITIS/ VAGIN OSIS, DNA PROBE trichomonas vag. detection, direct probe Negati ve negati ve Not Available [facility] (Lab) [address] [facility], [place], [address], 03/01/2022 13:46:11 02/29/20 22 02/28/2022 CULTU RE: URINE result report SEE RESULT S BELOW Test: Cultu re: Urine Speci men Sourc e: Urine Voide d Speci men Type: Urine Speci men Date: 02/28 3:34 PM Resul t Date: 03/02 6:23 AM Resul t Statu s: Final resul t Abnor mal: No Resul ting Lab: [facility] [address] [facility] [address] [facility] [address] Tel: CULTU RE ----- ----- ----- --- No growt h in 1 day (dete ction level of 10,00 0 colon ies / ml.) Not Available [facility] (Lab) [address], [place], [address], 03/02/2022 07:25:37 02/29/20 22 02/28/2022 urina lysis , dipst ick Leukocytes neg Not Available [facility] [address], [place], [address], 02/28/2022 14:37:50 02/29/20 22 02/28/2022 urina lysis , dipst ick Nitrite neg Not Available [place] [address], [place], [address], 02/28/2022 14:37:50 02/29/20 22 02/28/2022 urina lysis , dipst ick Urobilinogen neg Not Available [facility] [place]ick [address], [place], [address], 02/28/2022 14:37:50 02/29/20 22 02/28/2022 urina lysis , dipst ick Protein neg Not Available [place] [address], [place], [address], 02/28/2022 14:37:50 02/29/20 22 02/28/2022 urina lysis , dipst ick pH 8 Not Available [place] [address], [place], [address], 02/28/2022 14:37:50 02/29/20 22 02/28/2022 urina lysis , dipst ick Blood +++ Not Available [place] [address], [place], [address], 02/28/2022 14:37:50 02/29/20 22 02/28/2022 urina lysis , dipst ick Specific [place] 1.005 Not Available [facility] trish [address], [place], [address], 02/28/2022 14:37:50 02/29/20 22 02/28/2022 urina lysis , dipst ick Ketone neg Not Available [place] [address], [place], [address], 02/28/2022 14:37:50 02/29/20 22 02/28/2022 urina lysis , dipst ick Bilirubin neg Not Available [facility] jasmina [address], [place], [address], 02/28/2022 14:37:50 02/29/20 22 02/28/2022 urina lysis , dipst ick Glucose neg Not Available [place] [address], [place], [address], 02/28/2022 14:37:50 02/29/20 22 02/28/2022 urina lysis , dipst ick Appearance clear Not Available [facility] [address], [place], [address], 02/28/2022 14:37:50 02/29/20 22 02/28/2022 urina lysis , dipst ick Color yellow Not Available [place] [address], [place], [address], 02/28/2022 14:37:50 02/29/20 22 02/28/2022 pregn silvana test, urine HCG negati ve Not Available [place] [address], [place], [address], 02/28/2022 14:37:39 08/21/19 23 08/20/2022 CT/GC AND TRICH OMONA S VAGIN MIGUEL (RRNA ), SWAB chlamydia trachomatis, PCR Negati ve negati ve Not Available [facility] (Lab) [address] [facility], [place], [address], 08/22/2022 12:02:33 08/21/19 23 08/20/2022 CT/GC AND TRICH OMONA S VAGIN MIGUEL (RRNA ), SWAB neisseria gonorrhoeae, PCR Negati ve negati ve Not Available [facility] (Lab) [address] [facility], [place], [address], 08/22/2022 12:02:33 08/21/19 23 08/20/2022 CT/GC AND TRICH OMONA S VAGIN MIGUEL (RRNA ), SWAB trichomonas vaginalis ribosomal RNA (rrna) Negati ve negati ve Not Available [facility] (Lab) [address] [facility], [place], [address], 08/22/2022 12:02:33 08/21/19 23 08/20/2022 VAGIN ITIS/ VAGIN OSIS, DNA PROBE airam sp. detection, direct probe Positi ve negati ve abnormal Not Available [facility] (Lab) [address] [facility], [place], [address], 08/22/2022 12:02:34 08/21/19 23 08/20/2022 VAGIN ITIS/ VAGIN OSIS, DNA PROBE gardnerella vag. detection, direct probe Positi ve negati ve abnormal Not Available [facility] (Lab) [address] [facility], [place], [address], 08/22/2022 12:02:34 08/21/19 23 08/20/2022 VAGIN ITIS/ VAGIN OSIS, DNA PROBE trichomonas vag. detection, direct probe Negati ve negati ve Not Available [facility] (Lab) [address] [facility], [place], [address], 08/22/2022 12:02:34 08/21/1908/20/2022 CULTU RE: URINE result report SEE RESULT S BELOW Test: Cultu re: Urine Speci men Sourc e: Urine Voide d Speci men Type: Urine Speci men Date: 023 3:32 PM Resul t Date: 2022 10:58 AM Resul t Statu s: Final resul t Abnor mal: No Resul ting Lab: [facility] [address] [facility] [address] Tel: CULTU RE ----- ----- ----- --- Cultu re resul t (>=3 organ isms prese nt) indic ates possi ble conta minat ion. Repea t cultu re if sympt oms indic ate. Not Available [facility] (Lab) [address] [facility], [place], [address], 08/22/2022 12:02:34 08/21/1908/20/2022 urina lysis , dipst ick Leukocytes neg Not Available [facility] jaron [address], [place], [address], 08/20/2022 14:42:13 08/21/19 23 08/20/2022 urina lysis , dipst ick Nitrite neg Not Available [place] [address], [place], [address], 08/20/2022 14:42:13 08/21/19 23 08/20/2022 urina lysis , dipst ick Urobilinogen neg Not Available [facility] roderick [address], [place], [address], 08/20/2022 14:42:13 08/21/19 23 08/20/2022 urina lysis , dipst ick Protein neg Not Available [place] [address], [place], [address], 08/20/2022 14:42:13 08/21/19 23 08/20/2022 urina lysis , dipst ick pH 5 Not Available [place] [address], [place], [address], 08/20/2022 14:42:13 08/21/19 23 08/20/2022 urina lysis , dipst ick Specific [place] 1.005 Not Available [facility] trish [address], [place], [address], 08/20/2022 14:42:13 08/21/19 23 08/20/2022 urina lysis , dipst ick Ketone neg Not Available [place] [address], [place], [address], 08/20/2022 14:42:13 08/21/19 23 08/20/2022 urina lysis , dipst ick Bilirubin neg Not Available [facility] [address], [place], [address], 08/20/2022 14:42:13 08/21/19 23 08/20/2022 urina lysis , dipst ick Glucose neg Not Available [place] [address], [place], [address], 08/20/2022 14:42:13 08/21/19 23 08/20/2022 urina lysis , dipst ick Appearance clear Not Available [facility] [address], [place], [address], 08/20/2022 14:42:13 08/21/1908/20/2022 urina lysis , dipst ick Color yellow Not Available [place] [address], [place], [address], 08/20/2022 14:42:13 08/21/19 23 08/20/2022 pregn silvana test, urine HCG negati ve Not Available [address], [place], [address], 08/20/2022 14:42:03 10/24/1910/23/2022 VAGIN ITIS/ VAGIN OSIS, DNA PROBE airam sp. detection, direct probe Negati ve negati ve Not Available [facility] (Lab) [address] [facility], [place], [address], 10/24/2022 14:11:57 10/24/19 23 10/23/2022 VAGIN ITIS/ VAGIN OSIS, DNA PROBE gardnerella vag. detection, direct probe Negati ve negati ve Not Available [facility] (Lab) [address] [facility], [place], [address], 10/24/2022 14:11:57 10/24/19 23 10/23/2022 VAGIN ITIS/ VAGIN OSIS, DNA PROBE trichomonas vag. detection, direct probe Negati ve negati ve Not Available [facility] (Lab) [address] [facility], [place], [address], 10/24/2022 14:11:57 10/24/1910/23/2022 HUMAN SEX HORMO NE LIZETH NG GLOBU ANGEL sex hormone binding globulin 33.9 nmole s/L 18.2-1 35.5 Not Available [facility] (Lab) [address] [facility], [place], [address], 10/29/2022 03:29:22 10/24/1910/23/2022 BHCG, QUANT ITATI VE [...] Weeks 8,099 - 58,17 6 Not Available [facility] (Lab) [address] [facility], [place], [address], 10/29/2022 03:29:22 10/24/19 23 10/23/2022 PROGE STERO [...] Trime ster5 8.70- 214.0 0 Not Available [facility] (Lab) [address] [facility], [place], [address], 10/29/2022 03:29:23 10/24/19 23 10/23/2022 PROLA CTIN prolactin, total 10.20 NG/mL 4.79-2 3.30 This assay was perfo rmed using [employer] ratio n reage nts and test kits. Value s obtai santiago with other assay metho ds or kits canno t be used inter [facility] . Not Available [facility] (Lab) [address] [place], [address], 10/29/2022 03:29:23 10/24/19 23 10/23/2022 TSH, REFLE X FREE T4 TSH 1.66 uIU/m L 0.30-5 .33 Not Available [facility] (Lab) [address] [place], [address], 10/29/2022 03:29:23 10/24/19 23 10/23/2022 FSH, LH, ESTRA DIOL estradiol 53.9 pg/mL This assay was perfo rmed using [employer] ratio n reage nts and test kits. Value s obtai santiago with other assay metho ds or kits canno t be used inter [facility] . Femal e Estra diol Range s: Folli cular phase 12.4- 233 pg/mL Ovula tion phase 41.0- 398 pg/mL Lutea l phase 22.3- 341 pg/mL Postm enopa usal< 5-138 pg/mL Healt hy Pregn ant Women 1st Trime ster1 54-32 43 pg/mL 2nd Trime ster1 561-2 1280 pg/mL 3rd Trime ster8 525-> 11243 pg/mL Not Available [facility] (Lab) [address] [place], [address], 10/29/2022 03:29:24 10/24/1910/23/2022 FSH, LH, ESTRA DIOL FSH 7.7 mIU/m L This assay was perfo rmed using [employer] reage nts and test kits. Value s obtai santiago with other assay metho ds or kits canno t be used inter [facility] . Femal es Folli cular : 3.5-1 2.5 mIU/m L Ovula tion: 4.7-2 1.5 mIU/m L Lutea l: 1.7-7 .7 mIU/m L Postm enopa use: 25.8- 134.8 mIU/m L Not Available [facility] (Lab) [address] [facility], [place], [address], 10/29/2022 03:29:24 10/24/19 23 10/23/2022 FSH, LH, [...] use: 7.7-5 8.5 mIU/m L Not Available [facility] (Lab) [address] [facility], [place], [address], 10/29/2022 03:29:24 10/24/19 23 10/23/2022 DHEA SULFA TE DHEA-sulfate 289 ug/dL Femal e Range s Age(y ) Range (ug/d L) 10-15 34-28 0 15-20 65-36 8 20-25 148-4 07 25-35 99-34 0 35-45 61-33 7 45-55 35-25 6 55-65 19-20 5 65-75 9-246 > 75 12-15 4 Not Available [facility] (Lab) [address] [place], [address], 10/29/2022 03:29:24 10/24/19 23 10/23/2022 HEMOG LOBIN [...] >8.0% Actio doug jacques sted Not Available [facility] (Lab) [address] [facility], [place], [address], 10/29/2022 03:29:25 10/24/1910/23/2022 17-OH PROGE STERO NE [...] Diagn ostic s [employer] [facility] [place] . It has not been clear ed or appro david by FDA. This assay has been valid ated pursu ant to the CLIA regul ation s and is used for clini yuniel purpo ses. Perfo rming Organ izati on Infor edgard n: Site ID: [id number] Name: [facility]/Jake nataliya [facility] an Yuri [place] , Addre ss: [id number] [place] [address] Direc tor: Lulu brand MD,Ph D,LUIS F Not Available [facility] (Lab) [address] [facility], [place], [address], 10/29/2022 03:29:25 10/24/1910/23/2022 TESTO STERO NE, FREE( [...] and its jose tical perfo rmanc e sidny cteri stics have been deter mined by [employer]. It has not been clear ed or appro david by the FDA. This assay has been valid ated pursu ant to the CLIA regul ation s and is used for clini yuniel purpo ses. Not Available [facility] (Lab) [address] [facility], [place], [address], 10/29/2022 03:29:25 10/24/19 23 10/23/2022 TESTO STERO NE, FREE( DIALY SIS) AND TOTAL (LC/M S/MS) testosterone , free 7.3 pg/mL 0.1-6. 4 high This test was devel oped and its jose tical perfo rmanc e sindy cteri stics have been deter mined by [employer]. It has not been clear ed or appro david by the FDA. This assay has been valid ated pursu ant to the CLIA regul ation s and is used for clini yuniel purpo ses. Perfo rming Organ izati on Maxi rene doug: Site ID: [id number] Name: [employer]-Jake [facility] Addre ss: [id number] [facility] [place] [address] Direc tor: Tammy mitchell M.D. Not Available [facility] (Lab) [address] [place], [address], 10/29/2022 03:29:25 01/31/2001/30/2023 URINA LYSIS , WITH MICRO SCOPI C, REFLE X CULTU RE color, urine Light Yellow Not Available [facility] (Lab) [address] [facility], [place], [address], 01/31/2023 13:18:03 01/31/20 23 01/30/2023 URINA LYSIS , WITH MICRO SCOPI C, REFLE X CULTU RE clarity, urine Clear Not Available [facility] (Lab) [address] [facility], [place], [address], 01/31/2023 13:18:03 01/31/20 23 01/30/2023 URINA LYSIS , WITH MICRO SCOPI C, REFLE X CULTU RE specific gravity, urine 1.005 . 1.005- 1.035 Not Available [facility] (Lab) [address] [facility], [place], [address], 01/31/2023 13:18:03 01/31/20 23 01/30/2023 URINA LYSIS , WITH MICRO SCOPI C, REFLE X CULTU RE pH, urine 6.5 . 5.0-7. 0 Not Available [facility] (Lab) [address] [facility], [place], [address], 01/31/2023 13:18:03 01/31/20 23 01/30/2023 URINA LYSIS , WITH MICRO SCOPI C, REFLE X CULTU RE protein, UA Negati ve mg/dL negati ve, 10- Not Available [facility] (Lab) [address] [place], [address], 01/31/2023 13:18:03 01/31/20 23 01/30/2023 URINA LYSIS , WITH MICRO SCOPI C, REFLE X CULTU RE glucose, urine Normal mg/dL negati ve Not Available [facility] (Lab) [address] [facility], [place], [address], 01/31/2023 13:18:03 01/31/20 23 01/30/2023 URINA LYSIS , WITH MICRO SCOPI C, REFLE X CULTU RE ketones, urine Negati ve mg/dL negati ve Not Available [facility] (Lab) [address] [facility], [place], [address], 01/31/2023 13:18:03 01/31/20 23 01/30/2023 URINA LYSIS , WITH MICRO SCOPI C, REFLE X CULTU RE bilirubin, urine Negati ve negati ve Not Available [facility] (Lab) [address] [facility], [place], [address], 01/31/2023 13:18:03 01/31/20 23 01/30/2023 URINA LYSIS , WITH MICRO SCOPI C, REFLE X CULTU RE blood, urine Negati ve negati ve Not Available [facility] (Lab) [address] [facility], [place], [address], 01/31/2023 13:18:03 01/31/20 23 01/30/2023 URINA LYSIS , WITH MICRO SCOPI C, REFLE X CULTU RE nitrite, urine Negati ve negati ve Not Available [facility] (Lab) [address] [facility], [place], [address], 01/31/2023 13:18:03 01/31/20 23 01/30/2023 URINA LYSIS , WITH MICRO SCOPI C, REFLE X CULTU RE leukocyte esterase, urine Negati ve cem/u L negati ve Not Available [facility] (Lab) [address] [place], [address], 01/31/2023 13:18:03 01/31/20 23 01/30/2023 URINA LYSIS , WITH MICRO SCOPI C, REFLE X CULTU RE urobilinogen , urine Normal mg/dL normal , <2.0 Not Available [facility] (Lab) [address] [place], [address], 01/31/2023 13:18:03 01/31/20 23 01/30/2023 URINA LYSIS , WITH MICRO SCOPI C, REFLE X CULTU RE RBC, urine 0-2 /hpf none, 0-2 Not Available [facility] (Lab) [address] [place], [address], 01/31/2023 13:18:03 01/31/20 23 01/30/2023 URINA LYSIS , WITH MICRO SCOPI C, REFLE X CULTU RE WBC, urine 0-5 /hpf none, 0-5 Not Available [facility] (Lab) [address] [facility], [place], [address], 01/31/2023 13:18:03 01/31/20 23 01/30/2023 URINA LYSIS , WITH MICRO SCOPI C, REFLE X CULTU RE squamous epithelial cells, urine Few /hpf none abnormal Not Available [facility] (Lab) [address] [facility], [place], [address], 01/31/2023 13:18:03 01/31/20 23 01/30/2023 URINA LYSIS , WITH MICRO SCOPI C, REFLE X CULTU RE bacteria, urine None /hpf none Not Available [facility] (Lab) [address] [facility], [place], [address], 01/31/2023 13:18:03 01/31/20 23 01/30/2023 URINA LYSIS , WITH MICRO SCOPI C, REFLE X CULTU RE hyaline cast, urine None /lpf none, 0-2 Urine Cultu re not perfo rmed per refle x robert col. Not Available [facility] (Lab) [address] [facility], [place], [address], 01/31/2023 13:18:03 01/31/20 23 01/30/2023 CT/GC AND TRICH OMONA S VAGIN MIGUEL (RRNA ), SWAB chlamydia trachomatis, PCR Negati ve negati ve Not Available [facility] (Lab) [address] [facility], [place], [address], 01/31/2023 13:18:04 01/31/20 23 01/30/2023 CT/GC AND TRICH OMONA S VAGIN MIGUEL (RRNA ), SWAB neisseria gonorrhoeae, PCR Negati ve negati ve Not Available [facility] (Lab) [address] [facility], [place], [address], 01/31/2023 13:18:04 01/31/2001/30/2023 CT/GC AND TRICH OMONA S VAGIN MIGUEL (RRNA ), SWAB trichomonas vaginalis ribosomal RNA (rrna) Negati ve negati ve Not Available [facility] (Lab) [address] [facility], [place], [address], 01/31/2023 13:18:04 Result Notes None recorded. Procedures Surgical History Date Name Laterality Status Provider Name and Address Organization Details Recorded Time Date of Last Pap Smear completed Yoly Mcdaniels [facility] 08/20/2022 14:33:56 Imaging Results None [...] Available Vitals Date Recorded Body height Systolic And Diastolic Provider Name and Address Organization Details Last Updated DateTime 08/20/2022 156.21 cm 118/77 mm[Hg] Yoly Mcdaniels [facility] 08/20/2022 14:33:06 Date Recorded Systolic And Diastolic Provider Name and Address Organization Details Last Updated DateTime 10/23/2022 122/81 mm[Hg] Daja Vizcarra, [facility]- [address], [place], [id number], [facility] 10/23/2022 15:37:52 Date Recorded Body height Body mass index (BMI) Body weight Provider Name and Address Organization Details Last Updated DateTime 10/23/2022 156.21 cm 34.8 kg/m2 53701.77 g [facility] 10/23/2022 15:10:47 Date Recorded Body height Body mass index (BMI) Body weight Systolic And Diastolic Provider Name and Address Organization Details Last Updated DateTime 01/30/2023 156.21 cm 34.8 kg/m2 67410.77 g 143/87 mm[Hg] Tara [facility] 01/30/2023 17:04:22 Date Recorded Body height Body mass index (BMI) Body weight Systolic And Diastolic Provider Name and Address Organization Details Last Updated DateTime 02/05/2023 156.21 cm 34.8 kg/m2 87437.77 g 126/83 mm[Hg] Tara [facility] 02/05/2023 12:49:05 Date Recorded Body height Systolic And Diastolic Provider Name and Address Organization Details Last Updated DateTime 02/28/2022 156.21 cm 127/82 mm[Hg] Yoly Mcdaniels [facility] 02/28/2022 14:11:19 Social History Question Answer Notes LastModified by Organizat ion Details LastModified Time Tobacco Smoking Status Never Smoker Yoly Mcdaniels null, [facility] 11/20/2021 15:50:11 Are You Blind [...] not available 11/20/2021 Are you able to walk independently without assistance or assistive devices? YESWOREST Information not available 11/20/2021 Are you able to care for yourself independently? Yes Information not available 11/20/2021 Do you have difficulty dressing, bathing, grooming, or toileting? No Information not available 11/20/2021 What is your exercise level? Occasional Information not available 11/20/2021 Mental Status None recorded. Family History Relationship Description Onset Age of this Age Resolved Age Notes LastModified by Organization Details LastModified Time Mother Malignant neoplasm of colon vschroedter Not available 12/2021 15:49:33 [...] ICD10 Code Diagnosis IMO Codes Diagnosis Note [id number] DEMETRIA Jacobs [facility] [address] [address] 11/20/2021 15:21:15 11/21/2021 18:46:51 Irregular periods 62470373 N92.6 Abnormal u terine bleeding [id number] 9100 N93.9 Records release signed for records [...] review of plan of care Urinary symptoms [id number] 08 R39.9 [id number] Thierry Byers MD [facility] [address] [address] 12/04/2021 11:48:19 12/04/2021 12:58:19 Abnormal uterine bleeding [id number] 9100 N93.9 [id number] Thierry Byers MD [facility] [address] [address] 12/11/2021 11:52:54 12/12/2021 09:32:31 Abnormal uterine bleeding 4382126884 9100 N93.9 This patient is a 41-year-ol [...] follow up with Basilia for ovulation induction considerat ions. [id number] DEMETRIA Jacobs [facility] [address] [address] 02/28/2022 14:02:35 02/28/2022 15:48:32 Vaginitis 98729408 N76.0 Suspect yeast on examVagini tis panel sentSTI endocervic al testing sentRx sent for yeast, R/B of medication discussed and accepted by patient Urinary symptoms 4323053 08 R39.9 UA WNL minus blood from mensesWe discussed blood seen is from her menses and considered WNLPatient request urology referral at this time - referral sent, patient states she would like to be evaluated for bladder cancer and is very concerned about this. Abnormal u terine bleeding [id number] 9100 N93.9 Continue with prometrium course as prescriped by Dr. Byers - she has f/u scheduledE D precaution s discussed Time spent in visit is a total of 30 mins with at least 50% of visit consisting of counseling and review of plan of care. [id number] Светлана Marroquin [facility] [address] [address] 08/20/2022 14:25:02 08/20/2022 15:38:57 Irregular periods 43424510 N92.6 Abdominal pain 74782441 R10.9 This patient is a 42 -year-old [...] sentSTI endocervic al testing sentpelvic u/s scheduled [id number] DEMETRIA Vaz[facility] [address],[place] [address] 10/23/2022 14:52:03 10/23/2022 15:46:29 Abnormal uterine bleeding [id number] 9100 N93.9 Last US wnWe agreed to update labs & will reach [...] counseling and review of plan of care. [id number] Daja Vizcarra [facility] [address],[place] [address] 01/30/2023 16:59:39 01/30/2023 18:19:36 Vaginitis 67707600 N76.0 Suspect BV/Yeast after abx use.Rx sentCounse led on medication R/B's, Most common side effects, & use. All questions were answered to patient satisfacti on. Time spent in visit is a total of 15 mins with at least 50% of visit consisting of counseling and review of plan of care. [id number] Daja Vizcarra [facility] [address],[place] [address] 02/05/2023 12:45:51 02/05/2023 13:01:08 Gynecologic examination 89485076 Z01.419 Suggested Calcium with Vitamin D 1200-1500m g daily. Patient advised to get an annual flu shot in the fall and she could obtain at [facility] or [facility] care clinic. Also to obtain TDap vaccinatio n [...] naRoutine Labs updated 2022 Screening mammography 24 483847 Z12.31 Irregular periods 968304 07 N92.6 Will update US and decide [...] [place] Member ID Guarantor Name 02/17/2024 1 [facility] (MEDICARE) Mary Ann Colon [id number] Mary Ann Colon 03/29/2023 2 [place] [facility] OF PUBLIC AID Mary Ann Colon [id number] Mary Ann Colon Notes Date Note Type Note Provider Name and Address Organization Details Recorded Time 2 text/html 41yo [id number] for evaluation of vaginal itching and burning. [...] for now DEMETRIA Jacobs [address], [place], [address], [facility] 02/28/2022 15:45:28 3 text/html 42yopresents for evaluation of pelvic pressuresymptoms [...] bowel changes DEMETRIA Jacobs [address], [place], [address], [facility] 08/20/2022 15:07:49 3 text/html [place] - Abnormal BleedingReported by PatientHere today with continued complaints of intermenstrual bleeding [...] was reviewed and updated as reported in chart.ROS as noted in the HPI Daja Vizcarra [facility] [address], [place], [address], [facility] 10/23/2022 15:44:00 3 text/html Vaginal/Vulvar ProblemReported by PatientHPIFor associated symptoms, patient reportsvaginal itchingandvaginal irritationbut reportsno vaginal pain,no vulvar itching/irritation,no vulvar swelling/erythema,no vulvar pain,no vulvar lesions,no pelvic pain,no dyspareunia,no dysuria,no fever, andno abdominal pain. For location, patient reportsvagina. For onset/timing, patient reportsafter intercourseandabrupt. For duration, patient reportspresent for 1-7 days. For quality, patient reportsitching,burning, andirritation(+odor and discharge). For severity, patient reportsmoderate. For context, patient reportssexually activeandrecent antibiotic use. For alleviating factors, patient reportsnone. For aggravating factors, patient reportsnone. [facility] [address], [place], [address], [facility] 01/30/2023 18:15:50 3 text/html Annual GYNReported by PatientGenitourinary symptomsFor menstrual cycle, patient reportsirregular cycle intervals. For urinary symptoms, patient reportsno hematuriaandno incontinence. For vulva, patient reportsno genital lesion. For vagina, patient reportsnormal vaginal discharge.Breast symptomsFor breast, patient reportsno breast pain,no breast lump, andno nipple discharge.ContraceptionFo r current contraception, patient reportsbirth control not practiced.Endocrine symptomsFor sexual complaints, patient reportsno sexual complaints,no pain during intercourse, andnormal libido. For menopausal symptoms, patient reportsno menopausal symptomsandnormal vaginal lubrication.Psychological symptomsFor psychological symptoms, patient reportsno depression,no anxiety, andno pmdd.Preventative measuresFor preventive measures, patient reportsencourage self breast examination,encourage regular exercise,encourage no tobacco use,encourage regular mammograms starting age 40,followed with yearly pap smears, andneeds to schedule mammogram. Daja Vizcarra, JAYA- [address], [place], [address], [place] [facility] 02/05/2023 13:01:06 OBGyn Episode Ob Episode Information Episode Created Date Number of Fetuses Patient Bloodtype Patient rh Status Prepregnancy Weight lbs Domestic Partner Domestic Partner Phone Father Name Automotive Maintenance Technician Status 11/21/19 22 1 CLOSED Fetus Data First Name Last Name Admitted to NICU Weight (g) Sex Living Outcome Pediatric Complications Fetus ID Race Codes Race Delivery Type 2664.85 3 M Full Term 33704 V Back Jayjay Calculation Initial Jayjay Date [...] Domestic Partner Domestic Partner Phone Father Name Automotive Maintenance Technician Status 11/21/19 22 1 CLOSED Fetus Data First Name Last Name Admitted to NICU Weight (g) Sex Living Outcome Pediatric Complications Fetus ID Race Codes Race Delivery Type 2664.85 3 M Prematur e 11752 Primary Jayjay Calculation Initial Jayjay Date Initial [...] Domestic Partner Domestic Partner Phone Father Name Automotive Maintenance Technician Status 01/31/20 1 CLOSED Fetus Data First Name Last Name Admitted to NICU Weight (g) Sex Living Outcome Pediatric Complications Fetus ID Race Codes Race Delivery Type Full Term 10413 Vaginal Delivery Jayjay Calculation Initial Jayjay Date [...] Domestic Partner Domestic Partner Phone Father Name Automotive Maintenance Technician Status 01/31/20 23 1 CLOSED Fetus Data First Name Last Name Admitted to NICU Weight (g) Sex Living Outcome Pediatric Complications Fetus ID Race Codes Race Delivery Type Full Term 39325 Vaginal Delivery Jayjay Calculation Initial Jayjay Date [...]
--- OUTSIDE RECORDS SUMMARY | 2025-02-14 20:46 | XMS_ITS | Clinical Summary ---
Author Organization [facility] Address [address] [place] [address] Care Team Providers Care Business Instructor Name Role Phone Sowmya Pichardo MD Primary Care Provider Allergies No known active allergies Medications No known medications Social History Tobacco Use Types Packs/Day Years Used Date Smoking Tobacco: Never Smokeless Tobacco: Never Alcohol Use Standard Drinks/Week Comments Never 0 (1 standard drink = 0.6 oz pur e alcohol) Comments Unknown Sex and Gender Information Value Date Recorded Sex Assigned at Not on file Legal Sex Female 2:05 PM CDT Gender Identity Not on file Sexual Orientation Not on file Last Filed Vital Signs Vital Sign Reading Time Taken Comments Blood Pressure - - Pulse - - Temperature - - Respiratory Rate - - Oxygen Saturation - - Inhaled Oxygen Concentration - - Weight 86.6 kg (191 lb) 05/19/2023 4:20 PM ENGAGEMENT LIAISON Height 156.2 cm (5' 1.5) 05/19/2023 4:20 PM ENGAGEMENT LIAISON Body Mass Index 35.5 05/19/2023 4:20 PM ENGAGEMENT LIAISON Plan of Treatment Health Maintenance Due Date Last Done Comments Annual Physical 1985 Hepatitis C 2000 Hepatitis B Vaccines (1 of 3 - 19+ 3-dose series) 2001 HPV Vaccines (1 - 3-dose SCD M series) 2009 Mammogram Screening 2022 COVID-19 Vaccine (2 - 2024-2 6 season) 2024 11/10/2020 Influenza Adult (#1) 2025 Cervical Cancer Screening Pa p Smear (Age 30 to 64) Every 3 Years 02/05/2026 02/05/2023, 01/30/2023 DTaP, Tdap and Td Vaccines ( 2 - Td or Tdap) 05/12/2027 05/12/2017 Cervical Cancer Screening Pa p with HPV Testing (Age 30 to 64) Every 5 Years 01/31/2028 01/30/2023 Cervical Cancer Screening wi th HPV 01/31/2028 Hepatitis A Vaccines Aged Out No long er eligible based on patient's age to complete this topic Meningococcal B Vaccine Aged Out No l onger eligible based on patient's age to complete this topic Meningococcal Vaccine Aged Out No rk hilary eligible based on patient's age to complete this topic Pneumococcal Vaccine: Pediatrics (0 to 5 Years) and At-Risk Patients (6 to 49 Years) Aged Out No longer eligible b ased on patient's age to complete this topic RSV Immunizations Under 20 Months Aged Out No longer eligible b ased on patient's age to complete this topic Insurance MEDICAID [facility] Care Teams Business Instructor Relationship Specialty Start Date End Date Sowmya Pichardo MD [address] [place] [address] PCP - General SPORTS MEDICINE 12/19/22
--- NOTE | 2025-02-14 20:54 | ECG_ITS ---
Test Date: 2025-02-14 21:01:20 Measurements Intervals [place] Rate: 62 P: 28 [place]: 143 QRS: -12 QRSD: 83 T: 7 QT: 414 QTc: 421 Interpretive Statements SINUS RHYTHM LOW QRS VOLTAGE IN PRECORDIAL LEADS [QRS DEFLECTION < 1.0 mV IN CHEST LEADS] Poor R wave progression Electronically Signed On 02-15-2025 06:37:22 NATIONAL EXPANSION RECRUITER by Merissa Roque M.D.
[2025-02-14 21:12] LABS: Hematocrit 39.5 % (37.0-47.0); Hemoglobin 13.8 g/dL (12.0-15.0); Immature Granulocyte Percent A 0.2 % (0-0.5); Lymphocytes Absolute Auto 2.05 K/mm3 (0.9-3.2); Mean Corpuscular HGB Conc 34.9 g/dl (32-36); Mean Corpuscular Hemoglobin 29.8 pg (26-34); Mean Corpuscular Volume 85.3 fl (80-100); Nucleated Red Blood Cells Absolute Auto 0.000 K/mm3 (0.0-0.012); Nucleated Red Blood Cells Perc 0.0 % (0.0-0.2); Platelet Count Result 259 k/mm3 (150-375); Red Blood Count 4.63 M/mm3 (4.2-5.4); White Blood Count 5.9 K/mm3 (4.5-10.0)
--- NOTE | 2025-02-14 21:19 | PC.NURSE ---
patient refused xray
[2025-02-14 21:23] LABS: Alanine Aminotransferase 16 U/L (6-35); Albumin Level 4.3 g/dL (3.5-5.1); Alkaline Phosphatase 66 U/L (38-126); Anion Gap 5 mmol/L (4-12); Aspartate Amino Transferase 30 U/L (14-36); Bilirubin,Total 0.6 mg/dL (0.2-1.3); Blood Urea Nitrogen 11 mg/dL (7-17); Calcium 8.9 mg/dL (8.4-10.2); Carbon Dioxide 29 mmol/L (22-30); Chloride 100 mmol/L (98-107); Estimated CRCL calculation 86 ml/min; Estimated Glomerular Filt Rate > 60; Glucose 98 mg/dL (65-110); Lipase 157 U/L (23-300); Potassium 3.8 mmol/L (3.4-5.0); Sodium 134 mmol/L (137-145); Total Protein 7.5 g/dL (6.3-8.2)
--- NOTE | 2025-02-14 21:25 | PC.NURSE ---
Patient refusing chest xray stating I know it's not my lungs explained to patient that the xray looks at more than just the lungs, patient still refusing.
[2025-02-14 21:35] LABS: INR 1.0; Partial Thromboplastin Time 26.2 Seconds (22.3-36.8); Prothrombin Time 13.8 Seconds (11.1-14.7); Troponin I < 0.012 ng/mL (0.000-0.034)
--- OUTSIDE RECORDS SUMMARY | 2025-02-14 22:43 | XMS_ITS | Encounter Summary ---
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
--- OUTSIDE RECORDS SUMMARY | 2025-02-14 22:43 | XMS_ITS | Clinical Summary ---
Author Organization [facility] Address [address] [place] [phone] Phone Care Team Providers Care Court Liaison Name Role Phone Unavailable Primary Care Provider Unavailabl e Allergies No known active allergies Medications No known medications Active Problems Problem Noted Date Diagnosed Date Menstrual abnormality 02/13/2025 Assessment & Plan (02/13/2025 10:07 AM BATTER MIXER): Patient presents to discuss 4 years of [...] Description 02/10/2025 11:30 AM CDT Office Visit [facility] [address] [place] [address] Arianna Bentley MD Menstrual abnormality [...] AM CDT Pulse 71 05/27/2024 2:20 PM BATTER MIXER Temperature 36.8 C (98.3 F) 01/08/2021 8:17 PM CDT Respiratory Rate 16 01/08/2021 8:17 PM CDT Oxygen Saturation 98% 05/27/2024 2:20 PM BATTER MIXER Inhaled Oxygen Concentration - - Weight 83.9 kg (185 lb) 02/10/2025 11:24 AM CDT Height 156.2 cm (5' 1.5) 02/10/2025 11:24 AM CD T Body Mass Index 34.39 02/10/2025 11:24 AM CDT Plan of Treatment Upcoming Encounters Date Type Department Care Team (Late st Contact Info) Description 02/23/2025 11:30 AM BATTER MIXER Appointment [facility] Non Invasive Cardiology [address] [place] [address] Peter Herrera MD [address] [facility] [address] [place] [address] 03/03/2025 10:30 AM BATTER MIXER Ancillary Procedure [address] [address] 03/03/2025 11:00 AM BATTER MIXER Office Visit [facility] [address] [address] Arianna Bentley MD [address] [address] Health Maintenance Due Date Last [...] (2 - Td or Tdap) 05/12/2027 Insurance [facility] RX ENVISIONRX Medicare Part D RX [facility] Medicare Part D [facility] Advance Directives For more information, please contact: [phone] * Full Code (Latest Code Status on [...]
--- OUTSIDE RECORDS SUMMARY | 2025-02-14 22:43 | XMS_ITS | Clinical Summary ---
Author Organization [email or web address] Address [address] [place] [address] Care Team Providers Care Radio Journalist Name Role Phone Unavailable Primary Care Provider Unavailabl e Source Comments [email or web address],non-owned Affiliates and Associated Physician Practices is amultiple site organization consisting of ambulatory clinics and hospital sitesin [place], [place], [place]. This disclosure is being madepursuant to the Care Everywhere program and may not contain all information available regarding this patient. Last updated 18.Exmovere Allergies No known active allergies Medications * [...] even without placenta previa. 1. Will notify [facility] colleagues of case to get a [...] from very delivery. Recommendations 1. Evaluation at [facility] to determine candidacy for cervical pessary vs cerclage--encouraged to go for evaluation within 24 hours 1. Staff at [facility] notified 2. Continue vaginal progesterone 3. 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
--- OUTSIDE RECORDS SUMMARY | 2025-02-14 22:43 | XMS_ITS | Clinical Summary ---
Author Organization [address] Address [address] [address] Care Team Providers Care Facility Maintenance Worker Name Role Phone Sowmya Pichardo MD Primary [...] Overview (12/12/2017): [] Co-management vs. [x] Full [facility] Care; Referring Provider: Dr Castro Full transfer [...] [] MOC: [] Method of feeding: [] Market Developer: [] PP Depression Discussed: RTC 2 weeks [...] Overview (01/13/2018): See PPROM in 2014 At [facility] Late care affecting 12/10/2017 12/11/2017 History of 12/10/2017 018 Overview (12/12/2017): History of 3 prior CS. 2 CS then 4 FT followed by 32 week CS via t-incision on the uterus when she presented with PROM, cord prolapse. Significant adhesions present. Op note in records. Performed at [facility]. Discussed the risk of high order [...] Department Care Team Description 01/13/2025 Results Follow-Up [facility] Medical Group Convenient Care at [address] [address] Dorie Colorado NP Vaginitis panel Vaginal, Urine culture Urine, clean voided 01/12/2025 5:30 PM CDT Office Visit [facility] Con[facility]ient Care at [address] [address] Linnette Ventura PA Cystitis without hematuria (Primary Dx); Vaginal itching 01/12/2025 5:11 PM CDT - 01/12/2025 11:59 PM CDT Hospital Encounter [address] [address] Cystitis without hematuria Discharge Disposition: Discharge to [...] on file 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 Regla glabrata/ krusei Not Detected Not Detected [facility] Trichomonas DNA Not Detected Not Detected [facility] Vaginal 01/12/2025 5:11 PM CDT 01/12/2025 8:14 PM CDT Narrative [facility] - 01/12/2025 9:40 PM CDT The CepSunfire Xpert Xpress MVP test detects DNA targets [...] Healthcare Laboratory. [place] MICROBIOLOGY - [facility] ORDERABLES Final Result STEPHANIE [address] Department [place] [address] [place] * Urine culture Urine, clean voided (01/12/2025 5:11 PM CDT) Report Final Report: No growth Comment:Testing performed by : [facility], [address] [place]., [address] Urine, clean voided 01/12/2025 5:11 PM CDT 01/12/2025 10:02 PM CDT Narrative [facility] - 01/14/2025 8:23 AM CDT Testing performed by [facility] Microbiology Laboratory ([phone]) [place] [facility]OLOG[facility] - [facility] ORDERABLES Final Result STEPHANIE LALA [address] Department [place] [address] * (ABNORMAL) POCT urinalysis dipstick (01/12/2025 4:57 PM CDT) Color, Urine, POC Yellow Clarity, ur, POC Clear Clear Glucose, ur, POC Negative Negative Bilirubin, ur, POC Negative Negative Ketones, ur, POC Trace(A) Negative Specific [place] [facility], POC 1.025 1.003 - 1.030 Blood, ur, POC Negative Negative pH, ur, POC 5.5 5.0 - 8.0 Protein, ur, POC Negative Negative Urobilinogen, urine, POC 0.2 0.2 - 1.0 mg/dL Nitrite, ur, POC Negative Negative Leukocytes, ur, POC Trace(A) Negative Lot Number [id number] Urine 01/12/2025 4:57 PM CDT [place] POINT OF CARE TEST ORDER JOSE F Final Result from Last 3 Months Insurance [facility] MEDICARE [place]ID MEDICARE [facility] MEDICARE [place] Care Teams Facility Maintenance Worker Relationship Specialty Start Date End Date Sowmya Pichardo MD PCP - General Family Practice 07/04/22
--- OUTSIDE RECORDS SUMMARY | 2025-02-14 22:44 | XMS_ITS | Clinical Summary ---
Author Organization [facility] Address [address] [place] [address] Care Team Providers Care Baby Registry Sales Consultant Name Role Phone Sowmya Pichardo MD Primary [...] 86.6 kg (191 lb) 05/19/2023 4:20 PM MANAGER SPECIAL EVENTS Height 156.2 cm (5' 1.5) 05/19/2023 4:20 PM MANAGER SPECIAL EVENTS Body Mass Index 35.5 05/19/2023 4:20 PM MANAGER SPECIAL EVENTS Plan of Treatment Health Maintenance Due Date [...] age to complete this topic Insurance MEDICAID [facility] Care Teams Baby Registry Sales Consultant Relationship Specialty Start Date End Date Sowmya Pichardo MD [address] [place] [address] PCP - General SPORTS MEDICINE 12/19/22
--- OUTSIDE RECORDS SUMMARY | 2025-02-14 22:44 | XMS_ITS | Data Portability ---
Author Organization [place] - [facility] Get In, Main Office Address [address] [place] [address] Care Team Providers Care Spinneret Cleaner Name Role Phone NAVJOT KEITH Primary Care Provider [phone] Assessment Encounter Date Assessment Date Assessment LastModified [...] for it. Cont f/u with Psych at [facility] as per schedule. Cont f/u with Gyne [...] Lipids in 10/04. Annual labs in 07/05. [email or web address] Not available 06/27/2022 15:47:17 10/08/2022 10/08/2022 D/w [...] in 2 weeks. Lipids before next visit. [email or web address] Not available 10/08/2022 15:19:49 03/03/2024 03/03/2024 The [...] via phone call to discuss the following: [email or web address] Not available 03/03/2024 15:36:06 Plan of Treatment Reminders Order Date Submit Date Provider Last Modified By Organization Details Last Modified Time Details Appointments None recorded. Lab lipid panel, serum 2023 [facility] (Lab), [address] [place], [address], 4 00:33:18 CMP, serum or plasma 2023 024 [facility] (Lab), [address] [place], [address], 4 00:33:19 glycohemogl obin, total, blood 2023 024 [facility] (Lab), [address] [place], [address], 4 00:33:18 TSH, serum or plasma 2023 024 [facility] (Lab), [address] [place], [address], 4 00:33:18 CBC w/ auto diff 2023 024 [facility] (Lab), [address] [place], [address], 4 00:33:18 vitamin D, 25-hydroxy, total, serum 2023 024 JASS [facility] (Lab), [address] [place], [address], 4 00:33:18 lipid panel, serum 2022 023 [email or web address] [facility] (Lab), [address] [place], [address], 3 14:18:38 lipid panel, serum 2022 023 [email or web address] [facility] (Lab), [address] [place], [address], 3 10:48:22 Referral neurologist referral - Please call patient to schedule an appointment . Thank you. 2023 024 [email or web address] Frederick Dennis MD, 1 [facility], [address] [place] [address], [address], 5 08:50:29 cardiologis t referral - Please call patient to schedule an appointment . Thank you. 2023 024 Estuardo Amezcua MD, [address] [facility] [address], [place], [address], 5 12:40:52 physical therapist referral - Please call pt to schedule 2023 024 [email or web address] 256 [facility], [address], [address], [place], [address], 5 13:53:00 cardiologis t referral 2022 023 [email or web address] [facility] Referral Fax Line, [address] [facility], [address], [place], [address], 3 19:50:06 Procedures None recorded. Surgeries None recorded. Imaging XR, knee, 3 view - Rt knee pain for last few months 2023 024 [email or web address] 256 [facility], [address], [place], [address], 4 08:46:51 XR, forearm, 2 view 2022 023 [email or web address] 256 Not available 3 09:30:34 Medication Orders docusate sodium 250 mg capsule 2023 024 [facility] #11945, [address], [place], [place], [id number], 4 12:28:13 meloxicam 7.5 mg tablet 2023 024 [facility] #96914, [address], [place], [place], [id number], 4 12:26:16 albendazole 200 mg tablet 2023 024 [facility] #53216, [address], [place], [place], [id number], 4 12:26:17 hydroxyzine HCl 25 mg tablet 2023 024 [facility] #32603, [address], [place], [place], [id number], 4 12:26:18 diclofenac sodium 75 mg tablet,ne yed release 2023 024 [facility], [address], [place], [place], [id number], 4 12:09:12 Medrol (Jan) 4 mg tablets in a dose pack 2022 023 [email or web address] [facility], [address], [place], [place], [id number], 4 15:37:34 phentermine 15 mg capsule 2022 023 [facility] #24784, [address] [facility], [place], [place], [id number], 3 15:11:47 ergocalcife rol (vitamin D2) 1,250 mcg (50,000 unit) capsule 2022 023 [facility] #69080, [address] [facility], [place], [place], [id number], 4 12:09:15 Patient TargetsNo targets recorded. Patient Instructions Encounter Date Encounter Id Patient Instructions Last Modified By Organization Details Last Modified Time 06/27/2022 [id number] When You Want to Lose Weight: Care Instructions [email or web address] Not available 06/27/2022 15:47:53 Starting a Weight-Loss Plan: Care Instructions [email or web address] Not available 06/27/2022 15:47:53 high cholesterol : care instructions [email or web address] Not available 06/27/2022 14:51:42 03/03/2024 [id number] Starting a Weight-Loss Plan: Care Instructions [email or web address] Not available 03/03/2024 15:40:29 Due to the COVID -19 (Novel Coronavirus) pandemic, it is within this context (and with the understanding that this method of patient encounter is in the patient s best interest as well as the health and safety of other patients and the public) that [facility] is being provided for this patient encounter rather than a camc-dn-kysu visit. This patient encounter is appropriate at this time. This patient has been advised of the potential risks and limitations of this mode of treatment (including, but not limited to, the absence of in-person examination) and has agreed to be treated in a remote fashion despite these risks. Any and all of the patient s /patient s family s questions on this issue have been answered, and I have made no promises or guarantees to the patient. The patient has also been advised to contact this office for worsening conditions or problems, and seek emergency medical treatment and/or call 911 if the patient deems either necessary. HPI and/or vitals, if listed, were provided by the patient. [email or web address] Not available 03/03/2024 15:32:43 03/17/2024 [id number] dementia rating scale-2* JASS Not available 03/17/2024 15:15:30 multi-dimensiona l health assessment questionnaire* [email or web address] Not available 03/17/2024 14:47:42 INFLUENZA VACCIN E [...] Not available 03/17/2024 15:49:05 Reason for Referral [facility] Referral for Georgie rodriguez history of Cardiovascular disease Referring Physician: Navjot Keith [facility] Medicine, Encounter Date: 10/08/2022 Physical Therapist Referral for Pain of right knee joint Please call pt to schedule Referring Physician: Ella Castellon [facility], Encounter Date: 03/10/2024 Neurologist Referral for Poo r short-term memory Please call patient to schedule an appointment. Thank you. Referring Physician: Ella Castellon [facility], Encounter Date: 03/17/2024 [facility] Referral for Georgie rodriguez history of Cardiovascular disease Please call patient to schedule an appointment. Thank you. Referring Physician: Ella Castellon [facility], Encounter Date: 03/17/2024 Results Created Date Observation Date Name Description Value Unit Range Abnormal Flag Note LastModifiedBy Organization Detail LastModifiedTime 06/18/1906/17/2022 CBC/C OMPLE TE BLD COUNT W/DIF F white blood cells 5.6 x10'3 /uL 4.2-10 .8 Not Available [facility] (Lab) [address] [place], [address], 06/17/2022 19:36:59 06/18/1906/17/2022 CBC/C OMPLE TE BLD COUNT W/DIF F red blood cells 4.92 x10'6 /uL 3.80-5 .20 Not Available [facility] (Lab) [address] [place], [address], 06/17/2022 19:36:59 06/18/19 23 06/17/2022 CBC/C OMPLE TE BLD COUNT W/DIF F hemoglobin 14.1 g/dL 12.0-1 5.6 Not Available [facility] (Lab) [address] [place], [address], 06/17/2022 19:36:59 06/18/19 23 06/17/2022 CBC/C OMPLE TE BLD COUNT W/DIF F hematocrit 41.9 % 35.7-4 5.7 Not Available [facility] (Lab) [address] [place], [address], 06/17/2022 19:36:59 06/18/19 23 06/17/2022 CBC/C OMPLE TE BLD COUNT W/DIF F mean red cell volume 85.2 fL 82.0-9 9.0 Not Available [facility] (Lab) [address] [place], [address], 06/17/2022 19:36:59 06/18/19 23 06/17/2022 CBC/C OMPLE TE BLD COUNT W/DIF F mean red cell hemoglobin 28.7 pg 27.0-3 3.0 Not Available [facility] (Lab) [address] [place], [address], 06/17/2022 19:36:59 06/18/19 23 06/17/2022 CBC/C OMPLE TE BLD COUNT W/DIF F mean RBC HGB concentratio n 33.7 g/dL 31.0-3 6.0 Not Available [facility] (Lab) [address] [place], [address], 06/17/2022 19:36:59 06/18/19 23 06/17/2022 CBC/C OMPLE TE BLD COUNT W/DIF F red cell distribution width 12.4 % 11.8-1 5.5 Not Available [facility] (Lab) [address] [place], [address], 06/17/2022 19:36:59 06/18/19 23 06/17/2022 CBC/C OMPLE TE BLD COUNT W/DIF F platelets 249 x10'3 /uL 150-40 0 Not Available [facility] (Lab) [address] [place], [address], 06/17/2022 19:36:59 06/18/19 23 06/17/2022 CBC/C OMPLE TE BLD COUNT W/DIF F mean platelet volume 10.0 fL 9.0-12 .4 Not Available [facility] (Lab) [address] [place], [address], 06/17/2022 19:36:59 06/18/19 23 06/17/2022 CBC/C OMPLE TE BLD COUNT W/DIF F neutrophils 47.4 % 39.0-7 2.0 Not Available [facility] (Lab) [address] [place], [address], 06/17/2022 19:36:59 06/18/19 23 06/17/2022 CBC/C OMPLE TE BLD COUNT W/DIF F lymphocytes 40.5 % 16.0-4 7.0 Not Available [facility] (Lab) [address] [place], [address], 06/17/2022 19:36:59 06/18/1906/17/2022 CBC/C OMPLE TE BLD COUNT W/DIF F monocytes 9.4 % 5.0-12 .0 Not Available [facility] (Lab) [address] [place], [address], 06/17/2022 19:36:59 06/18/19 23 06/17/2022 CBC/C OMPLE TE BLD COUNT W/DIF F eosinophils 2.0 % 1.0-7. 0 Not Available [facility] (Lab) [address] [place], [address], 06/17/2022 19:36:59 06/18/19 23 06/17/2022 CBC/C OMPLE TE BLD COUNT W/DIF F basophils 0.5 % 0.0-2. 0 Not Available [facility] (Lab) [address] [place], [address], 06/17/2022 19:36:59 06/18/19 23 06/17/2022 CBC/C OMPLE TE BLD COUNT W/DIF F immature granulocytes 0.2 % 0.00-0 .50 Not Available [facility] (Lab) [address] [place], [address], 06/17/2022 19:36:59 06/18/19 23 06/17/2022 CBC/C OMPLE TE BLD COUNT W/DIF F neutrophils, absolute count 2.64 x10'3 /uL 1.5-8. 0 Not Available [facility] (Lab) [address] [place], [address], 06/17/2022 19:36:59 06/18/19 23 06/17/2022 CBC/C OMPLE TE BLD COUNT W/DIF F lymphocytes, absolute count 2.25 x10'3 /uL 1.07-3 .43 Not Available [facility] (Lab) [address] [place], [address], 06/17/2022 19:36:59 06/18/19 23 06/17/2022 CBC/C OMPLE TE BLD COUNT W/DIF F monocytes, absolute count 0.52 x10'3 /uL 0.29-0 .99 Not Available [facility] (Lab) [address] [place], [address], 06/17/2022 19:36:59 06/18/19 23 06/17/2022 CBC/C OMPLE TE BLD COUNT W/DIF F eosinophils, absolute count 0.11 x10'3 /uL 0.02-0 .53 Not Available [facility] (Lab) [address] [place], [address], 06/17/2022 19:36:59 06/18/19 23 06/17/2022 CBC/C OMPLE TE BLD COUNT W/DIF F basophils, absolute count 0.03 x10'3 /uL 0.01-0 .08 Not Available [facility] (Lab) [address] [place], [address], 06/17/2022 19:36:59 06/18/19 23 06/17/2022 CBC/C OMPLE TE BLD COUNT W/DIF F immature granulocytes ,absolute 0.01 x10'3 /uL 0.00-0 .05 Not Available [facility] (Lab) [address] [place], [address], 06/17/2022 19:36:59 06/18/19 23 06/17/2022 CBC/C OMPLE TE BLD COUNT W/DIF F nucleated red blood cells 0.0 % -0 Not Available [facility] (Lab) [address] [place], [address], 06/17/2022 19:36:59 06/18/19 23 06/17/2022 CBC/C OMPLE TE BLD COUNT W/DIF F NRBC# 0.00 x10'3 /uL Not Available [facility] (Lab) [address] [place], [address], 06/17/2022 19:36:59 06/18/19 23 06/17/2022 URINA LYSIS COMPL ETE/I RIS W/RFX color LIGHT- ORANGE abnormal Not Available [facility] (Lab) [address] [place], [address], 06/17/2022 19:41:43 06/18/19 23 06/17/2022 URINA LYSIS COMPL ETE/I RIS W/RFX appear EXTRA TURBID abnormal Not Available [facility] (Lab) [address] [place], [address], 06/17/2022 19:41:43 03/0606/17/2022 URINA LYSIS COMPL ETE/I RIS W/RFX specific gravity 1.018 1.001- 1.030 Not Available [facility] (Lab) [address] [place], [address], 06/17/2022 19:41:43 06/18/19 23 06/17/2022 URINA LYSIS COMPL ETE/I RIS W/RFX pH 6.0 pH_un its 5.0-9. 0 Not Available [facility] (Lab) [address] [place], [address], 06/17/2022 19:41:43 06/18/19 23 06/17/2022 URINA LYSIS COMPL ETE/I RIS W/RFX leukocytes 25 cem/u L negati ve- abnormal Not Available [facility] (Lab) [address] [place], [address], 06/17/2022 19:41:43 06/18/19 23 06/17/2022 URINA LYSIS COMPL ETE/I RIS W/RFX nitrite NEGATI VE negati ve- Not Available [facility] (Lab) [address] [place], [address], 06/17/2022 19:41:43 06/18/19 23 06/17/2022 URINA LYSIS COMPL ETE/I RIS W/RFX protein 30 mg/dL negati ve- abnormal Not Available [facility] (Lab) [address] [place], [address], 06/17/2022 19:41:43 06/18/19 23 06/17/2022 URINA LYSIS COMPL ETE/I RIS W/RFX glucose NORMAL mg/dL normal - Not Available [facility] (Lab) [address] [place], [address], 06/17/2022 19:41:43 06/18/19 23 06/17/2022 URINA LYSIS COMPL ETE/I RIS W/RFX ketones NEGATI VE mg/dL negati ve- Not Available [facility] (Lab) [address] [place], [address], 06/17/2022 19:41:43 06/18/19 23 06/17/2022 URINA LYSIS COMPL ETE/I RIS W/RFX urobilinogen NORMAL mg/dL normal - Not Available [facility] (Lab) [address] [place], [address], 06/17/2022 19:41:43 06/18/19 23 06/17/2022 URINA LYSIS COMPL ETE/I RIS W/RFX bilirubin NEGATI VE mg/dL negati ve- Not Available [facility] (Lab) [address] [place], [address], 06/17/2022 19:41:43 06/18/19 23 06/17/2022 URINA LYSIS COMPL ETE/I RIS W/RFX blood >/=1.0 mg/dL negati ve- abnormal Not Available [facility] (Lab) [address] [place], [address], 06/17/2022 19:41:43 06/18/19 23 06/17/2022 URINA LYSIS COMPL ETE/I RIS W/RFX white blood cells 0-8 /i??h pfi?? 0-8 Not Available [facility] (Lab) [address] [place], [address], 06/17/2022 19:41:43 06/18/19 23 06/17/2022 URINA LYSIS COMPL ETE/I RIS W/RFX red blood cells 0-4 /i??h pfi?? 0-4 Not Available [facility] (Lab) [address] [place], [address], 06/17/2022 19:41:43 06/18/19 23 06/17/2022 URINA LYSIS COMPL ETE/I RIS W/RFX bacteria NONE Not Available [facility] (Lab) [address] [place], [address], 06/17/2022 19:41:43 06/18/19 23 06/17/2022 URINA LYSIS COMPL ETE/I RIS W/RFX mucous OCCASI ONAL /i??l pfi?? abnormal Not Available [facility] (Lab) [address] [place], [address], 06/17/2022 19:41:43 06/18/19 23 06/17/2022 URINA LYSIS COMPL ETE/I RIS W/RFX squamous epithelial PACKED FIELD /i??l pfi?? abnormal Not Available [facility] (Lab) [address] [place], [address], 06/17/2022 19:41:43 06/18/19 23 06/17/2022 COMPR EHENS MOMO METAB OLIC PANEL sodium 138 mmol/ L 137-14 5 Not Available [facility] (Lab) [address] [place], [address], 06/17/2022 20:06:15 06/18/19 23 06/17/2022 COMPR EHENS MOMO METAB OLIC PANEL potassium 4.1 mmol/ L 3.5-5. 1 Not Available [facility] (Lab) [address] [place], [address], 06/17/2022 20:06:15 06/18/19 23 06/17/2022 COMPR EHENS MOMO METAB OLIC PANEL chloride 104 mmol/ L 98-107 Not Available [facility] (Lab) [address] [place], [address], 06/17/2022 20:06:15 06/18/19 23 06/17/2022 COMPR EHENS MOMO METAB OLIC PANEL carbon dioxide 25 mmol/ L 22-30 Not Available [facility] (Lab) [address] [place], [address], 06/17/2022 20:06:15 06/18/19 23 06/17/2022 COMPR EHENS MOMO METAB OLIC PANEL anion gap 13.1 mmol/ L 14-22 low Not Available [facility] (Lab) [address] [place], [address], 06/17/2022 20:06:15 06/18/19 23 06/17/2022 COMPR EHENS MOMO METAB OLIC PANEL glucose 111 mg/dL 70-99 high Not Available [facility] (Lab) [address] [place], [address], 06/17/2022 20:06:15 06/18/19 23 06/17/2022 COMPR EHENS MOMO METAB OLIC PANEL BUN 10 mg/dL 8-19 Not Available [facility] (Lab) [address] [place], [address], 06/17/2022 20:06:15 06/18/19 23 06/17/2022 COMPR EHENS MOMO METAB OLIC PANEL creatinine 0.65 mg/dL 0.66-1 .25 low Not Available [facility] (Lab) [address] [place], [address], 06/17/2022 20:06:15 06/18/19 23 06/17/2022 COMPR EHENS MOMO METAB OLIC PANEL GFR >60 Refer ence Range : Fork ge GFR Healt hy Adult : >60 [...] calcu lator is avail able on the [facility] websi te: https ://ww w.kid alex.o rg/pr ofess ional s/kdo qi/gf r_cal culat or Not Available [facility] (Lab) [address] [place], [address], 06/17/2022 20:06:15 06/18/19 23 06/17/2022 COMPR EHENS MOMO METAB OLIC PANEL alkaline phosphatase 71 U/L 38-126 Not Available [facility] (Lab) [address] [place], [address], 06/17/2022 20:06:15 06/18/19 23 06/17/2022 COMPR EHENS MOMO METAB OLIC PANEL alanine aminotransfe rase 24 U/L 0-35 Not Available [facility] (Lab) [address] [place], [address], 06/17/2022 20:06:15 06/18/19 23 06/17/2022 COMPR EHENS MOMO METAB OLIC PANEL aspartate aminotransfe rase 25 U/L 15-37 Not Available [facility] (Lab) [address] [place], [address], 06/17/2022 20:06:15 06/18/19 23 06/17/2022 COMPR EHENS MOMO METAB OLIC PANEL bilirubin, total 0.70 mg/dL 0.20-1 .30 Not Available [facility] (Lab) [address] [place], [address], 06/17/2022 20:06:15 06/18/19 23 06/17/2022 COMPR EHENS MOMO METAB OLIC PANEL calcium 9.1 mg/dL 8.4-10 .2 Not Available [facility] (Lab) [address] [place], [address], 06/17/2022 20:06:15 06/18/19 23 06/17/2022 COMPR EHENS MOMO METAB OLIC PANEL total protein 7.3 g/dL 6.3-8. 2 Not Available [facility] (Lab) [address] [place], [address], 06/17/2022 20:06:15 06/18/19 23 06/17/2022 COMPR EHENS MOMO METAB OLIC PANEL albumin 4.3 g/dL 3.4-5. 0 Not Available [facility] (Lab) [address] [place], [address], 06/17/2022 20:06:15 06/18/19 23 06/17/2022 COMPR EHENS MOMO METAB OLIC PANEL globulin 3.0 g/dL 2.6-4. 2 Not Available [facility] (Lab) [address] [place], [address], 06/17/2022 20:06:15 06/18/19 23 06/17/2022 COMPR EHENS MOMO METAB OLIC PANEL A/G ratio 1.4 ratio 1.0-2. 0 Not Available [facility] (Lab) [address] [place], [address], 06/17/2022 20:06:15 06/18/19 23 06/17/2022 LIPID PANEL cholesterol 198 mg/dL 140-19 9 [facility] AUGUSTINE NSUS RECOM MENDA TION FOR CITLALY STERO L: ADULT CHILD LOW RISK: <200 <170 BORDE RLINE : <200- 239 ----- HIGH RISK: >240 >200 Not Available [facility] (Lab) [address] [place], [address], 06/17/2022 20:06:20 06/18/19 23 06/17/2022 LIPID PANEL triglyceride s 268 mg/dL 0-150 high [facility] AUGUSTINE NSUS REPOR T RECOM MENDA TION FOR TRIGL YCERI MAR: ADULT CHILD LOW RISK: <150 ----- BODER LINE: 150-1 99 ----- HIGH RISK: >200 ----- Not Available [facility] (Lab) [address] [place], [address], 06/17/2022 20:06:20 06/18/19 23 06/17/2022 LIPID PANEL HDL cholesterol 42 mg/dL 40- Not Available [facility] (Lab) [address] [place], [address], 06/17/2022 20:06:20 06/18/19 23 06/17/2022 LIPID PANEL LDL cholesterol, calculated 102 mg/dL 0-130 [facility] AUGUSTINE NSUS REPOR T RECOM MENDA TIONS FOR LDL: ADULT CHILD LOW RISK <130 <110 (OPTI MAL LDL) <100 ----- BEVERLYDE RLINE : 130-1 59 ----- HIGH RISK: >160 >130 A TRIGL YCERI DE RESUL T >400 INVAL IDATE S THE CALCU LATIO N FOR LDL FRACT IONAT ION - THE LDL RESUL T WILL NOT BE REPOR SAQIB. Not Available [facility] (Lab) [address] [place], [address], 06/17/2022 20:06:20 06/18/19 23 06/17/2022 MAGNE SIUM magnesium 1.9 mg/dL 1.6-2. 3 Not Available [facility] (Lab) [address] [place], [address], 06/17/2022 20:06:21 06/18/19 23 06/17/2022 VITAM IN D 25-HY DROXY vd25oh 30.7 NG/mL 30-100 Vitam in D Statu s: Defic ient: <20 ng/mL Insuf ficie nt: 20-29 ng/mL Suffi cient : 30-10 0 ng/mL Not Available [facility] (Lab) [address] [place], [address], 06/17/2022 20:33:31 06/18/19 23 06/17/2022 TSH W/REF YURI FT4 TSH with reflex free T4 2.460 uIU/m L 0.465- 4.680 Not Available [facility] (Lab) [address] [place], [address], 06/17/2022 20:34:02 06/18/19 23 06/17/2022 HEMOG LOBIN A1C HA1C 5.3 % 4.0-6. 0 Diabe arianne Scree tim Crite kd: <5.7% Consi stent with absen ce of diabe arianne 5.7-6 .4% Consi stent with incre ased risk for diabe arianne (pred iabet es) >OR=6 .5% Consi stent with diabe arianne REFER ENCE: Diabe arianne Care 2016, 39(Boudreaux ppl.1 ):s13 -s22 Not Available [facility] (Lab) [address] [place], [address], 06/17/2022 20:54:32 06/18/19 23 06/17/2022 VITAM IN B12 (LAMONTE CHINTAN ) vb12 781 pg/mL 239-93 1 Not Available [facility] (Lab) [address] [place], [address], 06/17/2022 21:00:36 06/18/19 23 06/18/2022 FOLAT E, SERUM /PLAS MA folate 14.3 NG/mL 2.76-2 0.0 Not Available [facility] (Lab) [address] [place], [address], 06/18/2022 16:36:49 Result Notes None recorded. Problems Name Problem SNOMED Code Status Onset Date Resolution Date Notes Provider Name and Address Organization Details Recorded Time Learning difficult ies 059451110 Active 2017 Not Available [facility] 3 08:57:29 Indigesti on 153490365 Completed 201703/28/2021 Not Available [facility] 3 08:57:29 Anxiety 89496380 Active 2017 Not Available [facility] 3 08:57:29 Break-thr ough bleeding 51240277 Completed 201703/28/2021 Not Available [facility] 3 08:57:29 [id number] Completed 201702/11/2018 Not Available [facility] 3 08:57:29 [id number] Completed 202003/28/2021 Not Available [facility] 3 08:57:29 Intellect ual disabilit y 183622787 Active 2020 Not Available [facility] 3 08:57:28 Allergic contact dermatiti s 095260535 Completed 202003/17/2024 Ella Castellon, EXECUTIVE VP [address] [address], [place], [address] , [facility] [employer] 4 14:40:05 Contracep tion care Active 2020 Not Available [facility] 3 08:57:29 Hypertrig lyceridem ia 269917512 Active 2021 Not Available [facility] 3 08:57:29 Vitamin D deficienc y 65840865 Active 2021 Not Available [facility] 3 08:57:29 Hyperlipi demia 01286354 Active 2021 Not Available [facility] 3 08:57:29 Chronic low back pain 320587678 Active 2021 Not Available [facility] 3 08:57:29 Low back pain 847673884 Active 2021 Not Available [facility] 3 08:57:29 Obesity 281808011 Active 2022 Navjot Keith MD [address], [place], [address] , [employer] 3 16:07:52 Fatigue 50710645 Active 2022 Navjot Keith MD [address], [place], [address] , [employer] 3 16:07:58 Pain of right forearm 341196331 Active 2022 Navjot Keith MD [address], [place], [address] , [employer] 3 15:10:15 Tendiniti s of right elbow 72898003632 931968 Active 2022 Navjot Keith MD [address], [place], [address] , [employer] 3 15:11:03 Family history of Cardiovas cular disease 050279304 Active 2022 Navjot Keith MD [address], [place], [address] , [employer] 3 15:19:49 Pain of right knee joint 70740382589 4100 Active 2023 Navjot Keith MD [address], [place], [address] , [employer] 4 15:37:56 Sprain of knee 70461971 Active 2023 Navjot Keith MD [address], [place], [address] , [employer] 4 15:42:53 Pruritus ani 01180031 Active 2023 ABBY Garza [address], [place], [address] , ID[facility]me 4 12:20:05 Constipat ion 90809650 Active 2023 ABBY Garza [address], [place], [address] , [facility] 12:27:28 Poor short-ter m memory 516856847 Active 2023 ABBY Garza [address], [place], [address] , ID[facility]me 14:47:07 Problem Notes None recorded. Procedures Surgical History Date Name Laterality Status Provider Name and Address Organization Details Recorded Time Medicare Wellness CPT Code, subsequent completed ABBY Garza [address], [place], [address], [facility] 03/17/2024 15:11:59 4 section completed Not Available [facility] 06/12/2022 08:54:41 3 section completed Not Available [facility] 06/12/2022 08:54:41 1 section completed Not Available [facility] 06/12/2022 08:54:41 Imaging Results None recorded. Procedure [...] Not Available Not Available No t Available Wasta (PF) 275 mg/1.1 mL subcutaneou s auto-inject or 11/03 completed Not Available Not Available Not Available Vitals Date Recorded Body height Body mass index (BMI) Body weight Body temperature Heart rate Oxygen saturation Oxygen saturation in Arterial blood by Pulse oximetry Respiratory rate Systolic And Diastolic Provider Name and Address Organization Details Last Updated DateTime 3 160.02 cm 33.8 kg/m2 85861.1 4 g 97.8 [degF] 74 /min 98 % 98 % 16 /min 118/76 mm[Hg] Leslie Maier RN [facility] Get In 3 14:43:18 Date Recorded Body height Body mass index (BMI) Body weight Heart rate Oxygen saturation Oxygen saturation in Arterial blood by Pulse oximetry Respiratory rate Body temperature Systolic And Diastolic Provider Name and Address Organization Details Last Updated DateTime 3 160.02 cm 33.5 kg/m2 73956.9 6 g 80 /min 98 % 98 % 16 /min 97 [degF] 124/84 mm[Hg] Leslie Maier RN [facility] Get In 3 15:05:03 Date Recorded Body weight Body mass index (BMI) Body height Body temperature Heart rate Respiratory rate Oxygen saturation Oxygen saturation in Arterial blood by Pulse oximetry Pain severity - 0-10 verbal numeric rating [Score] - Reported Systolic And Diastolic Provider Name and Address Organization Details Last Updated DateTime 4 62890.4 9 g 33.8 kg/m2 160.02 cm 97.2 [degF] 71 /min 20 /min 97 % 97 % 0 110/74 mm[Hg] Samreen Peng RN [facility] 4 12:13:10 Date Recorded Body height Body mass index (BMI) Body weight Body temperature Heart rate Respiratory rate Oxygen saturation Oxygen saturation in Arterial blood by Pulse oximetry Pain severity - 0-10 verbal numeric rating [Score] - Reported Systolic And Diastolic Provider Name and Address Organization Details Last Updated DateTime 4 160.02 cm 34.1 kg/m2 41342.4 9 g 97.5 [degF] 86 /min 20 /min 97 % 97 % 0 124/84 mm[Hg] Samreen Peng RN [facility] Get In 4 14:29:02 Social History Question Answer Notes LastModified by Organizat ion Details LastModified Time Tobacco Smoking Status Never Smoker Not Available [facility] 06/12/2022 08:54:25 Do You Have An Advance Directive? No [id number] Information not available 06/12/2022 Do You Wear A Helmet When Biking? No MIGRATION.65084 27203 Information not available 06/12/2022 What Is Your Level Of Caffeine Consumption? Moderate MIGRATION.68079 50672 Information not available 06/12/2022 In The 14 Days Before Symptom Onset, Have You Had Close Contact With A Laboratory-confir med COVID-19 While That Case Was Ill? No MIGRATION.51287 66198 Information not available 06/12/2022 In The 14 Days Before Symptom Onset, Have You Had Close Contact With A Person Who Is Under Investigation For COVID-19 While That Person Was Ill? No MIGRATION.06567 72347 Information not available 06/12/2022 What Type Of Diet Are You Following? REGULAR MIGRATION.44973 59274 Information not available 06/12/2022 Which Illicit Or Recreational Drugs Have You Used? None MIGRATION.30013 77785 Information not available 06/12/2022 What Is The Highest Grade Or Level Of School You Have Completed Or The Highest Degree You Have Received? [id number] MIGRATION. 97817 Information not available 06/12/2022 Have There Been Any Changes To Your Family Or Social Situation? No MIGRATION.88450 55132 Information not available 06/12/2022 Are There Any Guns Present In Your Home? No MIGRATION.87026 71391 Information not available 06/12/2022 Do You Use Insect Repellent Routinely? No MIGRATION.71946 20840 Information not available 06/12/2022 Where Do You Live? [place]House MIGRATION.21702 22186 Information not available 06/12/2022 Do You Have A Medical Power Of Mortgage Loan Closer? No MIGRATION.92680 98801 Information not available 06/12/2022 What Was The Date Of Your Most Recent Tobacco Screening? 04/11/2022 MIGRATION.57760 72276 Information not available 06/12/2022 How Many Children Do You Have? 3 Information not available 03/10/2024 Do You Have Any Pets? Yes MIGRATION.09551 37556 Information not available 06/12/2022 What Is Your Relationship Status? Single MIGRATION.62798 18977 Information not available 06/12/2022 Do You Use Your Seat Belt Or Car Seat Routinely? Yes MIGRATION.79294 19438 Information not available 06/12/2022 Do You Have Smoke And Carbon Monoxide Detectors In Your Home? Yes MIGRATION.10760 29562 Information not available 06/12/2022 Are You Passively Exposed To Smoke? No MIGRATION.50640 57758 Information not available 06/12/2022 Are There Any Smokers In Your House? No MIGRATION.70947 20516 Information not available 06/12/2022 Do You Participate In Social Media? No MIGRATION.37210 21454 Information not available 06/12/2022 Do You Use Sunscreen Routinely? No MIGRATION.92461 72603 Information not available 06/12/2022 Has Tobacco Cessation Counseling Been Provided? No MIGRATION.00486 47872 Information not available 06/12/2022 Have You Recently Traveled Abroad? No MIGRATION.43727 39880 Information not available 06/12/2022 Are You Currently In School? No MIGRATION.84659 63932 Information not available 06/12/2022 Do You Have Any Dietary Restrictions? No MIGRATION.15317 46814 Information not available 06/12/2022 Sex: Female Functional Status Question Answer Note LastModified by Organizat ion Details LastModified Time Do you use any illicit or recreational drugs? No MIGRATION.460151 4831 Information not available 06/12/2022 Do you or have you ever used any other forms of tobacco or nicotine? No MIGRATION.585878 9271 Information not available 06/12/2022 Are you currently employed? No Information not available 03/10/2024 Do you or have you ever used e-cigarettes or vape? Never used electronic cigarettes MIGRATION.261233 1656 Information not available 06/12/2022 What is your exercise level? Occasional MIGRATION.801697 3310 Information not available 06/12/2022 Mental Status Question Answer Note LastModified by Organization D etails LastModified Time Do you feel stressed (tense, restless, nervous, or anxious, or unable to sleep at night)? [id number] Information not available 03/10/2024 Family History Relationship Description Onset Age of this Age Resolved Age Notes LastModified by Organization Details LastModified Time Mother Hypertensive disorder [id number] Not available 06/12/2022 08:54:42 Mother Malignant neoplasm of colon MIGRATION.[id number] Not available 06/12/2022 08:54:42 Medical History Condition Response BLINDNESS N RHEUMATIC FEVER N KIDNEY STONES N BLADDER PROBLEMS N MRSA N OTHER # 1 N POLIO N LUNG DISEASE/DISORDER N HISTORY OF DRUG ABUSE N RADIATION / CHEMOTHERAPY N COPD N Other # 2 N BLOOD DISEASES N SURGERY N EAR OR HEARING PROBLEMS N MUMPS N SHINGLES N FEMALE PROBLEMS / INFECTIONS N BOWEL PROBLEMS N DEPRESSION (INCLUDING POST ) Y STROKE/TIA N THYROID DISEASE N ULCERS N [...] INSOMNIA N HIGH CHOLESTEROL / HYPERLIPIDEMIA N EYE PROBLEMS N HYPERTHYROIDISM N EATING DISORDER N EDEMA N CHRONIC PAIN SYNDROME N CONSTIPATION N CAROTID BLOCKAGE N BACK / NECK PROBLEMS N HAVE YOU BEEN HOSPITALIZED OR SEEN IN [facility] ER IN THE PAST YEAR ? N [...] DISORDER N ALZHEIMER'S DISEASE N PAIN N DEMENTIA N HERPES N SEIZURES/EPILEPSY N HEADACHES/MIGRAINES N VASCULAR DISEASE N PACEMAKER N DIZZINESS N HEART DISEASE/HEART PROBLEMS N KIDNEY DISEASE N SCARLET FEVER N MULTIPLE SCLEROSIS N DEVELOPMENTAL OR BEHAVIORAL DISORDERS N MENTAL DISORDER/ILLNESS N CANCER: SPECIFY N CARDIAC ARRHYTHMIA N PNEUMONIA N ATRIAL FIBRILLATION N Gall Stones N PULMONARY EMBOLISM N AUTOIMMUNE DISEASE N [...] Recorded Time Tdap 05/12/2017 completed Not Available [facility] 06/12/2022 09:00:39 Past Encounters Encounter ID Performer Location Encounter Start Date Encounter Closed Date Diagnosis/Indication Diagnosis SNOMED-CT Code Diagnosis ICD10 Code Diagnosis IMO Codes Diagnosis Note [id number] [facility] _ATHENA_M IGRATION_ DEFAULT_1 _1 , 09/04/2020 00:00:00 09/04/2020 16:15:19 [id number] [facility] _ATHENA_M IGRATION_ DEFAULT_1 _1 , 10/12/2020 00:00:00 10/12/2020 14:45:05 [id number] Navjot Keith MD [facility] [address] [address] 03/28/2021 00:00:00 03/28/2021 15:04:55 [id number] Navjot Keith MD [facility] [address] [place] [address] 04/04/2021 00:00:00 04/04/2021 14:11:48 [id number] Navjot Keith MD [facility] [address] [place] [address] 04/17/2021 00:00:00 04/17/2021 12:59:01 [id number] Navojt Keith MD [facility] [address] [place] [address] 10/25/2021 00:00:00 10/25/2021 15:07:23 [id number] Navjot Keith MD [facility] [address] [place] [address] 11/08/2021 00:00:00 11/11/2021 08:09:12 [id number] Navjot Keith MD [facility] [address] [place] [address] 11/15/2021 00:00:00 11/15/2021 15:43:21 [id number] Navjot Keith MD [facility] [address] [place] [address] 03/05/2022 00:00:00 03/05/2022 18:02:14 [id number] Mark Mace MD [facility] Urology [address] [address] 04/11/2022 00:00:00 04/11/2022 13:08:50 [id number] Navjot Keith MD [facility] [address] [place] [address] 06/13/2022 15:51:47 06/13/2022 16:17:24 Adult health examination 415899786 Z00.00 Vitamin D deficiency 347 71440 E55.9 Obesity 291865435 E66.9 Fatigue 16109656 R53.83 [id number] Navjot Keith MD [address] [address] 06/17/2022 12:27:29 06/17/2022 12:52:07 [id number] Navjot Keith MD [address] [address] 06/27/2022 14:33:31 06/27/2022 15:31:50 Hypertriglyceridemia 500732622 E78.2 Hyperlipidemia 51202436 E78.5 Chronic low back pain 27 8795859 M54.50 Intellectu al disability 301601467 F79 Vitamin D deficiency 347 90915 E55.9 Obesity 403803949 E66.9 [id number] Navjot Keith MD [address] [address] 10/08/2022 15:00:22 10/08/2022 15:22:42 Pain of right forearm 692043379 M79.631 Tendinitis of right elbow 0647951223 7258990 M67.823 Family his tory of Cardiovascular disease 746468264 Z82.49 Hyperlipidemia 25548930 E78.5 [id number] Navjot Keith MD [address] [address] 03/03/2024 14:56:38 03/03/2024 15:45:17 Pain of right knee joint 2735308638 23708 M25.561 Obesity 048180731 E66.9 Sprain of knee 97930644 S83.91XA [id number] Navjot Keith MD [address] [address] 03/10/2024 11:55:16 03/10/2024 12:59:10 Pruritus ani 76145715 L29.0 Pain of ri ght knee joint 0252218719 82429 M25.561 Constipation 96030571 K5 9.00 [id number] Navjot Keith MD [address] [place] [address] 03/17/2024 14:22:14 03/17/2024 15:15:12 Adult health examination 070671535 Z00.00 Depression screening 171 969000 Z13.31 Hyperlipidemia 58758034 E78.5 Obesity 244065779 E66.9 Vitamin D deficiency 347 89750 E55.9 Screening for disorder 632780282 Z13.9 Poor short -term memory 208292587 R41.3 Family his tory of Cardiovascular disease 362000117 Z82.49 Health Concerns Section Related Observation LastModified by Organization Detai ls LastModified Time None Recorded Concern Status LastModified by Organization Details LastModified Time None Recorded Advance Directives Directive N: Payers Insurance Date Sequence Insurance Name Policy Number Policy Huston Covered Member ID Huston Member ID Guarantor Name 09/16/2024 1 [facility] (MEDICARE REPLACEMENT HMO) Mary Ann Gage Isaiah [id number] Mary Ann Colon 03/10/2024 2 [facility] Mary Ann S Isaiah [id number] Mary Ann Merari Isaiah 09/16/2024 2 [place] WHEN MEDICARE OR MEDICARE REPLACEMENT PRIMARY) Mary Ann Isaiah [id number] Mary Ann Merari Isaaih Notes Date Note Type Note Provider Name [...] swings/SI/HI. Pt is f/u with Psych at [facility] for this. Navjot Keith MD [address], [place] [address], [place], [address], [place] [facility] 06/27/2022 15:48:03 3 text/html ACV: C/o Rt forearm pain for last 1 week. Pt denies any recent fall/trauma/injury. Denies any other area pain. Pt has FH of CVD and wants to see a Cardio for it. Navjot Keith MD [address], [address], [place], [address], [facility] 10/08/2022 15:22:04 4 text/html Telephone visit.ACV. C/o Rt knee area pain for last few months. Pt is f/u with her Chiropractor for this in the past. Denies any recent fall/trauma/injury. Denies any workman's comp. Denies any other area pain. No other concern. Last visit in 10/04. Navjot Keith MD [address], [place], [address], [facility] 03/03/2024 15:44:02 4 text/html Mary Ann Colon [...] come from overuse. ABBY Garza [address], [place], [address], [employer] 03/10/2024 12:58:22 4 text/html Mary Ann Colon is a 43 year old female patient here today for a MAWV. She has concerns today with her hearing, would like to see [facility] winder and oiler. She still has concerns with her right [...] like annual labs ABBY Garza [address], [place], [address], [facility] 03/17/2024 17:17:26 OBGyn Episode No OBEpisode recorded.
--- NOTE | 2025-02-14 23:35 | ED.CHESTPAIN ---
HPI - Chest Pain General Chief Complaint: Chest Pain Stated Complaint: chest pain Time Seen by Provider: 02/14/25 22:23 Source: patient Mode of arrival: ambulatory Limitations: no limitations History of Present Illness HPI narrative: This is a 44 year old female that presents to the ER for intermittent chest pain. Ongoing throughout the day. No known alleviating or exacerbating factors. Reports the pain is sharp in nature, brief. Denies fever, cough, shortness of breath, abdominal pain, vomiting. Related Data Allergies Allergy/AdvReac Type Severity Reaction Status Date / Time No Known Allergies Allergy Verified 12/30/24 19:51 Review of Systems Review of Systems: All systems reviewed & are unremarkable except as noted in HPI and below PMFSH Past Medical History Medical History Mixed hyperlipidemia Screening cholesterol level Fatigue Near syncope Abdominal pain affecting Abnormal EKG Dyspareunia Amenorrhea Irregular periods Abdominal pain Abdominal hernia URI (upper respiratory infection) Tonsil stone Acute serous otitis media of both ears Anxiety History of 4 possible 5 Bipolar 2 disorder Surgical History Surgical History Previous section 02/20/01 primary c/s 08/09/02 rpt c/s 11/06/13 rpt c/s 4th c/s sometime late 2020/early 2021 Family History Family History Mother Hypertension Family history of colon cancer Social History Social History Smoking status: Never smoker Alcohol intake: never Substance use: never Substance use type: does not use Do You Feel Safe in your Home?: Yes Lack of Transportation: No Lack of Food: Often True Current Housing: Decline to Answer Concerned About Future Housing: Decline to Answer Difficulty Paying Gas/Electric Bills: No Difficulty Paying for Meds: No Currently Unemployed: No Education: Grade School Difficulty w/ Childcare or Family Care: No Living arrangements: with family Additional living arrangements comments: single Occupation/Education: other 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 HEAD: Normocephalic, atraumatic. EYES: EOMI. CHEST: Clear to auscultation. No respiratory distress. No wheezes rales or rhonchi HEART: Regular rate and rhythm. No murmur heard. Normal peripheral pulses. ABDOMEN: Soft, nontender, nondistended, normal active bowel sounds. EXTREMITIES: Normal range of motion. No edema. SKIN: Warm, dry, no rash. NEURO: No focal deficits. Alert and oriented x3. PSYCH: Normal mood and affect Course Vital Signs Vital signs: Vital Signs Temperature 97.5 F L 02/14/25 20:55 Pulse Rate 65 02/14/25 20:55 Respiratory Rate 17 02/14/25 20:55 Blood Pressure 149/78 H 02/14/25 20:55 Pulse Oximetry 100 02/14/25 20:55 Oxygen Delivery Room Air 02/14/25 20:55 Temperature 97.5 F L 02/14/25 20:55 Pulse Rate 62 02/14/25 22:26 Respiratory Rate 13 02/14/25 22:22 Blood Pressure 107/72 02/14/25 22:22 Pulse Oximetry 99 02/14/25 22:27 Oxygen Delivery Room Air 02/14/25 22:27 MDM - Chest Pain MDM Narrative Medical decision making narrative: Patient presents to the ER for intermittent chest pain. Ongoing since earlier today. She is afebrile. Her vitals are stable. CBC without leukocytosis. Hemoglobin is normal. Metabolic panel without concerning findings. EKG without acute ST changes, baseline and 3 hour troponin are negative. PERC criteria negative. She refused a chest x-ray. Her heart score is 1. She is to follow up with PCP. She was given warnings to return to the ER Differential Diagnosis Differential diagnosis: Likely pneumothorax, stable angina, atypical chest pain, costochondritis and other (muscle strain, anxiety, pneumonia) Lab Data Attestation: I reviewed the patient's lab results. 02/14/25 21:04 02/14/25 21:04 Labs: Lab Results 02/14/25 02/15/25 Range/Units 21:04 00:40 WBC 5.9 (4.5-10.0) K/mm3 RBC 4.63 (4.2-5.4) M/mm3 Hgb 13.8 (12.0-15.0) g/dL Hct 39.5 (37.0-47.0) % MCV 85.3 (80-100) fl MCH 29.8 (26-34) pg MCHC 34.9 (32-36) g/dl RDW 12.0 (11.5-14.5) % Plt Count 259 (150-375) k/mm3 MPV 8.9 (7.4-10.4) fl Immature Gran % (Auto) 0.2 (0-0.5) % Neut % (Auto) 53.6 (45.5-73.1) % Lymph % (Auto) 34.9 (18.3-44.2) % Mclean % (Auto) 9.4 H (2.6-8.5) % Eos % (Auto) 1.0 (0-4.4) % Baso % (Auto) 0.9 (0.2-1.2) % Lymph # (Auto) 2.05 (0.9-3.2) K/mm3 Mclean # (Auto) 0.6 (0.1-0.6) K/mm3 Eos # (Auto) 0.1 (0-0.3) K/mm3 Baso # (Auto) 0.1 (0.0-0.1) K/mm3 Abs Immat Gran (auto) 0.01 (0.00-0.031) K/mm3 Absolute Neuts (auto) 3.2 (1.3-6.7) K/mm3 Absolute Nucleated RBC 0.000 (0.0-0.012) K/mm3 Nucleated RBC % 0.0 (0.0-0.2) % PT 13.8 (11.1-14.7) Seconds INR 1.0 APTT 26.2 (22.3-36.8) Seconds Sodium 134 L (137-145) mmol/L Potassium 3.8 (3.4-5.0) mmol/L Chloride 100 (98-107) mmol/L Carbon Dioxide 29 (22-30) mmol/L Anion Gap 5 (4-12) mmol/L BUN 11 (7-17) mg/dL Creatinine 0.73 (0.7-1.0) mg/dL Estim Creat Clear Calc 86 ml/min Estimated GFR > 60 (59 - ) Glucose 98 (65-110) mg/dL Calcium 8.9 (8.4-10.2) mg/dL Total Bilirubin 0.6 (0.2-1.3) mg/dL AST 30 (14-36) U/L ALT 16 (6-35) U/L Alkaline Phosphatase 66 (38-126) U/L Troponin I < 0.012 < 0.012 (0.000-0.034) ng/mL Total Protein 7.5 (6.3-8.2) g/dL Albumin 4.3 (3.5-5.1) g/dL Lipase 157 (23-300) U/L ECG Data EKG #1: ECG completion date: 02/14/25 EKG Interpretation: normal rate, sinus rhythm, no ST changes and normal QT Critical Care Time Critical Care Time Critical Care Time: No Discharge Plan Discharge Clinical Impression: Chest pain Qualifiers: Chest pain type: unspecified Qualified Code(s): R07.9 - Chest pain, unspecified Patient Disposition: Home Condition: Stable Instructions: Chest Pain (ED) Additional Instructions: Return to the emergency department if you experience fever, worsening chest pain, shortness of breath, abdominal pain with nausea and vomiting, or any other symptoms that are concerning to you. Follow up with primary care doctor Patient Language: Azeri Prescriptions: No Action amoxicillin-pot clavulanate 875-125 mg tablet 1 tablet PO Q12H Qty: 14 0RF escitalopram oxalate 5 mg tablet 5 mg PO DAILY Qty: 60 0RF Follow-up/Referrals: PHYSICIAN,ARMED SECURITY PROFESSIONAL [Primary Care Provider, Internal Medicine] Norris Euceda MD [Physician, Family Practice] Quality HEART score for chest pain patients History: slightly suspicious ECG: normal Age: < or = to 45 years Risk factors: 1 or 2 risk factors Troponin: < or = to 1x normal limit Heart score: 1
[2025-02-15 00:02] VITALS: PULSE 64; RESP 18; O2SAT 97
[2025-02-15 00:20] VITALS: PULSE 65; RESP 19; O2SAT 98
--- NOTE | 2025-02-15 00:25 | ECG_ITS ---
Test Date: 2025-02-15 00:29:22 Measurements Intervals [place] Rate: 58 P: 42 NV: 163 QRS: -8 QRSD: 79 T: 11 QT: 430 QTc: 423 Interpretive Statements SINUS BRADYCARDIA LOW QRS VOLTAGE IN PRECORDIAL LEADS [QRS DEFLECTION < 1.0 mV IN CHEST LEADS] Electronically Signed On 02-15-2025 06:37:56 AIRCRAFT STRUCTURAL REPAIRER by Merissa Roque M.D.
[2025-02-15 01:08] LABS: Troponin I < 0.012 ng/mL (0.000-0.034)
== END 2025-02-15 01:30 | disposition home or self-care (01) ==
PROVIDERS: Student in an Organized Health Care Education/Training Program; Emergency Provider Physician Assistant
DX: R07.9 Chest pain, unspecified (principal); R00.1 Bradycardia, unspecified; E78.5 Hyperlipidemia, unspecified; F41.9 Anxiety disorder, unspecified
CPT/HCPCS: 36415; 80053; 83690; 84484; 85025; 85610; 85730; 93005; 99284